=== PATIENT | female | born 1990 | race Caucasian/White ===

== ENCOUNTER → 2017-03-17 | Outpatient (CLI) | payer BC, MEDICAID ==
[~2017-03-17] MED LIST: AMOX500C PO; CELE10TA PO; IBUP800T23 PO; OMEP40CA2 PO; OXYC1TAB23 PO; PERC5TAB6 PO; PRENTAB9 PO
== END ==
LOC: M WUC 17:25
PROVIDERS: ATTEND Advanced Practice Midwife
DX: N91.2 Amenorrhea, unspecified (principal)

== ENCOUNTER → 2017-04-16 | Outpatient (CLI) | payer BC, MEDICAID ==
[2017-04-16 18:31] LABS: HBsAg Prenatal NEGATIVE (NEGATIVE)
[2017-04-16 18:32] LABS: BASO % 0.3 % (0.0-1.0); EOS # 0.1 K/mm3 (0.0-0.50); EOS % 0.9 % (0.0-3.0); HCG, SERUM QUANTITATIVE 44160 MIU/ML; LARGE UNSTAINED CELL # 0.1 K/mm3 (0.0-0.4); LYMPH # 2.3 K/mm3 (1.5-6.5); LYMPH % 16.1 % (24.0-44.0); MEAN CORPUSCULAR HEMOGLOBIN 28.8 pg (27.0-33.0); MEAN CORPUSCULAR VOLUME 87.2 fl (80.0-96.0); MONO # 0.6 K/mm3 (0.0-0.8); MONO % 4.8 % (0.0-5.0); NEUTROPHILS # 10.3 K/mm3 (1.8-7.7); NEUTROPHILS % 76.9 % (36.0-66.0); PLATELET COUNT, AUTOMATED 263 k/mm3 (150-450); RED CELL DISTRIBUTION WIDTH 13.9 % (11.5-14.5); WHITE BLOOD COUNT 13.4 K/mm3 (4.0-10.0)
== END ==
LOC: M SMT 13:33
PROVIDERS: ATTEND Obstetrics & Gynecology
DX: Z36 Encounter for antenatal screening of mother (principal); Z3A.00 Weeks of gestation of pregnancy not specified

== ENCOUNTER → 2017-07-09 | Outpatient (CLI) | payer OTHER, SELFPAY ==
[~2017-07-09] MED LIST changes: +IBUP1TAB7 PO; -IBUP800T23 PO; +PERC5TAB12 PO; -PERC5TAB6 PO
--- NOTE | 2017-07-09 17:33 | REP ---
Clinical: Anatomical evaluation. Comparison: None . Findings: Examination demonstrates a single live intrauterine in variable presentation. motion is identified by technologist. Placenta is noted posterior fundal and grade zero without evidence for placenta previa or abruption. Amniotic fluid volume is normal. Cervix measures 4.2 cm in length and appears closed. No evidence for nuchal cord. Gestational age by LMP 19 weeks 3 days with CALIN 11/30/2017 . Gestational age by current measurements 20 weeks 0 days with CALIN 11/26/2017 . FHR equals 150 beats per minute. BPD 4.7 cm 20 weeks 1 day HC 17.3 cm 19 weeks 6-day AC 15.3 cm 20 weeks 4 days FL 3.1 cm 19 weeks 5 days HL 3.0 20 weeks 0 days HC/AC ratio 1.13 Estimated weight 333 grams ( 73rd percentile). Anatomical assessment demonstrates normal structures including cranium, cavum, diaphragm, stomach, cord insertion/three-vessel cord, bladder, spine, and lower extremities. Limited evaluation of the cord plexus, posterior fossa, facial features, heart/ventricular outflow tracts, kidneys, spine and upper extremities due to positioning. Impression: 1. Single live intrauterine in variable presentation demonstrating appropriate interval growth. 2. Anatomical limitations as described above may warrant reevaluation and follow-up. Signed by Christopher Linares MD 07/09/2017 05:24 P
== END ==
LOC: M RAD 15:53
PROVIDERS: ATTEND Advanced Practice Midwife
DX: Z34.82 Encounter for supervision of other normal pregnancy, second trimester (principal)

== ENCOUNTER → 2017-09-09 | Outpatient (CLI) | payer MEDICAID ==
--- NOTE | 2017-09-09 14:20 | REP ---
OB ULTRASOUND: Real-time sonographic evaluation of the gravid uterus performed. There is a single living intrauterine gestation. Estimated gestational age 28 weeks 2 days, EDC 11/30/2017. Today's measurements indicate appropriate growth. BPD 72 mm = 29 weeks 0 days, 63rd percentile HC 268 mm = 29 weeks 2 days, 70th percentile AC 241 mm = 28 weeks 2 days, 51st percentile Femur length 55 mm = 29 weeks 0 days, 64th percentile HC/AC ratio 1.11 within normal range. Estimated weight 1265 grams, 51st percentile. Cervix is closed and measures 4.3 cm in length. heart rate 147 beats per minute. Amniotic fluid within normal limits, [place] 14.2 within normal range of 9.3-22.9. SEEN/GROSSLY UNREMARKABLE Lateral ventricles Yes Posterior fossa Yes Upper lip Yes Four-chamber heart Yes LVOT Yes RVOT Yes Stomach Yes Cord insertion Yes Three vessel cord Yes Kidneys Yes Bladder Yes Spine No position: Transverse with head toward the maternal right side. Placenta: Posterior and grade 0 with no previa or abruption. Amniotic fluid: Within normal limits. Signed by Jeff Castillo MD 09/09/2017 04:57 P
== END ==
LOC: M SMT 10:21
PROVIDERS: ATTEND Specialist
DX: Z34.82 Encounter for supervision of other normal pregnancy, second trimester (principal); Z3A.28 28 weeks gestation of pregnancy

== ENCOUNTER → 2017-09-30 | Outpatient (CLI) | payer MEDICAID ==
[2017-09-30 13:30] LABS: BASO % 0.2 % (0.0-1.0); EOS # 0.1 10^3/uL (0.0-0.50); EOS % 0.9 % (0.0-3.0); IMMATURE GRANULOCYTE % 0.3 % (0-0); LYMPH # 1.6 10^3/uL (1.5-6.5); LYMPH % 16.1 % (24.0-44.0); MEAN CORPUSCULAR HEMOGLOBIN 27.8 pg (27.0-33.0); MEAN CORPUSCULAR HGB CONC 31.9 g/dl (32.0-36.5); MEAN CORPUSCULAR VOLUME 87.2 fl (80.0-96.0); MONO # 0.6 10^3/uL (0.0-0.8); MONO % 5.6 % (0.0-5.0); NEUTROPHILS # 7.5 10^3/uL (1.8-7.7); NEUTROPHILS % 76.9 % (36.0-66.0); PLATELET COUNT, AUTOMATED 179 10^3/uL (150-450); RED CELL DISTRIBUTION WIDTH 12.3 % (11.5-14.5); WHITE BLOOD COUNT 9.8 10^3/uL (4.0-10.0)
== END ==
LOC: M SMT 09:46
PROVIDERS: ATTEND Advanced Practice Midwife
DX: Z36.89 Encounter for other specified antenatal screening (principal); Z3A.00 Weeks of gestation of pregnancy not specified

== ENCOUNTER 2017-11-23 07:08 | Inpatient (IN) | payer MEDICAID ==
[2017-11-23] MEDS: LR 1,000 ML IV ×4 (08:18→21:56)
[2017-11-23 08:34] LABS: HEMATOCRIT 36.5 % (36.0-47.0); HEMOGLOBIN 11.5 g/dl (12.0-16.0); MEAN CORPUSCULAR HEMOGLOBIN 26.7 pg (27.0-33.0); MEAN CORPUSCULAR HGB CONC 31.5 g/dl (32.0-36.5); MEAN CORPUSCULAR VOLUME 84.9 fl (80.0-96.0); PLATELET COUNT, AUTOMATED 200 10^3/uL (150-450); RED CELL DISTRIBUTION WIDTH 13.3 % (11.5-14.5); WHITE BLOOD COUNT 10.1 10^3/uL (4.0-10.0)
[2017-11-23 08:51] LABS: AMPHETAMINES URINE REFLEX NEGATIVE (NEGATIVE); BARBITURATES URINE REFLEX NEGATIVE (NEGATIVE); BENZODIAZEPINES URINE REFLEX NEGATIVE (NEGATIVE); COCAINE METABOLITE URINE REFLE NEGATIVE (NEGATIVE); METHADONE URINE REFLEX NEGATIVE (NEGATIVE); OPIATES URINE REFLEX NEGATIVE (NEGATIVE); PHENCYCLIDINE URINE REFLEX NEGATIVE (NEGATIVE)
[2017-11-23 08:56] LABS: CANNABINOIDS URINE REFLEX POSITIVE (NEGATIVE)
[2017-11-23] MEDS: PRENATAL VITAMINS CHEWABLE TABLET PO (09:00)
[2017-11-23] MEDS ORDERED: ONDANSETRON 4MG/2ML VIAL (J2405) As Ordered (09:37)
[2017-11-23] MEDS ORDERED: OXYTOCIN INJ 10 UNITS/ML VIAL (J2590) As Ordered (09:37)
[2017-11-23] MEDS ORDERED: MORPHINE PRES-FREE INJ 10 MG/10 ML VIAL (J2274) As Ordered (09:37)
[2017-11-23] MEDS: BICITRA 30ML SOLN UDC PO (10:00)
[2017-11-23] MEDS ORDERED: ONDANSETRON 4MG/2ML VIAL (J2405) IV ×3 (10:16→11:30)
[2017-11-23] MEDS ORDERED: NALBUPHINE HCL 10 MG/ML AMP (J2300) IV ×2 (10:16→11:30)
[2017-11-23] MEDS ORDERED: NALOXONE INJ 0.4 MG/1 ML VIAL (J2310) IV ×2 (10:16)
[2017-11-23] MEDS ORDERED: METOCLOPRAMIDE INJ 10MG/2ML VIAL (J2765) IV (10:16)
[2017-11-23] MEDS ORDERED: ePHEDrine INJ 50 MG/ML VIAL As Ordered (10:32)
[2017-11-23] MEDS ORDERED: PHENYLephrine HCL 500 MCG/5 ML (100MCG/ML) SYRINGE (J2370) As Ordered (10:32)
[2017-11-23] MEDS: OXYTOCIN DRIP 30 UNITS in APPROPRIATE DILUENT 1 EA IV (11:30)
[2017-11-23] MEDS ORDERED: fentaNYL 100 MCG/2 ML INJECTION (J3010) IV (11:30)
[2017-11-23] MEDS ORDERED: KETOROLAC 30 MG/ML VIAL (J1885) IV (11:30)
[2017-11-23] MEDS ORDERED: PERCOCET 5MG/325MG TAB PO (11:30)
[2017-11-23] MEDS: KETOROLAC 30 MG/ML VIAL (J1885) IV ×2 (13:38→19:19)
[2017-11-23] MEDS: PERCOCET 5MG/325MG TAB PO (22:11)
[2017-11-24] MEDS: KETOROLAC 30 MG/ML VIAL (J1885) IV ×2 (01:04→06:53)
[2017-11-24] MEDS: LR 1,000 ML IV (03:16)
[2017-11-24 06:39] LABS: HEMATOCRIT 28.3 % (36.0-47.0); MEAN CORPUSCULAR HGB CONC 31.4 g/dl (32.0-36.5); MEAN CORPUSCULAR VOLUME 85.8 fl (80.0-96.0); PLATELET COUNT, AUTOMATED 136 10^3/uL (150-450); RED CELL DISTRIBUTION WIDTH 13.4 % (11.5-14.5); WHITE BLOOD COUNT 11.1 10^3/uL (4.0-10.0)
[2017-11-24 06:47] LABS: HEMOGLOBIN 8.9 g/dl (12.0-16.0)
[2017-11-24] MEDS: PRENATAL VITAMINS CHEWABLE TABLET PO (09:21)
[2017-11-24] MEDS: PERCOCET 5MG/325MG TAB PO ×3 (09:22→20:25)
[2017-11-24] MEDS: IBUPROFEN 800 MG TAB PO ×2 (12:58→20:24)
[2017-11-24] MEDS: MEASLES,MUMPS,RUBELLA VACCINE INJ (MMR-II) (90707) SC (19:30)
[2017-11-24] MEDS: RHOGAM 300 MCG (1500 IU) INJ (J2790) IM (19:30)
[2017-11-24] MEDS: DOCUSATE SODIUM 100 MG CAP PO (20:23)
[2017-11-25] MEDS: IBUPROFEN 800 MG TAB PO (05:02)
[2017-11-25] MEDS: PRENATAL VITAMINS CHEWABLE TABLET PO (08:26)
[2017-11-25] MEDS: PERCOCET 5MG/325MG TAB PO (08:38)
[2017-11-26 00:06] LABS: Cannabinoid Positive (.); GC Carboxy THC 723 ng/mL (Cutoff=10)
== END 2017-11-25 11:50 | disposition home or self-care (01) | DRG 540 ==
LOC: M LDI 07:08 → M OBS 12:52
PROC: 10D00Z1 Extraction of Products of Conception, Low, Open Approach (ICD-10-PCS; principal; 2017-11-23 09:30)
DX: O34.211 Maternal care for low transverse scar from previous cesarean delivery (principal); Z3A.39 39 weeks gestation of pregnancy; Z37.0 Single live birth

== ENCOUNTER 2018-02-16 08:11 | Day surgery (SDC) | payer SELFPAY ==
[2018-02-16] MEDS ORDERED: LIDOCAINE 1% MDV 20ML VIAL SQ (08:30)
[2018-02-16 08:46] LABS: HEMATOCRIT 38.7 % (36.0-47.0); HEMOGLOBIN 12.3 g/dl (12.0-15.5); MEAN CORPUSCULAR HEMOGLOBIN 26.2 pg (27.0-33.0); MEAN CORPUSCULAR HGB CONC 31.8 g/dl (32.0-36.5); MEAN CORPUSCULAR VOLUME 82.5 fl (80.0-96.0); PLATELET COUNT, AUTOMATED 265 10^3/uL (150-450); RED BLOOD COUNT 4.69 10^6/uL (4.00-5.40); RED CELL DISTRIBUTION WIDTH 14.5 % (11.5-14.5); WHITE BLOOD COUNT 7.3 10^3/uL (4.0-10.0)
[2018-02-16] MEDS ORDERED: MIDAZOLAM INJ 2 MG/2 ML VIAL (J2250) As Ordered (08:50)
[2018-02-16] MEDS ORDERED: LIDOCAINE 2% INJ 100 MG/5 ML SDV (FOR ANES.) As Ordered (08:51)
[2018-02-16] MEDS ORDERED: PROPOFOL 200 MG/20 ML VIAL As Ordered (08:51)
[2018-02-16] MEDS ORDERED: fentaNYL 100 MCG/2 ML INJECTION (J3010) As Ordered ×2 (08:51→11:16)
[2018-02-16] MEDS ORDERED: SUCCINYLCHOLINE 100 MG/5 ML SYRINGE (J0330) As Ordered (08:52)
[2018-02-16] MEDS ORDERED: ROCURONIUM BROMIDE 50 MG/5 ML VIAL As Ordered (08:52)
[2018-02-16] MEDS ORDERED: dexameTHASONE 4 MG/ML 1ML VIAL (J1100) As Ordered (08:57)
[2018-02-16] MEDS ORDERED: ONDANSETRON 4MG/2ML VIAL (J2405) As Ordered ×2 (08:57→11:05)
[2018-02-16 09:06] LABS: CONTROL LINE UCG INT CTR LINE PRESENT; URINE PREG TEST NEGATIVE (NEGATIVE)
[2018-02-16] MEDS: LR 1,000 ML IV (09:11)
[2018-02-16] MEDS: BUPIVACAINE HCL 0.25% 30 ML VIAL As Ordered (09:38)
[2018-02-16] MEDS ORDERED: SCOPOLAMINE 1MG TRANSDERMAL PATCH As Ordered (09:45)
[2018-02-16] MEDS ORDERED: METOCLOPRAMIDE INJ 10MG/2ML VIAL (J2765) As Ordered (10:13)
[2018-02-16] MEDS ORDERED: NEOSTIGMINE 10 MG/10 ML VIAL (J2710) As Ordered (10:33)
[2018-02-16] MEDS ORDERED: GLYCOPYRROLATE INJ 0.2 MG/ML 2 ML VIAL As Ordered (10:33)
[2018-02-16] MEDS ORDERED: KETOROLAC 60 MG/2 ML VIAL (J1885) As Ordered (10:33)
[2018-02-16] MEDS ORDERED: MEPERIDINE INJ 25 MG/ML VIAL (J2175) As Ordered (11:11)
[2018-02-16] MEDS: ONDANSETRON 4MG/2ML VIAL (J2405) IV (11:13)
[2018-02-16] MEDS: MEPERIDINE INJ 25 MG/ML VIAL (J2175) IV ×2 (11:19→11:24)
[2018-02-16] MEDS: fentaNYL 100 MCG/2 ML INJECTION (J3010) IV ×2 (11:27→11:32)
[2018-02-16] MEDS ORDERED: LR 1,000 ML IV ×2 (11:30)
[2018-02-16] MEDS ORDERED: PERCOCET 5MG/325MG TAB PO ×2 (11:30→11:45)
[2018-02-16] MEDS ORDERED: HYDROmorphone HCL 1 MG/ML SYRINGE (J1170) IV (11:30)
[2018-02-16] MEDS: PERCOCET 5MG/325MG TAB PO (12:05)
[2018-02-16] MEDS ORDERED: MORPHINE 4 MG/ML 1ML VIAL/SYRINGE (J2270) As Ordered (12:22)
[2018-02-16] MEDS: MORPHINE 4 MG/ML 1ML VIAL/SYRINGE (J2270) IV (12:28)
[2018-02-16] MEDS ORDERED: diphenhydrAMINE INJ 50MG/ML VIAL (J1200) As Ordered (12:37)
[2018-02-16] MEDS ORDERED: diphenhydrAMINE INJ 50MG/ML VIAL (J1200) IV (13:00)
== END 2018-02-16 14:32 | disposition home or self-care (01) ==
LOC: M SDC 08:11
DX: Z30.2 Encounter for sterilization (principal); K21.9 Gastro-esophageal reflux disease without esophagitis; F41.9 Anxiety disorder, unspecified; Z88.0 Allergy status to penicillin; Z79.899 Other long term (current) drug therapy; F17.210 Nicotine dependence, cigarettes, uncomplicated
CPT/HCPCS: 58671

== ENCOUNTER 2019-04-18 09:22 | Emergency (ER) | payer OTHER, SELFPAY ==
[~2019-04-18] VITALS: Ht 162.6 cm; Wt 92.7 kg
[~2019-04-18 09:22] MED LIST changes: +IBUP-1114 PO
[2019-04-18] MEDS ORDERED: NS 1,000 ML IV ONE (10:45)
[2019-04-18] MEDS ORDERED: ONDANSETRON 4MG/2ML VIAL (J2405) IV ONE (10:45)
[2019-04-18 11:04] LABS: BASO % 0.1 % (0.0-1.0); HEMATOCRIT 42.7 % (36.0-47.0); HEMOGLOBIN 13.6 g/dl (12.0-15.5); LYMPH # 1.5 10^3/uL (1.5-6.5); LYMPH % 9.4 % (24.0-44.0); MEAN CORPUSCULAR HEMOGLOBIN 26.9 pg (27.0-33.0); MEAN CORPUSCULAR HGB CONC 31.9 g/dl (32.0-36.5); MEAN CORPUSCULAR VOLUME 84.6 fl (80.0-96.0); MONO # 0.9 10^3/uL (0.0-0.8); MONO % 5.5 % (0.0-5.0); NEUTROPHILS # 13.4 10^3/uL (1.8-7.7); NEUTROPHILS % 84.6 % (36.0-66.0); PLATELET COUNT, AUTOMATED 288 10^3/uL (150-450); RED BLOOD COUNT 5.05 10^6/uL (4.00-5.40); WHITE BLOOD COUNT 15.9 10^3/uL (4.0-10.0)
[2019-04-18 11:31] LABS: ALT/SGPT 19 U/L (12-78); BILIRUBIN,DIRECT 0.1 MG/DL (0.0-0.2); BILIRUBIN,TOTAL 0.4 MG/DL (0.2-1.0); BLOOD UREA NITROGEN 18 MG/DL (7-18); CALCIUM LEVEL 9.5 MG/DL (8.5-10.1); CARBON DIOXIDE LEVEL 28 MEQ/L (21-32); CHLORIDE LEVEL 107 MEQ/L (98-107); CREATININE FOR GFR 0.66 MG/DL (0.55-1.30); GLOMERULAR FILTRATION RATE > 60.0 (>60); GLUCOSE, FASTING 104 MG/DL (70-100); LIPASE 56 U/L (73-393); POTASSIUM SERUM 3.7 MEQ/L (3.5-5.1); SODIUM LEVEL 141 MEQ/L (136-145); TOTAL PROTEIN 7.7 GM/DL (6.4-8.2)
[2019-04-18] MEDS ORDERED: METOCLOPRAMIDE INJ 10MG/2ML VIAL (J2765) IV ONE (12:30)
[2019-04-18] MEDS ORDERED: KETOROLAC 30 MG/ML VIAL (J1885) IV ONE (12:30)
[2019-04-18] MEDS ORDERED: OMEPRAZOLE 20 MG CAP PO ONE (12:30)
[2019-04-18 14:02] VITALS: BP 140/82
--- NOTE | 2019-04-18 15:43 | ECGEPIP ---
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
== END 2019-04-18 15:13 | disposition left against medical advice (07) ==
LOC: M ED 09:22
DX: R10.84 Generalized abdominal pain (principal); R11.2 Nausea with vomiting, unspecified; D72.829 Elevated white blood cell count, unspecified; Z79.899 Other long term (current) drug therapy; Z88.0 Allergy status to penicillin; Z88.8 Allergy status to other drugs, medicaments and biological substances; F17.210 Nicotine dependence, cigarettes, uncomplicated
CPT/HCPCS: 80048; 80076; 81001; 83690; 85025; 93005; 96361; 96374; 96375; 99284; J1885; J2405; J2765

== ENCOUNTER 2020-04-03 00:47 | Day surgery (SDC) | payer OTHER ==
[2020-04-03] VITALS (8 sets, daily range): BP systolic 122–142; BP diastolic 62–94
[~2020-04-03 00:47] MED LIST changes: +KETOROLAC 30 MG/ML 1ML VIAL IV PRN; -OMEP40CA2 PO; +OMEP40CA97 PO
[2020-04-03] MEDS: LR 1,000 ML IV SCH ×4 (00:57→22:59)
[2020-04-03] MEDS ORDERED: CITA40TA4 PO (01:27)
[2020-04-03] MEDS ORDERED: CALCIUM CARBONATE 500 MG CHEW U/D PO PRN (02:30)
[2020-04-03] MEDS ORDERED: ONDANSETRON 4MG/2ML VIAL IV PRN ×2 (02:30→20:15)
[2020-04-03] MEDS ORDERED: FAMOTIDINE IV BAG 20 MG in IV 1 EA IV ONE (03:00)
[2020-04-03] MEDS: PIPERACILLIN/TAZOBACTAM SOD 3.375 GM in D5W MINI-BAG PLUS 50 ML IV SCH ×3 (04:23→15:06)
[2020-04-03] MEDS: ONDANSETRON 4MG/2ML VIAL IV PRN ×3 (04:25→23:40)
--- NOTE | 2020-04-03 06:00 | HPE ---
DATE OF ADMISSION: 04/03/2020 REASON FOR ADMISSION: Abdominal pain with gallstones, possible acute cholecystitis. HISTORY OF PRESENT ILLNESS: The patient is a pleasant 29-year-old woman who was transferred to my care from the [facility] Emergency Department. The patient reports that she has had for perhaps several years intermittent episodes of abdominal discomfort with some loose stool and vomiting. She reports that this happens perhaps every 3 months or so, although she did have an episode about 2 weeks ago. Her most recent episode started about 2 days ago. She reports that she awakened in the morning and had an urge to have a bowel movement. Had some loose stool and then also noted some epigastric pain shortly thereafter and then developed vomiting, which persisted and she was unable to keep anything down. She has not had any hematemesis, melena, or hematochezia. She has a long history of gastroesophageal reflux and reports that she has this persistent taste of stomach acid in her mouth. When she was seen at [place] about 2 weeks ago, she reportedly had a CT scan that I do not have a report for. There is a note in the transfer record that said the CT scan was negative at that time. During her hospital stay at [place] on the night of the , she was found to have a slight elevation of her white blood cell count to 15,600 with a left shift with 85% neutrophils. Her liver function tests were normal. She had a gallbladder ultrasound that showed multiple gallstones within the gallbladder. The gallbladder was not noted to have a thickened wall, but the orthodontic technician did report that there was tenderness on scanning over the gallbladder. I was contacted by the PA in the emergency department at [place] [facility], and I accepted the patient in transfer for consideration of cholecystectomy. ALLERGIES: Reported in the record to AMOXICILLIN and CLAVULANIC ACID. CURRENT HOME MEDICATIONS: Include only omeprazole 40 mg twice daily and citalopram 40 mg by mouth daily. SURGICAL HISTORY: Significant for removal of her tonsils and adenoids. She has had two sections. She has had surgery for ovarian cysts and has had a tubal ligation. MEDICAL HISTORY: Significant for her recurring episodes of abdominal discomfort and vomiting. She has a history of some anxiety and depression. She has reflux, which has been going on for at least since she was 16. She reports she did have some studies done back when she was a teenager but has not had any recent reevaluation. She does report smoking a couple of cigarettes per day and does use some marijuana. She denies excessive alcohol intake. FAMILY HISTORY: Reveals that her mother and grandmother both have had cholecystectomies for gallstones. REVIEW OF SYSTEMS: The patient denies any chest pain, palpitation, shortness of breath, wheezing, or cough. She has had no melena or hematochezia. Between episodes she feels fine, other than her reflux that is. She denies any dysuria, hematuria, or renal stones. She has no bone or joint issues. She denies any history of deep vein thrombosis (DVT) or pulmonary embolus. PHYSICAL EXAMINATION: The patient is lying quietly in the hospital bed. She does tend to curl up or hold her stomach. She is alert and oriented and seems knowledgeable about her medical history. She is noted to be moderately obese. Skin is warm and dry. Sclerae are anicteric. The neck is supple without mass or bruit. Heart exam shows a regular rhythm at about 60. The lungs are clear to auscultation bilaterally. Abdomen is moderately obese. She does have some bowel sounds present. There is no evident hernia. She does have an old low transverse scar from her sections. There is no tenderness to percussion and no tympany to percussion. On palpation, there is some mild to moderate direct tenderness in the epigastrium slightly to the right of the midline and underneath the medial aspect of the costal margin. No masses appreciated. The extremities are without edema, and she has palpable radial and pedal pulses. Laboratory studies from [place] included a CBC that shows a white count of 16, hemoglobin 14, hematocrit 43, and platelet count 239,000. Differential count shows 85% neutrophils, 9% lymphocytes, and 6% monocytes. Chemistry profile shows normal electrolytes, BUN and creatinine, with a glucose of 95. Total protein is 7.2 with an albumin of 4.6. The liver function tests are normal. Lipase is normal. Urinalysis is normal. Lactic acid is 2.1, which is the top end of the normal range for the lab where this was done. She had an hCG that was negative. She had a gallbladder ultrasound obtained, and I was provided images on a disk and a copy of the report. The images on my review clearly show multiple stones within the gallbladder. The gallbladder wall does not appear definitely thickened. The radiologist reported that based on the report of a sonographic Rodríguez's sign, that the findings were felt to be suspicious for acute cholecystitis. IMPRESSION: The patient is having intermittent episodes of abdominal discomfort with associated vomiting. She has definite gallstones, and on ultrasound today she had some tenderness with scanning of the gallbladder. She does have some mild to moderate direct tenderness in the medial aspect of the right subcostal area still. Her white count was slightly elevated. With all these factors, I think it is quite possible that this represents some mild or early acute cholecystitis. PLAN: The patient will be continued on the Zosyn for antibiotic coverage. She is tentatively scheduled for a laparoscopic cholecystectomy later today, that is April 03. She will have repeat laboratory studies in the morning. At her request, I will let her have a few ice chips to suck on to wet her whistle. Because she is still complaining of some heartburn despite having received Protonix earlier at [place], I will give her a dose of Pepcid and offer her some Tums if she wishes. We will see how she feels in the morning and how her followup labs look. MIKEY
[2020-04-03 08:21] LABS: BASO % 0.2 % (0.0-1.0); EOS % 0.1 % (0.0-3.0); HEMATOCRIT 43.9 % (36.0-47.0); HEMOGLOBIN 14.1 g/dl (12.0-15.5); LYMPH # 1.6 10^3/uL (1.5-5.0); LYMPH % 12.9 % (24.0-44.0); MEAN CORPUSCULAR HEMOGLOBIN 28.5 pg (27.0-33.0); MEAN CORPUSCULAR HGB CONC 32.1 g/dl (32.0-36.5); MEAN CORPUSCULAR VOLUME 88.7 fl (80.0-96.0); MONO # 0.7 10^3/uL (0.0-0.8); MONO % 5.5 % (0.0-5.0); NEUTROPHILS # 10.2 10^3/uL (1.5-8.5); NEUTROPHILS % 80.8 % (36.0-66.0); PLATELET COUNT, AUTOMATED 244 10^3/uL (150-450); RED BLOOD COUNT 4.95 10^6/uL (4.00-5.40); WHITE BLOOD COUNT 12.6 10^3/uL (4.0-10.0)
[2020-04-03 08:51] LABS: ALBUMIN 3.7 GM/DL (3.2-5.2); ALT/SGPT 32 U/L (12-78); BILIRUBIN,TOTAL 0.5 MG/DL (0.2-1.0); BLOOD UREA NITROGEN 11 MG/DL (7-18); CALCIUM LEVEL 8.7 MG/DL (8.5-10.1); CARBON DIOXIDE LEVEL 28 MEQ/L (21-32); CHLORIDE LEVEL 106 MEQ/L (98-107); CREATININE FOR GFR 0.63 MG/DL (0.55-1.30); GLOMERULAR FILTRATION RATE > 60.0 (>60); GLUCOSE, FASTING 101 MG/DL (70-100); POTASSIUM SERUM 4.4 MEQ/L (3.5-5.1); SODIUM LEVEL 140 MEQ/L (136-145); TOTAL PROTEIN 7.3 GM/DL (6.4-8.2)
[2020-04-03] MEDS ORDERED: PANTOPRAZOLE 40MG VIAL (C9113 PER 1) IV SCH (09:00)
[2020-04-03] MEDS: MORPHINE 2 MG/ML 1ML VIAL (J2270) IV PRN (12:20)
--- NOTE | 2020-04-03 15:03 | IPN ---
DATE: 04/03/2020 HISTORY: The patient was admitted last evening as a transfer from [facility], where she presented with 1-1/2 to 2-day history of upper abdominal pain with nausea and vomiting. She had an elevated white blood cell count and was found to have gallstones by ultrasound. Her history was felt to be consistent with acute cholecystitis, and she was started on antibiotics and admitted. She is tentatively scheduled for a laparoscopic cholecystectomy later today. The patient reports that she has continued to have epigastric pain, which she demonstrates by making a fist and holding it over her epigastrium. Vital signs show that her temperature was a maximum of 99.8 at approximately 1 o'clock in the morning. Her pulse has been in the 50s and her blood pressure is good. Intake and output shows that she has had at least one void since admission. PHYSICAL EXAMINATION: The patient is lying on her stomach, as she says it is the only position that seems to improve the pressure in her epigastrium. She is alert and oriented. Her abdomen is soft, but she does have tenderness in the medial aspect of the right subcostal area. Laboratory studies this morning show that her white count remains 13 with 81% neutrophils. Her chemistry profile is normal with the exception of a minimal elevation of the glucose to 101. Liver function tests are normal. IMPRESSION: The patient now is describing discomfort in the epigastrium that sounds very typical for acute cholecystitis. Her white count remains slightly elevated. I counseled her that I would recommend proceeding with a laparoscopic cholecystectomy, and she is agreeable. PLAN: The patient will be having an urgent laparoscopic cholecystectomy later this afternoon. MIKEY
[2020-04-03] MEDS ORDERED: BUPIVACAINE HCL 0.25% 30ML VIAL As Ordered ONE (17:06)
[2020-04-03] MEDS ORDERED: KETOROLAC 60MG 2ML VIAL As Ordered ONE (18:27)
[2020-04-03] MEDS ORDERED: ROCURONIUM BROMIDE 50 MG/5 ML VIAL As Ordered ONE ×2 (18:27→18:50)
[2020-04-03] MEDS ORDERED: ONDANSETRON 4MG/2ML VIAL As Ordered ONE (18:27)
[2020-04-03] MEDS ORDERED: ACETAMINOPHEN 1000MG 100ML IV BTL (OFIRMEV) (J0131 PER 10MG) As Ordered ONE (18:27)
[2020-04-03] MEDS ORDERED: LIDOCAINE 2% 100MG/5ML SDV (FOR ANES.) As Ordered ONE (18:27)
[2020-04-03] MEDS ORDERED: propofoL 200 MG/20 ML VIAL As Ordered ONE (18:27)
[2020-04-03] MEDS ORDERED: SUGAMMADEX SODIUM 500 MG/5 ML VIAL (BRIDION) As Ordered ONE (18:27)
[2020-04-03] MEDS ORDERED: dexameTHASONE 4 MG/ML 1ML VIAL (J1100 PER 1MG) As Ordered ONE (18:27)
[2020-04-03] MEDS ORDERED: fentaNYL 250 MCG/5 ML INJECTION (J3010) As Ordered ONE (18:27)
[2020-04-03] MEDS ORDERED: MIDAZOLAM INJ 2MG/2ML VIAL (J2250 PER 1MG) As Ordered ONE (18:27)
[2020-04-03] MEDS ORDERED: HYDROmorphone HCL 2 MG/ML 1ML VIAL (J1170) As Ordered ONE (18:55)
[2020-04-03] MEDS ORDERED: LABETALOL 100MG/20ML VIAL As Ordered ONE (19:28)
[2020-04-03] MEDS ORDERED: fentaNYL 100 MCG/2 ML INJECTION (J3010) As Ordered ONE (20:14)
[2020-04-03] MEDS ORDERED: oxyCODONE 5MG TAB As Ordered ONE (20:14)
[2020-04-03] MEDS ORDERED: LR 1,000 ML IV SCH (20:15)
[2020-04-03] MEDS ORDERED: ACETAMINOPHEN TAB 650MG DOSE (2X325MG) PO PRN (20:15)
[2020-04-03] MEDS ORDERED: oxyCODONE 5MG TAB PO PRN (20:15)
[2020-04-03] MEDS ORDERED: fentaNYL 100 MCG/2 ML INJECTION (J3010) IV PRN (20:15)
[2020-04-03] MEDS: OMEPRAZOLE 20 MG CAP PO SCH (21:41)
[2020-04-04 00:30] VITALS: BP 144/96
[2020-04-04 01:30] VITALS: BP 146/87
[2020-04-04] MEDS: MORPHINE 2 MG/ML 1ML VIAL (J2270) IV PRN (01:42)
[2020-04-04] MEDS: NORCO, ANEXSIA 5/325MG TABLET (HYDROcodone/ACETAMINOPHEN) PO PRN ×2 (02:15→08:27)
[2020-04-04 06:00] VITALS: BP 145/88
[2020-04-04] MEDS: LR 1,000 ML IV SCH (06:45)
[2020-04-04] MEDS: OMEPRAZOLE 20 MG CAP PO SCH (08:27)
[2020-04-04] MEDS ORDERED: CitaloPRAM (CeleXA) 20 MG TAB PO SCH (09:00)
[2020-04-04 10:00] VITALS: BP 140/81
[2020-04-04] MEDS ORDERED: HYDR-3715 PO (10:07)
--- NOTE | 2020-04-04 16:31 | IPN ---
DATE: 04/04/2020 HISTORY: The patient is now postoperative day #1 from a laparoscopic cholecystectomy. At surgery, her gallbladder did not appear acutely inflamed but was quite distended and firm with multiple stones. When aspirated, there was dark, very thick bile returned. I do think her symptoms were related to her gallbladder, though her gallbladder did not have the typical appearance of acute cholecystitis. Vital signs show that she has been afebrile since surgery. Her pulse in the 50s and her blood pressure is good. Intake and output show that she has been taking liquids very well with 1200 recorded in so far. Interestingly, her intravenous (IV) has not been saline locked, though there is an order to do so. PHYSICAL EXAMINATION: The patient reports some soreness only. She has no nausea or vomiting. She has been tolerating liquids well and voiding without difficulty. Physical exam shows that the abdomen remains obese. Her dressings are clean and dry. She has bowel sounds present. The abdomen is without any undue tenderness. IMPRESSION: The patient is doing very well, now postoperative day #1 from her laparoscopic cholecystectomy. PLAN: The patient will be discharged today. She has taken one or two [place] tablets and one dose of morphine postoperatively. We discussed pain management, and she will try to get by with Tylenol or ibuprofen. I will send in a prescription for 10 Vicodin tablets that she can have available if she needs them. She was counseled that she should probably avoid highly greasy foods for the first while, while she sees how her system will tolerate these. She was advised to avoid any strenuous activity or heavy lifting for the first 2 weeks. She can shower 24 hours after surgery and take a bath 5 days after. I have asked her to schedule an appointment in approximately 10 days for followup in the office. She should call the office if she notes any problems with fevers or chills, increasing abdominal pain, or evidence of an infection. She had an opportunity to ask questions, and these were answered to the best of my ability.
--- NOTE | 2020-04-09 13:26 | RO ---
DATE OF PROCEDURE: 04/03/2020 PREOPERATIVE DIAGNOSIS: Cholelithiasis with acute cholecystitis. POSTOPERATIVE DIAGNOSIS: Cholelithiasis with acute cholecystitis. PROCEDURE: Laparoscopic cholecystectomy. SURGEON: Dr. Uri Spencer POST DOCTORAL FELLOW: ANESTHESIA: General. INDICATIONS FOR PROCEDURE: The patient is a 29-year-old woman who presented to the [facility] emergency department with a day and half history of epigastric abdominal pain with nausea and vomiting. She was found to have tenderness in the epigastrium with a mildly to moderately elevated white blood cell count. An ultrasound showed multiple gallstones. She was felt to have acute cholecystitis and was transferred to my care. She is now for a laparoscopic cholecystectomy. OPERATIVE PROCEDURE: The patient was brought to the operating room and placed on the table in a supine position. She was placed under general endotracheal anesthesia. The patient's abdomen was prepped and draped in a sterile fashion. 0.25% Marcaine was infiltrated at the trocar sites as needed. A short supraumbilical midline incision was made and deepened through the subcutaneous tissues to the fascia. A Veress needle was inserted and after a positive hanging drop test the abdomen was inflated with carbon dioxide gas. When the abdomen was inflated, the Veress needle was removed. The fascia was scored along the midline and an 11 mm port was placed over a 5 mm scope and advanced through the abdominal wall without difficulty. Initial examination showed a normal appearing liver. There was abundant omental fat. A portion of the stomach was seen and appeared normal. The gallbladder was not visible. A 5 mm port was placed in the left upper quadrant and two 5 mm ports were placed in the right upper quadrant. The patient was tilted to a reverse Trendelenburg position and rolled slightly to the left. Graspers were inserted. The edge of the liver was elevated and a distended gallbladder was identified. It was impossible to grasp this securely so the gallbladder was aspirated with an aspirating needle. This yielded a large amount of very thick, dark bile. The gallbladder did not appear particularly thick walled or inflamed. The gallbladder was elevated. A few adhesions to the gallbladder were lysed with the cautery. Dissection then began at the gallbladder neck. There did appear to be some mild inflammation around the gallbladder neck. The cystic duct was dissected free from surrounding structures and was doubly clipped with hemoclips and divided. The cholecystic artery was then identified and this was also doubly clipped and divided. The gallbladder was then dissected free from the gallbladder bed using cautery dissection. The gallbladder was not perforated in the course of dissection. A second branch of the cholecystic artery was identified lying in bed of the gallbladder and this had been cauterized, but I elected to place a clip on this as well. The gallbladder was placed in an Endopouch. The right upper quadrant was irrigated and inspected and there was no evidence of bleeding or bile leak. The patient was returned to a flat position. The abdomen was deflated and the trocars were removed. The gallbladder was delivered through the supraumbilical site. It was necessary to extend the fascial incision slightly to accomplish this. There were multiple stones palpable within the gallbladder. This was sent for permanent pathology. The fascia was then exposed and the opening was closed with interrupted simple sutures of #2-0 Vicryl. The subcutaneous tissues were approximated with a single #2-0 Vicryl and the skin incisions were then all closed with buried #4-0 Vicryl and Steri-Strips. Light dressings were applied. The patient tolerated the procedure well without apparent complication. The patient was awakened in the operating room, extubated and moved to the recovery room in stable condition.
== END 2020-04-04 11:55 | disposition home or self-care (01) ==
LOC: M SDC 00:47 → M MS5PR 00:48 → M SDC 04-04 11:55
PROVIDERS: ATTEND Surgery
DX: K80.10 Calculus of gallbladder with chronic cholecystitis without obstruction (principal); F17.218 Nicotine dependence, cigarettes, with other nicotine-induced disorders; Z88.0 Allergy status to penicillin; Z88.8 Allergy status to other drugs, medicaments and biological substances
CPT/HCPCS: 36415; 47562; 80053; 85025; 87486; 87581; 87633; 87798; 88304; 96361; 96365; 96366; 96367; 96375; 96376; C9113; J0131; J1100; J1170; J1885; J2250; J2270; J2405; J2543; J3010

== ENCOUNTER 2020-04-08 11:13 | Emergency (ER) | payer OTHER ==
[~2020-04-08] VITALS: Ht 162.6 cm; Wt 100.1 kg
[~2020-04-08 11:13] MED LIST changes: +CITA40TA4 PO; +HYDR-3715 PO; -KETOROLAC 30 MG/ML 1ML VIAL IV PRN
[2020-04-08 11:45] LABS: BASO % 0.2 % (0.0-1.0); EOS # 0.1 10^3/uL (0.0-0.5); EOS % 0.5 % (0.0-3.0); HEMATOCRIT 42.5 % (36.0-47.0); HEMOGLOBIN 13.4 g/dl (12.0-15.5); LYMPH % 9.4 % (24.0-44.0); MEAN CORPUSCULAR HEMOGLOBIN 28.3 pg (27.0-33.0); MEAN CORPUSCULAR HGB CONC 31.5 g/dl (32.0-36.5); MEAN CORPUSCULAR VOLUME 89.7 fl (80.0-96.0); MONO # 0.3 10^3/uL (0.0-0.8); NEUTROPHILS # 9.5 10^3/uL (1.5-8.5); NEUTROPHILS % 86.5 % (36.0-66.0); PLATELET COUNT, AUTOMATED 236 10^3/uL (150-450); RED BLOOD COUNT 4.74 10^6/uL (4.00-5.40); WHITE BLOOD COUNT 10.9 10^3/uL (4.0-10.0)
[2020-04-08] MEDS ORDERED: NS 1,000 ML IV ONE (12:00)
[2020-04-08] MEDS ORDERED: ONDANSETRON 4MG/2ML VIAL IV ONE (12:00)
[2020-04-08 12:09] LABS: ALBUMIN 3.6 GM/DL (3.2-5.2); ALT/SGPT 31 U/L (12-78); BILIRUBIN,DIRECT 0.1 MG/DL (0.0-0.2); BILIRUBIN,TOTAL 0.2 MG/DL (0.2-1.0); BLOOD UREA NITROGEN 17 MG/DL (7-18); CARBON DIOXIDE LEVEL 30 MEQ/L (21-32); CHLORIDE LEVEL 106 MEQ/L (98-107); CREATININE FOR GFR 0.61 MG/DL (0.55-1.30); GLOMERULAR FILTRATION RATE > 60.0 (>60); GLUCOSE, FASTING 135 MG/DL (70-100); LIPASE 157 U/L (73-393); POTASSIUM SERUM 4.3 MEQ/L (3.5-5.1); SODIUM LEVEL 140 MEQ/L (136-145); TOTAL PROTEIN 6.9 GM/DL (6.4-8.2)
[2020-04-08] MEDS ORDERED: KETOROLAC 30 MG/ML 1ML VIAL IV ONE (12:15)
[2020-04-08 12:18] LABS: HCG, SERUM QUALITATIVE NEGATIVE (NEGATIVE)
[2020-04-08] MEDS ORDERED: ISOVUE-370 76% 100ML VIAL As Ordered ONE (13:13)
[2020-04-08] MEDS ORDERED: HALOPERIDOL 5MG/ML VIAL (J1630 PER 1) IV ONE (14:00)
--- NOTE | 2020-04-08 14:10 | REP ---
Clinical: Acute abdominal pain. Recent cholecystectomy. Technique: Axial contrast enhanced images from the lung bases to the pubic symphysis with coronal and sagittal re-formations using 100 ml Isovue 370 intravenous contrast material. Comparison: None. Findings: Lung bases are clear. Visualized heart and pericardium normal. Liver, pancreas, bilateral adrenal glands and kidneys are normal. Spleen includes few scattered hypodensities measuring up to 2 cm and compatible with benign cysts. Evidence of prior cholecystectomy, and no perihepatic fluid or inflammatory stranding is appreciated. The enteric system is without obstruction or acute inflammatory process normal terminal ileum and appendix are identified in the right lower quadrant. Pelvis demonstrates normal bladder and age-appropriate uterus/adnexa. No ascites. No free air. No adenopathy. Abdominal aorta and vasculature without aneurysm or dissection. Musculoskeletal structures are intact. Impression: 1. Evidence of prior cholecystectomy without abnormal fluid collection, perihepatic fluid or stranding, and no evidence for intrahepatic biliary dilatation. 2. Few small splenic hypodensities up to 2 cm most compatible with benign cysts. 3. No acute abdominopelvic pathology appreciated. Electronically Signed by Christopher Linares MD 04/08/2020 02:02 P
[2020-04-08 14:13] LABS: AMPHETAMINES LEVEL URINE NEGATIVE (NEGATIVE); BARBITURATES URINE NEGATIVE (NEGATIVE); BENZODIAZEPINES URINE NEGATIVE (NEGATIVE); CANNABINOIDS URINE POSITIVE (NEGATIVE); COCAINE METABOLITE URINE NEGATIVE (NEGATIVE); METHADONE URINE NEGATIVE (NEGATIVE); OPIATES URINE NEGATIVE (NEGATIVE); PHENCYCLIDINE URINE NEGATIVE (NEGATIVE)
[2020-04-08 14:31] VITALS: BP 166/90
== END 2020-04-08 14:45 | disposition home or self-care (01) ==
LOC: M ED 11:13
DX: R10.9 Unspecified abdominal pain (principal); G43.A0 Cyclical vomiting, in migraine, not intractable; F41.9 Anxiety disorder, unspecified; K21.9 Gastro-esophageal reflux disease without esophagitis; Z79.899 Other long term (current) drug therapy; Z88.0 Allergy status to penicillin; Z88.8 Allergy status to other drugs, medicaments and biological substances; F17.210 Nicotine dependence, cigarettes, uncomplicated
CPT/HCPCS: 74177; 80048; 80076; 80307; 81001; 83690; 84703; 85025; 96361; 96374; 96375; 99284; J1630; J1885; J2405; Q9967

== ENCOUNTER 2020-04-15 01:30 | Emergency (ER) | payer OTHER ==
[~2020-04-15] VITALS: Ht 162.6 cm; Wt 100.0 kg
[2020-04-15 02:39] LABS: HEMATOCRIT 40.3 % (36.0-47.0); HEMOGLOBIN 12.6 g/dl (12.0-15.5); MEAN CORPUSCULAR HEMOGLOBIN 28.2 pg (27.0-33.0); MEAN CORPUSCULAR HGB CONC 31.3 g/dl (32.0-36.5); MEAN CORPUSCULAR VOLUME 90.2 fl (80.0-96.0); PLATELET COUNT, AUTOMATED 239 10^3/uL (150-450); RED BLOOD COUNT 4.47 10^6/uL (4.00-5.40); WHITE BLOOD COUNT 10.7 10^3/uL (4.0-10.0)
[2020-04-15 03:02] LABS: HCG, SERUM QUALITATIVE NEGATIVE (NEGATIVE)
[2020-04-15 03:13] LABS: AMPHETAMINES LEVEL URINE NEGATIVE (NEGATIVE); BARBITURATES URINE NEGATIVE (NEGATIVE); BENZODIAZEPINES URINE NEGATIVE (NEGATIVE); CANNABINOIDS URINE POSITIVE (NEGATIVE); COCAINE METABOLITE URINE NEGATIVE (NEGATIVE); METHADONE URINE NEGATIVE (NEGATIVE); OPIATES URINE NEGATIVE (NEGATIVE); PHENCYCLIDINE URINE NEGATIVE (NEGATIVE)
[2020-04-15 03:23] LABS: ACETAMINOPHEN LEVEL < 2.0 UG/ML (10.0-30.0); ALBUMIN 3.3 GM/DL (3.2-5.2); ALT/SGPT 28 U/L (12-78); BILIRUBIN,DIRECT < 0.1 MG/DL (0.0-0.2); BILIRUBIN,TOTAL 0.3 MG/DL (0.2-1.0); BLOOD UREA NITROGEN 10 MG/DL (7-18); CALCIUM LEVEL 8.6 MG/DL (8.5-10.1); CARBON DIOXIDE LEVEL 29 MEQ/L (21-32); CHLORIDE LEVEL 105 MEQ/L (98-107); CREATININE FOR GFR 0.84 MG/DL (0.55-1.30); ETHYL ALCOHOL (ETHANOL) < 0.003 % (0.000-0.010); GLOMERULAR FILTRATION RATE > 60.0 (>60); GLUCOSE, FASTING 110 MG/DL (70-100); POTASSIUM SERUM 3.6 MEQ/L (3.5-5.1); SALICYLATE LEVEL 1.9 MG/DL (5.0-30.0); SODIUM LEVEL 142 MEQ/L (136-145); TOTAL PROTEIN 6.7 GM/DL (6.4-8.2)
[2020-04-15 07:42] VITALS: BP 143/83
== END 2020-04-15 07:35 | disposition home or self-care (01) ==
LOC: M ED 01:30
DX: F43.0 Acute stress reaction (principal); F12.10 Cannabis abuse, uncomplicated; F23 Brief psychotic disorder; F41.9 Anxiety disorder, unspecified; K21.9 Gastro-esophageal reflux disease without esophagitis; Z79.899 Other long term (current) drug therapy; Z88.0 Allergy status to penicillin; Z88.8 Allergy status to other drugs, medicaments and biological substances; F17.210 Nicotine dependence, cigarettes, uncomplicated
CPT/HCPCS: 36415; 80048; 80076; 80307; 84443; 84703; 85027; 99284; G0480

== ENCOUNTER 2020-04-15 14:25 | Emergency (ER) | payer BC, MEDICAID, OTHER ==
[~2020-04-15] VITALS: Ht 162.6 cm; Wt 99.6 kg
[2020-04-15 15:45] LABS: HEMATOCRIT 41.8 % (36.0-47.0); MEAN CORPUSCULAR HGB CONC 31.1 g/dl (32.0-36.5); MEAN CORPUSCULAR VOLUME 90.1 fl (80.0-96.0); PLATELET COUNT, AUTOMATED 257 10^3/uL (150-450); RED BLOOD COUNT 4.64 10^6/uL (4.00-5.40); WHITE BLOOD COUNT 9.4 10^3/uL (4.0-10.0)
[2020-04-15 16:05] LABS: AMPHETAMINES LEVEL URINE NEGATIVE (NEGATIVE); BARBITURATES URINE NEGATIVE (NEGATIVE); BENZODIAZEPINES URINE NEGATIVE (NEGATIVE); CANNABINOIDS URINE POSITIVE (NEGATIVE); COCAINE METABOLITE URINE NEGATIVE (NEGATIVE); METHADONE URINE NEGATIVE (NEGATIVE); OPIATES URINE NEGATIVE (NEGATIVE); PHENCYCLIDINE URINE NEGATIVE (NEGATIVE)
[2020-04-15 16:08] LABS: HCG, SERUM QUALITATIVE NEGATIVE (NEGATIVE)
[2020-04-15 16:16] LABS: ACETAMINOPHEN LEVEL < 2.0 UG/ML (10.0-30.0); ALBUMIN 3.8 GM/DL (3.2-5.2); ALT/SGPT 29 U/L (12-78); BILIRUBIN,DIRECT < 0.1 MG/DL (0.0-0.2); BILIRUBIN,TOTAL 0.3 MG/DL (0.2-1.0); BLOOD UREA NITROGEN 7 MG/DL (7-18); CALCIUM LEVEL 9.5 MG/DL (8.5-10.1); CARBON DIOXIDE LEVEL 29 MEQ/L (21-32); CHLORIDE LEVEL 105 MEQ/L (98-107); CREATININE FOR GFR 0.73 MG/DL (0.55-1.30); ETHYL ALCOHOL (ETHANOL) < 0.003 % (0.000-0.010); GLOMERULAR FILTRATION RATE > 60.0 (>60); GLUCOSE, FASTING 88 MG/DL (70-100); POTASSIUM SERUM 3.7 MEQ/L (3.5-5.1); SALICYLATE LEVEL 2.7 MG/DL (5.0-30.0); SODIUM LEVEL 139 MEQ/L (136-145); TOTAL PROTEIN 7.2 GM/DL (6.4-8.2)
[2020-04-15] MEDS ORDERED: LORazepam 1 MG TAB PO STA (17:12)
[2020-04-15] MEDS ORDERED: LORazepam 1 MG TAB As Ordered ONE (17:14)
--- NOTE | 2020-04-15 21:07 | ECGEPIP ---
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
--- NOTE | 2020-04-15 23:37 | REP ---
CT BRAIN WITHOUT CONTRAST: REASON: Hallucinations. TECHNIQUE: 4.5 mm contiguous transaxial sections were obtained from the skull base to the cerebral convexities with thin cuts through the posterior fossa without the administration of intravenous contrast. FINDINGS: The ventricles and sulci are consistent with the patient's age. There are no extra-axial fluid collections. There is no mass effect. The deep cerebral white matter is consistent with the patient's age. The orbital and petrous structures, cerebellopontine angles, and posterior fossa are unremarkable. The sella turcica, cavernous, and paracavernous structures are essentially unremarkable. The visualized portions of the paranasal sinuses and mastoid air cells are clear. Images of the skull base show no gross abnormality. IMPRESSION: Essentially unremarkable CT examination of the brain. Electronically Signed by Guille Prieto DO 04/16/2020 10:10 A
[2020-04-16 02:15] VITALS: BP 123/76
== END 2020-04-16 02:21 ==
LOC: M ED 14:25
DX: F23 Brief psychotic disorder (principal); F41.9 Anxiety disorder, unspecified; Z79.899 Other long term (current) drug therapy; Z88.0 Allergy status to penicillin; Z88.8 Allergy status to other drugs, medicaments and biological substances
CPT/HCPCS: 36415; 70450; 80048; 80076; 80307; 84443; 84703; 85027; 93005; 99285; G0480

== ENCOUNTER → 2020-07-19 | Outpatient (CLI) | payer OTHER | LOC: M LABSMTC 10:15 | PROVIDERS: ATTEND Orthopaedic Surgery Sports Medicine | DX: Z20.828 Contact with and (suspected) exposure to other viral communicable diseases (principal) ==

== ENCOUNTER 2020-09-19 11:45 | Emergency (ER) | payer OTHER ==
[~2020-09-19] VITALS: Ht 162.6 cm; Wt 101.6 kg
[2020-09-19] MEDS ORDERED: NS 1,000 ML IV ONE ×2 (12:00)
[2020-09-19] MEDS ORDERED: ONDANSETRON 4MG/2ML VIAL IV ONE (12:00)
[2020-09-19 12:30] LABS: BASO % 0.3 % (0.0-1.0); EOS # 0.1 10^3/uL (0.0-0.5); EOS % 0.6 % (0.0-3.0); HEMATOCRIT 46.9 % (36.0-47.0); HEMOGLOBIN 14.9 g/dl (12.0-15.5); LYMPH # 1.9 10^3/uL (1.5-5.0); LYMPH % 13.2 % (24.0-44.0); MEAN CORPUSCULAR HEMOGLOBIN 27.1 pg (27.0-33.0); MEAN CORPUSCULAR HGB CONC 31.8 g/dl (32.0-36.5); MEAN CORPUSCULAR VOLUME 85.3 fl (80.0-96.0); MONO % 6.7 % (0.0-5.0); NEUTROPHILS # 11.4 10^3/uL (1.5-8.5); NEUTROPHILS % 78.9 % (36.0-66.0); PLATELET COUNT, AUTOMATED 285 10^3/uL (150-450); WHITE BLOOD COUNT 14.4 10^3/uL (4.0-10.0)
[2020-09-19 13:06] LABS: ALBUMIN 3.6 GM/DL (3.2-5.2); ALT/SGPT 25 U/L (12-78); AMYLASE 38 U/L (25-115); BILIRUBIN,DIRECT 0.2 MG/DL (0.0-0.2); BILIRUBIN,TOTAL 0.7 MG/DL (0.2-1.0); BLOOD UREA NITROGEN 18 MG/DL (7-18); CALCIUM LEVEL 9.5 MG/DL (8.5-10.1); CARBON DIOXIDE LEVEL 27 MEQ/L (21-32); CHLORIDE LEVEL 102 MEQ/L (98-107); CREATININE FOR GFR 0.78 MG/DL (0.55-1.30); GLOMERULAR FILTRATION RATE > 60.0 (>60); GLUCOSE, FASTING 99 MG/DL (70-100); LIPASE 49 U/L (73-393); POTASSIUM SERUM 3.4 MEQ/L (3.5-5.1); SODIUM LEVEL 138 MEQ/L (136-145); TOTAL PROTEIN 8.2 GM/DL (6.4-8.2)
[2020-09-19 13:08] LABS: HCG, SERUM QUALITATIVE NEGATIVE (NEGATIVE)
[2020-09-19] MEDS ORDERED: GI COCKTAIL 50ML BTL(HYOSCYAMINE/MAALOX/LIDOCAINE VISCOUS)(1:3:1) PO ONE (13:30)
[2020-09-19] MEDS ORDERED: MORPHINE 4 MG/ML 1ML VIAL/SYRINGE (J2270) IV ONE (13:45)
[2020-09-19] MEDS ORDERED: ISOVUE-370 76% 100ML VIAL As Ordered ONE (13:47)
--- NOTE | 2020-09-19 14:26 | REP ---
INDICATION: upper abd pain, leukocytosis. COMPARISON: 04/08/2020 TECHNIQUE: Axial contrast-enhanced images from the lung bases to the pubic symphysis using 100 cc Isovue 370 intravenous contrast material. Coronal and sagittal reformations obtained. This CT examination was performed using the following dose reduction techniques: Automated exposure control, adjustment of mA and/or kv according to the patient's size, and the use of iterative reconstruction technique. FINDINGS: Lung bases are clear. Visualized heart and pericardium normal. Liver, spleen, pancreas, bilateral adrenal glands and kidneys are normal. Incidental 2 cm splenule noted in the left upper quadrant. Evidence for prior cholecystectomy noted. Evaluation of the enteric system demonstrates no obstruction or obvious acute inflammatory process. However, mildly prominent lymph nodes in the right lower quadrant raise the possibility of mesenteric adenitis. The terminal ileum, cecum and appendix are otherwise normal in appearance.. Pelvis demonstrates normal bladder and age-appropriate uterus/adnexa. No ascites. No free air. No intraperitoneal or retroperitoneal adenopathy. Abdominal aorta and vasculature appear normal. Musculoskeletal structures are intact and without acute osseous abnormality. IMPRESSION: 1. No definite acute abdominopelvic pathology appreciated. 2. Cannot exclude mesenteric adenitis. <Electronically signed by Christopher Linares > 09/19/20 [id number]
[2020-09-19] MEDS ORDERED: ONDA4TAB6 PO (15:10)
[2020-09-19 15:13] VITALS: BP 132/75
[2020-09-19] MEDS ORDERED: ONDANSETRON 4 MG ORAL DISINTEGRATING TAB PO ONE (15:15)
== END 2020-09-19 15:31 | disposition home or self-care (01) ==
LOC: M ED 11:45
DX: R11.2 Nausea with vomiting, unspecified (principal); R19.7 Diarrhea, unspecified; F17.200 Nicotine dependence, unspecified, uncomplicated; Z79.899 Other long term (current) drug therapy; Z88.0 Allergy status to penicillin; Z88.8 Allergy status to other drugs, medicaments and biological substances; Z98.890 Other specified postprocedural states; Z90.49 Acquired absence of other specified parts of digestive tract
CPT/HCPCS: 74177; 80048; 80076; 82150; 83690; 84703; 85025; 96361; 96374; 96375; 99284; J2270; J2405; Q0162; Q9967

== ENCOUNTER 2020-10-07 22:44 | Emergency (ER) | payer OTHER ==
[~2020-10-07] VITALS: Ht 162.6 cm; Wt 99.5 kg
[2020-10-07 22:44] VITALS: BP 137/90
[~2020-10-07 22:44] MED LIST changes: +ONDA4TAB6 PO
== END 2020-10-07 23:15 | disposition left against medical advice (07) ==
LOC: M ED 22:44
DX: Z53.21 Procedure and treatment not carried out due to patient leaving prior to being seen by health care provider (principal)

== ENCOUNTER → 2020-11-06 | Outpatient (CLI) | payer OTHER | LOC: M LABSMTC 09:33 | PROVIDERS: ATTEND Anesthesiology | DX: Z01.812 Encounter for preprocedural laboratory examination (principal); Z20.822 Contact with and (suspected) exposure to COVID-19 ==

== ENCOUNTER 2020-11-11 08:45 | Day surgery (SDC) | payer OTHER ==
[~2020-11-11] VITALS: Ht 162.6 cm; Wt 107.5 kg
[~2020-11-11 08:45] MED LIST changes: +NS 1,000 ML IV ONE
--- OUTSIDE RECORDS SUMMARY | 2020-11-11 08:50 | CCD | Continuity of Care Document ---
Author Author Vikki ALEXANDER M.D. Organization Unknown Address [address] [address] Phone [phone] Care Team Providers Care Delicatessen Manager Name Role Phone Rusty Alexander MD [facility] [phone] Problems Active Problems Provider Date Tobacco dependence syndrome Onset: 05/02 Migraine Onset: 09/14/2010 Asthma Onset: 10/13/2009 Gastroesophageal reflux disease Onset: 0 Allergic rhinitis due to weed pollens (disorder) Onset: Dysmenorrhea Onset: Acne Rusty Alexander M.D. Onset: 08/13/2015 Anxiety state Rusty Alexander M.D. Onset: 08/13/2015 Carpal tunnel syndrome Rusty Alexander M.D. Onset: 5 Headache Rusty Alexander M.D. Onset: 08/13/2015 Allergic rhinitis Rusty Alexander M.D. Onset: 08/13/2015 Polycystic ovaries Rusty Alexander M.D. Onset: 08/13/2015 Tobacco use Rusty Alexander M.D. Onset: 08/13/2015 Social History Type Date Description Comments Sex Unknown ETOH Use Denies alcohol use Tobacco Use Start: Unknown Patient is a current smoker, smo kes every day started at age 15, currently smokes 1/2 PPD - Quit Nov 2014 before found out . Tobacco Use Start: Unknown End: Unknown Patient is a former smoker Allergies, Adverse Reactions, Alerts Active Allergies Reaction Severity Comments Date Augmentin Moderate diarrhea 05/05/2011 Medications Active Medications SIG Qnty Indications Ordering Provide r Date Zofran 4mg Tablets 1 by mouth every 6 hrs. as needed nausea 30tabs Rusty Alexander M.D. 03/27/2020 Celexa 40mg Tablets 1 by mouth every day 90tabs Rusty Alexander M.D. 01/16/2020 Valacyclovir HCL 1gm Tablets two by mouth twice a day for 1 days-take 12 hours apart 30tabs Rusty Alexander M.D. 02/17/2019 Ketoconazole 2% Cream twice a day to rash for 14 days 60gm Rusty Alexander M.D. 04/19/[address] 1 by mouth twice a day 180caps Rusty Alexander M.D. 06/29/2017 Chantix Starting Month Coleman 0.5mg X 11 & 1 mg X 42 Tablets take by mouth as directed 53tabs Rusty zamarripa M.D. 10/08/2016 Multivitamins Capsules 1 by mouth every day Rusty Alexander M.D. 08/13/2015 Immunizations CPT Code Status Date Vaccine Lot # [id number] Given 08/10/2013 Influenza Virus Vaccine Vital Signs Date Vital Result Comment 10/30/2020 1:30pm BP Systolic 122 mmHg BP Diastolic 72 mmHg Heart Rate 70 /min Height 64 inches 5'4" Weight 237.00 lb BMI (Body Mass Index) 40.7 kg/m2 01/16/2020 10:59am BP Systolic 104 mmHg BP Diastolic 78 mmHg Heart Rate 72 /min Height 64 inches 5'4" Weight 226.00 lb O2 % BldC Oximetry 98 % BMI (Body Mass Index) 38.8 kg/m2 Results Test Acquired Date Facility Test Result H/L Range Note HCG Urine Qual 09/20/2020 [facility] [address] [id number] [phone] HCG Urine Qual NEGATIVE Normal: Negative HCG Urine QL [place] NEGATIVE Normal: Negative 1 Urinalysis 09/20/[address] [id number] [phone] Urinalysis (SEE NOTE) 2 Source Clean Catch Color yellow Normal: Yellow Clarity clear Normal: Clear Spec [place] 1.015 1.001 - 1.030 pH 7 5 - 9 Glucose NORM Normal: Negative Bilirubin NEG Normal: Negative Ketone 150 Abnormal Normal: Negative Protein 15 Normal: Negative Nitrite NEG Normal: Negative Blood NEG Normal: Negative Leuk Est 25 Normal: Negative Urobilinogen NOR less than 1.0 mg/dL Microscopic See Below WBC 1 - 3 Normal: None Seen RBC 1 - 3 Normal: None Seen Epithelial MODERATE Abnormal Normal: None Seen Bacteria Trace Normal: None Seen Amorph Sed 2+ Normal: None Seen Comprehensive Metabolic Panel 09/20/[address] [address] [phone] Comprehensive Metabo (SEE NOTE) 3 Sodium 135 mEq/L 134 - 153 Potassium 4.1 mEq/L 3.6 - 5.0 Chloride 102 mEq/L 98 - 107 Co2 28 mEq/L 22 - 30 Glucose 85 mg/dL 65 - 110 BUN 13 mg/dL 7 - 21 Creatinine 0.5 mg/dL Low 0.7 - 1.5 BUN/Creat 26 8 - 27 Total Protein 6.8 g/dL 6.3 - 8.2 Albumin 4.0 g/dL 3.9 - 5.0 Globulin 2.8 GM/DL 2.4 - 3.2 A/G Ratio 1.4 0.8 - 2.0 Calcium 8.6 mg/dL 8.4 - 10.2 Total Bili 0.8 mg/dL 0.2 - 1.3 Alkaline Phos 75 U/L 38 - 126 Sgot/Ast 40 U/L 5 - 40 SGPT/Alt 42 U/L 7 - 56 Anion Gap 5.0 mmol/L Low 8.0 - 16.0 Age 29 yrs Non-Aa GFR >60 mL/min Afr Amer GFR >60 mL/min 4 Laboratory test finding 09/20/2020 [facility] [address] [place] [address] [phone] Lipase Serum 14 U/L 13 - 60 CBC W/Automated Diff 09/20/2020 [facility] [address] [place] [address] [phone] CBC W/Automated Diff (SEE NOTE) 5 WBC 12.3 10^3/uL High 4.2 - 11.0 RBC 5.27 10^6/uL 4.20 - 5.40 Hemoglobin 15.1 g/dL 12.0 - 16.0 Hematocrit 45.8 % 37.0 - 47.0 MCV 86.9 fL 81.0 - 101 MCH 28.7 pg 27.0 - 34.0 MCHC 33.0 g/dL 31.0 - 36.0 RDW 13.5 % 11.5 - 14.5 Platelets 240 10^3/uL 150 - 450 MPV 10.8 fL High 7.4 - 10.4 Neut 78.6 % 37.0 - 80.0 Lymph 12.4 % Low 25.0 - 40.0 [place] 7.1 % 3.0 - 8.0 Eos 1.3 % 0.0 - 7.0 Baso 0.3 % 0.0 - 2.5 %Ig 0.3 % High 0.0 - 0.0 %NRBC 0.0 % 0.0 - 0.0 #Neut 9.69 10^3/uL High 2.00 - 6.90 #Lymph 1.53 10^3/uL 0.60 - 3.40 #[place] 0.88 10^3/uL 0.00 - 0.90 #Eos 0.16 10^3/uL 0.00 - 0.70 #Baso 0.04 10^3/uL 0.00 - 0.20 #Ig 0.04 10^3/uL 0.00 - 0.10 #NRBC 0.00 10^3/uL 0.00 - 0.00 Manual Diff NOT INDICATED RBC Morph NOT INDICATED Laboratory test finding 09/20/2020 [facility] [address] [place], [place] [id number] [phone] Lactic Acid (Lactate) 1.7 mmol/L 0.2 - 2.2 Laboratory test finding 09/19/[address] [id number] [phone] Amylase 38 U/L Normal 25-115 Lipase 49 U/L Low 73-393 HCG Serum Qualitative NEGATIVE Normal Negative Basic Metabolic Profile 09/19/[address] [id number] [phone] Glucose, Fasting 99 mg/dL Normal 70-100 Blood Urea Nitrogen 18 mg/dL Normal 7-18 Creatinine For GFR 0.78 mg/dL Normal 0.55-1.30 Glomerular Filtration Rate > 60.0 Normal >60 6 Sodium Level 138 mEq/L Normal 136-145 Potassium Serum 3.4 mEq/L Low 3.5-5.1 Chloride Level 102 mEq/L Normal 98-107 Carbon Dioxide Level 27 mEq/L Normal 21-32 Anion Gap 9 mEq/L Normal 8-16 Calcium Level 9.5 mg/dL Normal 8.5-10.1 Liver Profile 09/19/2020 [facility] [address] [place] [address] [phone] Ast/Sgot 14 U/L Normal 7-37 Alt/SGPT 25 U/L Normal 12-78 Alkaline Phosphatase 92 U/L Normal 45-117 Bilirubin,Total 0.7 mg/dL Normal 0.2-1.0 Bilirubin,Direct 0.2 mg/dL Normal 0.0-0.2 Total Protein 8.2 GM/DL Normal 6.4-8.2 Albumin 3.6 GM/DL Normal 3.2-5.2 Albumin/Globulin Ratio 0.8 Low 1.2-2.2 CBC With Differential 09/19/2020 [facility] [address] [place] [address] [phone] White Blood Count 14.4 10 High 4.0-10.0 Red Blood Count 5.50 10 High 4.00-5.40 Hemoglobin 14.9 g/dL Normal 12.0-15.5 Hematocrit 46.9 % Normal 36.0-47.0 Mean Corpuscular Volume 85.3 fl Normal 80.0-96.0 Mean Corpuscular Hemoglobin 27.1 pg Normal 27.0-33.0 Mean Corpuscular HGB Conc 31.8 g/dL Low 32.0-36.5 Red Cell Distribution Width 13.7 % Normal 11.5-14.5 Platelet Count, Automated 285 10 Normal 150-450 Neutrophils % 78.9 % High 36.0-66.0 Lymph % 13.2 % Low 24.0-44.0 [place] % 6.7 % High 0.0-5.0 Eos % 0.6 % Normal 0.0-3.0 Baso % 0.3 % Normal 0.0-1.0 Immature Granulocyte % 0.3 % Normal 0-3.0 Nucleated Red Blood Cell % 0.0 % Normal 0-0 Neutrophils # 11.4 10 High 1.5-8.5 Lymph # 1.9 10 Normal 1.5-5.0 [place] # 1.0 10 High 0.0-0.8 Eos # 0.1 10 Normal 0.0-0.5 Baso # 0.0 10 Normal 0.0-0.2 CBC W/Automated Diff 05/09/2020 [facility] [address] [place] [address] [phone] CBC W/Automated Diff (SEE NOTE) 7 WBC 9.8 10^3/uL 4.2 - 11.0 RBC 4.26 10^6/uL 4.20 - 5.40 Hemoglobin 12.1 g/dL 12.0 - 16.0 Hematocrit 37.4 % 37.0 - 47.0 MCV 87.8 fL 81.0 - 101 MCH 28.4 pg 27.0 - 34.0 MCHC 32.4 g/dL 31.0 - 36.0 RDW 14.0 % 11.5 - 14.5 Platelets 239 10^3/uL 150 - 450 MPV 10.8 fL High 7.4 - 10.4 Neut 62.2 % 37.0 - 80.0 Lymph 26.0 % 25.0 - 40.0 [place] 7.3 % 3.0 - 8.0 Eos 3.9 % 0.0 - 7.0 Baso 0.3 % 0.0 - 2.5 %Ig 0.3 % High 0.0 - 0.0 %NRBC 0.0 % 0.0 - 0.0 #Neut 6.11 10^3/uL 2.00 - 6.90 #Lymph 2.55 10^3/uL 0.60 - 3.40 #[place] 0.72 10^3/uL 0.00 - 0.90 #Eos 0.38 10^3/uL 0.00 - 0.70 #Baso 0.03 10^3/uL 0.00 - 0.20 #Ig 0.03 10^3/uL 0.00 - 0.10 #NRBC 0.00 10^3/uL 0.00 - 0.00 Manual Diff SEE BELOW Segs 70 % 37 - 80 Band 0 % 0 - 5 %Lymph 20 % Low 25 - 40 %[place] 8 % 3 - 8 %Eos 2 % 0 - 7 %Baso 0 % 0 - 2 Metamyelocyte 0 % Myelocyte 0 % Promyelocyte 0 % Blasts 0 % Hugo Lym 0 % NRBC 0 % RBC Morph NOT INDICATED Comprehensive Metabolic Panel 05/09/2020 [facility] [address] [place] [address] [phone] Comprehensive Metabo (SEE NOTE) 8 Sodium 140 mEq/L 134 - 153 Potassium 3.9 mEq/L 3.6 - 5.0 Chloride 104 mEq/L 98 - 107 Co2 28 mEq/L 22 - 30 Glucose 92 mg/dL 65 - 110 BUN 11 mg/dL 7 - 21 Creatinine 0.6 mg/dL Low 0.7 - 1.5 BUN/Creat 18 8 - 27 Total Protein 6.7 g/dL 6.3 - 8.2 Albumin 4.0 g/dL 3.9 - 5.0 Globulin 2.7 GM/DL 2.4 - 3.2 A/G Ratio 1.5 0.8 - 2.0 Calcium 9.0 mg/dL 8.4 - 10.2 Total Bili <0.7 mg/dL 0.2 - 1.3 Alkaline Phos 74 U/L 38 - 126 Sgot/Ast 35 U/L 5 - 40 SGPT/Alt 50 U/L 7 - 56 Anion Gap 8.0 mmol/L 8.0 - 16.0 Age 29 yrs Non-Aa GFR >60 mL/min Afr Amer GFR >60 mL/min 9 Laboratory test finding 05/09/2020 [facility] [address] [place] [address] [phone] Acetaminophen Level <5.0 UG/ML 0.0 - 30.0 Salicylate <0.3 mg/dL Low 2.0 - 20.0 HCG Serum Qual 05/09/2020 [facility] [address] [place] [address] [phone] HCG Serum Qual NEGATIVE Normal: Negative HCG Serum QL [place] NEGATIVE Normal: Negative 10 [facility] [address] [place] [address] [phone] Urinalysis (SEE NOTE) 11 Source Clean Catch Color yellow Normal: Yellow Clarity hazy Normal: Clear Spec [place] 1.010 1.001 - 1.030 pH 6.5 5 - 9 Glucose NORM Normal: Negative Bilirubin NEG Normal: Negative Ketone NEG Normal: Negative Protein 30 Normal: Negative Nitrite NEG Normal: Negative Blood 250 Abnormal Normal: Negative Leuk Est 100 Abnormal Normal: Negative Urobilinogen NOR less than 1.0 mg/dL Microscopic See Below WBC 5 - 7 Abnormal Normal: None Seen RBC 7 - 10 Abnormal Normal: None Seen Epithelial MANY Abnormal Normal: None Seen Bacteria Trace Normal: None Seen Drug Screen Urine 05/09/2020 [facility] [address] [place] [address] [id number] [phone] Drug Screen Urine (SEE NOTE) 12 Amphetamines NEGATIVE Normal: Negative Barbiturates NEGATIVE Normal: Negative Benzo NEGATIVE Normal: Negative Cocaine NEGATIVE Normal: Negative THC PRESUMP POS Abnormal Normal: Negative Opiates NEGATIVE Normal: Negative PCP NEGATIVE Normal: Negative 13 Culture Urine 05/09/2020 [facility] [address] [place] [address] [phone] Culture Urine (SEE NOTE) 14 1 { KIT LOT # [id number] ) { KIT EXP DATE 07/30/21 ) { PROCEDURAL CONTROL VALID ) 2 URINALYSIS 3 COMPREHENSIVE METABOLIC PANE L 4 Male GFR Interprentation 20-49 yrs >60 mL/min Normal 50-59 yrs >56 mL/min Normal 60-69 yrs >49 mL/min Normal 70-79yrs >42 mL/min Normal 80 and above >35 mL/min Normal Female GFR Interpretation 20-39 yrs >60 mL/min Normal 40-49 yrs >58 mL/min Normal 50-59 yrs >51 mL/min Normal 60-69 yrs >45 mL/min Normal 70-79 yrs >39 mL/min Normal 80 and above >32 mL/min Normal 5 COMPLETE BLOOD COUNT 6 Units are mL/min/1.73 m2 Chronic Kidney Disease Staging per NKF: Stage I & II GFR >=60 Normal to Mildly Decreased Stage III GFR 30-59 Moderately Decreased Stage IV GFR 15-29 Severely Decreased Stage V GFR <15 Very Little GFR Left ESRD GFR <15 on [employer] ANALYST 7 COMPLETE BLOOD COUNT 8 COMPREHENSIVE METABOLIC PANE L 9 Male GFR Interprentation 20-49 yrs >60 mL/min Normal 50-59 yrs >56 mL/min Normal 60-69 yrs >49 mL/min Normal 70-79yrs >42 mL/min Normal 80 and above >35 mL/min Normal Female GFR Interpretation 20-39 yrs >60 mL/min Normal 40-49 yrs >58 mL/min Normal 50-59 yrs >51 mL/min Normal 60-69 yrs >45 mL/min Normal 70-79 yrs >39 mL/min Normal 80 and above >32 mL/min Normal 10 { KIT LOT # [id number] ) { KIT EXP DATE 08-06-21 ) { PROCEDURAL CONTROL VALID ) 11 URINALYSIS 12 URINE DRUG SCREEN 13 \\BLDo\\URINE DRUG SCREEN INTE RPRETATION\\BLDx\\ THE CUTOFFF LEVELS FOR DETECTION ARE FOLLOWS: AMPHETAMINES 1000 ng/ml BARBITUARATES 200 ng/ml BENZODIAZEPINES 100 ng/ml THC 50 ng/ml PHENCYCLIDINE 25 ng/ml OPIATES 300 ng/ml COCAINE 300 ng/ml ALL POSITIVES ARE CONSIDERED PRESUMPTIVE POSITIVE CONFIRMATION WILL BE PERFORMED AT PHYSICIAN REQUEST. 14 _CULTURE URINE_ ^$[id number] ^^[id number] $$[id number] ^^[id number] $$[id number] $$[id number] $$273292 $$[id number] $$838501 $$911304 $$620771 $$475459 $$[id number] $$279917 $$113828 $$513908 $$638205 $$845579 $$294017 $$513369 $$115287 $$542709 $$102858 $$692477 $$941359 $$291771 $$680829 ^^727414 $$469243 $$[id number] $$318959 -- Continued on next page -- Patient: KRISTIN Gross Order: [id number] Page 2 Culture: CULTURE URINE Status: Final $$[id number] $$[id number] REPORTED DATE/TIME: 05/12/2020 19:05 Culture: CULTURE URINE Status: Final Urine Culture,Comprehensive: P1 Mixed urogenital jd 10,000-25,000 colony forming units per m L P1 Test performed by: [facility] Chacha RODNEY #: [id number] [address] [place] [address] [phone] [facility] [address] Waste Dis[employer] Plant Operator : Ronald Diamond MD NPI #: Drafting Detailer : 05/[email or web address] REF Procedures Description No Information Available Medical Devices Description No Information Available Encounters Description No Information Available Assessments Description No Information Available Plan of Treatment No Information Available Functional Status Description No Information Available Mental Status Description No Information Available Referrals Description No Information Available
--- OUTSIDE RECORDS SUMMARY | 2020-11-11 08:50 | CCD | Continuity of Care Document ---
Author Author Vikki STREET Organization Unknown Address [address] [place] [address] Phone [phone] Care Team Providers Care Die Turner Name Role Phone Rusty Dean M.D. AUTM [phone] Problems Active Problems Provider Date Nausea Michael Street M.D. Onset: 10/29/19 21 Social History Type Date Description Comments Sex Unknown ETOH Use Denies alcohol use Tobacco Use Start: Unknown Patient is a current smoker, smo kes every day Recreational Drug Use Regularly uses Marijuana Allergies, Adverse Reactions, Alerts Description No Known Drug Allergies Medications Active Medications SIG Qnty Indications Ordering Provide r Date Hyoscyamine Sulfate 0.125mg Tablets Dispers 1 tab by mouth every 6 hours as needed 100tabs Ge yanet Street M.D. 10/29/2020 [place] [phone] Tablets as directed 1box Michael [address] M.D. 10/29/2020 Citalopram Hydrobromide 40mg Table ts Take One Tablet By Mouth Every Day Unknown Omeprazole 40mg Capsules DR Take One Capsule By Mouth Twice A Day Unknown Immunizations Description No Information Available Vital Signs Date Vital Result Comment 10/29/2020 3:04pm Height 64 inches 5'4" Weight 238.00 lb BP Systolic 121 mmHg BP Diastolic 77 mmHg Heart Rate 79 /min BMI (Body Mass Index) 40.8 kg/m2 Weight 107.957 kg Body Temperature 97.5 F Results Description No Information Available Procedures Description No Information Available Medical Devices Description No Information Available Encounters Type Date Location Provider Dx Diagnosis Office Visit 10/29/2020 2:30p Main Office Michael Street M.D. R 11.2 Nausea with vomiting, unspecified R19.7 Diarrhea, unspecified Assessments Date Code Description Provider 10/29/2020 R11.2 Nausea with vomiting, unspecifie d Michael Street M.D. 10/29/2020 R19.7 Diarrhea, unspecified Michael [address] M.D. Plan of Treatment Future Appointment(s):* 11/11/2020 12:15 pm - Michael Street M.D. at Main Office 10/29/2020 - Michael Street M.D.* R11.2 Nausea with vomiting, unspecified* Comments:* 29 yo wf who presents for a 2 yr h/o episodic bouts of nausea/vomiting. Pt has intractable bouts of nausea/vomiting every 6 weeks or so. Pt has epigastric pain. No weight loss. Pt gets dehydrated. She also has diarrhea. Plan:1. Colonoscopy + ileoscopy + egd, possible ugi + sbft.2. Informed consent. * R19.7 Diarrhea, unspecified* Comments:* As above. Functional Status Description No Information Available Mental Status Description No Information Available Referrals Description No Information Available
--- OUTSIDE RECORDS SUMMARY | 2020-11-11 08:50 | CCD | Continuity of Care Document ---
Author Author Vikki ALEXANDER M.D. Organization Unknown Address [address] [address] Phone [phone] Care Team Providers Care Machining Engineer Name Role Phone Rusty Alexander MD [facility] [phone] Problems Active Problems Provider Date Tobacco dependence [...] CPT Code Status Date Vaccine Lot # [id number] Given 08/10/2013 Influenza Virus Vaccine Vital Signs [...] Date Facility Test Result H/L Range Note Complete Blood Count 10/30/2020 [facility] Field Marketing Coordinator: Dr Cale Lemus [place], [place] [id number] [phone] WBC 7.5 x10*3/UL 4.1 - 10.9 RBC 4.94 x10*6/UL 4.20 - 6.30 Hemoglobin 14.0 g/dL 12.0 - 18.0 Hematocrit 42.5 % 37.0 - 51.0 MCV 86.0 fL 80.0 - 97.0 MCH 28.4 pg 26.0 - 32.0 MCHC 33.0 g/dL 31.0 - 38.0 RDW 13.5 % 11.6 - 13.7 PLT 260 x10*3/UL 140 - 440 MPV 8.9 FL 7.8 - 11.0 Lymph % 20.6 % 10.0 - 58.5 Mid % 5.7 % 1.7 - 9.3 Neut % 73.7 % 37.0 - 92.0 Lymph # 1.5 x10*3/UL 0.6 - 4.1 Mid # 0.4 x10*3/UL 0.1 - 0.6 Neut # 5.6 x10*3/UL 2.0 - 7.8 Laboratory test finding 10/30/2020 [facility] Field Marketing Coordinator: [place] [address] [phone] Magnesium 2.0 mg/dL 1.8 - 2.4 Comprehensive Chem Profile 10/30/2020 [facility] Field Marketing Coordinator: [place] [address] [phone] Glucose 84 mg/dL 74 - 99 1 BUN 10 mg/dL 7 - 18 Creatinine 0.6 mg/dL 0.6 - 1.3 Sodium 137 mEq/L 136 - 145 Potassium 3.9 mEq/L 3.5 - 5.1 Chloride 102 mEq/L 98 - 107 Carbon Dioxide 28 mEq/L 21 - 32 Calcium 8.8 mg/dL 8.5 - 10.1 Alk. Phosphatase 89 mg/dL 46 - 116 Total Bilirubin 0.4 mg/dL 0.2 - 1.0 Ast (Sgot) 20 U/L 15 - 37 Alt (SGPT) 36 U/L 12 - 78 Albumin 3.7 g/dL 3.4 - 5.0 Total Protein 7.4 g/dL 6.4 - 8.2 A/G Ratio 1.00 CALC 1.00 - 1.90 GFR >= 60 mL/min >60 GFR >= 60 mL/min >60 2 HCG Urine Qual 09/20/2020 [facility] [address] [place] [address] [phone] HCG Urine Qual NEGATIVE Normal: Negative HCG Urine QL [place] NEGATIVE Normal: Negative 3 Urinalysis 09/20/2020 [facility] [address] [place] [address] [phone] Urinalysis (SEE NOTE) 4 Source Clean Catch Color yellow Normal: Yellow Clarity clear Normal: Clear Spec [place] 1.015 1.001 - 1.030 pH 7 5 [...] Normal: None Seen Comprehensive Metabolic Panel 09/20/2020 [facility] [address] [place] [address] [phone] Comprehensive Metabo (SEE NOTE) 5 Sodium 135 mEq/L 134 - 153 Potassium [...] >60 mL/min Afr Amer GFR >60 mL/min 6 Laboratory test finding 09/20/2020 [facility] [address] [place] [address] [phone] Lipase Serum 14 U/L 13 - 60 CBC W/Automated Diff 09/20/2020 [facility] [address] [place] [address] [phone] CBC W/Automated Diff (SEE NOTE) 7 WBC 12.3 10^3/uL High 4.2 - 11.0 [...] Lymph 12.4 % Low 25.0 - 40.0 [place] 7.1 % 3.0 - 8.0 Eos 1.3 % 0.0 - 7.0 Baso 0.3 % 0.0 - 2.5 %Ig 0.3 % High 0.0 - 0.0 %NRBC 0.0 % 0.0 - 0.0 #Neut 9.69 10^3/uL High 2.00 - 6.90 #Lymph 1.53 10^3/uL 0.60 - 3.40 #[place] 0.88 10^3/uL 0.00 - 0.90 #Eos 0.16 10^3/uL 0.00 - 0.70 #Baso 0.04 10^3/uL 0.00 - 0.20 #Ig 0.04 10^3/uL 0.00 - 0.10 #NRBC 0.00 10^3/uL 0.00 - 0.00 Manual Diff NOT INDICATED RBC Morph NOT INDICATED Laboratory test finding 09/20/2020 [facility] [address] [place] [phone] Lactic Acid (Lactate) 1.7 mmol/L 0.2 - 2.2 Laboratory test finding 09/19/[address] [address] [phone] Amylase 38 U/L Normal 25-115 Lipase 49 U/L Low 73-393 HCG Serum Qualitative NEGATIVE Normal Negative Basic Metabolic Profile 09/19/[address] [address] [phone] Glucose, Fasting 99 mg/dL Normal 70-100 Blood Urea Nitrogen 18 mg/dL Normal 7-18 Creatinine For GFR 0.78 mg/dL Normal 0.55-1.30 Glomerular Filtration Rate > 60.0 Normal >60 8 Sodium Level 138 mEq/L Normal 136-145 Potassium Serum 3.4 mEq/L Low 3.5-5.1 Chloride Level 102 mEq/L Normal 98-107 Carbon Dioxide Level 27 mEq/L Normal 21-32 Anion Gap 9 mEq/L Normal 8-16 Calcium Level 9.5 mg/dL Normal 8.5-10.1 Liver Profile 09/19/2020 [facility] [address] [place] [address] [phone] Ast/Sgot 14 U/L Normal 7-37 Alt/SGPT 25 U/L Normal 12-78 Alkaline Phosphatase 92 U/L Normal 45-117 Bilirubin,Total 0.7 mg/dL Normal 0.2-1.0 Bilirubin,Direct 0.2 mg/dL Normal 0.0-0.2 Total Protein 8.2 GM/DL Normal 6.4-8.2 Albumin 3.6 GM/DL Normal 3.2-5.2 Albumin/Globulin Ratio 0.8 Low 1.2-2.2 CBC With Differential 09/19/2020 [facility] [address] [place] [address] [phone] White Blood Count 14.4 10 High 4.0-10.0 [...] 36.0-66.0 Lymph % 13.2 % Low 24.0-44.0 [place] % 6.7 % High 0.0-5.0 Eos % 0.6 % Normal 0.0-3.0 Baso % 0.3 % Normal 0.0-1.0 Immature Granulocyte % 0.3 % Normal 0-3.0 Nucleated Red Blood Cell % 0.0 % Normal 0-0 Neutrophils # 11.4 10 High 1.5-8.5 Lymph # 1.9 10 Normal 1.5-5.0 [place] # 1.0 10 High 0.0-0.8 Eos # 0.1 10 Normal 0.0-0.5 Baso # 0.0 10 Normal 0.0-0.2 CBC W/Automated Diff 05/09/2020 [facility] [address] [place], [place] [id number] [phone] CBC W/Automated Diff (SEE NOTE) 9 WBC 9.8 10^3/uL 4.2 - 11.0 RBC [...] 80.0 Lymph 26.0 % 25.0 - 40.0 [place] 7.3 % 3.0 - 8.0 Eos 3.9 % 0.0 - 7.0 Baso 0.3 % 0.0 - 2.5 %Ig 0.3 % High 0.0 - 0.0 %NRBC 0.0 % 0.0 - 0.0 #Neut 6.11 10^3/uL 2.00 - 6.90 #Lymph 2.55 10^3/uL 0.60 - 3.40 #[place] 0.72 10^3/uL 0.00 - 0.90 #Eos 0.38 10^3/uL 0.00 - 0.70 #Baso 0.03 10^3/uL 0.00 - 0.20 #Ig 0.03 10^3/uL 0.00 - 0.10 #NRBC 0.00 10^3/uL 0.00 - 0.00 Manual Diff SEE BELOW Segs 70 % 37 - 80 Band 0 % 0 - 5 %Lymph 20 % Low 25 - 40 %[place] 8 % 3 - 8 %Eos 2 % 0 - 7 %Baso 0 % 0 - 2 Metamyelocyte 0 % Myelocyte 0 % Promyelocyte 0 % Blasts 0 % Hugo Lym 0 % NRBC 0 % RBC Morph NOT INDICATED Comprehensive Metabolic Panel 05/09/2020 [facility] [address] [place] [address] [phone] Comprehensive Metabo (SEE NOTE) 10 Sodium 140 mEq/L 134 - 153 Potassium [...] >60 mL/min Afr Amer GFR >60 mL/min 11 Laboratory test finding 05/09/2020 [facility] [address] [place] [address] [phone] Acetaminophen Level <5.0 UG/ML 0.0 - 30.0 Salicylate <0.3 mg/dL Low 2.0 - 20.0 HCG [facility] [address] [place] [address] [phone] HCG Serum Qual NEGATIVE Normal: Negative HCG Serum QL Reenter NEGATIVE Normal: Negative 12 Urinalysis 05/09/2020 [facility] [address] [place] [address] [phone] Urinalysis (SEE NOTE) 13 Source Clean Catch Color yellow Normal: Yellow Clarity hazy Normal: Clear Spec [place] 1.010 1.001 - 1.030 pH 6.5 5 [...] Normal: None Seen Drug Screen Urine 05/09/2020 [facility] [address] [place] [address] [phone] Drug Screen Urine (SEE NOTE) 14 Amphetamines NEGATIVE Normal: Negative Barbiturates NEGATIVE Normal: Negative Benzo NEGATIVE Normal: Negative Cocaine NEGATIVE Normal: Negative THC PRESUMP POS Abnormal Normal: Negative Opiates NEGATIVE Normal: Negative PCP NEGATIVE Normal: Negative 15 Culture Urine 05/09/2020 [facility] [address] [place] [address] [phone] Culture Urine (SEE NOTE) 16 1 100-125 mg/dL PRE-DIABET ES/FASTING >126 mg/dL DIABETES/FASTING 2 CHRONIC KIDNEY DISEASE STAGI NG PER NKF STAGE I & II GFR >= 60 NORMAL TO MILDLY DECREASED STAGE III GFR 30-59 MODERATELY DECREASED STAGE IV GFR 15-29 SEVERELY DECREASED STAGE V GFR <15 VERY LITTLE GFR LEFT ESRD GFR <15 ON BRICKMASON APPRENTICE 3 { KIT LOT # [id number] ) { KIT EXP DATE 07/30/21 ) { PROCEDURAL CONTROL VALID ) 4 URINALYSIS 5 COMPREHENSIVE METABOLIC PANE L 6 Male GFR Interprentation 20-49 yrs >60 mL/min Normal 50-59 yrs >56 mL/min Normal 60-69 yrs >49 mL/min Normal 70-79yrs >42 mL/min Normal 80 and above >35 mL/min Normal Female GFR Interpretation 20-39 yrs >60 mL/min Normal 40-49 yrs >58 mL/min Normal 50-59 yrs >51 mL/min Normal 60-69 yrs >45 mL/min Normal 70-79 yrs >39 mL/min Normal 80 and above >32 mL/min Normal 7 COMPLETE BLOOD COUNT 8 Units are mL/min/1.73 m2 Chronic Kidney Disease Staging per NKF: Stage I & II GFR >=60 Normal to Mildly Decreased Stage III GFR 30-59 Moderately Decreased Stage IV GFR 15-29 Severely Decreased Stage V GFR <15 Very Little GFR Left ESRD GFR <15 on BRICKMASON APPRENTICE 9 COMPLETE BLOOD COUNT 10 COMPREHENSIVE METABOLIC PANE L 11 Male GFR Interprentation 20-49 yrs >60 mL/min Normal 50-59 yrs >56 mL/min Normal 60-69 yrs >49 mL/min Normal 70-79yrs >42 mL/min Normal 80 and above >35 mL/min Normal Female GFR Interpretation 20-39 yrs >60 mL/min Normal 40-49 yrs >58 mL/min Normal 50-59 yrs >51 mL/min Normal 60-69 yrs >45 mL/min Normal 70-79 yrs >39 mL/min Normal 80 and above >32 mL/min Normal 12 { KIT LOT # [id number] ) { KIT EXP DATE 08-06-21 ) { PROCEDURAL CONTROL VALID ) 13 URINALYSIS 14 URINE DRUG SCREEN 15 \\BLDo\\URINE DRUG SCREEN INTE RPRETATION\\BLDx\\ THE CUTOFFF LEVELS FOR DETECTION ARE FOLLOWS: AMPHETAMINES 1000 ng/ml BARBITUARATES 200 ng/ml BENZODIAZEPINES 100 ng/ml THC 50 ng/ml PHENCYCLIDINE 25 ng/ml OPIATES 300 ng/ml COCAINE 300 ng/ml ALL POSITIVES ARE CONSIDERED PRESUMPTIVE POSITIVE CONFIRMATION WILL BE PERFORMED AT PHYSICIAN REQUEST. 16 _CULTURE URINE_ ^$888958 ^^600045 $$240445 ^^402860 $$432500 $$030944 $$689703 $$899003 $$571147 $$844541 $$394446 $$124418 $$908415 $$287171 $$685298 $$779642 $$556245 $$160643 $$753401 $$696528 $$666424 $$084765 $$285978 $$278210 $$155734 $$602900 $$798686 ^^520294 $$043285 $$931787 $$906194 -- Continued on next page -- Patient: KRISTIN Gross Order: [id number] Page 2 Culture: CULTURE URINE Status: Final $$[id number] $$[id number] REPORTED DATE/TIME: 05/12/2020 19:05 Culture: CULTURE URINE Status: Final Urine Culture,Comprehensive: P1 Mixed urogenital jd 10,000-25,000 colony forming units per m L P1 Test performed by: [facility] #: [id number] [address] [id number] [facility] [address] Dialysis Registered Nurse : Ronald Diamond MD NPI #: Field Marketing Coordinator : 05/13/20.0630.XMT.SENT REF Procedures Description No Information Available Medical Devices Description No Information Available Encounters Type Date Location Provider Dx Diagnosis Office Visit 10/30/2020 1:30p [facility] Rusty Alexander M.D. R11.10 Vomiting, unspecified R19.7 Diarrhea, unspecified D72.829 Elevated white blood cell co unt, unspecified F41.9 Anxiety disorder, unspecifie d B00.89 Other herpesviral infection J30.9 Allergic rhinitis, unspecifi ed F17.210 Nicotine dependence, cigaret ann, uncomplicated K21.9 Gastro-esophageal reflux dis ease without esophagitis Assessments Date Code Description Provider 10/30/2020 R11.10 Vomiting, unspecified Rusty pate M.D. 10/30/2020 R19.7 Diarrhea, unspecified Rusty pate M.D. 10/30/2020 D72.829 Elevated white blood cell count, unspecified Rusty Alexander M.D. 10/30/2020 F41.9 Anxiety disorder, unspecified Eduard Alexander M.D. 10/30/2020 B00.89 Other herpesviral infection Bolivar Alexander M.D. 10/30/2020 J30.9 Allergic rhinitis, unspecified Carolyne Alexander M.D. 10/30/2020 F17.210 Nicotine dependence, cigarettes, uncomplicated Rusty Alexander M.D. 10/30/2020 K21.9 Gastro-esophageal reflux disease without esophagitis Rusty Alexander M.D. Plan of Treatment Future Appointment(s):* 05/02/2021 11:00 am - [facility] 10/30/2020 - Rusty Alexander M.D.* R11.10 Vomiting, unspecified * R19.7 Diarrhea, unspecified * D72.829 Elevated white blood cell count, unspecified * F41.9 Anxiety disorder, unspecified * B00.89 Other herpesviral infection * J30.9 Allergic rhinitis, unspecified * F17.210 Nicotine dependence, cigarettes, uncomplicated * K21.9 Gastro-esophageal reflux disease without esophagitis * * Comments:* 1. Vomiting: Settled now. Does see Dr. Street. Will use Zofran as needed for nausea. Will continue to follow up with Dr. Street.2. Diarrhea: Appears to be chronic. I have encouraged her to use Imodium as needed. We will monitor.3. Elevated white blood cell count: Await labs for today. Was elevated prior. We will monitor.4. Anxiety disorder: Stable. Did use Xanax in the past with good result. We will monitor.5. Nicotine dependence, cigarettes: She did cut down her smoking to 2-3 cigarettes daily. Discussed about complete smoking cessation in detail. She promised me she will not smoking from November 25, 2020 and will call us if she wants any help. We will monitor. 6. Herpesviral infection: No recent flares up of cold sores. Did use in the past with good result. She will continue to use as needed.7. Allergic rhinitis: Using OTC medications as needed. No issues at this point. No reemergence of asthma that she had previously. 8. GERD: Require PPI for heartburn with good control. Will continue to monitor.Ongoing cares: We will obtain labs on her way out. I am going to see her as scheduled with labs to be determined. If she has new problems or issues sooner she will let us know. Functional Status Description No Information Available Mental Status Description No Information Available Referrals Description No Information Available
--- OUTSIDE RECORDS SUMMARY | 2020-11-11 08:51 | CCD | Continuity of Care Document ---
Author Author Vikki ALEXANDER M.D. Organization Unknown Address [address] [address] Phone [phone] Care Team Providers Care Irrigation Flume Layer Name Role Phone Rusty Alexander MD [facility] [phone] Problems Active Problems Provider Date Tobacco dependence [...] Tablets take by mouth as directed 53tabs uRsty zamarripa M.D. 10/08/2016 Multivitamins Capsules 1 by mouth every day Rusty Alexander M.D. 08/13/2015 Immunizations CPT Code Status Date Vaccine Lot # [id number] Given 08/10/2013 Influenza Virus Vaccine Vital Signs [...] H/L Range Note HCG Urine Qual 09/20/2020 [facility] [address] [id number] [phone] HCG Urine Qual NEGATIVE Normal: Negative HCG Urine QL [place] NEGATIVE Normal: Negative 1 Urinalysis 09/20/[address] [id number] [phone] Urinalysis (SEE NOTE) 2 Source Clean Catch Color yellow Normal: Yellow Clarity clear Normal: Clear Spec [place] 1.015 1.001 - 1.030 pH 7 5 [...] Normal: None Seen Comprehensive Metabolic Panel 09/20/[address] [address] [phone] Comprehensive Metabo (SEE NOTE) 3 Sodium 135 [...] >60 mL/min 4 Laboratory test finding 09/20/2020 [facility] [address] [place] [address] [phone] Lipase Serum 14 U/L 13 - 60 CBC W/Automated Diff 09/20/2020 [facility] [address] [place] [address] [phone] CBC W/Automated Diff (SEE NOTE) 5 WBC [...] Lymph 12.4 % Low 25.0 - 40.0 [place] 7.1 % 3.0 - 8.0 Eos 1.3 % 0.0 - 7.0 Baso 0.3 % 0.0 - 2.5 %Ig 0.3 % High 0.0 - 0.0 %NRBC 0.0 % 0.0 - 0.0 #Neut 9.69 10^3/uL High 2.00 - 6.90 #Lymph 1.53 10^3/uL 0.60 - 3.40 #[place] 0.88 10^3/uL 0.00 - 0.90 #Eos 0.16 10^3/uL 0.00 - 0.70 #Baso 0.04 10^3/uL 0.00 - 0.20 #Ig 0.04 10^3/uL 0.00 - 0.10 #NRBC 0.00 10^3/uL 0.00 - 0.00 Manual Diff NOT INDICATED RBC Morph NOT INDICATED Laboratory test finding 09/20/2020 [facility] [address] [place], [place] [id number] [phone] Lactic Acid (Lactate) 1.7 mmol/L 0.2 - 2.2 Laboratory test finding 09/19/[address] [id number] [phone] Amylase 38 U/L Normal 25-115 Lipase 49 U/L Low 73-393 HCG Serum Qualitative NEGATIVE Normal Negative Basic Metabolic Profile 09/19/[address] [id number] [phone] Glucose, Fasting 99 mg/dL Normal 70-100 Blood [...] 9.5 mg/dL Normal 8.5-10.1 Liver Profile 09/19/2020 [facility] [address] [place] [address] [phone] Ast/Sgot 14 U/L Normal 7-37 Alt/SGPT 25 U/L Normal 12-78 Alkaline Phosphatase 92 U/L Normal 45-117 Bilirubin,Total 0.7 mg/dL Normal 0.2-1.0 Bilirubin,Direct 0.2 mg/dL Normal 0.0-0.2 Total Protein 8.2 GM/DL Normal 6.4-8.2 Albumin 3.6 GM/DL Normal 3.2-5.2 Albumin/Globulin Ratio 0.8 Low 1.2-2.2 CBC With Differential 09/19/2020 [facility] [place] [address] [place] [address] [phone] White Blood Count 14.4 10 High 4.0-10.0 [...] 36.0-66.0 Lymph % 13.2 % Low 24.0-44.0 [place] % 6.7 % High 0.0-5.0 Eos % 0.6 % Normal 0.0-3.0 Baso % 0.3 % Normal 0.0-1.0 Immature Granulocyte % 0.3 % Normal 0-3.0 Nucleated Red Blood Cell % 0.0 % Normal 0-0 Neutrophils # 11.4 10 High 1.5-8.5 Lymph # 1.9 10 Normal 1.5-5.0 [place] # 1.0 10 High 0.0-0.8 Eos # 0.1 10 Normal 0.0-0.5 Baso # 0.0 10 Normal 0.0-0.2 CBC W/Automated Diff 05/09/2020 [facility] [address] [place] [address] [phone] CBC W/Automated Diff (SEE NOTE) 7 WBC [...] 80.0 Lymph 26.0 % 25.0 - 40.0 [place] 7.3 % 3.0 - 8.0 Eos 3.9 % 0.0 - 7.0 Baso 0.3 % 0.0 - 2.5 %Ig 0.3 % High 0.0 - 0.0 %NRBC 0.0 % 0.0 - 0.0 #Neut 6.11 10^3/uL 2.00 - 6.90 #Lymph 2.55 10^3/uL 0.60 - 3.40 #[place] 0.72 10^3/uL 0.00 - 0.90 #Eos 0.38 10^3/uL 0.00 - 0.70 #Baso 0.03 10^3/uL 0.00 - 0.20 #Ig 0.03 10^3/uL 0.00 - 0.10 #NRBC 0.00 10^3/uL 0.00 - 0.00 Manual Diff SEE BELOW Segs 70 % 37 - 80 Band 0 % 0 - 5 %Lymph 20 % Low 25 - 40 %[place] 8 % 3 - 8 %Eos 2 % 0 - 7 %Baso 0 % 0 - 2 Metamyelocyte 0 % Myelocyte 0 % Promyelocyte 0 % Blasts 0 % Hugo Lym 0 % NRBC 0 % RBC Morph NOT INDICATED Comprehensive Metabolic Panel 05/09/2020 [facility] [address] [place] [address] [phone] Comprehensive Metabo (SEE NOTE) 8 Sodium 140 [...] >60 mL/min 9 Laboratory test finding 05/09/2020 [facility] [address] [place] [address] [phone] Acetaminophen Level <5.0 UG/ML 0.0 - 30.0 Salicylate <0.3 mg/dL Low 2.0 - 20.0 HCG Serum Qual 05/09/2020 [facility] [address] [place] [address] [phone] HCG Serum Qual NEGATIVE Normal: Negative HCG Serum QL [place] NEGATIVE Normal: Negative 10 [facility] [address] [place] [address] [phone] Urinalysis (SEE NOTE) 11 Source Clean Catch Color yellow Normal: Yellow Clarity hazy Normal: Clear Spec [place] 1.010 1.001 - 1.030 pH 6.5 5 [...] Normal: None Seen Drug Screen Urine 05/09/2020 [facility] [address] [place] [address] [phone] Drug Screen Urine (SEE NOTE) 12 Amphetamines NEGATIVE Normal: Negative Barbiturates NEGATIVE Normal: Negative Benzo NEGATIVE Normal: Negative Cocaine NEGATIVE Normal: Negative THC PRESUMP POS Abnormal Normal: Negative Opiates NEGATIVE Normal: Negative PCP NEGATIVE Normal: Negative 13 Culture Urine 05/09/2020 [facility] [address] [place] [address] [phone] Culture Urine (SEE NOTE) 14 1 { KIT LOT # [id number] ) { KIT EXP DATE 07/30/21 ) [...] Little GFR Left ESRD GFR <15 on STRIP FEEDER 7 COMPLETE BLOOD COUNT 8 COMPREHENSIVE METABOLIC [...] mL/min Normal 10 { KIT LOT # [id number] ) { KIT EXP DATE 08-06-21 ) [...] PERFORMED AT PHYSICIAN REQUEST. 14 _CULTURE URINE_ ^$284098 ^^[id number] $$930083 ^^[id number] $$925215 $$379874 $$927933 $$410099 $$542327 $$189509 $$373783 $$516344 $$353325 $$466327 $$742871 $$818221 $$699280 $$916322 $$292840 $$304455 $$054296 $$149413 $$209804 $$999054 $$145490 $$205065 $$987163 ^^284631 $$492336 $$033370 $$440542 -- Continued on next page -- Patient: KRISTIN Gross Order: [id number] Page 2 Culture: CULTURE URINE Status: Final $$[id number] $$[id number] REPORTED DATE/TIME: 05/12/2020 19:05 Culture: CULTURE URINE Status: Final Urine Culture,Comprehensive: P1 Mixed urogenital jd 10,000-25,000 colony forming units per m L P1 [facility]: [facility] #: [id number] [address] [place] [id number] [facility] [address] Program Advocate : Ronald Diamond MD NPI #: [place]hammer Operator : 05/13/20.0630.XMT.SENT REF Procedures Description No Information Available Medical Devices Description No Information Available Encounters Description No Information Available Assessments Description No Information Available Plan of Treatment No Information Available Functional Status Description No Information Available Mental Status Description No Information Available Referrals Description No Information Available
--- OUTSIDE RECORDS SUMMARY | 2020-11-11 08:51 | CCD | Continuity of Care Document ---
Author Author Vikki ALEXANDER M.D. Organization Unknown Address [address] [address] Phone [phone] Care Team Providers Care Caustic Cresylate Shift Superintendent Name Role Phone Rusty Alexander MD [facility] [phone] Problems Active Problems Provider Date Tobacco dependence syndrome Onset: 05/02 Migraine Onset: 09/14/2010 Asthma Onset: 10/13/2009 Gastroesophageal reflux disease Onset: 0 Allergic rhinitis due to weed pollens (disorder) Onset: Dysmenorrhea Onset: Acne Rusty Alexander M.D. Onset: 08/13/2015 Anxiety state Rusty Alexander M.D. Onset: 08/13/2015 Carpal tunnel syndrome uRsty Alexander M.D. Onset: 5 Headache Rusty Alexander [...] CPT Code Status Date Vaccine Lot # [id number] Given 08/10/2013 Influenza Virus Vaccine Vital Signs [...] H/L Range Note HCG Urine Qual 09/20/2020 [facility] [address] [id number] [phone] HCG Urine Qual NEGATIVE Normal: Negative HCG Urine QL Reenter NEGATIVE Normal: Negative 1 Urinalysis 09/20/[address] [id number] [phone] Urinalysis (SEE NOTE) 2 Source Clean Catch Color yellow Normal: Yellow Clarity clear Normal: Clear Spec [place] 1.015 1.001 - 1.030 pH 7 5 [...] Normal: None Seen Comprehensive Metabolic Panel 09/20/[address] [address] [phone] Comprehensive Metabo (SEE NOTE) 3 Sodium 135 [...] >60 mL/min 4 Laboratory test finding 09/20/2020 [facility] [address] [place] [address] [phone] Lipase Serum 14 U/L 13 - 60 CBC W/Automated Diff 09/20/2020 [facility] [address] [place] [address] [phone] CBC W/Automated Diff (SEE NOTE) 5 WBC [...] Lymph 12.4 % Low 25.0 - 40.0 [place] 7.1 % 3.0 - 8.0 Eos 1.3 % 0.0 - 7.0 Baso 0.3 % 0.0 - 2.5 %Ig 0.3 % High 0.0 - 0.0 %NRBC 0.0 % 0.0 - 0.0 #Neut 9.69 10^3/uL High 2.00 - 6.90 #Lymph 1.53 10^3/uL 0.60 - 3.40 #[place] 0.88 10^3/uL 0.00 - 0.90 #Eos 0.16 10^3/uL 0.00 - 0.70 #Baso 0.04 10^3/uL 0.00 - 0.20 #Ig 0.04 10^3/uL 0.00 - 0.10 #NRBC 0.00 10^3/uL 0.00 - 0.00 Manual Diff NOT INDICATED RBC Morph NOT INDICATED Laboratory test finding 09/20/2020 [facility] [address] [place], [place] 7703568 [phone] Lactic Acid (Lactate) 1.7 mmol/L 0.2 - 2.2 Laboratory test finding 09/19/[address] [id number] [phone] Amylase 38 U/L Normal 25-115 Lipase 49 U/L Low 73-393 HCG Serum Qualitative NEGATIVE Normal Negative Basic Metabolic Profile 09/19/[address] [id number] [phone] Glucose, Fasting 99 mg/dL Normal 70-100 Blood [...] 9.5 mg/dL Normal 8.5-10.1 Liver Profile 09/19/2020 [facility] nter [address] [place] [address] [phone] Ast/Sgot 14 U/L Normal 7-37 Alt/SGPT 25 U/L Normal 12-78 Alkaline Phosphatase 92 U/L Normal 45-117 Bilirubin,Total 0.7 mg/dL Normal 0.2-1.0 Bilirubin,Direct 0.2 mg/dL Normal 0.0-0.2 Total Protein 8.2 GM/DL Normal 6.4-8.2 Albumin 3.6 GM/DL Normal 3.2-5.2 Albumin/Globulin Ratio 0.8 Low 1.2-2.2 CBC With Differential 09/19/2020 [place] [place] [address] [phone] White Blood Count 14.4 10 High 4.0-10.0 [...] 36.0-66.0 Lymph % 13.2 % Low 24.0-44.0 [place] % 6.7 % High 0.0-5.0 Eos % 0.6 % Normal 0.0-3.0 Baso % 0.3 % Normal 0.0-1.0 Immature Granulocyte % 0.3 % Normal 0-3.0 Nucleated Red Blood Cell % 0.0 % Normal 0-0 Neutrophils # 11.4 10 High 1.5-8.5 Lymph # 1.9 10 Normal 1.5-5.0 [place] # 1.0 10 High 0.0-0.8 Eos # 0.1 10 Normal 0.0-0.5 Baso # 0.0 10 Normal 0.0-0.2 CBC W/Automated Diff 05/09/2020 [facility] [address] [place] [address] [phone] CBC W/Automated Diff (SEE NOTE) 7 WBC [...] 80.0 Lymph 26.0 % 25.0 - 40.0 [place] 7.3 % 3.0 - 8.0 Eos 3.9 % 0.0 - 7.0 Baso 0.3 % 0.0 - 2.5 %Ig 0.3 % High 0.0 - 0.0 %NRBC 0.0 % 0.0 - 0.0 #Neut 6.11 10^3/uL 2.00 - 6.90 #Lymph 2.55 10^3/uL 0.60 - 3.40 #[place] 0.72 10^3/uL 0.00 - 0.90 #Eos 0.38 10^3/uL 0.00 - 0.70 #Baso 0.03 10^3/uL 0.00 - 0.20 #Ig 0.03 10^3/uL 0.00 - 0.10 #NRBC 0.00 10^3/uL 0.00 - 0.00 Manual Diff SEE BELOW Segs 70 % 37 - 80 Band 0 % 0 - 5 %Lymph 20 % Low 25 - 40 %[place] 8 % 3 - 8 %Eos 2 % 0 - 7 %Baso 0 % 0 - 2 Metamyelocyte 0 % Myelocyte 0 % Promyelocyte 0 % Blasts 0 % Hugo Lym 0 % NRBC 0 % RBC Morph NOT INDICATED Comprehensive Metabolic Panel 05/09/2020 [facility] [address] [place] [address] [phone] Comprehensive Metabo (SEE NOTE) 8 Sodium 140 [...] >60 mL/min 9 Laboratory test finding 05/09/2020 [facility] [address] [place] [address] [phone] Acetaminophen Level <5.0 UG/ML 0.0 - 30.0 Salicylate <0.3 mg/dL Low 2.0 - 20.0 HCG Serum Qual 05/09/2020 [facility] [address] [place] [address] [phone] HCG Serum Qual NEGATIVE Normal: Negative HCG Serum QL Reenter NEGATIVE Normal: Negative 10 [facility] [address] [place] [address] [phone] Urinalysis (SEE NOTE) 11 Source Clean Catch Color yellow Normal: Yellow Clarity hazy Normal: Clear Spec [place] 1.010 1.001 - 1.030 pH 6.5 5 [...] Normal: None Seen Drug Screen Urine 05/09/2020 [facility] [address] [place] [address] [phone] Drug Screen Urine (SEE NOTE) 12 Amphetamines NEGATIVE Normal: Negative Barbiturates NEGATIVE Normal: Negative Benzo NEGATIVE Normal: Negative Cocaine NEGATIVE Normal: Negative THC PRESUMP POS Abnormal Normal: Negative Opiates NEGATIVE Normal: Negative PCP NEGATIVE Normal: Negative 13 Culture Urine 05/09/2020 [facility] [address] [place] [address] [phone] Culture Urine (SEE NOTE) 14 1 { KIT LOT # [id number] ) { KIT EXP DATE 07/30/21 ) [...] Little GFR Left ESRD GFR <15 on SAP FUNCTIONAL ANALYST 7 COMPLETE BLOOD COUNT 8 COMPREHENSIVE [...] mL/min Normal 10 { KIT LOT # [id number] ) { KIT EXP DATE 08-06-21 ) [...] PERFORMED AT PHYSICIAN REQUEST. 14 _CULTURE URINE_ ^$077289 ^^[id number] $$[id number] ^^[id number] $$838783 $$453938 $$263658 $$694395 $$805684 $$231063 $$452699 $$589776 $$800978 $$490026 $$524809 $$739648 $$043617 $$521020 $$489819 $$168032 $$511491 $$921491 $$151377 $$281149 $$531736 $$663236 $$396670 ^^549328 $$391134 $$399510 $$471712 -- Continued on next page -- Patient: KRISTIN Gross Order: [id number] Page 2 Culture: CULTURE URINE Status: Final $$[id number] $$[id number] REPORTED DATE/TIME: 05/12/2020 19:05 Culture: CULTURE URINE Status: Final Urine Culture,Comprehensive: P1 Mixed urogenital jd 10,000-25,000 colony forming units per m L P1 Test performed by: [facility] RODNEY #: [id number] [address] [place] [address] [id number] [facility] [address] Crab Picker : Ronald Diamond MD NPI #: Kier Operator : 05/13/20.0630.XMT.SENT REF Procedures Description No Information Available Medical Devices Description No Information Available Encounters Description No Information Available Assessments Description No Information Available Plan of Treatment No Information Available Functional Status Description No Information Available Mental Status Description No Information Available Referrals Description No Information Available
--- OUTSIDE RECORDS SUMMARY | 2020-11-11 08:51 | CCD | Continuity of Care Document ---
Author Author Vikki ALEXANDER M.D. Organization Unknown Address [address] [address] Phone [phone] Care Team Providers Care Automatic Bandsaw Tender Name Role Phone Rusty Alexander MD [facility] [phone] Problems Active Problems Provider Date Tobacco dependence [...] CPT Code Status Date Vaccine Lot # [id number] Given 08/10/2013 Influenza Virus Vaccine Vital Signs [...] H/L Range Note HCG Urine Qual 09/20/2020 [facility] [address] [id number] [phone] HCG Urine Qual NEGATIVE Normal: Negative HCG Urine QL Reenter NEGATIVE Normal: Negative 1 Urinalysis 09/20/[address] 3510490 [phone] Urinalysis (SEE NOTE) 2 Source Clean Catch Color yellow Normal: Yellow Clarity clear Normal: Clear Spec [place] 1.015 1.001 - 1.030 pH 7 5 [...] Normal: None Seen Comprehensive Metabolic Panel 09/20/[address] [address] [phone] Comprehensive Metabo (SEE NOTE) 3 Sodium 135 [...] >60 mL/min 4 Laboratory test finding 09/20/2020 [facility] [address] [place] [address] [phone] Lipase Serum 14 U/L 13 - 60 CBC W/Automated Diff 09/20/2020 [facility] [address] [place] [address] [phone] CBC W/Automated Diff (SEE NOTE) 5 WBC [...] Lymph 12.4 % Low 25.0 - 40.0 [place] 7.1 % 3.0 - 8.0 Eos 1.3 % 0.0 - 7.0 Baso 0.3 % 0.0 - 2.5 %Ig 0.3 % High 0.0 - 0.0 %NRBC 0.0 % 0.0 - 0.0 #Neut 9.69 10^3/uL High 2.00 - 6.90 #Lymph 1.53 10^3/uL 0.60 - 3.40 #[place] 0.88 10^3/uL 0.00 - 0.90 #Eos 0.16 10^3/uL 0.00 - 0.70 #Baso 0.04 10^3/uL 0.00 - 0.20 #Ig 0.04 10^3/uL 0.00 - 0.10 #NRBC 0.00 10^3/uL 0.00 - 0.00 Manual Diff NOT INDICATED RBC Morph NOT INDICATED Laboratory test finding 09/20/2020 [facility] [address] [place], [place] 7721585 [phone] Lactic Acid (Lactate) 1.7 mmol/L 0.2 - 2.2 Laboratory test finding 09/19/[address] 2756808 [phone] Amylase 38 U/L Normal 25-115 Lipase 49 U/L Low 73-393 HCG Serum Qualitative NEGATIVE Normal Negative Basic Metabolic Profile 09/19/[address] [id number] [phone] Glucose, Fasting 99 mg/dL Normal 70-100 Blood [...] 9.5 mg/dL Normal 8.5-10.1 Liver Profile 09/19/2020 [facility] nter [address] [place] [address] [phone] Ast/Sgot 14 U/L Normal 7-37 Alt/SGPT 25 U/L Normal 12-78 Alkaline Phosphatase 92 U/L Normal 45-117 Bilirubin,Total 0.7 mg/dL Normal 0.2-1.0 Bilirubin,Direct 0.2 mg/dL Normal 0.0-0.2 Total Protein 8.2 GM/DL Normal 6.4-8.2 Albumin 3.6 GM/DL Normal 3.2-5.2 Albumin/Globulin Ratio 0.8 Low 1.2-2.2 CBC With Differential 09/19/2020 [place] [place] [address] [phone] White Blood Count 14.4 10 High 4.0-10.0 [...] 36.0-66.0 Lymph % 13.2 % Low 24.0-44.0 [place] % 6.7 % High 0.0-5.0 Eos % 0.6 % Normal 0.0-3.0 Baso % 0.3 % Normal 0.0-1.0 Immature Granulocyte % 0.3 % Normal 0-3.0 Nucleated Red Blood Cell % 0.0 % Normal 0-0 Neutrophils # 11.4 10 High 1.5-8.5 Lymph # 1.9 10 Normal 1.5-5.0 [place] # 1.0 10 High 0.0-0.8 Eos # 0.1 10 Normal 0.0-0.5 Baso # 0.0 10 Normal 0.0-0.2 CBC W/Automated Diff 05/09/2020 [facility] [address] [place] [address] [phone] CBC W/Automated Diff (SEE NOTE) 7 WBC [...] 80.0 Lymph 26.0 % 25.0 - 40.0 [place] 7.3 % 3.0 - 8.0 Eos 3.9 % 0.0 - 7.0 Baso 0.3 % 0.0 - 2.5 %Ig 0.3 % High 0.0 - 0.0 %NRBC 0.0 % 0.0 - 0.0 #Neut 6.11 10^3/uL 2.00 - 6.90 #Lymph 2.55 10^3/uL 0.60 - 3.40 #[place] 0.72 10^3/uL 0.00 - 0.90 #Eos 0.38 10^3/uL 0.00 - 0.70 #Baso 0.03 10^3/uL 0.00 - 0.20 #Ig 0.03 10^3/uL 0.00 - 0.10 #NRBC 0.00 10^3/uL 0.00 - 0.00 Manual Diff SEE BELOW Segs 70 % 37 - 80 Band 0 % 0 - 5 %Lymph 20 % Low 25 - 40 %[place] 8 % 3 - 8 %Eos 2 % 0 - 7 %Baso 0 % 0 - 2 Metamyelocyte 0 % Myelocyte 0 % Promyelocyte 0 % Blasts 0 % Hugo Lym 0 % NRBC 0 % RBC Morph NOT INDICATED Comprehensive Metabolic Panel 05/09/2020 [facility] [address] [place] [address] [phone] Comprehensive Metabo (SEE NOTE) 8 Sodium 140 [...] >60 mL/min 9 Laboratory test finding 05/09/2020 [facility] [address] [place] [address] [phone] Acetaminophen Level <5.0 UG/ML 0.0 - 30.0 Salicylate <0.3 mg/dL Low 2.0 - 20.0 HCG Serum Qual 05/09/2020 [facility] [address] [place] [address] [phone] HCG Serum Qual NEGATIVE Normal: Negative HCG Serum QL Reenter NEGATIVE Normal: Negative 10 [facility] [address] [place] [address] [phone] Urinalysis (SEE NOTE) 11 Source Clean Catch Color yellow Normal: Yellow Clarity hazy Normal: Clear Spec [place] 1.010 1.001 - 1.030 pH 6.5 5 [...] Normal: None Seen Drug Screen Urine 05/09/2020 [facility] [address] [place] [address] [phone] Drug Screen Urine (SEE NOTE) 12 Amphetamines NEGATIVE Normal: Negative Barbiturates NEGATIVE Normal: Negative Benzo NEGATIVE Normal: Negative Cocaine NEGATIVE Normal: Negative THC PRESUMP POS Abnormal Normal: Negative Opiates NEGATIVE Normal: Negative PCP NEGATIVE Normal: Negative 13 Culture Urine 05/09/2020 [facility] [address] [place] [address] [phone] Culture Urine (SEE NOTE) 14 1 { KIT LOT # [id number] ) { KIT EXP DATE 07/30/21 ) [...] Little GFR Left ESRD GFR <15 on ACCOUNTS CLERK 7 COMPLETE BLOOD COUNT 8 COMPREHENSIVE METABOLIC [...] mL/min Normal 10 { KIT LOT # [id number] ) { KIT EXP DATE 08-06-21 ) [...] PERFORMED AT PHYSICIAN REQUEST. 14 _CULTURE URINE_ ^$572287 ^^[id number] $$552842 ^^857886 $$276536 $$681401 $$059376 $$137880 $$389549 $$323911 $$447741 $$836377 $$961984 $$074303 $$299018 $$148518 $$433165 $$860260 $$583742 $$560053 $$648466 $$246957 $$227508 $$051697 $$794949 $$837550 $$209456 ^^633692 $$289693 $$311565 $$315742 -- Continued on next page -- Patient: KRISTIN Gross Order: [id number] Page 2 Culture: CULTURE URINE Status: Final $$[id number] $$[id number] REPORTED DATE/TIME: 05/12/2020 19:05 Culture: CULTURE URINE Status: Final Urine Culture,Comprehensive: P1 Mixed urogenital jd 10,000-25,000 colony forming units per m L P1 [facility] performed [facility]: [facility] Chacha RODNEY #: [id number] [address] [place] [id number] [facility] [address] Filling Hand : Ronald Diamond MD NPI #: Chief Security And Safety Officer : 05/13/20.0630.XMT.SENT REF Procedures Description No Information Available Medical Devices Description No Information Available Encounters Description No Information Available Assessments Description No Information Available Plan of Treatment No Information Available Functional Status Description No Information Available Mental Status Description No Information Available Referrals Description No Information Available
--- OUTSIDE RECORDS SUMMARY | 2020-11-11 08:51 | CCD | Continuity of Care Document ---
Author Author Vikki ALEXANDER M.D. Organization Unknown Address [address] [address] Phone [phone] Care Team Providers Care Body Builder Name Role Phone Rusty Alexander MD [facility] [phone] Problems Active Problems Provider Date Tobacco dependence syndrome Onset: 05/02 Migraine Onset: 09/14/2010 Asthma Onset: 10/13/2009 Gastroesophageal reflux disease Onset: 0 Allergic rhinitis due to weed pollens (disorder) Onset: Dysmenorrhea Onset: Acne Rusty Alexander M.D. Onset: 08/13/2015 Anxiety state Rusty Alexander M.D. Onset: 08/13/2015 Carpal tunnel syndrome Rusty Alexander M.D. Onset: 5 Headache Rusty Alexander M.D. Onset: 08/13/2015 Allergic rhinitis Rusty Alexnader M.D. Onset: 08/13/2015 Polycystic ovaries Rusty Alexander [...] CPT Code Status Date Vaccine Lot # [id number] Given 08/10/2013 Influenza Virus Vaccine Vital Signs [...] H/L Range Note HCG Urine Qual 09/20/2020 [facility] [address] 8363598 [phone] HCG Urine Qual NEGATIVE Normal: Negative HCG Urine QL Reenter NEGATIVE Normal: Negative 1 Urinalysis 09/20/[address] 7984153 [phone] Urinalysis (SEE NOTE) 2 Source Clean Catch Color yellow Normal: Yellow Clarity clear Normal: Clear Spec [place] 1.015 1.001 - 1.030 pH 7 5 [...] Normal: None Seen Comprehensive Metabolic Panel 09/20/[address] [address] [phone] Comprehensive Metabo (SEE NOTE) 3 Sodium 135 [...] >60 mL/min 4 Laboratory test finding 09/20/2020 [facility] [address] [place] [address] [phone] Lipase Serum 14 U/L 13 - 60 CBC W/Automated Diff 09/20/2020 [facility] [address] [place] [address] [phone] CBC W/Automated Diff (SEE NOTE) 5 WBC [...] Lymph 12.4 % Low 25.0 - 40.0 [place] 7.1 % 3.0 - 8.0 Eos 1.3 % 0.0 - 7.0 Baso 0.3 % 0.0 - 2.5 %Ig 0.3 % High 0.0 - 0.0 %NRBC 0.0 % 0.0 - 0.0 #Neut 9.69 10^3/uL High 2.00 - 6.90 #Lymph 1.53 10^3/uL 0.60 - 3.40 #[place] 0.88 10^3/uL 0.00 - 0.90 #Eos 0.16 10^3/uL 0.00 - 0.70 #Baso 0.04 10^3/uL 0.00 - 0.20 #Ig 0.04 10^3/uL 0.00 - 0.10 #NRBC 0.00 10^3/uL 0.00 - 0.00 Manual Diff NOT INDICATED RBC Morph NOT INDICATED Laboratory test finding 09/20/2020 [facility] [address] [place], [place] 7037436 [phone] Lactic Acid (Lactate) 1.7 mmol/L 0.2 - 2.2 Laboratory test finding 09/19/[address] [phone] Amylase 38 U/L Normal 25-115 Lipase 49 U/L Low 73-393 HCG Serum Qualitative NEGATIVE Normal Negative Basic Metabolic Profile 09/19/[address] 9179659 [phone] Glucose, Fasting 99 mg/dL Normal 70-100 Blood [...] 9.5 mg/dL Normal 8.5-10.1 Liver Profile 09/19/2020 [facility] nter [address] [place] [address] [phone] Ast/Sgot 14 U/L Normal 7-37 Alt/SGPT 25 U/L Normal 12-78 Alkaline Phosphatase 92 U/L Normal 45-117 Bilirubin,Total 0.7 mg/dL Normal 0.2-1.0 Bilirubin,Direct 0.2 mg/dL Normal 0.0-0.2 Total Protein 8.2 GM/DL Normal 6.4-8.2 Albumin 3.6 GM/DL Normal 3.2-5.2 Albumin/Globulin Ratio 0.8 Low 1.2-2.2 CBC With Differential 09/19/2020 [place] [place] [address] [phone] White Blood Count 14.4 10 High 4.0-10.0 [...] 36.0-66.0 Lymph % 13.2 % Low 24.0-44.0 [place] % 6.7 % High 0.0-5.0 Eos % 0.6 % Normal 0.0-3.0 Baso % 0.3 % Normal 0.0-1.0 Immature Granulocyte % 0.3 % Normal 0-3.0 Nucleated Red Blood Cell % 0.0 % Normal 0-0 Neutrophils # 11.4 10 High 1.5-8.5 Lymph # 1.9 10 Normal 1.5-5.0 [place] # 1.0 10 High 0.0-0.8 Eos # 0.1 10 Normal 0.0-0.5 Baso # 0.0 10 Normal 0.0-0.2 CBC W/Automated Diff 05/09/2020 [facility] [address] [place] [address] [phone] CBC W/Automated Diff (SEE NOTE) 7 WBC [...] 80.0 Lymph 26.0 % 25.0 - 40.0 [place] 7.3 % 3.0 - 8.0 Eos 3.9 % 0.0 - 7.0 Baso 0.3 % 0.0 - 2.5 %Ig 0.3 % High 0.0 - 0.0 %NRBC 0.0 % 0.0 - 0.0 #Neut 6.11 10^3/uL 2.00 - 6.90 #Lymph 2.55 10^3/uL 0.60 - 3.40 #[place] 0.72 10^3/uL 0.00 - 0.90 #Eos 0.38 10^3/uL 0.00 - 0.70 #Baso 0.03 10^3/uL 0.00 - 0.20 #Ig 0.03 10^3/uL 0.00 - 0.10 #NRBC 0.00 10^3/uL 0.00 - 0.00 Manual Diff SEE BELOW Segs 70 % 37 - 80 Band 0 % 0 - 5 %Lymph 20 % Low 25 - 40 %[place] 8 % 3 - 8 %Eos 2 % 0 - 7 %Baso 0 % 0 - 2 Metamyelocyte 0 % Myelocyte 0 % Promyelocyte 0 % Blasts 0 % Hugo Lym 0 % NRBC 0 % RBC Morph NOT INDICATED Comprehensive Metabolic Panel 05/09/2020 [facility] [address] [place] [address] [phone] Comprehensive Metabo (SEE NOTE) 8 Sodium 140 [...] >60 mL/min 9 Laboratory test finding 05/09/2020 [facility] [address] [place] [address] [phone] Acetaminophen Level <5.0 UG/ML 0.0 - 30.0 Salicylate <0.3 mg/dL Low 2.0 - 20.0 HCG Serum Qual 05/09/2020 [facility] [address] [place] [address] [phone] HCG Serum Qual NEGATIVE Normal: Negative HCG Serum QL Reenter NEGATIVE Normal: Negative 10 [facility] [address] [place] [place] [address] [phone] Urinalysis (SEE NOTE) 11 Source Clean Catch Color yellow Normal: Yellow Clarity hazy Normal: Clear Spec [place] 1.010 1.001 - 1.030 pH 6.5 5 [...] Normal: None Seen Drug Screen Urine 05/09/2020 [facility] [address] [place] [address] [phone] Drug Screen Urine (SEE NOTE) 12 Amphetamines NEGATIVE Normal: Negative Barbiturates NEGATIVE Normal: Negative Benzo NEGATIVE Normal: Negative Cocaine NEGATIVE Normal: Negative THC PRESUMP POS Abnormal Normal: Negative Opiates NEGATIVE Normal: Negative PCP NEGATIVE Normal: Negative 13 Culture Urine 05/09/2020 [facility] [address] [place] [address] [phone] Culture Urine (SEE NOTE) 14 1 { KIT LOT # [id number] ) { KIT EXP DATE 07/30/21 ) [...] Little GFR Left ESRD GFR <15 on RECEPTION INTERVIEWER 7 COMPLETE BLOOD COUNT 8 COMPREHENSIVE METABOLIC [...] mL/min Normal 10 { KIT LOT # [id number] ) { KIT EXP DATE 08-06-21 ) [...] PERFORMED AT PHYSICIAN REQUEST. 14 _CULTURE URINE_ ^$306561 ^^[id number] $$839171 ^^224839 $$425686 $$248889 $$924687 $$219760 $$028114 $$184104 $$356731 $$847608 $$834320 $$520391 $$264889 $$593851 $$124963 $$344072 $$900211 $$103199 $$345421 $$197918 $$460689 $$061949 $$899862 $$039111 $$977565 ^^528737 $$203579 $$168320 $$602919 -- Continued on next page -- Patient: KRISTIN Gross Order: [id number] Page 2 Culture: CULTURE URINE Status: Final $$[id number] $$[id number] REPORTED DATE/TIME: 05/12/2020 19:05 Culture: CULTURE URINE Status: Final Urine Culture,Comprehensive: P1 Mixed urogenital jd 10,000-25,000 colony forming units per m L P1 Test performed by: [facility]acha RODNEY #: [id number] [address] [place] [id number] [facility] [address] Bath Tester : Ronald Diamond MD NPI #: Solar Sales Associate : 05/13/20.0630.XMT.SENT REF Procedures Description No Information Available Medical Devices Description No Information Available Encounters Description No Information Available Assessments Description No Information Available Plan of Treatment No Information Available Functional Status Description No Information Available Mental Status Description No Information Available Referrals Description No Information Available
--- OUTSIDE RECORDS SUMMARY | 2020-11-11 08:51 | CCD ---
Continuity of Care Document (CCD) Created on: 10/30/2020 Vikki Sorto External Reference #: [id number] : 1990 Sex: Female Author Author Vikki ALEXANDER M.D. Organization Unknown Address [address] [address] Phone [phone] Care Team Providers Care Test Driller Name Role Phone Rusty Alexander MD [facility] [phone] Problems Active Problems Provider Date Tobacco dependence [...] CPT Code Status Date Vaccine Lot # [id number] Given 08/10/2013 Influenza Virus Vaccine Vital Signs [...] H/L Range Note HCG Urine Qual 09/20/[facility] [address] [id number] [phone] HCG Urine Qual NEGATIVE Normal: Negative HCG Urine QL [place]enter NEGATIVE Normal: Negative 1 Urinalysis 09/20/[address] 7961993 [phone] Urinalysis (SEE NOTE) 2 Source Clean Catch Color yellow Normal: Yellow Clarity clear Normal: Clear Spec [place] 1.015 1.001 - 1.030 pH 7 5 [...] Normal: None Seen Comprehensive Metabolic Panel 09/20/[address] [address] [phone] Comprehensive Metabo (SEE NOTE) 3 Sodium 135 [...] >60 mL/min 4 Laboratory test finding 09/20/2020 [facility] [address] [place] [address] [phone] Lipase Serum 14 U/L 13 - 60 CBC W/Automated Diff 09/20/2020 [facility] [address] [place] [address] [phone] CBC W/Automated Diff (SEE NOTE) 5 WBC [...] Lymph 12.4 % Low 25.0 - 40.0 Clare 7.1 % 3.0 - 8.0 Eos 1.3 % 0.0 - 7.0 Baso 0.3 % 0.0 - 2.5 %Ig 0.3 % High 0.0 - 0.0 %NRBC 0.0 % 0.0 - 0.0 #Neut 9.69 10^3/uL High 2.00 - 6.90 #Lymph 1.53 10^3/uL 0.60 - 3.40 #Clare 0.88 10^3/uL 0.00 - 0.90 #Eos 0.16 10^3/uL 0.00 - 0.70 #Baso 0.04 10^3/uL 0.00 - 0.20 #Ig 0.04 10^3/uL 0.00 - 0.10 #NRBC 0.00 10^3/uL 0.00 - 0.00 Manual Diff NOT INDICATED RBC Morph NOT INDICATED Laboratory test finding 09/20/2020 [facility] [address] [place], [place] 7346291 [phone] Lactic Acid (Lactate) 1.7 mmol/L 0.2 - 2.2 Laboratory test finding 09/19/[address] 7209451 [phone] Amylase 38 U/L Normal 25-115 Lipase 49 U/L Low 73-393 HCG Serum Qualitative NEGATIVE Normal Negative Basic Metabolic Profile 09/19/[address] 9852408 [phone] Glucose, Fasting 99 mg/dL Normal 70-100 Blood [...] 9.5 mg/dL Normal 8.5-10.1 Liver Profile 09/19/2020 [facility] [address] [place] [address] [phone] Ast/Sgot 14 U/L Normal 7-37 Alt/SGPT 25 U/L Normal 12-78 Alkaline Phosphatase 92 U/L Normal 45-117 Bilirubin,Total 0.7 mg/dL Normal 0.2-1.0 Bilirubin,Direct 0.2 mg/dL Normal 0.0-0.2 Total Protein 8.2 GM/DL Normal 6.4-8.2 Albumin 3.6 GM/DL Normal 3.2-5.2 Albumin/Globulin Ratio 0.8 Low 1.2-2.2 CBC With Differential 09/19/2020 [place] [address] [place] [address] [phone] White Blood Count 14.4 10 High 4.0-10.0 [...] 36.0-66.0 Lymph % 13.2 % Low 24.0-44.0 Clare % 6.7 % High 0.0-5.0 Eos % 0.6 % Normal 0.0-3.0 Baso % 0.3 % Normal 0.0-1.0 Immature Granulocyte % 0.3 % Normal 0-3.0 Nucleated Red Blood Cell % 0.0 % Normal 0-0 Neutrophils # 11.4 10 High 1.5-8.5 Lymph # 1.9 10 Normal 1.5-5.0 Clare # 1.0 10 High 0.0-0.8 Eos # 0.1 10 Normal 0.0-0.5 Baso # 0.0 10 Normal 0.0-0.2 CBC W/Automated Diff 05/09/2020 [facility] [address] [place] [address] [phone] CBC W/Automated Diff (SEE NOTE) 7 WBC [...] 80.0 Lymph 26.0 % 25.0 - 40.0 Clare 7.3 % 3.0 - 8.0 Eos 3.9 % 0.0 - 7.0 Baso 0.3 % 0.0 - 2.5 %Ig 0.3 % High 0.0 - 0.0 %NRBC 0.0 % 0.0 - 0.0 #Neut 6.11 10^3/uL 2.00 - 6.90 #Lymph 2.55 10^3/uL 0.60 - 3.40 #Clare 0.72 10^3/uL 0.00 - 0.90 #Eos 0.38 10^3/uL 0.00 - 0.70 #Baso 0.03 10^3/uL 0.00 - 0.20 #Ig 0.03 10^3/uL 0.00 - 0.10 #NRBC 0.00 10^3/uL 0.00 - 0.00 Manual Diff SEE BELOW Segs 70 % 37 - 80 Band 0 % 0 - 5 %Lymph 20 % Low 25 - 40 %Clare 8 % 3 - 8 %Eos 2 % 0 - 7 %Baso 0 % 0 - 2 Metamyelocyte 0 % Myelocyte 0 % Promyelocyte 0 % Blasts 0 % Hugo Lym 0 % NRBC 0 % RBC Morph NOT INDICATED Comprehensive Metabolic Panel 05/09/2020 [facility] [address] [place] [address] [phone] Comprehensive Metabo (SEE NOTE) 8 Sodium 140 [...] >60 mL/min 9 Laboratory test finding 05/09/2020 [facility] [address] [place] [address] [phone] Acetaminophen Level <5.0 UG/ML 0.0 - 30.0 Salicylate <0.3 mg/dL Low 2.0 - 20.0 HCG Serum Qual 05/09/2020 [facility] [address] [place] [address] [phone] HCG Serum Qual NEGATIVE Normal: Negative HCG Serum QL Reenter NEGATIVE Normal: Negative 10 [facility] [address] [place] [address] [phone] Urinalysis (SEE NOTE) 11 Source Clean Catch Color yellow Normal: Yellow Clarity hazy Normal: Clear Spec [place] 1.010 1.001 - 1.030 pH 6.5 5 [...] Normal: None Seen Drug Screen Urine 05/09/2020 [facility] [address] [place] [address] [phone] Drug Screen Urine (SEE NOTE) 12 Amphetamines NEGATIVE Normal: Negative Barbiturates NEGATIVE Normal: Negative Benzo NEGATIVE Normal: Negative Cocaine NEGATIVE Normal: Negative THC PRESUMP POS Abnormal Normal: Negative Opiates NEGATIVE Normal: Negative PCP NEGATIVE Normal: Negative 13 Culture Urine 05/09/2020 [facility] [address] [place] [address] [phone] Culture Urine (SEE NOTE) 14 1 { KIT LOT # [id number] ) { KIT EXP DATE 07/30/21 ) [...] Little GFR Left ESRD GFR <15 on PROTOTYPE SEWER 7 COMPLETE BLOOD COUNT 8 COMPREHENSIVE METABOLIC [...] mL/min Normal 10 { KIT LOT # [id number] ) { KIT EXP DATE 08-06-21 ) [...] PERFORMED AT PHYSICIAN REQUEST. 14 _CULTURE URINE_ ^$643500 ^^[id number] $$255373 ^^359136 $$658975 $$213273 $$524599 $$973416 $$710612 $$424009 $$964094 $$117541 $$591561 $$058117 $$512528 $$732415 $$466265 $$946112 $$409855 $$750586 $$303193 $$800785 $$482313 $$915794 $$533697 $$490387 $$604488 ^^524532 $$860660 $$061962 $$092267 -- Continued on next page -- Patient: KRISTIN Gross Order: [id number] Page 2 Culture: CULTURE URINE Status: Final $$[id number] $$[id number] REPORTED DATE/TIME: 05/12/2020 19:05 Culture: CULTURE URINE Status: Final Urine Culture,Comprehensive: P1 Mixed urogenital jd 10,000-25,000 colony forming units per m L P1 Test performed by: [facility] RODNEY #: [id number] [address] [place] [id number] [facility] [address] Automatic Edger : Ronald Diamond MD NPI #: Second Cook And Baker : 05/13/20.0630.XMT.SENT REF Procedures Description No Information Available Medical Devices Description No Information Available Encounters Description No Information Available Assessments Description No Information Available Plan of Treatment No Information Available Functional Status Description No Information Available Mental Status Description No Information Available Referrals Description No Information Available
--- OUTSIDE RECORDS SUMMARY | 2020-11-11 08:52 | CCD | Continuity of Care Document ---
Author Author Vikki STREET Organization Unknown Address [address] [place] [address] Phone [phone] Care Team Providers Care Fingerer Name Role Phone Rusty Dean M.D. AUTM [phone] Problems Active Problems Provider Date Nausea Michael [...] 100tabs Ge yanet Street M.D. 10/29/2020 [facility] [phone] Tablets as directed [address] M.D. [...] Available Encounters Description No Information Available Assessments Date Code Description Provider 10/29/2020 R11.2 Nausea with vomiting, unspecifie d Adwoa MontesD. 10/29/2020 R19.[address], [address] M.D. [...]
--- OUTSIDE RECORDS SUMMARY | 2020-11-11 08:52 | CCD | Continuity of Care Document ---
Author Author Vikki ALEXANDER M.D. Organization Unknown Address [address] [address] Phone [phone] Care Team Providers Care Desulfurizer Operator Name Role Phone Rusty Alexander MD [facility] [phone] Problems Active Problems Provider Date Tobacco dependence [...] needed nausea 30tabs Rusty Alexander M.D. 03/27/2020 Xanax 0.25mg Tablets 1 tab by mouth twice a day as needed anxiety 14tabs Rusty Alexander M.D. Celexa 40mg Tablets 1 by mouth every [...] CPT Code Status Date Vaccine Lot # [id number] Given 08/10/2013 Influenza Virus Vaccine Vital Signs [...] H/L Range Note HCG Urine Qual 09/20/2020 [facility] [address] [place] [address] [phone] HCG Urine Qual NEGATIVE Normal: Negative HCG Urine QL Reenter NEGATIVE Normal: Negative 1 Urinalysis 09/20/2020 [facility] [address] [place], [place] 3628739 [phone] Urinalysis (SEE NOTE) 2 Source Clean Catch Color yellow Normal: Yellow Clarity clear Normal: Clear Spec [place] 1.015 1.001 - 1.030 pH 7 5 [...] Normal: None Seen Comprehensive Metabolic Panel 09/20/2020 [facility] [address] [place] [address] [phone] Comprehensive Metabo (SEE NOTE) 3 Sodium 135 [...] >60 mL/min 4 Laboratory test finding 09/20/2020 [facility] [address] [place] [address] [phone] Lipase Serum 14 U/L 13 - 60 CBC W/Automated Diff 09/20/2020 [facility] [address] [place] [address] [phone] CBC W/Automated Diff (SEE NOTE) 5 WBC [...] Lymph 12.4 % Low 25.0 - 40.0 [place] 7.1 % 3.0 - 8.0 Eos 1.3 % 0.0 - 7.0 Baso 0.3 % 0.0 - 2.5 %Ig 0.3 % High 0.0 - 0.0 %NRBC 0.0 % 0.0 - 0.0 #Neut 9.69 10^3/uL High 2.00 - 6.90 #Lymph 1.53 10^3/uL 0.60 - 3.40 #[place] 0.88 10^3/uL 0.00 - 0.90 #Eos 0.16 10^3/uL 0.00 - 0.70 #Baso 0.04 10^3/uL 0.00 - 0.20 #Ig 0.04 10^3/uL 0.00 - 0.10 #NRBC 0.00 10^3/uL 0.00 - 0.00 Manual Diff NOT INDICATED RBC Morph NOT INDICATED Laboratory test finding 09/20/2020 [facility] [address] [place] [address] [phone] Lactic Acid (Lactate) 1.7 mmol/L 0.2 - 2.2 Laboratory test finding 09/19/[address] 9372960 [phone] Amylase 38 U/L Normal 25-115 Lipase 49 U/L Low 73-393 HCG Serum Qualitative NEGATIVE Normal Negative Basic Metabolic Profile 09/19/[address] 7281606 [phone] Glucose, Fasting 99 mg/dL Normal 70-100 Blood [...] 9.5 mg/dL Normal 8.5-10.1 Liver Profile 09/19/2020 [facility] nter [address] [place], [place] 6367217 [phone] Ast/Sgot 14 U/L Normal 7-37 Alt/SGPT 25 U/L Normal 12-78 Alkaline Phosphatase 92 U/L Normal 45-117 Bilirubin,Total 0.7 mg/dL Normal 0.2-1.0 Bilirubin,Direct 0.2 mg/dL Normal 0.0-0.2 Total Protein 8.2 GM/DL Normal 6.4-8.2 Albumin 3.6 GM/DL Normal 3.2-5.2 Albumin/Globulin Ratio 0.8 Low 1.2-2.2 CBC With Differential 09/19/2020 [facility] [address] [place] [address] [phone] White Blood Count 14.4 10 High 4.0-10.0 [...] 36.0-66.0 Lymph % 13.2 % Low 24.0-44.0 [place] % 6.7 % High 0.0-5.0 Eos % 0.6 % Normal 0.0-3.0 Baso % 0.3 % Normal 0.0-1.0 Immature Granulocyte % 0.3 % Normal 0-3.0 Nucleated Red Blood Cell % 0.0 % Normal 0-0 Neutrophils # 11.4 10 High 1.5-8.5 Lymph # 1.9 10 Normal 1.5-5.0 [place] # 1.0 10 High 0.0-0.8 Eos # 0.1 10 Normal 0.0-0.5 Baso # 0.0 10 Normal 0.0-0.2 CBC W/Automated Diff 05/09/2020 [facility] [address] [place], [place] 8077602 [phone] CBC W/Automated Diff (SEE NOTE) 7 WBC [...] 80.0 Lymph 26.0 % 25.0 - 40.0 [place] 7.3 % 3.0 - 8.0 Eos 3.9 % 0.0 - 7.0 Baso 0.3 % 0.0 - 2.5 %Ig 0.3 % High 0.0 - 0.0 %NRBC 0.0 % 0.0 - 0.0 #Neut 6.11 10^3/uL 2.00 - 6.90 #Lymph 2.55 10^3/uL 0.60 - 3.40 #[place] 0.72 10^3/uL 0.00 - 0.90 #Eos 0.38 10^3/uL 0.00 - 0.70 #Baso 0.03 10^3/uL 0.00 - 0.20 #Ig 0.03 10^3/uL 0.00 - 0.10 #NRBC 0.00 10^3/uL 0.00 - 0.00 Manual Diff SEE BELOW Segs 70 % 37 - 80 Band 0 % 0 - 5 %Lymph 20 % Low 25 - 40 %[place] 8 % 3 - 8 %Eos 2 % 0 - 7 %Baso 0 % 0 - 2 Metamyelocyte 0 % Myelocyte 0 % Promyelocyte 0 % Blasts 0 % Hugo Lym 0 % NRBC 0 % RBC Morph NOT INDICATED Comprehensive Metabolic Panel 05/09/2020 [facility] [address] [place] [address] [phone] Comprehensive Metabo (SEE NOTE) 8 Sodium 140 [...] >60 mL/min 9 Laboratory test finding 05/09/2020 [facility] [address] [place] [address] [phone] Acetaminophen Level <5.0 UG/ML 0.0 - 30.0 Salicylate <0.3 mg/dL Low 2.0 - 20.0 HCG Serum Qual 05/09/2020 [facility] [address] [place] [address] [phone] HCG Serum Qual NEGATIVE Normal: Negative HCG Serum QL Reenter NEGATIVE Normal: Negative 10 Urinalysis 05/09/2020 [facility] [address] [place] [address] [phone] Urinalysis (SEE NOTE) 11 Source Clean Catch Color yellow Normal: Yellow Clarity hazy Normal: Clear Spec [place] 1.010 1.001 - 1.030 pH 6.5 5 [...] Normal: None Seen Drug Screen Urine 05/09/2020 [facility] [address] [place] [address] [phone] Drug Screen Urine (SEE NOTE) 12 Amphetamines NEGATIVE Normal: Negative Barbiturates NEGATIVE Normal: Negative Benzo NEGATIVE Normal: Negative Cocaine NEGATIVE Normal: Negative THC PRESUMP POS Abnormal Normal: Negative Opiates NEGATIVE Normal: Negative PCP NEGATIVE Normal: Negative 13 Culture Urine 05/09/2020 [facility] [address] [place] [address] [phone] Culture Urine (SEE NOTE) 14 1 { KIT LOT # [id number] ) { KIT EXP DATE 07/30/21 ) [...] Little GFR Left ESRD GFR <15 on AS400 ANALYST 7 COMPLETE BLOOD COUNT 8 COMPREHENSIVE [...] mL/min Normal 10 { KIT LOT # [id number] ) { KIT EXP DATE 08-06-21 ) [...] PERFORMED AT PHYSICIAN REQUEST. 14 _CULTURE URINE_ ^$215791 ^^281263 $$157628 ^^692547 $$508627 $$768002 $$872962 $$103906 $$397064 $$611898 $$774237 $$156825 $$598767 $$266514 $$792155 $$140931 $$037175 $$985881 $$109964 $$053083 $$027109 $$400490 $$897361 $$328645 $$746362 $$853677 $$437603 ^^679508 $$262841 $$809775 $$156529 -- Continued on next page -- Patient: KRISTIN Gross Order: [id number] Page 2 Culture: CULTURE URINE Status: Final $$[id number] $$[id number] REPORTED DATE/TIME: 05/12/2020 19:05 Culture: CULTURE URINE Status: Final Urine Culture,Comprehensive: P1 Mixed urogenital jd 10,000-25,000 colony forming units per m L P1 [facility] by: [facility] #: [id number] [address] [place] [address] Avenue [id number] [facility] [address] Hair Boiler : Ronald Diamond MD NPI #: Erp Project Manager : 05/13/20.0630.XMT.SENT REF Procedures Description No Information Available Medical Devices Description No Information Available Encounters Description No Information Available Assessments Description No Information Available Plan of Treatment No Information Available Functional Status Description No Information Available Mental Status Description No Information Available Referrals Description No Information Available
--- OUTSIDE RECORDS SUMMARY | 2020-11-11 08:52 | CCD | Continuity of Care Document ---
Author Author Vikki LAWS MD Organization Unknown Address [address] [place] [address], [address] [place] [address] Phone [phone] Care Team Providers Care Line Lead Name Role Phone Rusty Dean M.D. AUTM [phone] Problems Active Problems Provider Date Previous uterine surgical scar Romelia Waller CNM Onset: Single live Romelia Waller CNM Onset: 11/23/2017 39 weeks gestation of Romelia Waller CNM Onset: 0 11/23/2017 Encounter for supervision of other normal , t hird trimester Leo Nguyen MD Onset: 11/09/2017 Social History Type Date Description Comments Sex Unknown ETOH Use Rarely consumes alcohol Recreational Drug Use Denies Drug Use Tobacco Use Start: Unknown Patient is a current smoker, smo kes every day Exercise Type/Frequency Exercises regularly CALIN: 11/06/2017 Estimated Date of Delivery Based on 1st Ultrasound CALIN: 08/19/2016 Estimated Date of Delivery Based on 1st Ultrasound Allergies, Adverse Reactions, Alerts Active Allergies Reaction Severity Comments Date NKDA 11/15/2019 Inactive Allergies Augmentin 07/10/2014 Medications Active Medications SIG Qnty Indications Ordering Provide r Date Percocet 5-325mg Tablets 1 by mouth every 4 hours for as needed post op pain. (please dont fill until 07/24/2020). 12tabs Artur Laws MD 06/12/2020 Celexa 20mg Tablets 1 by mouth every day Unknown Omeprazole 20mg Capsules DR 1 by mouth every day Unknown Doxycycline Hyclate 50mg Capsules 1 by mouth twice a day Unknown Ondansetron HCL 4mg Tablets Take One Tablet By Mouth Every 6 Hours as Needed For Nausea Unknown Immunizations CPT Code Status Date Vaccine Lot # [id number] Given 06/18/2016 Tetanus, Diphthe carrington Toxoids/Acellular Pertussis Vaccine 7 Or > Vital Signs Date Vital Result Comment 04/15/2020 10:32am BP Systolic 147 mmHg BP Diastolic 95 mmHg Height 64 inches 5'4" Weight 213.50 lb BMI (Body Mass Index) 36.6 kg/m2 [place] Body Weight 120 lb Weight 96.844 kg BSA (Body Surface Area) 2.01 m2 04/08/2020 10:59am Height 64 inches 5'4" [place] Body Weight 120 lb Results Test Acquired Date Facility Test Result H/L Range Note Laboratory test finding 07/19/2020 [facility] Lab [address] [place] [address] [id number] [phone] Coronavirus 2019 Nasopharygeal This nucleic aci <SEE N OTE> 1 1 This nucleic acid amplificat ion test was developed and its performance characteristics determined by [facility]. Nucleic acid amplification tests include PCR and TMA. This test has not been FDA cleared or approved. This test has been authorized by FDA under an Emergency Use Authorization (EUA). This test is only authorized for the duration of time the declaration that circumstances exist justifying the authorization of the emergency use of in vitro diagnostic tests for detection of SARS-CoV-2 virus and/or diagnosis of COVID-19 infection under section 564(b)(1) of the Act, 21 U.S.C. 360bbb-3 (b) (1), unless the authorization is terminated or revoked sooner. When diagnostic testing is negative, the possibility of a false negative result should be considered in the context of a patient's recent exposures and the presence of clinical signs and symptoms consistent with COVID-19. An individual without symptoms of COVID-19 and who is not shedding SARS-CoV-2 virus would expect to have a negative (not detected) result in this assay. Performed at: [facility] [address] [id number] Medical Superintendent: Riya Cardenas MD, Phone: [phone] Not Detected Procedures Date Code Description Status 07/24/2020 66903 Neuroplasty/Transposition, Media n Nerve AT Carpal Tunnel Completed Medical Devices Description No Information Available Encounters Type Date Location Provider Dx Diagnosis Office Visit 08/06/2020 10:40a [facility] Artur Laws MD Z47.89 Encounter for other orthopedic aftercare Z48.02 Encounter for removal of sut ures Office Visit 06/07/2020 8:40a [facility] Artur Laws MD G56.01 Carpal tunnel syndrome, right upper limb Assessments Date Code Description Provider 08/06/2020 Z47.89 Encounter for other orthopedic a ftercare Artur Laws MD 08/06/2020 Z48.02 Encounter for removal of sutures Artur Laws MD 07/24/2020 G56.01 Carpal tunnel syndrome, right up per limb Artur Laws MD 06/07/2020 G56.01 Carpal tunnel syndrome, right up per limb Artur Laws MD Plan of Treatment 08/06/2020 - Artur Laws MD* Z47.89 Encounter for other orthopedic aftercare * Follow up:* in 4 weeks with SWM for right wrist recheck please. * Z48.02 Encounter for removal of sutures Functional Status Description No Information Available Mental Status Description No Information Available Referrals Refer to Reason for Referral Status Appt Date Artur Laws MD SURGERY NO AUTH REQUIRED FOR CTR(22805) TO SURGERY NT Closed 15[address] [facility] [address] [place] [address] [phone]
--- OUTSIDE RECORDS SUMMARY | 2020-11-11 08:52 | CCD | Continuity of Care Document ---
Author Author Vikki LAWS MD Organization Unknown Address [address] [place] [address], [address] [place] [address] Phone [phone] Care Team Providers Care Caterpillar Operator Name Role Phone Rusty Dean M.D. AUTM [phone] Problems Active Problems Provider Date Previous uterine [...] CPT Code Status Date Vaccine Lot # [id number] Given 06/18/2016 Tetanus, Diphthe carrington Toxoids/Acellular Pertussis Vaccine 7 Or > Vital Signs Date Vital Result Comment 04/15/2020 10:32am BP Systolic 147 mmHg BP Diastolic 95 mmHg Height 64 inches 5'4" Weight 213.50 lb BMI (Body Mass Index) 36.6 kg/m2 [place] Body Weight 120 lb Weight 96.844 kg BSA (Body Surface Area) 2.01 m2 04/08/2020 10:59am Height 64 inches 5'4" [place] Body Weight 120 lb Results Test Acquired Date Facility Test Result H/L Range Note Laboratory test finding 07/19/2020 [facility] Main Lab [address] [place] [address] [id number] [phone] Coronavirus 2019 Nasopharygeal This nucleic aci <SEE N OTE> 1 1 This nucleic acid amplificat ion test was developed and its performance characteristics determined by [facility]. Nucleic acid amplification tests include PCR and [...] in this assay. Performed at: [facility] [address] [id number] Cafe Lead: Riya Cardenas MD, Phone: [phone] Not Detected Procedures Date Code Description Status 07/24/2020 80679 Neuroplasty/Transposition, Media n Nerve AT Carpal Tunnel Completed Medical Devices Description No Information Available Encounters Type Date Location Provider Dx Diagnosis Office Visit 08/06/2020 10:40a [facility] Artur Laws MD Z47.89 Encounter for other orthopedic aftercare Z48.02 Encounter for removal of sut ures Office Visit 06/07/2020 8:40a [facility] Artur Laws MD G56.01 Carpal tunnel [...] Laws MD SURGERY NO AUTH REQUIRED FOR CTR(08209) TO SURGERY NT Closed 1571 [facility] [address] [place] [address] [phone]
--- OUTSIDE RECORDS SUMMARY | 2020-11-11 08:54 | CCD ---
Author Author [facility] Organization [facility] Address Unknown Phone Unavailable Care Team Providers Care Yard Associate Name Role Phone Caesar Street MD Unavailable Unavailable Caeasr Street MD Unavailable Unavailable Caesar Street MD Unavailable Unavailable Caesar Street MD Unavailable Unavailable Caesar Street MD Unavailable Unavailable Caesar Street MD Unavailable Unavailable Caesar Street MD Unavailable Unavailable Caesar Street MD Unavailable Unavailable Caesar Street MD Unavailable Unavailable Caesar Street MD Unavailable Unavailable Caesar Street MD Unavailable Unavailable Caesar Street MD Unavailable Unavailable Caesar Street MD Unavailable Unavailable Caesar Street MD Unavailable Unavailable Caesar Street MD Unavailable Unavailable Caesar Street MD Unavailable Unavailable Yenifer S Michael ISAACS Unavailable Unavailable Yenifer S Michael MD Unavailable Unavailable Yenifer S Michael ISAACS Unavailable Unavailable Yenifer S Michael ISAACS Unavailable Unavailable Yenifer S Michael MD Unavailable Unavailable Yenifer S Michael MD Unavailable Unavailable Yenifer S Michael MD Unavailable Unavailable Yenifer S Michael MD Unavailable Unavailable Yenifer, S Michael MD Unavailable Unavailable Yenifer S Michael MD Unavailable Unavailable Yenifer S Michael MD Unavailable Unavailable Yenifer S Michael MD Unavailable Unavailable Yenifer S Michael MD Unavailable Unavailable Yenifer S Michael MD Unavailable Unavailable Yenifer S Michael MD Unavailable Unavailable Yenifer S Michael MD Unavailable Unavailable Yenifer S Michael ISAACS Unavailable Unavailable Yenifer S Michael ISAACS Unavailable Unavailable Caesar Street MD Unavailable Unavailable Caesar Street MD Unavailable Unavailable Yenifer, S Michael ISAACS Unavailable Unavailable Caesar Street MD Unavailable Unavailable Caesar Street MD Unavailable Unavailable Caesar Street MD Unavailable Unavailable Caesar Street MD Unavailable Unavailable Caesar Street MD Unavailable Unavailable Caesar Street MD Unavailable Unavailable Caesar Street MD Unavailable Unavailable Caesar Street MD Unavailable Unavailable Caesar Street MD Unavailable Unavailable Caesar Street MD Unavailable Unavailable Renato Zaragoza MD Unavailable Unavailable Renato Zaragoza MD Unavailable Unavailable Renato Zaragoza MD Unavailable Unavailable Renato Zaragoza MD Unavailable Unavailable Renato Zaragoza MD Unavailable Unavailable Renato Zaragoza MD Unavailable Unavailable Renato Zaragoza MD Unavailable Unavailable Renato Zaragoza MD Unavailable Unavailable Renato Zaragoza MD Unavailable Unavailable Renato Zaragoza MD Unavailable Unavailable Renato Zaragoza MD Unavailable Unavailable Roque Dean MD Unavailable Unavailable Roque Dean MD Unavailable Unavailable Roque Dean MD Unavailable Unavailable Roque Dean MD Unavailable Unavailable Roque Dean MD Unavailable Unavailable Roque Dean MD Unavailable Unavailable Roque Dean MD Unavailable Unavailable Roque Dean MD Unavailable Unavailable Roque Dean MD Unavailable Unavailable Roque Dean MD Unavailable Unavailable Roque Dean MD Unavailable Unavailable Roque Dean MD Unavailable Unavailable Roque Dean MD Unavailable Unavailable Roque Dean MD Unavailable Unavailable Roque Dean MD Unavailable Unavailable Roque Dean MD Unavailable Unavailable White F Rusty ISAACS Unavailable Unavailable White F Rusty Unavailable Unavailable White F Rusty Unavailable Unavailable White F Rusty ISAACS Unavailable Unavailable White F Rusty ISAACS Unavailable Unavailable White F Rustynasreen ISAACS Unavailable Unavailable White F Rustynasreen ISAACS Unavailable Unavailable White F Rustynasreen ISAACS Unavailable Unavailable White F Rusty ISAACS Unavailable Unavailable White F Rusty ISAACS Unavailable Unavailable White F Rusty ISAACS Unavailable Unavailable White F Rusty ISAACS Unavailable Unavailable White F Rusty ISAACS Unavailable Unavailable White F Rusty ISAACS Unavailable Unavailable White F Rusty ISAACS Unavailable Unavailable White F Rustynasreen ISAACS Unavailable Unavailable White F Rustynasreen ISAACS Unavailable Unavailable White F Rusty Unavailable Unavailable White F Rustynasreen ISAACS Unavailable Unavailable White F Rusty ISAACS Unavailable Unavailable White F Rusty ISAACS Unavailable Unavailable White F Rusty ISAACS Unavailable Unavailable White F Rusty ISAACS Unavailable Unavailable White F Rusty ISAACS Unavailable Unavailable Dianne F Rusty ISAACS Unavailable Unavailable Dianne F Rusty ISAACS Unavailable Unavailable Dianne F Rusty ISAACS Unavailable Unavailable Dianne F Rusty ISAACS Unavailable Unavailable Dianne F Rusty ISAACS Unavailable Unavailable Dianne F Rusty ISAACS Unavailable Unavailable White F Rusty ISAACS Unavailable Unavailable Dianne F Rusty ISAACS Unavailable Unavailable Dianne F Rusty ISAACS Unavailable Unavailable Dianne F Rusty ISAACS Unavailable Unavailable Dianne F Rusty ISAACS Unavailable Unavailable Dianne F Rusty ISAACS Unavailable Unavailable Dianne F Rusty ISAACS Unavailable Unavailable Dianne F Rusty ISAACS Unavailable Unavailable Dianne F Rusty ISAACS Unavailable Unavailable Dianne F Rusty ISAACS Unavailable Unavailable Dianne F Rusty ISAACS Unavailable Unavailable Dianne F Rusty ISAACS Unavailable Unavailable Roque Dean MD Unavailable Unavailable Dianne F Rusty ISAACS Unavailable Unavailable Dianne F Rusty ISAACS Unavailable Unavailable Dianne F Rusty ISAACS Unavailable Unavailable Dianne F Rusty ISAACS Unavailable Unavailable Dianne F Rusty ISAACS Unavailable Unavailable Dianne F Rusty ISAACS Unavailable Unavailable Dianne F Rusty ISAACS Unavailable Unavailable Dianne F Rusty ISAACS Unavailable Unavailable Dianne F Rusty ISAACS Unavailable Unavailable Dianne F Rusty ISAACS Unavailable Unavailable Dianne F Rusty ISAACS Unavailable Unavailable Dianne F Rusty ISAACS Unavailable Unavailable Dianne F Rusty ISAACS Unavailable Unavailable Dianne F Rusty ISAACS Unavailable Unavailable RICHARDS, LEEANNE Unavailable Unavailable Efren CHURCH MD Unavailable Unavailable Efren CHURCH MD Unavailable Unavailable Efren CHURCH MD Unavailable Unavailable Efren CHURCH MD Unavailable Unavailable SEEMAZAEfren R RENNY ISAACS Unavailable Unavailable SEEMAZAR, R RENNY ISAACS Unavailable Unavailable SEEMAZAEfren R RENNY ISAACS Unavailable Unavailable NIZAEfren R RENNY ISAACS Unavailable Unavailable NIZAEfren R RENNY ISAACS Unavailable Unavailable NIZAR, R RENNY ISAACS Unavailable Unavailable NIZAR, R RENNY ISAACS Unavailable Unavailable NIZAR, R RENNY MD Unavailable Unavailable NIZAR, R RENNY ISAACS Unavailable Unavailable NIZAR, R RENNY ISAACS Unavailable Unavailable NIZAR R RENNY ISAACS Unavailable Unavailable NIZAR, R RENNY ISAACS Unavailable Unavailable NIZAR, R AHMED MD Unavailable Unavailable NIZAR, R KARELMED MD Unavailable Unavailable NIZAR, R KARELMED MD Unavailable Unavailable TIANNAArnoldo GARCES MD Unavailable Unavailable TIANNAArnoldo GARCES MD Unavailable Unavailable TIANNAArnoldo GARCES MD Unavailable Unavailable TIANNAArnoldo GARCES MD Unavailable Unavailable TIANNAArnoldo GARCES MD Unavailable Unavailable TIANNAArnoldo GARCES MD Unavailable Unavailable TIANNAArnoldo GARCES MD Unavailable Unavailable TIANNAArnoldo GARCES MD Unavailable Unavailable TIANNAArnoldo GARCES MD Unavailable Unavailable TIANNAArnoldo GARCES MD Unavailable Unavailable TIANNAArnoldo GARCES MD Unavailable Unavailable TIANNAArnoldo GARCES MD Unavailable Unavailable TIANNAArnoldo GARCES MD Unavailable Unavailable TIANNAArnoldo GARCES MD Unavailable Unavailable TIANNAArnoldo GARCES MD Unavailable Unavailable TIANNAArnoldo GARCES MD Unavailable Unavailable TIANNAArnoldo GARCES MD Unavailable Unavailable TIANNAArnoldo GARCES MD Unavailable Unavailable TIANNAArnoldo GARCES MD Unavailable Unavailable TIANNAArnoldo GARCES MD Unavailable Unavailable TIANNAArnoldo GARCES MD Unavailable Unavailable TIANNAArnoldo GARCES MD Unavailable Unavailable TIANNAArnoldo GARCES MD Unavailable Unavailable Amber Crowder MD Unavailable Unavailable Amber Crowder MD Unavailable Unavailable Amber Crowder MD Unavailable Unavailable Amber Crowder MD Unavailable Unavailable Amber Crowder MD Unavailable Unavailable Amber Crowder MD Unavailable Unavailable Amber Crowder MD Unavailable Unavailable Amber Crowder MD Unavailable Unavailable Amber Crowder MD Unavailable Unavailable Amber Crowder MD Unavailable Unavailable Amber Crowder MD Unavailable Unavailable Amber Crowder MD Unavailable Unavailable Amber Crowder MD Unavailable Unavailable Amber Crowder MD Unavailable Unavailable Amber Crowder MD Unavailable Unavailable Amber Crowder MD Unavailable Unavailable Amber Crowder MD Unavailable Unavailable Amber Crowder MD Unavailable Unavailable Amber Crowder MD Unavailable Unavailable MILA DENOMINATIONAL MD Unavailable Unavailable MILA DENOMINATIONAL MD Unavailable Unavailable ZARAGOZA DENOMINATIONAL MD Unavailable Unavailable ZARAGOZA, DENOMINATIONAL MD Unavailable Unavailable ZARAGOZA, DENOMINATIONAL MD Unavailable Unavailable ZARAGOZA, DENOMINATIONAL MD Unavailable Unavailable MILA DENOMINATIONAL MD Unavailable Unavailable MILA DENOMINATIONAL MD Unavailable Unavailable Yoni KIRK Unavailable Unavailable EBENEZER MCCORD Unavailable Unavailable MollJessica cross MD Unavailable Unavailable MollisonJessica MD Unavailable Unavailable MollisonJessica MD Unavailable Unavailable MollisonJessica MD Unavailable Unavailable MollisonJessica MD Unavailable Unavailable MollisonJessica MD Unavailable Unavailable MollisonJessica MD Unavailable Unavailable MollisonJessica MD Unavailable Unavailable MollisonJessica MD Unavailable Unavailable MollisonJessica MD Unavailable Unavailable MollisonJessica MD Unavailable Unavailable MollisonJessica MD Unavailable Unavailable MollisonJessica MD Unavailable Unavailable MollisonJessica MD Unavailable Unavailable MollisonJessica MD Unavailable Unavailable MollisonJessica MD Unavailable Unavailable MollisonJessica MD Unavailable Unavailable MollisonJessica MD Unavailable Unavailable MollisonJessica MD Unavailable Unavailable MollisonJessica MD Unavailable Unavailable MollisonJessica MD Unavailable Unavailable Gt, J Lowell PA-C Unavailable Unavailable Gt, J Lowell PA-C Unavailable Unavailable Gt, J Lowell PA-C Unavailable Unavailable Gt, J Lowell PA-C Unavailable Unavailable Gt, J Lowell PA-C Unavailable Unavailable Gt, J Lowell PA-C Unavailable Unavailable Gt, J Lowell PA-C Unavailable Unavailable Gt, J Lowell PA-C Unavailable Unavailable Gt, J Lowell PA-C Unavailable Unavailable Tg, J Lowell PA-C Unavailable Unavailable Gt, J Lowell PA-C Unavailable Unavailable Ivet SPENCER MD Unavailable Unavailable Ivet SPENCER MD Unavailable Unavailable Ivet SPENCER MD Unavailable Unavailable Ivet SPENCER MD Unavailable Unavailable PALMER, O FREDDIE MD Unavailable Unavailable PALMER, O FREDDIE ISAACS Unavailable Unavailable PALMER, O FREDDIE MD Unavailable Unavailable PALMER, O FREDDIE MD Unavailable Unavailable PALMER, O FREDDIE MD Unavailable Unavailable PALMER, O FREDDIE MD Unavailable Unavailable PALMER, O FREDDIE MD Unavailable Unavailable PALMER, O FREDDIE MD Unavailable Unavailable PALMER, O FREDDIE MD Unavailable Unavailable PALMER, O FREDDIE MD Unavailable Unavailable PALMER, O FREDDIE MD Unavailable Unavailable PALMER, O FREDDIE MD Unavailable Unavailable PALMER, O FREDDIE MD Unavailable Unavailable PALMER, O FREDDIE MD Unavailable Unavailable PALMER, O FREDDIE MD Unavailable Unavailable PALMER, O FREDDIE MD Unavailable Unavailable PALMER, O FREDDIE MD Unavailable Unavailable PALMER, O FREDDIE MD Unavailable Unavailable PALMER, O FREDDIE MD Unavailable Unavailable PALMER, O FREDDIE MD Unavailable Unavailable PALMER, O FREDDIE MD Unavailable Unavailable PALMER, O FREDDIE MD Unavailable Unavailable PALMER, O FREDDIE MD Unavailable Unavailable PALMER, O FREDDIE MD Unavailable Unavailable PALMER, O FREDDIE MD Unavailable Unavailable PALMER, O FREDDIE MD Unavailable Unavailable PALMER, O FREDDIE MD Unavailable Unavailable PALMER, O FREDDIE MD Unavailable Unavailable PALMER, O FREDDIE MD Unavailable Unavailable PALMER, O FREDDIE MD Unavailable Unavailable PALMER, O FREDDIE MD Unavailable Unavailable PALMER, O FREDDIE MD Unavailable Unavailable PALMER, O FREDDIE MD Unavailable Unavailable PALMER, O FREDDIE MD Unavailable Unavailable PALMER, O FREDDIE MD Unavailable Unavailable PALMER, O FREDDIE MD Unavailable Unavailable PALMER, O FREDDIE MD Unavailable Unavailable HANH, JOAQUIN PEDRO PA-C Unavailable Unavailable HANH, JOAQUIN PEDRO PA-C Unavailable Unavailable HANH, JOAQUIN EPDRO PA-C Unavailable Unavailable HANH, JOAQUIN PEDRO PA-C Unavailable Unavailable HANH, JOAQUIN PEDRO PA-C Unavailable Unavailable HANH, JOAQUIN PEDRO PA-C Unavailable Unavailable HANH, JOAQUIN PEDRO PA-C Unavailable Unavailable HANH, JOAQUIN PEDRO PA-C Unavailable Unavailable HANH, JOAQUIN PEDRO PA-C Unavailable Unavailable Shelton, Ramiro Unavailable Unavailable Shelton, Ramiro Unavailable Unavailable Shelton, Ramiro Unavailable Unavailable Shelton, Ramiro Unavailable Unavailable Shelton, Ramiro Unavailable Unavailable Shelton, Ramiro Unavailable Unavailable Shelton, Ramiro Unavailable Unavailable Shelton, Ramiro Unavailable Unavailable Shelton, Ramiro Unavailable Unavailable Shelton, Ramiro Unavailable Unavailable Shelton, Ramiro Unavailable Unavailable Shelton, Ramiro Unavailable Unavailable Shelton, Ramiro Unavailable Unavailable Shelton, Ramiro Unavailable Unavailable Shelton, Ramiro Unavailable Unavailable Shelton, Ramiro Unavailable Unavailable Shelton, Ramiro Unavailable Unavailable Shelton, Ramiro Unavailable Unavailable Shelton, Ramiro Unavailable Unavailable Shelton, Ramiro Unavailable Unavailable Shelton, Ramiro Unavailable Unavailable Shelton, Ramiro Unavailable Unavailable Shelton, Ramiro Unavailable Unavailable Shelton, Ramiro Unavailable Unavailable Shelton, Ramiro Unavailable Unavailable Shelton, Ramiro Unavailable Unavailable Shelton, Ramiro Unavailable Unavailable Shelton, Ramiro Unavailable Unavailable Shelton, Ramiro Unavailable Unavailable Shelton, Ramiro Unavailable Unavailable Shelton, Ramiro Unavailable Unavailable Shelton, Ramiro Unavailable Unavailable Shelton, Ramiro Unavailable Unavailable Shelton, Ramiro Unavailable Unavailable Shelton, Ramiro Unavailable Unavailable Shelton, Ramiro Unavailable Unavailable Shelton, Ramiro Unavailable Unavailable Shelton, Ramiro Unavailable Unavailable Shelton, Ramiro Unavailable Unavailable Shelton, Ramiro Unavailable Unavailable Shelton, Ramiro Unavailable Unavailable Shelton, Ramiro Unavailable Unavailable Shelton, Ramiro Unavailable Unavailable Shelton, Ramiro Unavailable Unavailable TIANNA, L NESSA MD Unavailable Unavailable TIANNA, L NESSA MD Unavailable Unavailable TIANNA, L NESSA MD Unavailable Unavailable TIANNA, L NESSA MD Unavailable Unavailable TIANNA, L NESSA MD Unavailable Unavailable TIANNA, L NESSA MD Unavailable Unavailable TIANNA, L NESSA MD Unavailable Unavailable TIANNA, L NESSA MD Unavailable Unavailable TIANNA, L NESSA MD Unavailable Unavailable TIANNA, L NESSA MD Unavailable Unavailable TIANNA, L NESSA MD Unavailable Unavailable TIANNA, L NESSA MD Unavailable Unavailable TIANNA, L NESSA MD Unavailable Unavailable TIANNA, L NESSA MD Unavailable Unavailable TIANNA, L NESSA MD Unavailable Unavailable TIANNA, L NESSA MD Unavailable Unavailable TIANNA, L NESSA MD Unavailable Unavailable TIANNA, L NESSA MD Unavailable Unavailable TIANNA, L NESSA MD Unavailable Unavailable TIANNA, L NESSA MD Unavailable Unavailable TIANNA, L NESSA MD Unavailable Unavailable TIANNA, L NESSA MD Unavailable Unavailable TIANNA, L NESSA MD Unavailable Unavailable DESJARLAIS, SPENCER ECONOMICS TEACHER Unavailable Unavailable DESJARLAIS, SPENCER ECONOMICS TEACHER Unavailable Unavailable DESJARLAIS, SPENCER ECONOMICS TEACHER Unavailable Unavailable DESJARLAIS, SPENCER ECONOMICS TEACHER Unavailable Unavailable DESJARLAIS, SPENCER ECONOMICS TEACHER Unavailable Unavailable DESJARLAIS, SPENCER ECONOMICS TEACHER Unavailable Unavailable DESJARLAIS, SPENCER ECONOMICS TEACHER Unavailable Unavailable DESJARLAIS, SPENCER ECONOMICS TEACHER Unavailable Unavailable DESJARLAIS, SPENCER ECONOMICS TEACHER Unavailable Unavailable LORENA, F ALFONSO DO Unavailable Unavailable LORENA, F ALFONSO DO Unavailable Unavailable LORENA, F ALFONSO DO Unavailable Unavailable LORENA, F ALFONSO DO Unavailable Unavailable LORENA, F ALFONSO DO Unavailable Unavailable LORENA, F ALFONSO DO Unavailable Unavailable LORENA, F ALFONSO DO Unavailable Unavailable LORENA, F ALFONSO DO Unavailable Unavailable LORENA, F ALFONSO DO Unavailable Unavailable LORENA, F ALFONSO DO Unavailable Unavailable LORENA, F ALFONSO DO Unavailable Unavailable LORENA, F ALFONSO DO Unavailable Unavailable LORENA, F ALFONSO DO Unavailable Unavailable LORENA, F ALFONSO DO Unavailable Unavailable LORENA, F ALFONSO DO Unavailable Unavailable LORENA, F ALFONSO DO Unavailable Unavailable LORENA, F ALFONSO DO Unavailable Unavailable LORENA, F ALFONSO DO Unavailable Unavailable LORENA, F ALFONSO DO Unavailable Unavailable LORENA, F ALFONSO DO Unavailable Unavailable LORENA, F ALFONSO DO Unavailable Unavailable LORENA, F ALFONSO DO Unavailable Unavailable LORENA, F ALFONSO DO Unavailable Unavailable LORENA, F ALFONSO DO Unavailable Unavailable LORENA, F ALFONSO DO Unavailable Unavailable LORENA, F ALFONSO DO Unavailable Unavailable LORENA, F ALFONSO DO Unavailable Unavailable LORENA, F ALFNOSO DO Unavailable Unavailable LORENA, F ALFONSO DO Unavailable Unavailable LORENA, F ALFONSO DO Unavailable Unavailable LORENA, F ALFONSO DO Unavailable Unavailable LORENA, F ALFONSO DO Unavailable Unavailable Carolyne ELKINS MD Unavailable Unavailable Carolyne ELKINS MD Unavailable Unavailable Carolyne ELKINS MD Unavailable Unavailable Carolyne ELKINS MD Unavailable Unavailable Carolyne ELKINS MD Unavailable Unavailable Carolyne ELKINS MD Unavailable Unavailable Carolyne ELKINS MD Unavailable Unavailable Carolyne ELKINS MD Unavailable Unavailable Carolyne ELKINS MD Unavailable Unavailable Roque Dean MD Unavailable Unavailable Roque Dean MD Unavailable Unavailable Roque Dean MD Unavailable Unavailable Roque Dean MD Unavailable Unavailable Roque Dean MD Unavailable Unavailable Roque Dean MD Unavailable Unavailable Roque Dean MD Unavailable Unavailable Roque Dean MD Unavailable Unavailable Roque Dean MD Unavailable Unavailable Roque Dean MD Unavailable Unavailable Roque Dean MD Unavailable Unavailable Roque Dean MD Unavailable Unavailable Roque Dean MD Unavailable Unavailable Roque Dean MD Unavailable Unavailable Roque Dean MD Unavailable Unavailable Roque Dean MD Unavailable Unavailable Roque Dean MD Unavailable Unavailable Roque Dean MD Unavailable Unavailable Roque Dean MD Unavailable Unavailable Roque Dean MD Unavailable Unavailable Roque Dean MD Unavailable Unavailable Roque Dean MD Unavailable Unavailable Roque Dean MD Unavailable Unavailable White F Rusty Unavailable Unavailable White F Rusty Unavailable Unavailable White F Rusty Unavailable Unavailable White F Rusty Unavailable Unavailable White F Rusty ISAACS Unavailable Unavailable White F Rusty Unavailable Unavailable White F Rusty ISAACS Unavailable Unavailable White F Rusty ISAACS Unavailable Unavailable White F Rusty Unavailable Unavailable White F Rusty Unavailable Unavailable White F Rusty Unavailable Unavailable White F Rusty ISAACS Unavailable Unavailable White F Rusty ISAACS Unavailable Unavailable White F Rusty ISAACS Unavailable Unavailable White F Rusty ISAACS Unavailable Unavailable White F Rusty ISAACS Unavailable Unavailable White, F Rusty Unavailable Unavailable White F Rusty Unavailable Unavailable White, F Rusty Unavailable Unavailable White F Rusty Unavailable Unavailable White F Rusty ISAACS Unavailable Unavailable White F Rusty ISAACS Unavailable Unavailable White F Rusty ISAACS Unavailable Unavailable White F Rusty ISAACS Unavailable Unavailable White F Rusty ISAACS Unavailable Unavailable White F Rusty ISAACS Unavailable Unavailable White F Rusty ISAACS Unavailable Unavailable Dianne F Rusty ISAACS Unavailable Unavailable White F Rusty ISAACS Unavailable Unavailable White F Rusty ISAACS Unavailable Unavailable White F Rusty ISAACS Unavailable Unavailable White F Rusty ISAACS Unavailable Unavailable White F Rusty ISAACS Unavailable Unavailable White F Rusty ISAACS Unavailable Unavailable Dianne F Rusty ISAACS Unavailable Unavailable Dianne F Rusty ISAACS Unavailable Unavailable Dianne F Rusty ISAACS Unavailable Unavailable Dianne F Rusty ISAACS Unavailable Unavailable White F Rusty ISAACS Unavailable Unavailable White F Rusty ISAACS Unavailable Unavailable Dianne F Rusty ISAACS Unavailable Unavailable Dianne F Rusty ISAACS Unavailable Unavailable Dianne F Rusty ISAACS Unavailable Unavailable Dianne F Rusty ISAACS Unavailable Unavailable Dianne F Rusty ISAACS Unavailable Unavailable Dianne F Rusty ISAACS Unavailable Unavailable Dianne F Rusty ISAACS Unavailable Unavailable White F Rusty ISAACS Unavailable Unavailable Dianne F Rusty ISAACS Unavailable Unavailable Dianne F Rusty ISAACS Unavailable Unavailable ANTONINO S JENNIFER ISAACS Unavailable Unavailable ANTONINO S JENNIFER ISAACS Unavailable Unavailable ANTONINO S JENNIFER ISAACS Unavailable Unavailable ANTONINO S JENNIFER ISAACS Unavailable Unavailable ANTONINOCaesar MD Unavailable Unavailable ANTONINOCaesar MD Unavailable Unavailable ANTONINO S JENNIFER ISAACS Unavailable Unavailable ANTONINO S JENNIFER ISAACS Unavailable Unavailable ANTONINO S JENNIFER ISAACS Unavailable Unavailable ANTONINO S JENNIFER ISAACS Unavailable Unavailable ANTONINO S JENNIFER ISAACS Unavailable Unavailable ANTONINO S JENNIFER MD Unavailable Unavailable ANTONINO, S JENNIFER MD Unavailable Unavailable ANTONINO, S JENNIFER MD Unavailable Unavailable ANTONINO, S JENNIFER MD Unavailable Unavailable ANTONINO, S JENNIFER MD Unavailable Unavailable ANTONINO, S JENNIFER MD Unavailable Unavailable ANTONINO, S JENNIFER MD Unavailable Unavailable ANTONINO, S JENNIFER MD Unavailable Unavailable Re-disclosure Warning The records that you are about to access may contain information from federally-assisted alcohol or drug abuse programs. If such information is present, then the following federally mandated warning applies: This information has been disclosed to you from records protected by federal confidentiality rules (42 CFR part 2). The federal rules prohibit you from making any further disclosure of this information unless further disclosure is expressly permitted by the written consent of the person to whom it pertains or as otherwise permitted by 42 CFR part 2. A general authorization for the release of medical or other information is NOT sufficient for this purpose. The Federal rules restrict any use of the information to criminally investigate or prosecute any alcohol or drug abuse patient.The records that you are about to access may contain highly sensitive health information, the redisclosure of which is protected by Article 27-F of the [facility] Public Health law. If you continue you may have access to information: Regarding HIV / AIDS; Provided by facilities licensed or operated by the [facility] Office of Mental Health; or Provided by the [facility] Office for People With Developmental Disabilities. If such information is present, then the following [facility] mandated warning applies: This information has been disclosed to you from confidential records which are protected by state law. State law prohibits you from making any further disclosure of this information without the specific written consent of the person to whom it pertains, or as otherwise permitted by law. Any unauthorized further disclosure in violation of state law may result in a fine or prison sentence or both. A general authorization for the release of medical or other information is NOT sufficient authorization for further disc losure. Allergies and Adverse Reactions Type Description Substance Reaction Status Data Source(s ) DRUG INGREDI OLANZAPINE OLANZAPINE [facility] DRUG INGREDI RISPERIDONE RISPERIDONE Rash [facility] Class NO KNOWN ALLERGIES NO KNOWN ALLERGIES [facility] DRUG INGREDI CLAVULANIC ACID CLAVULANIC ACID [facility] DRUG INGREDI AMOXICILLIN Amoxicillin [facility] Adverse Reaction Augmentin Amoxicillin [facility] ([facility], ) Family History Family Member Name Family Member Gender Family Member Status Date o f Status Description Data Source(s) Unknown Unknown Problem [facility] ([facility], ) Unknown Unknown Problem [facility] ([facility], ) Unknown Unknown Problem [facility] ([facility], ) Unknown Unknown Problem [facility] ([facility], ) Unknown Unknown Problem [facility] ([facility], ) Unknown Unknown Problem [facility] ([facility], ) Encounters Encounter Providers Location Date Indications Data Source(s ) Outpatient Attender: Rusty Logan 10/30 12:30:00 PM EST [facility] ([facility] ) Outpatient Attender: Michael Street MD Main Office 10/29/2020 01:30:00 PM EST [facility] ([facility]) Emergency Attender: GOOD ELKINS MDConsultant: Rusty zamarripa MD 09/20/2020 10:02:00 AM EST - 09/20/2020 01:05:00 PM [facility] Patient discharged. Office Visit Attender: Artur Mortensen/Marlyn/Sandip/Re indl 08/06/2020 10:40:00 AM EDT [facility] Outpatient Attender: LEEANNE RICHARDS 06/12/2020 11:14:00 AM [facility] Outpatient Attender: SPENCER MCKEON NP 06/07/2020 10: 40:00 AM [facility] Outpatient Attender: Artur Mortensen/Marlyn/Sandip/Re indl 06/07/2020 08:40:00 AM EDT [facility] ([facility], ) Outpatient Attender: PEDRO SCHAFER PA-C 05/24/2020 08:42:00 AM [facility] Outpatient Attender: SPENCER MCKEON NP 05/23/2020 02: 00:00 PM [facility] Outpatient Attender: EBENEZER MCCORD 05/21/2020 09:09:00 AM [facility] Outpatient Attender: PEDRO SCHAFER PA-C 05/15/2020 11:42:00 AM [facility] Inpatient Attender: Hugh Joiner r: RENNY CHURCH MDAttender: JENNIFER MUÑIZ MDAttender: FRANCHESCA ZARAGOZA MDAdmitter: DENOMINATIONAL IMLA MDReferrer: NESSA WYNN MD [id number] 05/10/2020 12:00:00 AM EDT - 05/13/2020 11:28:00 AM ED T bipolar [facility] bipolar disorder Patient discharged. Emergency Attender: NESSA WYNN MDConsultant: Rusty Dean MD 05/09/2020 09:51:00 PM EDT - 05/10/2020 04:33:00 AM EDT [facility] Patient discharged. Inpatient Attender: AVANI Leonard er: Amber Crowder MDAdmitter: Amber Crowder MD [id number] 04/16/2020 12:00:00 AM EDT - 04/19/2020 01:16:[address] [facility] Psychotic disorder Patient discharged. Office Visit Attender: FREDDIE Mortensen/Marlyn/Sandip/Re indl 04/15/2020 10:30:00 AM EDT [facility] ([facility] Emergency Attender: Lowell GARCIACConsultant: Rusty hill MD 04/09/2020 11:28:00 AM EDT - 04/09/2020 04:10:00 PM EDT [facility] Patient discharged. Emergency Attender: Lowell GARCIACConsultant: Rusty hill MD 04/02/2020 05:01:00 PM EDT - 04/03/2020 12:06:00 AM EDT [facility] Patient discharged. Emergency Attender: ALFONSO CARRILLO DOConsultant: Rusty Dean MD 03/09/2020 08:50:00 PM EDT - 03/09/2020 11:52:00 PM EDT [facility] Patient discharged. Outpatient Attender: Rusty Logan 01/15 11:00:00 AM EDT [facility] ([facility] ) Outpatient Attender: Artur Mortensen/Marlyn/Sandip/Re indl 11/24/2019 12:00:00 PM EST [facility] ([facility]) Outpatient Attender: Ramiro [facility] 11/17/2019 08:30:0 0 AM EST [facility] ([facility] ) Outpatient Attender: Artur Mortensen/Marlyn/Sandip/Alondra mclaughlin 11/14/2019 09:30:00 AM EST [facility] ([facility] ) Medications Medication Brand Name Start Date Product Form Dose Route Admi nistrative Instructions Pharmacy Instructions Status Indications Reaction Description Data Source(s) 1.479-0.188 gram 11/08/2020 12:00:00 AM EST tablet 24 TAKE BY MOUTH DIRECTED TAKE BY MOUTH DIRECTED SOLD: 11/09/2020 [facility] Sutab Sutab 10/29/2020 12:00:00 AM EST active [facility] ([facility]) Hyoscyamine Sulfate 0.125 MG Disintegrating Oral Tablet Hyos cyamine Sulfate 10/29/2020 12:00:00 AM EST ORAL active [facility] ([facility]) 0.5 mg (11)- 1 mg (42) 08/23/2020 12:00:00 AM EDT tablets,do se pack 53 TAKE BY MOUTH DIRECTED TAKE BY MOUTH DIRECTED SOLD: 08/26/2020 [facility] Citalopram 40 MG Oral Tablet CITALOPRAM HYDROBROMIDE 08/23/2020 12:00:00 AM EDT tablet 90 TAKE ONE TABLET BY MOUTH EVERY D AY TAKE ONE TABLET BY MOUTH EVERY DAY SOLD: 08/23/2020 [facility] 40 mg 08/22/2020 12:00:00 AM EDT capsule,delayed release (DR/EC) 180 TAKE ONE CAPSULE BY MOUTH TWICE A DAY TAKE ONE CAPSULE BY MOUTH TWICE A DAY SOLD: 08/23/2020 [facility] 5-325 mg 07/24/2020 12:00:00 AM EDT tablet 12 TAKE 1 TABLET BY MOUTH EVERY 4 HOURS NEEDED POST-OP PAIN MAX DAILY DOSE = 6 TABLETS TAKE 1 TABLET BY MOUTH EVERY 4 HOURS NEEDED POST-OP PAIN MAX DAILY DOSE = 6 TABLETS SOLD: 07/26/2020 [facility] Acetaminophen 325 MG / Oxycodone Hydrochloride 5 MG Or al Tablet [Percocet] Percocet 06/12/2020 12:00:00 AM EDT ORAL active [facility] ([facility], ) aripiprazole 400 MG Injection ARIPiprazo le ER 400 MG Intramuscular Suspension Reconstituted ER (ABILIFY MAINTENA) ARIPiprazole ER 400 MG Intramuscular Suspension Reconstituted ER (ABILIFY MAINTENA) 06/10/2020 12:00:00 AM EDT 400 mg Intramuscular active Inject 400 mg into the muscle once for 1 dose [facility] 100 mg 06/07/2020 12:00:00 AM EDT capsule 30 TAKE ONE CAPSULE BY MOUTH EVERY DAY MAXIMUM DAILY DOSE = 1 CAPSULE TAKE ONE CAPSULE BY MOUTH EVERY DAY MAXI MUM DAILY DOSE = 1 CAPSULE SOLD: 06/07/2020 [facility] 50 mg 06/07/2020 12:00:00 AM EDT tablet 30 TAKE ONE TABLET BY MOUTH EVERY DAY TAKE ONE TABLET BY MOUTH EVERY DAY SOLD: 06/07/2020 [facility] 25 mg 06/07/2020 12:00:00 AM EDT tablet 60 TAKE TWO TABLETS BY MOUTH ONCE DAILY TAKE TWO TABLETS BY MOUTH ONCE DAILY SOLD: 06/07/2020 [facility] 50 mg 06/07/2020 12:00:00 AM EDT tablet 30 TAKE ONE TABLET BY MOUTH EVERY DAY TAKE ONE TABLET BY MOUTH EVERY DAY SOLD: 07/14/2020 [facility] 1 mg 05/23/2020 12:00:00 AM EDT tablet 30 TAKE ONE TABLET BY MOUTH TWICE A DAY NEEDED FOR RESTLESSNESS TAKE ONE TABLET BY MOUTH TWICE A DAY NEEDED FOR RESTLESSNESS SOLD: 05/23/2020 [facility] 25 mg 05/23/2020 12:00:00 AM EDT tablet 15 TAKE ONE TABLET BY MOUTH EVERY DAY TAKE ONE TABLET BY MOUTH EVERY DAY SOLD: 05/23/2020 [facility] 0.5 mg 05/23/2020 12:00:00 AM EDT tablet 15 TAKE 1/2 TABLET BY MOUTH DURING THE DAY AND 1 TABLET AT BEDTIME MAXIMUM DAILY DOSE = 1 AND 1/2 TABLETS TAKE 1/2 TABLET BY MOUTH DURING THE DAY AND 1 TABLET AT BEDTIME MAXIMUM DAILY DOSE = 1 AND 1/2 TABLETS SOLD: 05/23/2020 [facility] 20 mg 05/17/2020 12:00:00 AM EDT tablet 29 TAKE ONE TABLET BY MOUTH AT BEDTIME TAKE ONE TABLET BY MOUTH AT BEDTIME SOLD: 05/23/2020 [facility] Citalopram 20 MG Oral Tablet CITALOPRAM HYDROBROMIDE 05/15/2020 12:00:00 AM EDT tablet 30 TAKE ONE TABLET BY MOUTH EVERY M ORNING TAKE ONE TABLET BY MOUTH EVERY MORNING SOLD: 05/15/2020 [facility] 400 mg 05/14/2020 12:00:00 AM EDT suspension,extended rel recon 1 INJECT 400MG INTRAMUSCULARLY ONCE FOR 1 DOSE INJECT 400MG INTRAMUSCULARLY ONCE FOR 1 DOSE SOLD: 05/15/2020 [facility] aripiprazole 400 MG Injection ARIPiprazo le ER (ABILIFY MAINTENA) extended- release injectable suspension 400 mg ARIPiprazole ER (ABILIFY MAINTENA) extended-release injectable suspension 400 mg 05/13/2020 11:00:00 AM EDT 400 mg Intramuscular completed 400 mg , Intramuscular, Once, Wed05/13/20 at 1100, For 1 dose [facility] Medication administered onsite aripiprazole 10 MG Oral Tablet ARIPiprazole 10 MG Oral Tablet (ABILIFY) ARIPiprazole 10 MG Oral Tablet (ABILIFY) 05/13/2020 12:00:00 AM EDT 10 mg Oral active Take 1 tablet by james th daily For 2 weeks [facility] Melatonin 5 MG Oral Tablet melatonin tablet 10 mg melatonin tablet 10 mg 05/12/2020 10:00:00 PM EDT 10 mg Oral active 10 mg, Oral, Nightly, First dose (after last modification) on Wed05/12/20 at 2200, For 28 doses [facility] Medication administered onsite Melatonin 3 MG Oral Tablet melatonin tablet 3 mg melatonin t ablet 3 mg 05/10/2020 10:00:00 PM EDT 3 mg Oral aborted 3 mg, Oral, Nightly, First dose on Wed05/10/20 at 2200, For 30 days [facility] Medication administered onsite aripiprazole 10 MG Oral Tablet ARIPiprazole (ABILIFY) tablet 10 mg ARIPiprazole (ABILIFY) tablet 10 mg 05/10/2020 11:00:00 AM EDT 10 mg Oral active 10 mg, Oral, Daily Standard, First dose on Wed05/10/20 at 1100, For 30 days [facility] Medication administered onsite pantoprazole 40 MG Delayed Release Oral Tablet pantoprazole (PROTONIX) EC tablet 40 mg pantoprazole (PROTONIX) EC tablet 40 mg 05/10/2020 09:00:00 AM E DT 40 mg Oral active 40 mg, Ora l, 2 Times Daily, First dose on Wed05/10/20 at 0900, For 30 days
Do not crush or chew
[facility] Medication administered onsite Citalopram 20 MG Oral Tablet citalopram (CELEXA) table t 20 mg citalopram (CELEXA) tablet 20 mg 05/10/2020 09:00:00 AM EDT 20 mg Oral active 20 mg, Oral, Daily Standard, First dose on Wed05/10/20 at 0900, For 30 days [facility] Medication administered onsite Nicotine 2 MG Chewing Gum nicotine polacrilex (NICORET TE) gum 2 mg nicotine polacrilex (NICORETTE) gum 2 mg 05/10/2020 08:33:43 AM EDT 2 mg O ral active 2 mg, Oral, Every 1 hour PRN, Smoking cessation, Craving, Starting Wed05/10/20 at 0833, For 30 days
MDD 12
[facility] Medication administered onsite Aluminum Hydroxide 40 MG/ML / Magnesium Hydroxide 40 MG/ML / Simethicone 4 MG/ML Oral Suspension Alum & Mag Hydroxide-Simeth (MAALOX PLUS) 200-200-20 MG/5ML suspension 30 mL Alum & Mag Hydroxide-Simeth (MAALOX PLUS ) 200-200-20 MG/5ML suspension 30 mL 05/10/2020 08:33:43 AM EDT 30 mL Oral a ctive 30 mL, Oral, Every 4 hours PRN, Heartburn, Indigestion, Starting Wed05/10/20 at 0833, For 30 days
MDD 4
[facility] Medication administered onsite Magnesium Hydroxide 80 MG/ML Oral Suspen janki magnesium hydroxide (MILK OF MAGNESIA) 400 MG/5ML suspension 30 mL magnesium hydroxide (MILK OF MAGNESIA) 4 00 MG/5ML suspension 30 mL 05/10/2020 08:33:43 AM EDT 30 mL Oral active 30 mL, Oral, Daily PRN, Constipation, Starting Wed05/10/20 at 0833, For 30 days
If serum creatinine > 2 notify provider before administering.
[facility] Medication administered onsite Nicotine 4 MG/ACTUAT Inhalant Solution nicotine (NICOT ROL) inhaler 1 puff nicotine (NICOTROL) inhaler 1 puff 05/10/2020 08:32:57 AM EDT 1 {puff} Inhalation active 1 puff, Inhala tion, PRN, Smoking cessation, Starting Wed05/10/20 at 0832, For 30 days
May puff cartridge for up to 20 minutes.Each cartridge delivers 4 mgAvoid use between hours of 2200 and 0600 due to stimulant effectsDo not exceed 16 cartridges/day
[facility] Medication administered onsite Diphenhydramine Hydrochloride 50 MG Oral Capsule diphenhydrAMINE (BENADRYL) capsule 50 mg diphenhydrAMINE (BENADRYL) capsule 50 mg 05/10/2020 07 :15:00 AM EDT 50 mg Oral completed 50 mg, Oral, Once, Wed05/10/20 at 0715, For 1 dose [facility] Medication administered onsite Trazodone Hydrochloride 50 MG Oral Tablet trazodone (D ESYREL) tablet 50 mg trazodone (DESYREL) tablet 50 mg 05/10/2020 07:01:01 AM EDT 50 mg Oral active 50 mg, Oral, Nightly PRN, Sleep, Starting Wed05/10/20 at 0701, For 30 days [facility] Medication administered onsite Hydroxyzine Hydrochloride 50 MG Oral Tablet hydrOXYzin e (ATARAX) tablet 50 mg hydrOXYzine (ATARAX) tablet 50 mg 05/10/2020 07:00:49 AM EDT 50 mg Oral active 50 mg, Oral, Every 6 hours PRN, Anxiety, Starting Wed05/10/20 at 0700, For 30 days [facility] Medication administered onsite Aluminum Hydroxide 40 MG/ML / Magnesium Hydroxide 40 MG/ML / Simethicone 4 MG/ML Oral Suspension Alum & Mag Hydroxide-Simeth (MAALOX PLUS) 200-200-20 MG/5ML suspension 30 mL Alum & Mag Hydroxide-Simeth (MAALOX PLUS ) 200-200-20 MG/5ML suspension 30 mL 05/10/2020 07:00:38 AM EDT 30 mL Oral a ctive 30 mL, Oral, Every 6 hours PRN, Indigestion, Starting Wed05/10/20 at 0700, For 30 days [facility] Medication administered onsite Magnesium Hydroxide 80 MG/ML Oral Suspen janki magnesium hydroxide (MILK OF MAGNESIA) 400 MG/5ML suspension 15 mL magnesium hydroxide (MILK OF MAGNESIA) 4 00 MG/5ML suspension 15 mL 05/10/2020 07:00:34 AM EDT 15 mL Oral active 15 mL, Oral, Daily PRN, Constipation, Starting Wed05/10/20 at 0700, For 30 days
If serum creatinine > 2 notify provider before administering.
[facility] Medication administered onsite Acetaminophen 325 MG Oral Tablet acetaminophen (TYLENO L) tablet 650 mg acetaminophen (TYLENOL) tablet 650 mg 05/10/2020 07:00:29 AM EDT 65 0 mg Oral active 650 mg, Oral, E very 6 hours PRN, Mild Pain (Pain Scale Score 1- 3), Starting Wed05/10/20 at 0700, For 30 days
Maximum daily dose of acetaminophen is 3,000 mg from all sources in 24 hours.
[facility] Medication administered onsite 10 mg 05/09/2020 12:00:00 AM EDT tablet 30 TAKE 1 TABLET BY MOUTH ONCE A DAY FOR BIPOLAR DISORDER TAKE 1 TABLET BY MOUTH ONCE A DAY FOR BIPOLAR DISORDER SOLD: 05/09/2020 [facility] Citalopram 20 MG Oral Tablet Citalopram Hydrobromide 2 0 MG Oral Tablet (CELEXA) Citalopram Hydrobromide 20 MG Oral Tablet (CELEXA) 04/20/2020 12:00:00 AM EDT 20 mg Oral active Take 1 tablet by mouth d [facility] olanzapine 5 MG Oral Tablet OLANZapine (ZYPREXA) table t 5 mg OLANZapine (ZYPREXA) tablet 5 mg 04/19/2020 09:00:00 PM EDT 5 mg Oral active 5 mg, Oral, 2 Times Daily, First dose on Wed04/19/20 at 2100, For 30 days [facility] Medication administered onsite 10 mg 04/19/2020 12:00:00 AM EDT cartridge 42 INHALE 1 PUFF INTO THE LUNGS NEEDED FOR SMOKING CESSATION INHALE 1 PUFF INTO THE LUNGS NEEDED F OR SMOKING CESSATION SOLD: 04/19/2020 [facility] Melatonin 3 MG Oral Tablet Melatonin 3 MG Oral Tablet 2019 12:00:00 AM EDT 3 mg Oral active Take 1 tablet by mouth nightly [facility] olanzapine 10 MG Oral Tablet OLANZapine 10 MG Oral Tab let (ZYPREXA) OLANZapine 10 MG Oral Tablet (ZYPREXA) 04/19/2020 12:00:00 AM EDT 5 mg Oral aborted Take 0.5 tablets by mouth Two Times Nila y [facility] 20 mg 04/19/2020 12:00:00 AM EDT tablet 30 TAKE 1 TABLET BY MOUTH DAILY TAKE 1 TABLET BY MOUTH DAILY SOLD: 04/19/2020 [facility] 10 mg 04/19/2020 12:00:00 AM EDT tablet 30 TAKE 1/2 TABLET BY MOUTH TWO TIMES A DAY TAKE 1/2 TABLET BY MOUTH TWO TIMES A DAY SOLD: 04/19/2020 [facility] Nicotine 4 MG/ACTUAT Inhalant Solution N icotine 10 MG Inhalation Inhaler (NICOTROL) Nicotine 10 MG Inhalation Inhaler (NICOTROL) 0 12:00:00 AM EDT 1 {puff} Inhalation active Inha le 1 puff into the lungs as needed for Smoking cessation [facility] alginic acid 200 MG / Calcium Carbonate 80 MG / magnesium trisilicate 20 MG / Sodium Bicarbonate 70 MG Oral Tablet calcium carbonate (TUMS) chewable tablet 500 mg calcium carbonate (TUMS) chewable tablet 500 mg 2019 01:08:32 PM EDT 500 mg Oral active 500 mg, Oral, Daily PRN, Indigestion, Starting Reyna 04/18/20 at 1308, For 30 days [facility] Medication administered onsite olanzapine 5 MG Disintegrating Oral Tabl et OLANZapine zydis (ZYPREXA) disintegrating tablet 5 mg OLANZapine zydis (ZYPREXA) disintegratin g tablet 5 mg 04/17/2020 12:00:00 PM EDT 5 mg Oral aborted 5 mg, Oral, 2 Times Daily, First dose on Wed04/17/20 at 1200, For 30 days [facility] Medication administered onsite pantoprazole 40 MG Delayed Release Oral Tablet pantoprazole (PROTONIX) EC tablet 40 mg pantoprazole (PROTONIX) EC tablet 40 mg 04/17/2020 09:00:00 AM E DT 40 mg Oral active 40 mg, Ora l, Daily Standard, First dose on Wed04/17/20 at 0900, For 30 days
Do not crush or chew
[facility] Medication administered onsite Nicotine 4 MG/ACTUAT Inhalant Solution nicotine (NICOT ROL) inhaler 1 puff nicotine (NICOTROL) inhaler 1 puff 04/17/2020 02:05:56 AM EDT 1 {puff} Inhalation active 1 puff, Inhala tion, PRN, Smoking cessation, Starting Wed04/17/20 at 0205, For 30 days
May puff cartridge for up to 20 minutes.Each cartridge delivers 4 mgAvoid use between hours of 2200 and 0600 due to stimulant effectsDo not exceed 16 cartridges/day
[facility] Medication administered onsite Melatonin 3 MG Oral Tablet melatonin tablet 3 mg melatonin t ablet 3 mg 04/16/2020 10:00:00 PM EDT 3 mg Oral active 3 mg, Oral, Nightly, First dose on Wed04/16/20 at 2200, For 30 days [facility] Medication administered onsite Diphenhydramine Hydrochloride 50 MG Oral Capsule diphenhydrAMINE (BENADRYL) capsule 50 mg diphenhydrAMINE (BENADRYL) capsule 50 mg 04/16/2020 07 :40:06 PM EDT 50 mg Oral active 50 mg, O ral, Every 6 hours PRN, Itching, Starting Wed04/16/20 at 1940, For 30 days [facility] Medication administered onsite Citalopram 20 MG Oral Tablet citalopram (CELEXA) table t 20 mg citalopram (CELEXA) tablet 20 mg 04/16/2020 11:00:00 AM EDT 20 mg Oral active 20 mg, Oral, Daily Standard, First dose on Wed04/16/20 at 1100, For 30 days [facility] Medication administered onsite Risperidone 1 MG Disintegrating Oral Tab let risperidone (RISPERDAL M-TABS) disintegrating tablet 1 mg risperidone (RISPERDAL M-TABS) disintegr ating tablet 1 mg 04/16/2020 10:45:00 AM EDT 1 mg Oral completed 1 mg, Oral, Once, Wed04/16/20 at 1045, For 1 dose [facility] Medication administered onsite Lorazepam 1 MG Oral Tablet LORazepam (ATIVAN) tablet 1 mg LORazepam (ATIVAN) tablet 1 mg 04/16/2020 10:45:00 AM EDT 1 mg Oral comple marielena 1 mg, Oral, Once, Wed04/16/20 at 1045, For 1 dose [facility] Medication administered onsite 24 HR Nicotine 0.875 MG/HR Transdermal P atch nicotine (NICODERM CQ) 21 MG/24HR 1 patch nicotine (NICODERM CQ) 21 MG/24HR 1 patch 04/16/2020 09:00:00 AM EDT 1 {patch} Transdermal aborted 1 patch, Transdermal, Administer over 24 Hours, Daily Standard, First dose on Wed04/16/20 at 0900, For 30 days [facility] Medication administered onsite Ondansetron 4 MG Disintegrating Oral Tab let ondansetron (ZOFRAN-ODT) disintegrating tablet 4 mg ondansetron (ZOFRAN-ODT) disintegrating tablet 4 mg 04/16/2020 04:36:59 AM EDT 4 mg Oral active 4 mg, Oral, Every 6 hours PRN, Nausea, Starting Wed04/16/20 at 0436, For 30 days
Dissolve on tongue.
[facility] Medication administered onsite acetaminophen (TYLENOL) tablet 650 mg 04/16/2020 04:36:20 AM EDT 650 mg Oral active [Order 1 Start ] Name: acetaminophen (TYLENOL) tablet 650 mg Signed Summary: 650 mg, Oral, Every 4 hours PRN, Mild Pain (Pain Scale Score 1-3), Headaches, Starting Wed04/16/20 at 0436, For 30 days
MDD 4
[Order 1 End] [Order 2 Start] Name: acetaminophen (TYLENOL) tablet 650 mg Signed Summary: 650 mg, Oral, Every 4 hours PRN, Moderate Pain (Pain Scale Score 4- 6), Starting Wed04/16/20 at 0436, For 30 days
MDD 4
[Order 2 End] [Order 3 Start] Name: acetaminophen (TYLENOL) tablet 650 mg Signed Summary: 650 mg, Oral, Every 4 hours PRN, Severe Pain (Pain Scale Score 7-10), Starting Wed04/16/20 at 0436, For 30 days
MDD 4
[Order 3 End] [facility] Medication administered onsite 5-325 mg 04/04/2020 12:00:00 AM EDT tablet 10 TAKE ONE TABLET BY MOUTH EVERY 6 HOURS NEEDED FOR MODERATE/SEVERE PAIN [PS 5-10] MAXIMUM DAILY DOSE = 4 TABLETS TAKE ONE TABLET BY MOUTH EVERY 6 HOURS A S NEEDED FOR MODERATE/SEVERE PAIN [PS 5-10] MAXIMUM DAILY DOSE = 4 TABLETS SOLD: 04/04/2020 [facility] Ondansetron 4 MG Oral Tablet [Zofran] Zofran 03/27/2020 12:00:00 AM EDT ORAL active [facility] ([facility]) 4 mg 03/27/2020 12:00:00 AM EDT tablet 30 TAKE ONE TABLET BY MOUTH EVERY 6 HOURS NEEDED FOR NAUSEA TAKE ONE TABLET BY MOUTH EVERY 6 HOURS A S NEEDED FOR NAUSEA SOLD: 04/04/2020 [facility] 40 mg 03/26/2020 12:00:00 AM EDT tablet 7 TAKE ONE TABLET BY MOUTH EVERY DAY TAKE ONE TABLET BY MOUTH EVERY DAY SOLD: 03/26/2020 [facility] 40 mg 03/26/2020 12:00:00 AM EDT tablet 83 TAKE ONE TABLET BY MOUTH EVERY DAY TAKE ONE TABLET BY MOUTH EVERY DAY SOLD: 04/04/2020 [facility] 40 mg 01/17/2020 12:00:00 AM EDT tablet 90 TAKE ONE TABLET BY MOUTH EVERY DAY TAKE ONE TABLET BY MOUTH EVERY DAY SOLD: 02/03/2020 [facility] 150 mg 01/16/2020 12:00:00 AM EDT tablet sustained-releas e 12 hr 60 TAKE ONE TABLET BY MOUTH TWICE A DAY DIRECTED TAKE ONE TABLET BY MOUTH TWICE A DAY DIRECTED SOLD: 02/26/2020 [facility] Acetaminophen 325 MG / Hydrocodone Bitartrate 5 MG Ora l Tablet Hydrocodone-Acetaminophen 01/16/2020 12:00:00 AM EDT completed [facility] ([facility]) 12 HR Bupropion Hydrochloride 150 MG Extended Release Oral Tablet [Wellbutrin] Wellbutrin SR 01/16/2020 12:00:00 AM EDT ORAL completed [facility] ([facility]) Alprazolam 0.25 MG Oral Tablet [Xanax] Xanax 01/16/2020 12:00:00 AM EDT ORAL active [facility] ([facility]) 150 mg 01/16/2020 12:00:00 AM EDT tablet sustained-releas e 12 hr 60 TAKE ONE TABLET BY MOUTH TWICE A DAY DIRECTED TAKE ONE TABLET BY MOUTH TWICE A DAY DIRECTED SOLD: 01/16/2020 [facility] 5-325 mg 01/16/2020 12:00:00 AM EDT tablet 14 TAKE 1 TABLET BY MOUTH EVERY 6 HOURS NEEDED FOR PAIN MAX DAILY DOSE = 2 TABLETS TAKE 1 TABLET BY MOUTH EVERY 6 HOURS NEEDED FOR PAIN MAX DAILY DOSE = 2 TABLETS SOLD: 01/16/2020 [facility] Citalopram 40 MG Oral Tablet [Celexa] Celexa 01/16/2020 12:00:00 AM EDT ORAL active [facility] ([facility]) Alprazolam 0.25 MG Oral Tablet ALPRAZOLAM 01/16/2020 12:00:00 AM EDT tablet 14 TAKE ONE TABLET BY MOUTH TWICE A DAY NEEDED ANXIETY MAXIMUM DAILY DOSE = 2 TABLETS TAKE ONE TABLET BY MOUTH TWICE A DAY NEEDED ANXIETY MAXIMUM DAILY DOSE = 2 TABLETS SOLD: 01/16/2020 [facility] Doxycycline Monohydrate 100 MG Oral Tablet Doxycycline Monoh ydrate 12/13/2019 12:00:00 AM EST ORAL completed [facility] ([facility]) 800 mg 12/03/2019 12:00:00 AM EST tablet 45 TAKE ONE TABLET BY MOUTH THREE TIMES A DAY FOR 15 DAYS TAKE WITH FOOD TAKE ONE TABLET BY MOUTH THREE TIMES A DAY FOR 15 DAYS TAKE WITH FOOD SOLD: 12/03/2019 [facility] 500 mg 12/03/2019 12:00:00 AM EST tablet 60 TAKE TWO TABLETS BY MOUTH EVERY 6 HOURS NEEDED FOR 7 DAYS TAKE TWO TABLETS BY MOUTH EVERY 6 HOURS NEEDED FOR 7 DAYS SOLD: 12/03/2019 [facility] 100 mg 10/10/2019 12:00:00 AM EST capsule 30 TAKE 1 CAPSULE BY MOUTH TWICE A DAY FOR 5 DAYS THEN 1 CAPSULE ONCE A DAY TAKE 1 CAPSULE BY MOUTH TWICE A DAY FOR 5 DAYS THEN 1 CAPSULE ONCE A DAY SOLD: 10/13/2019 [facility] 100 mg 10/10/2019 12:00:00 AM EST capsule 30 TAKE 1 CAPSULE BY MOUTH TWICE A DAY FOR 5 DAYS THEN 1 CAPSULE ONCE A DAY TAKE 1 CAPSULE BY MOUTH TWICE A DAY FOR 5 DAYS THEN 1 CAPSULE ONCE A DAY SOLD: 11/17/2019 [facility] 40 mg 08/17/2019 12:00:00 AM EDT capsule,delayed release (DR/EC) 60 TAKE ONE CAPSULE BY MOUTH TWICE A DAY TAKE ONE CAPSULE BY MOUTH TWICE A DAY SOLD: 02/03/2020 [facility] 40 mg 08/17/2019 12:00:00 AM EDT capsule,delayed release (DR/EC) 60 TAKE ONE CAPSULE BY MOUTH TWICE A DAY TAKE ONE CAPSULE BY MOUTH TWICE A DAY SOLD: 11/09/2019 [facility] 40 mg 08/17/2019 12:00:00 AM EDT capsule,delayed release (DR/EC) 60 TAKE ONE CAPSULE BY MOUTH TWICE A DAY TAKE ONE CAPSULE BY MOUTH TWICE A DAY SOLD: 03/26/2020 [facility] 40 mg 08/17/2019 12:00:00 AM EDT capsule,delayed release (DR/EC) 60 TAKE ONE CAPSULE BY MOUTH TWICE A DAY TAKE ONE CAPSULE BY MOUTH TWICE A DAY SOLD: 09/29/2019 [facility] 40 mg 08/17/2019 12:00:00 AM EDT capsule,delayed release (DR/EC) 60 TAKE ONE CAPSULE BY MOUTH TWICE A DAY TAKE ONE CAPSULE BY MOUTH TWICE A DAY SOLD: 06/02/2020 [facility] 20 mg 07/26/2019 12:00:00 AM EDT tablet 60 TAKE TWO TABLETS BY MOUTH EVERY DAY TAKE TWO TABLETS BY MOUTH EVERY DAY SOLD: 09/29/2019 [facility] 20 mg 07/26/2019 12:00:00 AM EDT tablet 60 TAKE TWO TABLETS BY MOUTH EVERY DAY TAKE TWO TABLETS BY MOUTH EVERY DAY SOLD: 11/09/2019 [facility] 20 mg 07/26/2019 12:00:00 AM EDT tablet 60 TAKE TWO TABLETS BY MOUTH EVERY DAY TAKE TWO TABLETS BY MOUTH EVERY DAY SOLD: 12/03/2019 [facility] 20 mg 07/26/2019 12:00:00 AM EDT tablet 60 TAKE TWO TABLETS BY MOUTH EVERY DAY TAKE TWO TABLETS BY MOUTH EVERY DAY SOLD: 01/09/2020 [facility] aripiprazole 10 MG Oral Tablet ARIPiprazole 10 MG Oral Tablet (ABILIFY) ARIPiprazole 10 MG Oral Tablet (ABILIFY) 10 mg Oral aborted Take 10 mg by mouth daily [facility] Citalopram 40 MG Oral Tablet Citalopram Hydrobromide 4 0 MG Oral Tablet (CELEXA) Citalopram Hydrobromide 40 MG Oral Tablet (CELEXA) 40 mg Oral aborted Take 40 mg by mouth daily [facility] Insurance Providers Payer name Policy type / Coverage type Policy ID Covered green party ID Covered green party's relationship to garzon Policy Garzon Plan Information [facility] COMMUNITY PLAN [facility] [id number] SP [id number] [facility]) O [id number] S [id number] [facility] COMMUNITY PLAN XIX [id number] 18 [id number] [facility] [id number] SP [id number] [facility] [id number] S [id number] [id number] SP [id number] [facility] [id number] SP [id number] [place]/307 [id number] [facility] MEDICAID [id number] S [id number] [facility] I [id number] Self [id number] [facility] I [id number] Self [id number] [facility] [id number] Self [id number] [facility] I [id number] Self [id number] [facility] I [id number] Self [id number] [facility] [id number] SP [id number] [facility] COMMUNITY PLAN XIX [id number] [facility] [id number] SP [id number] Medicaid Medigap Part B [id number] Self [id number] BS Richie Trad/ Medigap Part B [id number] Family Depe nde [id number] [facility] Healthcare Commercial [id number] Self [id number] [facility] Commercial [id number] Self [id number] SELF PAY ONLY [id number] SP [id number] MEDICAID [id number] SP [id number] SELF PAY ONLY UNAVAILABLE SP UNAV AILABLE [place] P[place] 302/307 [id number] SP [id number] MEDICAID [id number] SP [id number] [place] 200/700 [id number] SP [id number] MEDICAID [id number] SP [id number] MEDICAID [id number] SP [id number] [place] P[place] 302/307 [id number] MO2 [id number] [place] 302/307 [id number] MO2 [id number] [place] 302/307 [id number] MO2 [id number] [place] P[place] 302/307 [id number] MO2 [id number] [place] 306/806 [id number] MO2 [id number] [place] 306/806 [id number] MO2 [id number] [place] 306/806 [id number] MO2 [id number] [place] 306/806 [id number] MO [id number] SELF PAY SP [place] Part [place] [id number] Self [id number] [place] [id number] Self [id number] MEDICAID M [id number] S [id number] Medicaid Medigap Part B [id number] Self [id number] BS Drew Trad/MX Commercial [id number] Family Dependen t [id number] [place] Medig[place] Part B Self [employer] BCBS Health Maintenance Organization (HMO) Family Dependent BS Drew Trad/MX Commercial Family Dependent [place] BCBS B [id number] C VYE [id number] BLUE [place]OSS O [id number] Problems, Conditions, and Diagnoses Code Display Name Description Problem Type Effective Dates Data Source(s) 576542143 Nausea Nausea Problem 10/29/2020 12:00:00 AM [facility] ([facility]) D42440 Nicotine dependence, cigarettes, uncompl icated Nicotine dependence, cigarettes, uncomplicated Diagnosis 09/20/2020 10:02:[address] [facility] R1013 Epigastric pain Epigastric pain Diagnosis 09/20/2020 10:0 2:00 AM [facility] K529 Noninfective gastroenteritis and colitis , unspecified Noninfective gastroenteritis and colitis, unspecified Diagnosis 09/20/2020 10:02:00 AM [facility] R112 Nausea with vomiting, unspecified Nausea with vo miting, unspecified Diagnosis 09/20/2020 10:02:00 AM [facility] F63.81 Intermittent explosive disorder INTERMITTENT EXP LOSIVE DISORDER Diagnosis 06/07/2020 10:40:00 AM [facility] F12.10 Cannabis abuse, uncomplicated CANNABIS ABUSE, UNCOMPLI CATED Diagnosis 06/07/2020 10:40:00 AM [facility] F31.9 Bipolar disorder, unspecified BIPOLAR DISORDER, UNSPEC IFIED Diagnosis 06/07/2020 10:40:00 AM [facility] G25.71 Drug induced akathisia DRUG INDUCED AKATHISIA Diagnosi s 05/23/2020 02:00:00 PM [facility] F31.13 Bipolar disorder, current ep isode manic without psychotic features, severe BIPOLAR DISORD, CRNT EPSD MANIC W/O PSYCH FEATURES, SEVERE D iagnosis 05/23/2020 02:00:00 PM [facility] F31.5 Bipolar disorder, current ep isode depressed, severe, with psychotic features BIPOLAR DISORD, CRNT EPSD DEPRESS, SEVERE, W PSYCH FEATURES Diagnosis 05/15/2020 11:42:00 AM [facility] bipolar disorder bipolar disorder Diagnosis 05/10/2020 06 :27:05 AM [facility] F331 Major depressive disorder, recurrent, mo derate Major depressive disorder, recurrent, moderate Diagnosis 05/09/2020 09:51:00 PM [facility] U20586 Suicidal ideations Suicidal ideations Diagnosis 09:51:00 PM [facility] F419 Anxiety disorder, unspecified Anxiety disorder, unspec ified Diagnosis 05/09/2020 09:51:00 PM [facility] Psychotic disorder Psychotic disorder Diagnosis 0 03:49:27 AM [facility] C76506 Personal history of nicotine dependence Personal history of nicotine dependence Diagnosis 04/09/2020 11:28:00 AM [facility] R1030 Lower abdominal pain, unspecified Lower abdomina l pain, unspecified Diagnosis 04/09/2020 11:28:00 AM [facility] K8000 Calculus of gallbladder with acute ham cystitis without obstruction Calculus of gallbladder with acute cholecystitis without obstruction Diagnosis 04/02/2020 05:01:00 PM [facility] R1110 Vomiting, unspecified Vomiting, unspecified Diagnosis 04/02/2020 05:01:00 PM [facility] E860 Dehydration Dehydration Diagnosis 03/09/2020 08:50:00 PM [facility] Surgeries/Procedures Procedure Description Date Indications Data Source(s) Neuroplasty/Transposition, Median Nerve AT Carpal Tunnel 07/24/2020 12:00:00 AM EDT [facility] ([facility]) GLUCOSE QUANTITATIVE BLOOD XCPT REAGENT STRIP POCT GLUCOSE, DOC KED Routine 05/11/2020 7:41 AM EDT 05/11/2020 11:41:00 AM [facility] GLUCOSE QUANTITATIVE BLOOD XCPT REAGENT STRIP POCT GLUCOSE, DOC KED Routine 05/10/2020 8:51 PM EDT 05/11/2020 12:51:00 AM [facility] GLUCOSE QUANTITATIVE BLOOD XCPT REAGENT STRIP POCT GLUCOSE, DOC KED Routine 05/10/2020 12:06 PM EDT 05/10/2020 04:06:00 PM [facility] UH COVID-19 PCR UH COVID-19 PCR Routine 05/10/2020 10:50 AM EDT 05/10/2020 02:50:00 PM [facility] VITAMIN D 25 HYDROXY, TOTAL VITAMIN D 25 HYDROXY, TOTAL Routine 04/19/2020 6:12 AM EDT 04/19/2020 10:12:[address] [facility] HEMOGLOBIN GLYCOSYLATED A1C HEMOGLOBIN A1C Routine 04/19/2020 6:12 AM EDT 04/19/2020 10:12:00 AM [facility] LIPID PANEL LIPID PANEL Routine 04/19/2020 6:12 AM EDT 04/19/2020 10:12:00 AM [facility] Needle electromyography, each extremity, with related paraspinal areas, when performed, done with nerve conduction, amplitude and latency/velocity study; complete, five or more muscles studied, innervated by three or more nerves or four or more spinal levels (list separately in addition to the code for primary procedure). 11/17/2019 12:00:00 AM EST [facility] ([facility]) 06187 Nerve conduction studies 7-8 studies NEW 201211/17/2019 12:00:00 AM EST [facility] ([facility]) Results ID Date Data Source [id number] 11/06/2020 10:00:00 AM EST [facility] Name Value Range Interpretation Code Description Data Yoana rce(s) Supporting Document(s) SARS coronavirus 2 RNA Not Detected [facility] This lab was ordered by [facility] and reported by [facility]. ID Date Data Source [id number] 10/30/2020 02:26:00 PM EST [facility] ([facility]) Name Value Range Interpretation Code Description Data Yoana rce(s) Supporting Document(s) Glucose [Mass/volume] in Serum or Plasma 84 mg/dL 74-99 [facility] ([facility]) 100-125 mg/dL PRE-DIABETES/FASTING >126 mg/dL DIABETES/FASTING Urea nitrogen [Mass/volume] in Serum or Plasma 10 mg/dL 7-18 [facility] ([facility]) Creatinine 0.6 mg/dL 0.6-1.3 [facility] ([facility]) Sodium [Moles/volume] in Serum or Plasma 137 meq/L 136-145 [facility] ([facility]) Potassium [Moles/volume] in Serum or Plasma 3.9 meq/L 3.5-5.1 [facility] ([facility]) Chloride [Moles/volume] in Serum or Plasma 102 meq/L 98-107 [facility] ([facility]) Carbon dioxide, total [Moles/volume] in Serum or Plasma 28 meq/L 21 -32 [facility] ([facility]) Calcium [Mass/volume] in Serum or Plasma 8.8 mg/dL 8.5-10.1 [facility] ([facility]) Total Bilirubin 0.4 mg/dL 0.2-1.0 [facility] ([facility]) Alkaline phosphatase isoenzyme [Units/volume] in Serum or Pl asma 89 mg/dL 46-116 [facility] ([facility]) Aspartate aminotransferase [Enzymatic activity/volume] in Serum or Plasma 20 U/L 15-37 [facility] ([facility] ) Alanine aminotransferase [Enzymatic activity/volume] in Seru m or Plasma 36 U/L 12-78 [facility] ([facility]) Albumin [Mass/volume] in Serum or Plasma 3.7 g/dL 3.4-5.0 [facility] ([facility]) Proteinase 3 Ab [Units/volume] in Serum 7.4 g/dL 6.4-8.2 [facility] ([facility]) Glomerular filtration rate/1.73 sq M pre dicted among non-blacks [Volume Rate/Area] in Serum or Plasma by Creatinine-based formula (MDRD) Laboratory test result [facility] A/G Ratio 1.00 CALC 1.00-1.90 [facility] ([facility]) Glomerular filtration rate/1.73 sq M pre dicted among blacks [Volume Rate/Area] in Serum or Plasma by Creatinine-based formula (MDRD) Laboratory test result [facility] ([facility]) <content>CHRONIC KIDNEY DISEASE STAGING PER NKF</content>
<content></content>
<content>STAGE I & II GFR >= 60 NORMAL TO MILDLY DECREASED</content>
<content>STAGE III GFR 30-59 MODERATELY DECREASED</content>
<content>STAGE IV GFR 15-29 SEVERELY DECREASED</content>
<content>STAGE V GFR <15 VERY LITTLE GFR LEFT</content>
<content>ESRD GFR <15 ON WASH HOUSE SUPERVISOR</content>
<content></content> ID Date Data Source [id number] 10/30/2020 02:26:00 PM EST [facility] ([facility]) Name Value Range Interpretation Code Description Data Yoana rce(s) Supporting Document(s) Magnesium 2.0 mg/dL 1.8-2.4 [facility] ([facility]) ID Date Data Source [id number] 10/30/2020 02:26:00 PM EST [facility] ([facility]) Name Value Range Interpretation Code Description Data Yoana rce(s) Supporting Document(s) Leukocytes [#/volume] in Blood by Automated count 7.5 x10*3/UL 4.1-10 .9 [facility] Erythrocytes [#/volume] in Blood by Automated count 4.94 x10*6/UL 4.2 0-6.30 [facility] Hemoglobin [Mass/volume] in Blood 14.0 g/dL 12.0-18.0 [facility] MCV 86.0 fL 80.0-97.0 [facility] ([facility]) Hematocrit [Volume Fraction] of Blood by Automated count 42.5 % 3 7.0-51.0 [facility] ([facility]) MCH 28.4 pg 26.0-32.0 [facility]) MCHC 33.0 g/dL 31.0-38.0 [facility]) Erythrocyte distribution width [Ratio] by Automated count 13.5 % 11.6-13.7 [facility] ([facility]) MPV 8.9 FL 7.8-11.0 [facility]) Platelets [#/volume] in Blood by Automated count 260 x10*3/UL 140-440 [facility] ([facility]) Lymph % 20.6 % 10.0-58.5 [facility]) Neut % 73.7 % 37.0-92.0 [facility]) Mid % 5.7 % 1.7-9.3 [facility]) Mid # 0.4 x10*3/UL 0.1-0.6 [facility] ([facility]) Lymph # 1.5 x10*3/UL 0.6-4.1 [facility] ([facility]) Neut # 5.6 x10*3/UL 2.0-7.8 [facility] ([facility]) ID Date Data Source [id number] 09/23/2020 10:20:00 [place] [address] PHONE: [phone] FAX: [phone] Name .................. : KRISTIN Gross Acct Number.................. : [id number] ROOM. ................. : TR-05 Number ................... : [id number] Stay type ............. : E/R Discharge Date......... ... : 09/20/20 Admit Date ......... : 09/20/20 Admit Phys .................... : MADHAVICaesar SCHAFFER Date of ....... : 1990 Family Phys ................... : DIANNE BAZZI Phone .................. : [phone] Age ................................ : 29 Film# .................. .:[id number] Sex ................................. : F Unsigned transcriptions are preliminary reports and do not represent a medical or legal document ABDOMEN MULTIPLE VIEW [id number] COMPLETE:09/20/20 13:41 HAILY [id number] Reason(s): Abdominal Pain MULTIPLE VIEW ABDOMINAL SERIES WITH PA CHEST: FINDINGS: Frontal view of the chest is performed. There is a nonspecific bowel gas pattern seen in the abdomen and pelvis. Pneumoperitoneum, pathologic calcification, pneumothorax, pleural effusion or acute osseous abnormality is not identified. IMPRESSION: No pathology seen. Electronically Reviewed and Signed By Ponce Hook MD , 09/23/20 10:20, KGDarrell Transcribe Initials: ROME , Transcribe Date: 09/20/20 20:22, Dictation Date: Copy for: ALICE Lopez via fax Copy for: EMERGENCY DEPT via modem Copy for: 710 MED REC DISCHARGED Page 1 of 1 Name Value Range Interpretation Code Description Data Yoana rce(s) Supporting Document(s) ID Date Data Source [id number] 09/20/2020 10:02:00 AM EST [facility] 1 OrderSheet [facility] Emergency Department [address] [place] [address] Phone #: ext- [phone] 09/20/2020 09:55 Patient: COLTON FOSTER Sex: F : 1990 Age: 29yWEIGHT:102.1 kg (M) HEIGHT:64 inches (S) BMI:38.7ALLERGIES: AugmentinCHIEF COMPLAINT: vomiting, abdominal painDIAGNOSIS: Vomiting, Gastroenteritis, Abdominal painLAB ORDERSOrder Description Priority Entered Acknowledged InitialedBeta-HCG, Qual STAT 10:24 09/20/2020 11:34 Baldemar Caruso RN PA-C ;CBC w Diff STAT 10:24 09/20/2020 10:25 Baldemar Donahue RN PA-C ;CMP STAT 10:24 09/20/2020 10:25 Baldemar Donahue RN PA-C ;Lactic Acid STAT 10:24 09/20/2020 10:25 Baldemar Donahue RN PA-C ;Lipase STAT 10:24 09/20/2020 10:25 Baldemar Donahue RN PA-C ;Urinalysis (Clean STAT 10:24 09/20/2020 11:34 Jessica) Baldemar Trevino RN PA-C ;DIAGNOSTIC STUDY ORDERSOrder Description Priority Entered Acknowledged InitialedAbdomen Multiview STAT 11:37 09/20/2020 11:41 Kumar(Oxygen?(No)) Baldemar Trevino RN PA-C ; Reason for ordering with alerts: Other (Patient states that she has had them before with no problems. She states that she had one last night at other ER.) -- 11:37 09/20/2020 Baldemar Trevino PA-C Reason for Study: Abdominal Pain, DiarrheaMEDICATION/IV/DRIP/FLUID ORDERSOrder Description Priority Entered Acknowledged Initialed 2 OrderSheet [facility] Emergency Department [address] [place] [address] Phone #: ext- [phone] 09/20/2020 09:55 Patient: COLTON FOSTER Sex: F : 1990 Age: 29yIV NS : Bolus 1000 10:24 09/20/2020 10:31 PetermL, then 200 mL/hr Baldemar Trevino RN(NOW) PA-C ;Phenergan IV 25mg 10:24 09/20/2020 10:32 Peterin 50mL NS, give Baldemar Trevino RNwide open: 25 mg PA-C ;(NOW x1, HIGHALERTMEDICATION)GI Cocktail PO 50 11:37 09/20/2020 11:44 PetermL with Lidocaine Baldemar Trevino RNViscous PA-C ;Mouth/Throat 10mL, Maalox Oral 30mL, Oral10 mL Reason for ordering with alerts: Other (Patient states that she has had them before with no problems. She states that she had one last night at other ER.) -- 11:37 09/20/2020 Baldemar TrevinoENERAL ORDERSOrder Description Priority Entered Acknowledged InitialedSaline Lock 10:24 09/20/2020 10:25 Baldemar Donahue RNC ;[Electronically signed by Kumar Kirk RN (13:05 09/20/2020)][Electronically signed by Baldemar Trevino (20:52 09/20/2020)][Electronically locked by Kumar Kirk RN (13:09/20/2020)] Name Value Range Interpretation Code Description Data Yoana rce(s) Supporting Document(s) ID Date Data Source [id number] 09/20/2020 10:02:00 AM EST [facility] 1 Medication Reconciliation Report [facility] Emergency Department [address] [place] [address] Phone #: ext- [phone] 09/20/2020 09:55 Patient: COLTON FOSTER Sex: F : 1990 Age: 29yWeight: 102.1 kgHeight/Length: 64 in.BMI: 38.7ALLERGIES: AugmentinThe patient's Home Medications are listed below:CONTINUE TAKING THE FOLLOWING MEDICATIONS: CeleXA Oral 20 mg, daily Omeprazole Oral 40 mg, daily Zofran ODT Oral 4 mg, prnThe source(s) of the original Home Medication information:patientThe following Medications were given to the patient in the Emergency Department:IV NS IV Fluids bolus 0, then 1000 mL/hr, administered: 09/20/2020 10:31:00 AMPhenergan [IVPB] IVPB bolus 0, then 25 mg 400 mL/hr, administered: 09/20/2020 10:32:00 AMGI Cocktail [PO] PO 50 mL, administered: 09/20/2020 11:44:00 AMIV NS IV Fluids bolus 0, then 200 mL/hr, administered: 09/20/2020 11:46:00 AMThe following Medications were prescribed to the patient:None. Name Value Range Interpretation Code Description Data Yoana rce(s) Supporting Document(s) ID Date Data Source [id number] 09/20/2020 10:02:00 AM EST [facility] 1 Medication Administration Record [facility] Emergency Department [address] [place] [address] Phone #: [phone] 09/20/2020 09:55 Patient: COLTON FOSTER Sex: F : 1990 Age: 29yWeight: 102.1 kgHeight/Length: 64 inBMI: 38.7ALLERGIES: Augmentin Date/Time Medication Administered Medication OrderedStart IV NS IV NS : Bolus 1000 mL, then 67641:31 09/20/2020 Dose: IV Fluids mL/hr (NOW)Kumar Kirk RN Rate: 1000 mL/hr over 1 hour(s)---- Dispensed: 1000 mL bagStop Site: #1 right AC11:45 09/20/2020Smiley Barone IV NS IV NS : Bolus 1000 mL, then 81961:46 09/20/2020 Dose: IV Fluids mL/hr (NOW)Kumar constantino RN Rate: 200 mL/hr over 5 hour(s)---- Dispensed: 1000 mL bagStop Site: #1 right AC12:55 09/20/2020Smiley Barone PHENERGAN [IVPB] Phenergan IV 25mg in 50mL NS,10:32 09/20/2020 Dose: 25 mg IVPB give wide open: 25 mg (NOW x1,Kumar Kirk RN Rate: 400 mL/hr over 15 minute(s) HIGH ALERT MEDICATION)---- Dispensed: 50 mL bagStop Site: #1 right AC10:45 09/20/2020Kumar Kirk RNGiven GI COCKTAIL [PO] (CALCIUM GI Cocktail PO 50 mL with11:44 09/20/2020 CARBONATE ANTACID) Lidocaine Viscous Mouth/ThroatKumar Kirk RN Dose: 50 mL Oral Suspension PO 10 mL, Maalox Oral 30 mL, Oral 10 mL Name Value Range Interpretation Code Description Data Yoana rce(s) Supporting Document(s) ID Date Data Source [id number] 09/20/2020 10:02:00 AM EST [facility] 1 General Instructions [facility] Emergency Department [address] [place] [address] Phone #: [phone] 09/20/2020 09:55 Patient: COLTON FOSTER Sex: F : 1990 Age: 29yVomiting with nausea.Acute epigastric abdominal pain of undetermined cause.Acute noninfectious gastroenteritis.INSTRUCTIONSDrink plenty of fluids.Your Current Medications: Your current home medications have been reviewed.CONTINUE TAKING THE FOLLOWING MEDICATIONS:CeleXA Oral : 20 mg daily.Omeprazole Oral : 40 mg daily.Zofran ODT Oral : 4 mg, prn.Follow-up:Return to the emergency department as needed. Follow up with your healthcare provider. Call for anappointment.Understanding of the discharge instructions verbalized by patient. ADDITIONAL INFORMATIONViral Gastroenteritis (Adult) 2 General Instructions [facility] Emergency Department [address] [place] [address] Phone #: ext- [phone] 09/20/2020 09:55 Patient: COLTON FOSTER Sex: F : 1990 Age: 29yGastroenteritis is commonly called the "stomach flu," although it has nothing to do with influenza. It ismost often caused by a virus that affects the stomach and intestinal tract and usually lasts from 2 to 7days. Common viruses causing gastroenteritis include norovirus, rotavirus, and hepatitis A. Non-viralcauses of gastroenteritis include bacteria, parasites, and toxins.The danger from repeated vomiting or diarrhea is dehydration. This is the loss of too much fluid fromthe body. When this occurs, body fluids must be replaced. Antibiotics don't help with this illnessbecause it is usually viral. Simple home treatment will be helpful.Symptoms of viral gastroenteritis may include: Watery, loose stools Stomach pain or abdominal cramps Fever and chills Nausea and vomiting Loss of bowel [facility] General Instructions [facility] Emergency Department [address] [place] [address] Phone #: ext- [phone] 09/20/2020 09:55 Patient: COLTON FOSTER Sex: F : 1990 Age: 29yGastroenteritis is transmitted by contact with the stool or vomit of an infected person. This can occurfrom person to person or from contact with a contaminated surface.Follow these guidelines when caring for yourself at home: If symptoms are severe, rest at home for the next 24 hours or until you are feeling better. Wash your hands with soap and water or use alcohol-based linen room supervisor to prevent the spread of infection. Wash your hands after touching anyone who is sick. Wash your hands or use alcohol-based linen room supervisor after usi ng the toilet and before meals. Clean the toilet after each use.Remember these tips when preparing food: People with diarrhea should not prepare or serve food to others. When preparing foods, wash your hands before and after. Wash your hands after using cutting boards, countertops, knives, or utensils that have been in contact with raw food. Dry your hands with a single use towel. Keep uncooked meats away from cooked and uuwzk-lu-ttj foods.MedicineYou may use acetaminophen or NSAID medicines like ibuprofen or naproxen to control fever unlessanother medicine was given. If you have chronic liver or kidney disease, talk with your healthcareprovider before using these medicines. Also talk with your provider if you've had a stomach ulceror gastrointestinal bleeding. Don't give aspirin to anyone under 18 years of age who is ill with a fever.It may cause severe liver damage. Don't use NSAIDS is you are already taking one for anothercondition (like arthritis) or are on aspirin (such as for heart disease or after a stroke).If medicine for vomiting or diarrhea are prescribed, take these only as directed. Nausea and diarrheamedicines are generally OK unless you have bleeding, fever, or severe abdominal pain.DietFollow these guidelines for food: Water and liquids are important so you don't get dehydrated. Drink a small amount at a time or suck on ice chips if you are vomiting. If you eat, avoid fatty, greasy, spicy, or fried foods. Don't eat dairy if you have diarrhea. This can make diarrhea worse. 4 General Instructions [facility] Emergency Department [address] [place] [address] Phone #: ext- [phone] 09/20/2020 09:55 [id number] Sex: F : 1990 Age: 29y Avoid tobacco, alcohol, and caffeine which may worsen symptoms.During the first 24 hours (the first full day), follow the diet below: Beverages. Sports drinks, soft drinks without caffeine, inga ava, mineral water (plain or flavored), decaffeinated tea and coffee. If you are very dehydrated, sports drinks aren't a good choice. They have too much sugar and not enough electrolytes. In this case, commercially available products called oral rehydration solutions, are best. Soups. Eat clear broth, consomm, and bouillon. Desserts. Eat gelatin, ice pops, and fruit juice bars.During the next 24 hours (the second day), you may add the following to the above: Hot cereal, plain toast, bread, rolls, and crackers Plain noodles, rice, mashed potatoes, chicken noodle or rice soup Unsweetened canned fruit (avoid pineapple), bananas Limit fat intake to less than 15 grams per day. Do this by avoiding margarine, butter, oils, mayonnaise, sauces, gravies, fried foods, peanut butter, meat, poultry, and fish. Limit fiber and avoid raw or cooked vegetables, fresh fruits (except bananas), and bran cereals. Limit caffeine and chocolate. Don't use spices or seasonings other than salt. Limit dairy products. Avoid alcohol.During the next 24 hours: Gradually resume a normal diet as you feel better and your symptoms improve. If at any time it starts getting worse again, go back to clear liquids until you feel better.Follow-up careFollow up with your healthcare provider, or as advised. Call your provider if you don't get better [id number] hours or if diarrhea lasts more than a week. Also follow up if you are unable to keep down liquidsand get dehydrated. If a stool (diarrhea) sample was taken, call as directed for the results.Call [phone] if any of these occur: 5 General Instructions [facility] Emergency Department [address] [place] [address] Phone #: ext- [phone] 09/20/2020 09:55 Patient: COLTON FOSTER Sex: F : 1990 Age: 29y Trouble breathing Chest pain Confused Severe drowsiness or trouble awakening Fainting or loss of consciousness Rapid heart rate Seizure Stiff neckWhen to seek medical adviceCall your healthcare provider right away if any of these occur: Abdominal pain that gets worse Continued vomiting (unable to keep liquids down) Frequent diarrhea (more than 5 times a day) Blood in vomit or stool (black or red color) Dark urine, reduced urine output, or extreme thirst Weakness or dizziness Drowsiness Fever of 100.4F (38C) or higher, or as directed by your healthcare provider Julito cali [phone] [employer]. [address] [place] [address]. All rights reserved. This information is not intended as asubstitute for professional medical care. Always follow your healthcare professional's instructions.Unknown Causes of Abdominal Pain (Female) 6 General Instructions [facility] Emergency Department [address] [place] [address] Phone #: ext- [phone] 09/20/2020 09:55 Patient: COLTON FOSTER Sex: F : 1990 Age: 29yThe exact cause of your belly (abdominal) pain is not clear. This does not mean that this is somethingto worry about. Everyone likes to know the exact cause of the problem. But sometimes with bellypain, there is no clear-cut cause, and this could be a good thing. The good news is that yoursymptoms can be treated, and you will feel better.Your condition does not seem serious now. But sometimes the signs of a serious problem may takemore time to appear. For this reason, it is important for you to watch for any new symptoms,problems, or worsening of your condition.Over the next few days, the abdominal pain may come and go. Or it may be constant. Other commonsymptoms can include nausea and vomiting. Sometimes it can be difficult to tell if you feel nauseous.You may just feel bad and not connect that feeling to nausea. Constipation, diarrhea, and a fever maygo along with the pain.The pain may continue even if treated correctly over the following days. Depending on how things go,sometimes the cause can become clear and may need more or different treatment. Additionalevaluations, medicines, or tests may also be needed.Home careYour healthcare provider may prescribe medicine for pain, symptoms, or an infection. Follow thehealthcare provider's instructions for taking these medicines. 7 General Instructions [facility] Emergency Department [address] [place] [address] Phone #: ext- [phone] 09/20/2020 09:55 Patient: COLTON FOSTER Sex: F : 1990 [facility] 29[facility] Rest as much as you can until your next exam. No strenuous activities. Try to find positions that ease discomfort. A small pillow placed on the abdomen may help relieve pain. Something warm on your abdomen (such as a heating pad) may help, but be careful not to burn yourself.Diet Don't force yourself to eat, especially if having cramps, vomiting, or diarrhea. Water is important so you don't get dehydrated. Soup may also be good. Sports drinks may also help, especially if they are not too acidic. Don't drink sugary drinks as this can make things worse. Take liquids in small amounts. Don't guzzle them. Caffeine sometimes makes the pain and cramping worse. Don't take dairy products if you have vomiting or diarrhea. Don't eat large amounts at a time. Wait a few minutes between bites. Eat a diet low in fiber (called a low-residue diet). Foods allowed include refined breads, white rice, fruit and vegetable juices without pulp, tender meats. These foods will pass more easily through the intestine. Don't have whole-grain foods, whole fruits and vegetables, meats, seeds and nuts, fried or fatty foods, dairy, alcohol and spicy foods until your symptoms go away.Follow-up careFollow up with your healthcare provider, or as advised, if your pain does not begin to improve in thenext 24 hours.Call [phone] if any of these occur: Trouble breathing Confusion Fainting or loss of consciousness Rapid heart rate 8 General Instructions [facility] Emergency Department [address] [place] [address] Phone #: qqh- [phone] 09/20/2020 09:55 Patient: COLTON FOSTER Sex: F : 1990 Age: 29y SeizureWhen to seek medical adviceCall your healthcare provider right away if any of these occur: Pain gets worse or moves to the right lower abdomen New or worsening vomiting or diarrhea Swelling of the abdomen Unable to pass stool for more than 3 days Fever of 100.4F (38C) or higher, or as directed by your healthcare provider. Blood in vomit or bowel movements (dark red or black color) Yellow color of eyes and skin (jaundice) Weakness, dizziness Chest, arm, back, neck, or jaw pain Unexpected vaginal bleeding or missed period Can't keep down liquids or water and you are getting dehydrated [id number] [employer]. [address] [place] [address], [place] [address]. All rights reserved. This information is not intended as asubstitute for professional medical care. Always follow your healthcare professional's instructions.Viral Gastroenteritis (Adult) 9 General Instructions [facility] Emergency Department [address] [place] [address] Phone #: ext- [phone] 09/20/2020 09:55 Patient: COLTON FOSTER Sex: F : 1990 Age: 29yGastroenteritis is commonly called the "stomach flu," although it has nothing to do with influenza. It ismost often caused by a virus that affects the stomach and intestinal tract and usually lasts from 2 to 7days. Common viruses causing gastroenteritis include norovirus, rotavirus, and hepatitis A. Non-viralcauses of gastroenteritis include bacteria, parasites, and toxins.The danger from repeated vomiting or diarrhea is dehydration. This is the loss of too much fluid fromthe body. When this occurs, body fluids must be replaced. Antibiotics don't help with this illnessbecause it is usually viral. Simple home treatment will be helpful.Symptoms of viral gastroenteritis may include: Watery, loose stools Stomach pain or abdominal cramps Fever and chills Nausea and vomiting Loss of bowel control [facility]acheW[facility] 10 General Instructions [facility] Emergency Department [address] [place] [address] Phone #: ext- [phone] 09/20/2020 09:55 Patient: COLTON FOSTER Sex: F : 1990 Age: 29yGastroenteritis is transmitted by contact with the stool or vomit of an infected person. This can occurfrom person to person or from contact with a contaminated surface.Follow these guidelines when caring for yourself at home: If symptoms are severe, rest at home for the next 24 hours or until you are feeling better. Wash your hands with soap and water or use alcohol-based linen room supervisor to prevent the spread of infection. Wash your hands after touching anyone who is sick. Wash your hands or use alcohol-based linen room supervisor after using the toilet and before meals. Clean the toilet after each use.Remember these tips when preparing food: People with diarrhea should not prepare or serve food to others. When preparing foods, wash your hands before and after. Wash your hands after using cutting boards, countertops, knives, or utensils that have been in contact with raw food. Dry your hands with a single use towel. Keep uncooked meats away from cooked and zljvb-vw-csu foods.MedicineYou may use acetaminophen or NSAID medicines like ibuprofen or naproxen to control fever unlessanother medicine was given. If you have chronic liver or kidney disease, talk with your healthcareprovider before using these medicines. Also talk with your provider if you've had a stomach ulceror ga strointestinal bleeding. Don't give aspirin to anyone under 18 years of age who is ill with a fever.It may cause severe liver damage. Don't use NSAIDS is you are already taking one for anothercondition (like arthritis) or are on aspirin (such as for heart disease or after a stroke).If medicine for vomiting or diarrhea are prescribed, take these only as directed. Nausea and diarrheamedicines are generally OK unless you have bleeding, fever, or severe abdominal pain.DietFollow these guidelines for food: Water and liquids are important so you don't get dehydrated. Drink a small amount at a time or suck on ice chips if you are vomiting. If you eat, avoid fatty, greasy, spicy, or fried foods. Don't eat dairy if you have diarrhea. This can make diarrhea worse. 11 General Instructions [facility] Emergency Department [address] [place] [address] Phone #: ext- [phone] 09/20/2020 09:55 [id number] Sex: F : 1990 Age: 29y Avoid tobacco, alcohol, and caffeine which may worsen symptoms.During the first 24 hours (the first full day), follow the diet below: Beverages. Sports drinks, soft drinks without caffeine, inga ava, mineral water (plain or flavored), decaffeinated tea and coffee. If you are very dehydrated, sports drinks aren't a good choice. They have too much sugar and not enough electrolytes. In this case, commercially available products called oral rehydration solutions, are best. Soups. Eat clear broth, consomm, and bouillon. Desserts. Eat gelatin, ice pops, and fruit juice bars.During the next 24 hours (the second day), you may add the following to the above: Hot cereal, plain toast, bread, rolls, and crackers Plain noodles, rice, mashed potatoes, chicken noodle or rice soup Unsweetened canned fruit (avoid pineapple), bananas Limit fat intake to less than 15 grams per day. Do this by avoiding margarine, butter, oils, mayonnaise, sauces, gravies, fried foods, peanut butter, meat, poultry, and fish. Limit fiber and avoid raw or cooked vegetables, fresh fruits (except bananas), and bran cereals. Limit caffeine and chocolate. Don't use spices or seasonings other than salt. Limit dairy products. Avoid alcohol.During the next 24 hours: Gradually resume a normal diet as you feel better and your symptoms improve. If at any time it starts getting worse again, go back to clear liquids until you feel better.Follow-up careFollow up with your healthcare provider, or as advised. Call your provider if you don't get better [id number] hours or if diarrhea lasts more than a week. Also follow up if you are unable to keep down liquidsand get dehydrated. If a stool (diarrhea) sample was taken, call as directed for the results.Call [phone] if any of these occur: 12 General Instructions [facility] Emergency Department [address] [place] [address] Phone #: ext- [phone] 09/20/2020 09:55 Patient: COLTON FOSTER Sex: F : 1990 Age: 29y Trouble breathing Chest pain Confused Severe drowsiness or trouble awakening Fainting or loss of consciousness Rapid heart rate Seizure Stiff neckWhen to seek medical adviceCall your healthcare provider right away if any of these occur: Abdominal pain that gets worse Continued vomiting (unable to keep liquids down) Frequent diarrhea (more than 5 times a day) Blood in vomit or stool (black or red color) Dark urine, reduced urine output, or extreme thirst Weakness or dizziness Drowsiness Fever of 100.4F (38C) or higher, or as directed by your healthcare provider Julito cali [phone] [employer]. [address] [place] [address]. All rights reserved. This information is not intended as asubstitute for professional medical care. Always follow your healthcare professional's instructions.[place] DietYour healthcare provider may recommend a bland diet if you have an upset stomach. It consists offoods that are mild and easy to digest. It is better to eat small frequent meals rather than 3 largemeals a day. 13 General Instructions [facility] Emergency Department [address] [place] [address] Phone #: ext- [phone] 09/20/2020 09:55 Patient: COLTON FOSTER Sex: F : 1990 Age: 29yBeveragesOK: Fruit juices, non-caffeinated teas and coffee, non-carbonated watersAvoid: Carbonated beverage, caffeinated tea and coffee, all alcoholic beveragesBreadOK: Refined white, wheat or rye bread, emi or soda crackers, [place] toast, plain rolls, bagelsAvoid: Whole-grain breadCerealOK: Refined cereals: cooked or ready to eatAvoid: Whole-grain cereals and granola, or those containing bran, seeds or nutsDessertsOK: Peanut butter and all others except those to "avoid"Avoid: Chocolate, cocoa, coconut, popcorn, nuts, seeds, jam, marmaladeFruitsOK: Canned, cooked, frozen or fresh fruits without seeds or tough skinAvoid: Olives, skin and seeds of fruit, dried fruitMeats 14 General Instructions [facility] Emergency Department [address] [place] [address] Phone #: ext- [phone] 09/20/2020 09:55 Patient: COLTON FOSTER Sex: F : 1990 Age: 29yOK: All fresh or preserved meat, fish and fowlAvoid: Any that are prepared with those spices to "avoid"Cheese and eggsOK: Eggs, cottage cheese, cream cheese, other cheesesAvoid: All cheeses made with those spices to "avoid"Potatoes and pastaOK: Potato, rice, macaroni, noodles, spaghettiAvoid: NoneSoupsOK: All soups without heavy seasoningAvoid: Soups made with those spices to "avoid"VegetablesOK: Canned, cooked, fresh or frozen mildly flavored vegetables without seeds, skins or coarse fiberAvoid: Vegetables prepared with those spices to "avoid"; skin and seeds of vegetables and those withcoarse fiber, broccoli, cabbage, cauliflower, cucumber, green peppers, and cornSpicesOK: Salt, lemon and limejuice, vinegar, all extracts, aba, cinnamon, thyme, mace, allspice, paprikaAvoid: [place] powder, cloves, pepper, seed spices, garlic, gravy pickles, highly seasoned saladdressings [phone] [employer]. [address] [place] [address], [place] [address]. All rights reserved. This information is not intended as asubstitute for professional medical care. Always follow your healthcare professional's instructions. You have been given the following additional information: Gastroenteritis, Viral (Adult) Abdominal Pain, Unknown Cause, (Female) Gastroenteritis, Viral (Adult) Diet, [place] (Adult) 15 General Instructions [facility] Emergency Department [address] [place] [address] Phone #: ext- [phone] 09/20/2020 09:55 Patient: COLTON FOSTER Sex: F : 1990 Age: 29y(Electronically signed by Baldemar Trevino PA-C, 09/20/2020 20:52) Name Value Range Interpretation Code Description Data Yoana rce(s) Supporting Document(s) ID Date Data Source [id number] 09/20/2020 10:02:00 AM EST [facility] 1 Clinical Report - Nurses [facility] Emergency Department [address] [place] [address] Phone #: ext- [phone] 09/20/2020 09:55 Patient: COLTON FOSTER Sex: F : 1990 Age: 29yTRIAGEArrived by private vehicle. Historian: patient. Unaccompanied.Triage time: late entry - 09:55 09/20/2020. Acuity: LEVEL 3.Chief Complaint: ABDOMINAL PAIN, NAUSEA and VOMITING.Alert.Onset. (1 week ago). ( Pt states 1 week ago she started having diarrhea. Pt started vomiting Wednesdayand no longer has diarrhea. Pt states earlier in the week she had a temp of 101 but no longer as thiseither. She started having epigastric, central abdominal pain on Wednesday, [facility] and [facility] scan and stated all was well and d/c on Zofran however pt is still unable to keepanything down.). The patient has had nausea. The patient has had vomiting (4-5 times today). ( Ptstates WBC was elevated yesterday). 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 (10:05 09/20/2020). --10:05 09/20/20 Sima Melgoza R.N.09:59 09/20/20. BP: 139/93. MAP: 108. HR: 68. RR: 18. O2 saturation: 98% on room air. Temp: 97.8 F(temporal). Pain level now: 08/03. --10:05 09/20/20 Sima Melgoza R.N.Weight: 102.1 kg measured. Height/Length: 64 inches Per Patient. BMI: 38.7. --09:54 09/20/20 Sima Melgoza R.N.MedicationsOmeprazole Oral 40 mg, daily. --10:01 09/20/20 Sima Melgoza R.N. CeleXA Oral 20 mg, daily. --10:01 09/20/20 Sima Melgoza R.N. Zofran ODT Oral 4 mg, as needed. --10:09/20/20 Sima Melgoza R.N.AllergiesAugmentin. --10:02 09/20/20 Sima Melgoza R .N.Medication/allergy information source: the patient. --10:05 09/20/20 Sima Melgoza R.N.HistoryPAST MEDICAL HX: Immunizations: up-to-date. Last normal menstrual period- 08/08/2020; Pt is unsurewhy she is late; HCG test negative.SOCIAL HX: Current every day light tobacco smoker (cigarette)- less than 1/2 a pack per day. History ofoccasional drug use: marijuana. No alcohol use. No recent travel. No known contact with a sick 2 Clinical Report - Nurses [facility] Emergency Department [address] [place] [address] Phone #: ext- [phone] 09/20/2020 09:55 Patient: COLTON FOSTER Sex: F : 1990 Age: 29y individual. The patient was offered HIV testing but declined. Patient education was provided. The patient was offered hepatitis C testing but declined. Patient education was provided. ( COVID screen negative). The patient has not traveled outside the [place] Infectious disease exposure: No infectious disease exposure. Patient is not a known carrier of tuberculosis, hepatitis, HIV, MRSA or VRE. Patient is not a known carrier of CRE. SELF HARM ASSESSMENT: Self harm assessment was performed. The patient answered "no" to the question(s) "Do you have thoughts of harming or killing yourself?" and "Do you have a plan for harming or killing yourself?". ABUSE ASSESSMENT: Abuse assessment. The patient had positive responses to the question(s) "Do you feel safe in your home?". Abuse denied. No suspicion of abuse. No report of abuse. NUTRITIONAL RISK ASSESSMENT: The nutritional risk assessment revealed no deficiencies. FUNCTIONAL ASSESSMENT: Functional assessment: no impairments noted. LEARNING NEEDS ASSES SMENT: The learning needs assessment revealed no barriers. FALL RISK ASSESSMENT: Fall risk assessment completed. No risk factors identified. SKIN INTEGRITY ASSESSMENT: Skin integrity risk assessment completed. No skin integrity risk identified. --10:05 09/20/20 Sima Melgoza R.N. Interventions Identification band on patient. --10:05 09/20/20 Sima Melgoza R.N.PHYSICAL ASSESSMENTAmbulatory to room.GENERAL / NEURO / PSYCH: Alert. Oriented X 4. Appears in pain.HEENT: Mucous membranes are pink.RESPIRATORY: Respirations not labored. Breath sounds within normal limits.CVS: Normal sinus rhythm noted. Capillary refill less than 2 seconds.GI / : The patient has had nausea. Emesis noted. Abdomen soft. Abdominal tenderness in theupper abdomen and epigastric area. Bowel sounds within normal limits.SKIN: Skin is warm and dry. --10:09/20/20 Kumar Kirk RN.NURSING PROGRESS NOTES10:09/20/2020 Site #1 started via IV in the right antecubital space with an 20g angiocath, with aseptictechnique and good blood return; two attempts. Blood drawn: rainbow set and green tube(s). Labeled in thepresence of the patient and sent to the lab. Saline lock flushed with 10 mL saline. --10:09/20/20 BORA Limon Patient gowned. Head of bed elevated. Reassurance given. Call light placed in reach. Side rails up x 3 Clinical Report - Nurses [facility] Emergency Department [address] [place] [address] Phone #: ext- [phone] 09/20/2020 09:55 Patient: COLTNO FOSTER Sex: F : 1990 Age: 29y2. Bed placed in lowest position. Brakes of bed on. Patient ready for evaluation- ED physician notified.--10:09/20/20 Kumar Kirk RN10:09/20/2020 Started bag #1 1000 mL IV Fluids IV NS; at 1000 mL/hr over 1 hour(s) via site #1 via IVpump. Allergies verified and confirmed 5 rights. IV patency established. IV site checked: no pain, redness,or swelling. IV flushed thoroughly pre- and post- medication administration. Information reviewed withpatient including reason for taking this medication. Verbalizes understanding. --10:09/20/20 BORA Limon10:32 09/20/2020 Started 25 mg of Phenergan IVPB in bag #1 50 mL; at 400 mL/hr over 15 minute(s) viasite #1. via IV pump. Allergies verified and confirmed 5 rights. IV patency established. IV site checked: nopain, redness, or swelling. IV flushed thoroughly pre- and post-medication administration. Informationreviewed with patient including reason for taking this medication. Verbalizes understanding. --10: Kumar Kirk RN10:44 09/20/2020 Phenergan IVPB via IV site #1 Response: symptoms have improved the patient feelsbetter. Physician customer relations assistant notified. --10:44 09/20/20 Kumar Kirk RN10:45 09/20/2020 Phenergan IVPB via IV site #1 Discontinued: infused. Total amount infused: 50 mL. IVpatency established. IV site checked: no pain, redness, or swelling. IV flushed thoroughly. --10: Kumar Kirk RN11:40 09/20/20. BP: 122/77. MAP: 92. HR: 64. RR: 16. O2 saturation: 100%. Pain level now: 06/03.--11:40 09/20/20 Kumar Kirk RN( pt able to ambulate to the bathroom independently, continues to voice abdominal discomfort). --11: Kumar iKrk RN11:44 09/20/2020 GI Cocktail (Calcium Carbonate Antacid) PO Oral Suspension 50 mL given. Allergiesverified and confirmed 5 rights. Information reviewed with patient including reason for taking thismedication. Verbalizes understanding. --11:44 09/20/20 Kumar Kirk RN11:45 09/20/2020 IV Fluids IV NS via IV site #1 Discontinued: bag #1 infused. Total amount infused: 990mL. IV patency established. IV site checked: no pain, redness, or swelling. IV flushed thoroughly. --11: Kumar Kirk RN11:46 09/20/2020 Started bag #2 1000 mL IV Fluids IV NS; at 200 mL/hr over 5 hour(s) via site #1 via IVpump. Allergies verified and confirmed 5 rights. IV patency established. IV site checked: no pain, redness,or swelling. IV flushed thoroughly pre- and post-medication administration. Information reviewed withpatient including reason for taking this medication. Verbalizes understanding. --11:46 09/20/20 BORA Limon12:55 09/20/2020 Site #1 removed upon discharge. Catheter intact. Manual pressure and bandage applied.--12:55 09/20/20 Kumar Kirk RN 4 Clinical Report - Nurses [facility] Emergency Department [address] [place] [address] Phone #: ext- [phone] 09/20/2020 09:55 Patient: COLTON FOSTER Sex: F : 1990 Age: 29y 12:55 09/20/2020 IV Fluids IV NS via IV site #1 Discontinued: STOPPED upon discharge. Total amount infused: 550 mL. IV patency established. IV site checked: no pain, redness, or swelling. IV flushed thoroughly. --12:55 09/20/20 Kumar Kirk RN.DISPOSITION / DISCHARGE Condition at departure: improved and stable. Discharge instructions provided and reviewed with the patient. Patient verbalized understanding. Written instructions provided in Kittitian. The patient was discharged by the physician customer relations assistant. She was discharged home. She left ambulatory and via private vehicle. Patient driving. --13:04 09/20/20 Kumar Kirk RN 12:55 09/20/20. BP: 144/88. MAP: 106. HR: 74. RR: 16. O2 saturation: 99%. Pain level now: 06/03. --13:04 09/20/20 Kumar Kirk RN.Locked/Released at 09/20/2020 13:05 by Kumar Kirk RN Name Value Range Interpretation Code Description Data Yoana rce(s) Supporting Document(s) ID Date Data Source [id number] 0001 09/20/2020 10:02:00 AM EST [facility] 1 Clinical Report - Physicians/Mid Levels [facility] Emergency Department [address] [place] [address] Phone #: ext- [phone] 09/20/2020 09:55 [id number] Sex[facility] F : 1990 Age: 29y Time Seen: 10:13 09/20/2020. Arrived- By private vehicle. Historian- patient. Disposition decision: 12:56 09/20/2020.HISTORY OF PRESENT ILLNESS Chief Complaint: VOMITING. ABDOMINAL PAIN. This started about a couple of days and is still present. The patient has had nausea, vomiting and abdominal pain. No diarrhea, black stools or bloody stools. The illness is described as severe. Similar symptoms previously. Patient has had similar symptoms several times. Re cent medical care: The patient was seen recently at another facility in the emergency department (yesterday).REVIEW OF SYSTEMSThe patient has had fever, anorexia, fatigue, abdominal pain and diarrhea. She has had nausea, vomitingand depression but no pain on weight bearing. No chills, muscle aches, sweats, weight loss or nasalcongestion. No runny nose, sore throat, chest pain, cough or difficulty breathing. No black stools, bloodystools or constipation. No urinary frequency, urinary hesitancy, urinary incontinence or urinary problemsor hematuria. No pelvic pain, vaginal discharge, back pain, joint pain or neck pain. No skin lesions orrash, alteration in mental status, dizziness or fainting episodes. No headache, head injury, numbness,seizure or suicidal thoughts. No weakness, difficulty with urination or anxiety. Denies sleep disorder.No difficulty walking.PAST HISTORYSee nurses notes. Surgeries: Several prior abdominal surgeries: abdominal laparoscopy; gall bladder surgery; tubal ligation; . Medications: Zofran ODT Oral 4 mg, as needed. CeleXA Oral 20 mg, daily. Omeprazole Oral 40 mg, daily. Allergies: Augmentin.SOCIAL HISTORYHeavy tobacco smoker- less than 1 pack per day. History of occasional drug use: marijuana. No alcoholuse. No recent travel. 2 Clinical Report - Physicians/Mid Levels [facility] Emergency Department [address] [place] [address] Phone #: ext- [phone] 09/20/2020 09:55 Patient: COLTON FOSTER Sex: F : 1990 Age: 29yADDITIONAL NOTESThe nursing notes have been reviewed.PHYSICAL EXAMVital Signs: 09/20/2020 09:59 BP: 139/93. MAP: 108. HR: 68. RR: 18. O2 saturation: 98% on room air.Temp: 97.8 F. Pain level now: 08/03. Have been reviewed as abnormal. Hypertensive. Oxygensaturation normal.Appearance: Alert. Oriented X3. No acute distress.Eyes: Eyes normal inspection.Neck: Normal inspection. Neck supple.CVS: Normal heart rate and rhythm. Heart sounds normal. Pulses normal.Respiratory: No respiratory distress. Painless inspiration. Breath sounds normal.Abdomen: Soft. Mild tenderness in the epigastric area. No guarding, rebound tenderness or Rodríguez's,obturator or psoas sign present. Bowel sounds normal. No organomegaly. No mass. Obese.Tenderness present. No rebound tenderness or guarding.Back: Normal inspection. No CVA tenderness.Skin: Skin warm and dry. Normal skin color. No rash. Normal skin turgor.Neuro: Oriented X 3.LABS, X-RAYS, AND EKGKUB: No acute disease. Gas pattern normal. Technique: good. The X-rays were independently viewedby me and interpreted by the radiologist. Interpretation time: 12:17 09/20/2020.Laboratory Tests: Beta-HCG, Qual Urine: (JESSY: 09/20/2020 11:30) ( MsgRcvd 09/20/2020 11:50) Final results Test Result Flag Units (Reference) HCG URINE QUAL NEGATIVE (NORMAL: NEGAT HCG URINE QL REENTER NEGATIVE (NORMAL: NEGAT { KIT LOT # [id number] ){ KIT EXP DATE 07/30/21 ){ PROCEDURAL CONTROL VALID ) CBC w Diff: (JESSY: 09/20/2020 10:53) ( MsgRcvd 09/20/2020 11:06) Final results Test Result Flag Units (Reference) CBC W/AUTOMATED DIFF COMPLETE BLOOD COUNT WBC 12.3 H 10/uL (4.2 - 11.0) RBC 5.27 10/uL (4.20 - 5.40) HEMOGLOBIN 15.1 g/dL (12.0 - 16.0) HEMATOCRIT 45.8 % (37.0 - 47.0) MCV 86.9 fL (81.0 - 101) MCH 28.7 pg (27.0 - 34.0) MCHC 33.0 g/dL (31.0 - 36.0) RDW 13.5 % (11.5 - 14.5) PLATELETS 240 10/uL (150 - 450) MPV 10.8 H fL (7.4 - 10.4) NEUT 78.6 % (37.0 - 80.0) LYMPH 12.4 L % (25.0 - 40.0) 3 Clinical Report - Physicians/Mid Levels [facility] Emergency Department [address] [place] [address] Phone #: ext- [phone] 09/20/2020 09:55 Patient: COLTON FOSTER Sex: F : 1990 Age: 29y MONO 7.1 % (3.0 - 8.0) EOS 1.3 % (0.0 - 7.0) BASO 0.3 % (0.0 - 2.5) %IG 0.3 H % (0.0 - 0.0) %NRBC 0.0 % (0.0 - 0.0) #NEUT 9.69 H 10/uL (2.00 - 6.90) #LYMPH 1.53 10/uL (0.60 - 3.40) #MONO 0.88 10/uL (0.00 - 0.90) #EOS 0.16 10/uL (0.00 - 0.70) #BASO 0.04 10/uL (0.00 - 0.20) #IG 0.04 10/uL (0.00 - 0.10) #NRBC 0.00 10/uL (0.00 - 0.00) MANUAL DIFF NOT INDICATED RBC MORPH NOT INDICATEDCMP: (JESSY: 09/20/2020 11:24) ( MsgRcvd 09/20/2020 11:59) Final results Test R esult Flag Units (Reference) COMPREHENSIVE METABOLIC PANEL COMPREHENSIVE METABOLIC PANEL SODIUM 135 mEq/L (134 - 153) POTASSIUM 4.1 mEq/L (3.6 - 5.0) CHLORIDE 102 mEq/L (98 - 107) CO2 28 MEQ/L (22 - 30) GLUCOSE 85 MG/DL (65 - 110) BUN 13 MG/DL (7 - 21) CREATININE 0.5 L MG/DL (0.7 - 1.5) BUN/CREAT 26 (8 - 27) TOTAL PROTEIN 6.8 G/DL (6.3 - 8.2) ALBUMIN 4.0 G/DL (3.9 - 5.0) GLOBULIN 2.8 GM/DL (2.4 - 3.2) A/G RATIO 1.4 (0.8 - 2.0) CALCIUM 8.6 MG/DL (8.4 - 10.2) TOTAL BILI 0.8 MG/DL (0.2 - 1.3) ALKALINE PHOS 75 U/L (38 - 126) SGOT/AST 40 U/L (5 - 40) SGPT/ALT 42 U/L (7 - 56) ANION GAP 5.0 L mmol/L (8.0 - 16.0) AGE 29 yrs NON-AA GFR >60 mL/min AFR AMER GFR >60 mL/min Male GFR Interprentation 20-49 yrs >60 mL/min Gfnujz84-64 yrs >56 mL/min Normal 60-69 yrs >49 mL/min Normal 70-79yrs>42 mL/min Normal 80 and above >35 mL/min Normal Female GFRInterpretation 20-39 yrs >60 mL/min Normal 40-49 yrs >58 mL/minNormal 50-59 yrs >51 mL/min Normal 60-69 yrs >45 mL/min Bthhaw16-38 yrs >39 mL/min Normal 80 and above >32 mL/min NormalLactic Acid: (JESSY: 09/20/2020 10:12) ( MsgRcvd 09/20/2020 11:00) Final results Test Result Flag Units (Reference) LACTIC ACID 1.7 MMOL/L (0.2 - 2.2)Lipase: (JESSY: 09/20/2020 11:24) ( MsgRcvd 09/20/2020 11:59) Final results Test Result Flag Units (Reference) LIPASE 14 U/L (13 - 60)Urinalysis: (JESSY: 09/20/2020 11:30) ( Mscvd 09/20/2020 11:55) Final results 4 Clinical Report - Physicians/Mid Levels [facility] Emergency Department [address] [place] [address] Phone #: arr- [phone] 09/20/2020 09:55 Patient: COLTON FOSTER Sex: F : 1990 Age: 29y Test Result Flag Units (Reference) URINALYSIS URINALYSIS SOURCE Clean Catch COLOR yellow (NORMAL: Yello CLARITY clear (NORMAL: Clear SPEC GRAVITY 1.015 (1.001 - 1.030 pH 7 (5 - 9) GLUCOSE NORM (NORMAL: Negat BILIRUBIN NEG (NORMAL: Negat KETONE 150 A (NORMAL: Negat PROTEIN 15 (NORMAL: Negat NITRITE NEG (NORMAL: Negat BLOOD NEG (NORMAL: Negat LEUK EST 25 (NORMAL: Negat UROBILINOGEN NOR (less than 1.0 MICROSCOPIC See Below WBC 1 - 3 (NORMAL: NONE RBC 1 - 3 (NORMAL: NONE EPITHELIAL MODERATE A (NORMAL: NONE BACTERIA Trace (NORMAL: NONE AMORPH SED 2+ (NORMAL: NONE.PROGRESS AND PROCEDURESCourse of Care: 11:06 09/20/20. ( 29yo Adult female presenting with 8/10 epigastric pain. [facility]-up only uncovered WBC increase with no cause.Patient has labs pending, IV running, Phergren on board. She was sleeping when I came in and whenawoken she says she has 8/10 pain still. This is not consistent with the way she is acting. considering aUS since she had a CT last night.). ( Patient e xam remarkable for mild epigastric pain. Patient refused rectal exam and stool guaiac test. Explained to her that this helps r/o other conditions but she still refused.). ( WBC is down from 14.4 in another ED last night. Still no source found at this time. additional labs pending). ( ketones slightly elevated likely due to the reported vomiting. Exam, labs, and radiographs unable to find cause of discomfort or elevated WBC. Patient is currently stable with no indication at this time for need of emergent GI consult. Plan is to discharge and have her follow-up with PCM.). ( Patient is resting comfortably and states that reflux is much improved after the GI cocktail. She still complains of 8/10 pain. This is not consistent with her current behavior or exam. She is stable, refused rectal exam, gave return criteria, and encouraged to follow-up with PCM and GI provider. Instructed to follow-up with PCM if symptoms persist or worsen. discussed results of encounter and proposed care plan. Explained return criteria. Answered all questions during the encounter. Patient verbalized agreement and understanding with care plan.). Disposition: Condition: good and stable. 5 Clinical Report - Physicians/Mid Levels [facility] Emergency Department [address] [place] [address] Phone #: ext- [phone] 09/20/2020 09:55 Patient: COLTON FOSTER [facility]#: [id number] Sex: F : 1990 Age: 29y Discharge decision based on the following: patient's condition is stable; patient is ambulatory; patient's exam is stable; no seriously abnormal test results; stable condition on repeat evaluation; social support is adequate; transportation is available; follow-up is available; clinical impression is consistent with outpatient treatment. Instructed to follow-up with PCM if symptoms persist or worsen. discussed results of encounter and proposed care plan. Explained return criteria. Answered all questions during the encounter. Patient verbalized agreement and understanding with care plan.CLINICAL IMPRESSION Vomiting with nausea. Acute epigastric abdominal pain of undetermined cause. Acute noninfectious gastroenteritis.INSTRUCTIONS Drink plenty of fluids. Your Current Medications: Your current home medications have been reviewed. CONTINUE TAKING THE FOLLOWING MEDICATIONS: CeleXA Oral : 20 mg daily. Omeprazole Oral : 40 mg daily. Zofran ODT Oral : 4 mg, prn. Follow-up: Return to the emergency department as needed. Follow up with your healthcare provider. Call for an appointment. Understanding of the discharge instructions verbalized by patient.(Electronically signed by Baldemar Trevino PA-C, 09/20/2020 20:52) Name Value Range Interpretation Code Description [facility] Supporting Document(s) ID Date Data Source [id number] 09/20/2020 11:30:00 AM EST [facility] ([facility]) Name Value Range Interpretation Code Description Data [facility] Supporting Document(s) Urinalysis Laboratory test result [facility] ([facility]) URINALYSIS Source Laboratory test result [facility] ([facility]) Color Laboratory test result [facility] ([facility]) Clarity Laboratory test result [facility] ([facility]) pH 7 5-9 [facility]) Spec Auxier 1.015 1.001-1.030 [facility] ([facility]) Glucose Laboratory test result [facility] ([facility]) Bilirubin Laboratory test result [facility] ([facility]) Ketone 150 Abnormal (applies to non-numeric res ults) [facility] ([facility]) Protein 15 [facility] ([facility]) Blood Laboratory test result [facility] Nitrite Laboratory test result [facility] Leuk Est 25 [facility]) Urobilinogen Laboratory test result [facility] NT [facility] Microscopic Laboratory test result [facility] T [facility] Epithelial Laboratory test result Abnormal (applies to non -numeric results) [facility] ([facility]) RBC Laboratory test result [facility] ([facility]) WBC Laboratory test result [facility] Amorph Sed Laboratory test result [facility] Bacteria Laboratory test result [facility] ID Date Data Source [id number] 09/20/2020 11:30:00 AM EST [facility] Name Value Range Interpretation Code Description Data Yoana rce(s) Supporting Document(s) HCG Urine Qual Laboratory test result [facility] HCG Urine QL Reenter Laboratory test result [facility] ([facility]) { KIT LOT # [id number] ) { KIT EXP DATE 07/30/21 ) { PROCEDURAL CONTROL VALID ) ID Date Data Source [id number] 09/20/2020 11:55:00 AM [facility] Name Value Range Interpretation Code Description Data Yoana rce(s) Supporting Document(s) URINALYSIS [facility] URINALYSIS SOURCE Clean Catch [facility] ital COLOR yellow NORMAL: Yellow [facility] CLARITY clear NORMAL: Clear [facility] spital Specific gravity of Urine by Test strip 1.015 1.001 - 1.030 [facility] pH 7 5 - 9 [facility] Glucose [Mass/volume] in Urine by Test strip NORM NORMAL: Negat [facility] Bilirubin.total [Presence] in Urine by Test strip NEG NORMAL: Negative [facility] Ketones [Presence] in Urine by Test strip 150 NORMAL: Negative A [facility] Protein [Mass/volume] in Urine by Test strip 15 NORMAL: Negat [facility] Nitrite [Presence] in Urine by Test strip NEG NORMAL: Negative [facility] BLOOD NEG NORMAL: Negative [facility] Leukocyte esterase [Presence] in Urine by Test strip 25 NESSA L: Negative [facility] Urobilinogen [Mass/volume] in Urine by Test strip NOR less ayan n 1.0 mg/dL [facility] MICROSCOPIC See Below [facility] ital WBC 1 - 3 NORMAL: NONE SEEN [facility] Erythrocytes [#/volume] in Urine by Test strip 1 - 3 NORMAL: NON E SEEN [facility] EPITHELIAL MODERATE NORMAL: NONE SEEN A [facility] Bacteria [Presence] in Urine sediment by Light microscopy Tr justo NORMAL: NONE SEEN [facility] Amorphous sediment [Presence] in Urine sediment by Light margie roscopy 2+ NORMAL: NONE SEEN [facility] ID Date Data Source [id number] 09/20/2020 11:50:00 AM EST [facility] Name Value Range Interpretation Code Description Data Yoana rce(s) Supporting Document(s) HCG URINE QUAL NEGATIVE NORMAL: NEGATIVE [facility] HCG URINE QL REENTER NEGATIVE NORMAL: NEGATIVE [facility] { KIT LOT # [id number] ){ KIT EXP DATE 07/30/21 ){ PROCEDURAL CONTROL VALID ) ID Date Data Source [id number] 09/20/2020 11:24:00 AM EST [facility] ([facility]) Name Value Range Interpretation Code Description Data Yoana rce(s) Supporting Document(s) Lipoprotein lipase [Enzymatic activity/volume] in Serum or Plasm a 14 U/L 13-60 [facility] ([facility]) ID Date Data Source [id number] 09/20/2020 11:24:00 AM EST [facility] ([facility]) Name Value Range Interpretation Code Description Data Yoana rce(s) Supporting Document(s) Comprehensive [employer] Laboratory test result [facility] ([facility]) COMPREHENSIVE METABOLIC PANEL Chloride 102 meq/L 98-107 [facility]) Potassium 4.1 meq/L 3.6-5.0 [facility]) Sodium 135 meq/L 134-153 [facility]) Co2 28 meq/L 22-30 [facility] BUN 13 mg/dL 7-21 [facility] Glucose 85 mg/dL 65-110 [facility] BUN/Creat 26 8-27 [facility] Total Protein 6.8 g/dL 6.3-8.2 [facility] ([facility]) Creatinine 0.5 mg/dL 0.7-1.5 [facility] ([facility]) Globulin 2.8 GM/DL 2.4-3.2 [facility] A/G Ratio 1.4 0.8-2.0 [facility] Albumin 4.0 g/dL 3.9-5.0 [facility] Calcium 8.6 mg/dL 8.4-10.2 [facility] Total Bili 0.8 mg/dL 0.2-1.3 [facility] ([facility]) Alkaline Phos 75 U/L 38-126 [facility] ([facility]) Sgot/Ast 40 U/L 5-40 [facility]) SGPT/Alt 42 U/L 7-56 [facility]) Age 29 yrs [facility] Anion Gap 5.0 mmol/L 8.0-16.0 [facility] ([facility]) Non-Aa GFR Laboratory test result [facility] ([facility]) Afr Amer GFR Laboratory test result [facility] NT ([facility]) Male GFR Interprentation 20-49 yrs >60 mL/min Normal 50-59 yrs >56 mL/min Normal 60-69 yrs >49 mL/min Normal 70-79yrs >42 mL/min Normal 80 and above >35 mL/min Normal Female GFR Interpretation 20-39 yrs >60 mL/min Normal 40-49 yrs >58 mL/min Normal 50-59 yrs >51 mL/min Normal 60-69 yrs >45 mL/min Normal 70-79 yrs >39 mL/min Normal 80 and above >32 mL/min Normal ID Date Data Source [id number] 09/20/2020 11:59:00 AM [facility] Name Value Range Interpretation Code Description Data Yoana rce(s) Supporting Document(s) Lipase [Enzymatic activity/volume] in Serum or Plasma 14 U/L 13 - 60 [facility] ID Date Data Source [id number] 09/20/2020 11:59:00 AM [facility] Name Value Range Interpretation Code Description Data Yoana rce(s) Supporting Document(s) COMPREHENSIVE METABOLIC PANEL [facility] COMPREHENSIVE METABOLIC PANEL Sodium [Moles/volume] in Serum or Plasma 135 mEq/L 134 - 153 [facility] Potassium [Moles/volume] in Serum or Plasma 4.1 mEq/L 3.6 - 5.0 [facility] Chloride [Moles/volume] in Serum or Plasma 102 mEq/L 98 - 107 [facility] Carbon dioxide, total [Moles/volume] in Serum or Plasma 28 MEQ/L 22 - 30 [facility] Glucose [Mass/volume] in Serum or Plasma 85 MG/DL 65 - 110 [facility] BUN 13 MG/DL 7 - 21 [facility] al Creatinine [Mass/volume] in Serum or Plasma 0.5 MG/DL 0.7 - 1.5 L [facility] BUN/CREAT 26 8 - 27 [facility] Protein [Mass/volume] in Serum or Plasma 6.8 G/DL 6.3 - 8.2 [facility] Albumin [Mass/volume] in Serum or Plasma 4.0 G/DL 3.9 - 5.0 [facility] Globulin [Mass/volume] in Serum by calculation 2.8 GM/DL 2.4 - 3.2 [facility] A/G RATIO 1.4 0.8 - 2.0 [facility] Calcium [Mass/volume] in Serum or Plasma 8.6 MG/DL 8.4 - 10.2 [facility] Bilirubin.total [Mass/volume] in Serum or Plasma 0.8 MG/DL 0.2 - 1.3 [facility] Alkaline phosphatase [Enzymatic activity/volume] in Serum or Plasma 75 U/L 38 - 126 [facility] Aspartate aminotransferase [Enzymatic activity/volume] in Serum or Plasma 40 U/L 5 - 40 [facility] Alanine aminotransferase [Enzymatic activity/volume] in Seru m or Plasma 42 U/L 7 - 56 [facility] Anion gap 3 in Serum or Plasma 5.0 mmol/L 8.0 - 16.0 L [facility] AGE 29 yrs [facility] NON-AA GFR >60 mL/min [facility] ital AFR AMER GFR >60 mL/min [facility] Male GFR In terprentation 20-49 yrs >60 mL/min Normal 50-59 yrs >56 mL/min Normal 60-69 yrs >49 mL/min Normal 70-79yrs >42 mL/min Normal 80 and above >35 mL/min Normal Female GFR Interpretation 20-39 yrs >60 mL/min Normal 40-49 yrs >58 mL/min Normal 50-59 yrs >51 mL/min Normal 60-69 yrs >45 mL/min Normal 70-79 yrs >39 mL/min Normal 80 and above >32 mL/min Normal ID Date Data Source [id number] 09/20/2020 10:53:00 AM EST [facility] ([facility]) Name Value Range Interpretation Code Description Data Yoana rce(s) Supporting Document(s) CBC W/Automated Diff Laboratory test result [facility] ([facility]) COMPLETE BLOOD COUNT WBC 12.3 10^3/uL 4.2-11.0 [facility] Hemoglobin 15.1 g/dL 12.0-16.0 [facility] ([facility]) RBC 5.27 10^6/uL 4.20-5.40 [facility] ([facility]) MCH 28.7 pg 27.0-34.0 [facility]) MCV 86.9 fL 81.0-101 [facility] Hematocrit 45.8 % 37.0-47.0 [facility] ([facility]) MCHC 33.0 g/dL 31.0-36.0 [facility] RDW 13.5 % 11.5-14.5 [facility]) MPV 10.8 fL 7.4-10.4 [facility]) Platelets 240 10^3/uL 150-450 [facility] ([facility]) Neut 78.6 % 37.0-80.0 [facility]) Dawson 7.1 % 3.0-8.0 [facility] Lymph 12.4 % 25.0-40.0 [facility]) Baso 0.3 % 0.0-2.5 [facility]) Eos 1.3 % 0.0-7.0 [facility]) %Ig 0.3 % 0.0-0.0 [facility]) %NRBC 0.0 % 0.0-0.0 [facility]) #Lymph 1.53 10^3/uL 0.60-3.40 [facility] ([facility]) #Neut 9.69 10^3/uL 2.00-6.90 [facility] ([facility]) #Dawson 0.88 10^3/uL 0.00-0.90 [facility] ([facility]) #Eos 0.16 10^3/uL 0.00-0.70 [facility] ([facility]) #Ig 0.04 10^3/uL 0.00-0.10 [facility] ([facility]) #Baso 0.04 10^3/uL 0.00-0.20 [facility] ([facility]) #NRBC 0.00 10^3/uL 0.00-0.00 [facility] ([facility]) Manual Diff Laboratory test result [facility] ([facility]) RBC Morph Laboratory test result [facility] ([facility]) ID Date Data Source [id number] 09/20/2020 11:06:00 AM EST [facility] Name Value Range Interpretation Code Description Data Yoana rce(s) Supporting Document(s) CBC W/AUTOMATED DIFF [facility] COMPLETE BLOOD COUNT Leukocytes [#/volume] in Blood by Automated count 12.3 10^3/uL 4.2 - 11.0 H [facility] Erythrocytes [#/volume] in Blood by Automated count 5.27 10^6/uL 4. 20 - 5.40 [facility] Hemoglobin [Mass/volume] in Blood 15.1 g/dL 12.0 - 16.0 [facility] Hematocrit [Volume Fraction] of Blood by Automated count 45.8 % 3 7.0 - 47.0 [facility] Erythrocyte mean corpuscular volume [Entitic volume] by Auto mated count 86.9 fL 81.0 - 101 [facility] Erythrocyte mean corpuscular hemoglobin [Entitic mass] by Automated count 28.7 pg 27.0 - 34.0 [facility] Erythrocyte mean corpuscular hemoglobin concentration [Mass/volume] by Automated count 33.0 g/dL 31.0 - 36.0 [facility] Erythrocyte distribution width [Ratio] by Automated count 13.5 % 11.5 - 14.5 [facility] Platelets [#/volume] in Blood by Automated count 240 10^3/uL 150 - 45 0 [facility] Platelet mean volume [Entitic volume] in Blood by Automated count 10.8 fL 7.4 - 10.4 H [facility] Neutrophils/100 leukocytes in Blood by Automated count 78.6 % 37. 0 - 80.0 [facility] Lymphocytes/100 leukocytes in Blood by Manual count 12.4 % 25.0 - 40.0 L [facility] Monocytes/100 leukocytes in Blood by Automated count 7.1 % 3.0 - 8.0 [facility] Eosinophils/100 leukocytes in Blood by Automated count 1.3 % 0.0 - 7.0 [facility] Basophils/100 leukocytes in Blood by Automated count 0.3 % 0.0 - 2.5 [facility] %IG 0.3 % 0.0 - 0.0 [facility] % 0.0 - 0.0 [facility] al Neutrophils [#/volume] in Blood by Automated count 9.69 10^3/uL 2.00 - 6.90 H [facility] Lymphocytes [#/volume] in Blood by Automated count 1.53 10^3/uL 0.60 - 3.40 [facility] Monocytes [#/volume] in Blood by Automated count 0.88 10^3/uL 0.00 - 0.90 [facility] Eosinophils [#/volume] in Blood by Automated count 0.16 10^3/uL 0.00 - 0.70 [facility] Basophils [#/volume] in Blood by Automated count 0.04 10^3/uL 0.00 - 0.20 [facility] #IG 0.04 10^3/uL 0.00 - 0.10 [facility]spital #NRBC 0.00 10^3/uL 0.00 - 0.00 [facility] MANUAL DIFF NOT INDICATED [facility] RBC MORPH NOT INDICATED [facility] spital ID Date Data Source [id number] 09/20/2020 10:12:00 AM EST [facility] ([facility]) Name Value Range Interpretation Code Description Data Yoana rce(s) Supporting Document(s) Lactate [Mass/volume] in Serum or Plasma 1.7 mmol/L 0.2-2.2 [facility] ([facility]) ID Date Data Source [id number] 09/20/2020 10:59:00 AM [facility] Name Value Range Interpretation Code Description Data Yoana rce(s) Supporting Document(s) Lactate [Moles/volume] in Serum or Plasma 1.7 MMOL/L 0.2 - 2.2 [facility] ID Date Data Source [id number] 09/19/2020 12:19:00 PM EST [facility] ([facility]) Name Value Range Interpretation Code Description Data Yoana rce(s) Supporting Document(s) Red Blood Count 5.50 10 4.00-5.40 [facility] ([facility]) Hemoglobin 14.9 g/dL 12.0-15.5 [facility] ([facility]) White Blood Count 14.4 10 4.0-10.0 [facility] ([facility]) Hematocrit 46.9 % 36.0-47.0 [facility]) Mean Corpuscular Volume 85.3 fl 80.0-96.0 [facility] ([facility]) Red Cell Distribution Width 13.7 % 11.5-14.5 [facility] ([facility]) Mean Corpuscular HGB Conc 31.8 g/dL 32.0-36.5 MEDE NT ([facility]) Mean Corpuscular Hemoglobin 27.1 pg 27.0-33.0 [facility] ([facility]) Platelet Count, Automated 285 10 150-450 [facility] NT ([facility]) Neutrophils % 78.9 % 36.0-66.0 [facility] ([facility]) Lymph % 13.2 % 24.0-44.0 [facility] [facility] Baso % 0.3 % 0.0-1.0 [facility] [facility]) Eos % 0.6 % 0.0-3.0 [facility] [facility] Dawson % 6.7 % 0.0-5.0 [facility] [facility] Immature Granulocyte % 0.3 % 0-3.0 [facility] ([facility]) Neutrophils # 11.4 10 1.5-8.5 [facility] ([facility]) Nucleated Red Blood Cell % 0.0 % 0-0 MED ENT ([facility]) Lymph # 1.9 10 1.5-5.0 [facility] [facility]) Dawson # 1.0 10 0.0-0.8 [facility]) Eos # 0.1 10 0.0-0.5 [facility]) Baso # 0.0 10 0.0-0.2 [facility]) ID Date Data Source [id number] 09/19/2020 12:19:00 PM EST [facility] ([facility]) Name Value Range Interpretation Code Description Data Yoana rce(s) Supporting Document(s) Ast/Sgot 14 U/L 7-37 [facility] [facility]) Alkaline Phosphatase 92 U/L 45-117 [facility] ([facility]) Alt/SGPT 25 U/L 12-78 [facility] [facility]) Bilirubin,Direct 0.2 mg/dL 0.0-0.2 [facility] ([facility]) Total Protein 8.2 GM/DL 6.4-8.2 [facility] ([facility]) Bilirubin,Total 0.7 mg/dL 0.2-1.0 [facility] ([facility]) Albumin/Globulin Ratio 0.8 1.2-2.2 [facility] ([facility]) Albumin 3.6 GM/DL 3.2-5.2 [facility] [facility]) ID Date Data Source [id number] 09/19/2020 12:19:00 PM EST [facility] ([facility]) Name Value Range Interpretation Code Description Data Yoana rce(s) Supporting Document(s) Glucose, Fasting 99 mg/dL 70-100 [facility] ([facility]) Creatinine For GFR 0.78 mg/dL 0.55-1.30 [facility] ([facility]) Blood Urea Nitrogen 18 mg/dL 7-18 [facility] ([facility]) Glomerular Filtration Rate Laboratory [facility]) <content>Units are mL/min/1.73 m2</content>
<content></content>
<content>Chronic Kidney Disease Staging per NKF:</content>
<content></content>
<content>Stage I & II GFR >=60 Normal to Mildly Decreased</content>
<content>Stage III GFR 30- 59 Moderately Decreased</content>
<content>Stage IV GFR 15-29 Severely Decreased</content>
<content>Stage V GFR <15 Very Little GFR Left</content>
<content>ESRD GFR <15 on [employer]</content>
<content></content> Potassium Serum 3.4 meq/L 3.5-5.1 [facility] ([facility]) Sodium Level 138 meq/L 136-145 [facility] ([facility]) Chloride Level 102 meq/L 98-107 [facility] ([facility]) Carbon Dioxide Level 27 meq/L 21-32 [facility] ([facility]) Calcium Level 9.5 mg/dL 8.5-10.1 [facility] ([facility]) Anion Gap 9 meq/L 8-16 [facility] [facility]) ID Date Data Source [id number] 09/19/2020 12:19:00 PM EST [facility] ([facility]) Name Value Range Interpretation Code Description Data Yoana rce(s) Supporting Document(s) Amylase [Enzymatic activity/volume] in Serum or Plasma 38 U/L 25- 115 [facility] ([facility]) Lipoprotein lipase [Enzymatic activity/volume] in Serum or Plasm a 49 U/L 73-393 [facility] ([facility]) HCG Serum Qualitative Laboratory test result [facility] ([facility]) ID Date Data Source [id number] 07/19/2020 10:00:00 AM EDT [facility] ([facility], ) Name Value Range Interpretation Code Description Data Yoana rce(s) Supporting Document(s) Coronavirus 2019 Nasopharygeal Laboratory test result [facility] ([facility], ) This nucleic acid amplification test was developed and its performance characteristics determined by [facility]. Nucleic acid amplification tests include PCR and [...] detected) result in this assay. Performed at: RN - [facility] [address] [id number] Residency Program Coordinator: Riya Cardenas MD, Phone: [phone] Not Detected ID Date Data Source [id number] 07/19/2020 10:00:00 AM EDT [facility] Name Value Range Interpretation Code Description Data Yoana rce(s) Supporting Document(s) SARS coronavirus 2 RNA [facility] This lab was ordered by [facility] and reported by [facility]. ID Date Data Source [id number] 05/15/2020 01:40:48 PM EDT [facility] Name Value Range Interpretation Code Description Data Yoana rce(s) Supporting Document(s) History and Physical [facility] SRBMAj6wJdBRHxWo05/YEKcpSJJaz4QiIBerTWg9LCwvWRFrC7TsJNG3oG9kLEK2LTgEXgLhFbVtBcKr lbm [file] AgICAgICAgICAgICAgICAgICAgICAgICAgICAgICAg ICAgICAgICAgICAgICAgICAgICAgICAgICAgICAgICAgICAgICAgICAgICAgICAgICAgICAgICAgICAg FQFbTYCfBW9RQBDeBXAjPLJtILAnQRTcRCUbIWHcJXNoBBMjUEEoDHBpNYVgTDFyNBQkGOLoKQBzSXXu ICAgICAgICAgICAgICAgICAgICAgICAgICAgICAgIC DmKBPlGWQwUFJfHUQqAUToTI8KVYBsWSSzNLStNXMmSCSqVMRlYSCeDWEjJFRzIZItTOLhTTTwRGThDG AgICAgICAgICAgICAgICAgICAgICAgICAgICAgICAgICAgICAgICAgICAgICAgICAgICAgICAgICAgIA 0KICAgICAgICAgICAgICAgICAgICAgICAgICAgICAg ICAgICAgICAgICAgICAgICAgICAgICAgICAgICAgICAgICAgICAgICAgICAgICAgICAgICAgICAgICAg IOOoGVMkKORdIR8CGVXdMDUpVUNoTGCxXEBuZPAvXMUnHUZsIEDnGSLtLBRyTLQfKGKjYLLfAJKpYJIn ICAgICAgICAgICAgICAgICAgICAgICAgICAgICAgIC AqOBQhFPQiKKFeCQOqJCMjUABaZA2MPQJhRFXjWRRsQXSzONXwPILyUWLaFIHfSRLaBUDcEAZgTIEkFJ AgICAgICAgICAgICAgICAgICAgICAgICAgICAgICAgICAgICAgICAgICAgICAgICAgICAgICAgICAgIC SrQS0WZDBfEBJvFBVgTOEdOOZgUEZuBHWbWNFaXPGb ICAgICAgICAgICAgICAgICAgICAgICAgICAgICAgICAgICAgICAgICAgICAgICAgICAgICAgICAgICAg ZOZzOOIwVKSeRMXzXE7RYSBuMRRcCWRjEXZuIUFqBPEnNZFvFMAzBMByDVDzJKFsOHMoYBCyZYGgFYKf ICAgICAgICAgICAgICAgICAgICAgICAgICAgICAgIC IdLBDyHAPyZJZkWTWyNAGfDSTyXNSnRT9RVJSnEQQvAIXdMYSbSUPtJMHxJEIcSJYfVIXcMVAqOCCiUY AgICAgICAgICAgICAgICAgICAgICAgICAgICAgICAgICAgICAgICAgICAgICAgICAgICAgICAgICAgIC WvMSJiMW2EBPJgMDSnPEClORPaZZTxNTOvAIOlHJTj ICAgICAgICAgICAgICAgICAgICAgICAgICAgICAgICAgICAgICAgICAgICAgICAgICAgICAgICAgICAg ZDHaGYGtALBsGNNlOQKaMB3AVQ81bRAba5M6IOYkAS7qkrl/Ts3OGVjwsrKgoVQjAJ1JHwEpCH1few4K KoEcGK9ukp3CCNaPBdWyT4D0cQEdGFXjQMVJVtVrV6 0lHPilHz53CJwaBEEnMjWuEPc4Rr6QEqUmW1iaGAKnErJ1RTDfKsE9YQAzZoD3SMVoFnIgAFClTBTiUA 6NUKVpN671vqInHQ2TRi7WZpPxBZ0jcn3KLtOcFBVhMkrAFdh1HIxyBW3SdMQfdTXvCnFcMOLRJkCcC2 zsi7NpCtTsGLBBEEhvQW3Ly3IyhLPxUEf+Sl6KMV5h p4WlFVytYhSkXT4mof3VJDnYVlOoR2ZxaDcjYLonGCPtuUEELYTpTNBlUOjqZsI7OJKYLDHkzJG8FpU7 GmFhPiBhOOO0VGVuQW5hATalLR3SOMD0YUbeNWFaQHRtD3pRHzMfOXVcEuWntIzoWS7YReAfM7LhhoTo dCAzMSAwIFINCj4+QXefexIiJjdDZzJeXSMhh3TxIQ l2HJ1IHOZrGHudLE8MZUAikI6mTDjoHJ4QZoUaZGEzITXAQgTbP61wiGGfPSn6F5UoPgOkBGItZdixAH MgPDwvTmFtZXMgWyBdDQogID4+ID4+LDpkDZ1SVCvuxeNhLIGpDd8RSRLlAENjIS7rGKQoWBIhC7E0gU kaMGUPVgEvZ3fqnkftMQ1cNKBpE313fDqhkiSiAZYj CDMcWt3OLKBlEQP6IQVumFKmRpMeJITKHCocDE4BxZVdQJR2lS6uYOgkGAWtPOZpG0zGDkOlgHlhEN95 bGwgbnVsbCBdDQo+Mn3NPQ8yh9LzTHr6vmIxVXhgOYY1HZkcBFUkCSIlTOMsYQN7WAU4LKJKIdNgTANh LXSjGMmcBMXtOWCorg0YMLWuXEXdIYj5AZUgFNBcOY YeGGssWTGiCTZjYvGcHOQbAAWuRW8CVjBrHHDoXZScACryDSVdBYUcpe6GYTApCKXiKjH8RGQsGGHmZL RsLVyhASWeEOKwJCN1CEDqTDZhDQ3VXgUkNJTbEKE3FKWxPAEgXYDfnz4HMTWlQMEdCeU8OUJhSCMtEL MwJTcgOGWwCJK0QuxeNVBfQABzHK3FBxKkWHIfIUe3 YmWsJZOsMTDawj6PAHFlFVPlKgWdKIOpOJBsEUQeWZrqNKYuQYGhAwU5UBAaTFLnYX3JPmZpQVUnUOHe PTKiRGBoUOZjtq7EENSyNTFhDhIcIDBfJCQtYKNiHHqbIMOkZLDqXUl7DOHrWREdLI7CFyQzBEKgTBI8 LLAkNJBmROZrps0WAOEgENIlOAy4LCQjJFRxXVOgEI wtXTKmCWK2NMJoPHScNPRlEG1HYmVbNDUkXcTsYDxaAGOfSMPrld0BOJZcFJEwOkIhLePaPVCbSAVaFW mnYLOwHZU4CRB6YMLhBNEqWP7HPhWyAMHbWsvsVLEnUOOhEFQocr8DFFQkGHJcIaKaSIXvBEGcEVNnRF onSXTzLUL6AJf2IEGhLPZeWH7HEoEqVVDhDrqiDeRe NMLvYLFsvt8QFCBtNOQeYWV6WCHjDNQkTGOtPYbrATTfSKQ1MUnvDEEvMQUgCG8MAnEwDHTiKof8LdZe GMSaSRQdjf3AIXCbHCZjCCo8PVRzKACqOMKsOQuyAHFtXCPnBpdsJSQvUICqNN8IDqThTSAuGeI3ORhg HERoETQshb5UVBPfPQNrXLawDGUfTHMqRFWhZEhhMQ IsPBEmJMW6CUJuLADjEU5ICbDfEObaHCXCCok3VGcwJ9w4LZIbHO5AT0Ime4UiUyXpUQCGZIeeHN1xju UlVSWiJv2RJ7qWFijbHgC4OZDyPHD4M3IsPIIfUIP0YJCpLzXuEAUqE8IsLR5sSYPjKielRxCgEKTcBx B3PPYmCEOqBrR3Z6OiZxZiQCSuKgXgPD9YOk4KNvY9XHE8uZTvGe5HYsHkXJHYXsWbPA1ZPRq= ID Date Data Source [id number] 05/09/2020 09:51:00 PM EDT [facility] 1 OrderSheet [facility] Emergency Department [address] [place] [address] Phone #: ext- [phone] 05/09/2020 21:42 Patient: COLTON FOSTER Sex: F : 1990 Age: 29yWEIGHT:105.2 kg HEIGHT:65 inches BMI:38.6ALLERGIES: NoneCHIEF COMPLAINT: anxious, behav change, agitatedDIAGNOSIS: Suicidal behavior, Depressive disorderLAB ORDERSOrder Description Priority Entered Acknowledged InitialedCB w Diff STAT 22:39 05/09/2020 22:40 Tianna Celis Norma MD; Santa GottliebCMP STAT 22:39 05/09/2020 22:40 Tianna Celis Norma MD; Santa GottliebUrinalysis (Clean STAT 22:39 05/09/2020 22:40 Humaira Celis) Nessa Wynn MD; Santa GottliebUrine Drug Screen STAT 22:39 05/09/2020 22:40 Tianna Celis Norma MD; Santa GottliebHCG Serum Qual STAT 22:39 05/09/2020 22:40 Tianna Celis Norma MD; Santa GottliebAcetaminophen STAT 01:05/10/2020 01:31 Rose SánchezLevel Nessa Wynn MD; R.N.Salicylate Level STAT :05/10/2020 01:31 Rose Sánchez Norma MD; R.N.DIAGNOSTIC STUDY ORDERSOrder Description Priority Entered Acknowledged InitialedMEDICATION/IV/DRIP/FLUID ORDERSOrder Description Priority Entered Acknowledged InitialedKeflex PO 500 mg 01:31 05/10/2020 01:42 Rose Sánchez(NOW x1) Nessa Wynn MD; R.N.GENERAL ORDERSOrder Description Priority Entered Acknowledged InitialedEKG 22:39 05/09/2020 22:40 Tianna Celis Norma MD; Santa Gottlieb[Electronically signed by Rose Sánchez R.N. (04:37 05/10/2020)][Electronically signed by Nessa Wynn MD (01:20 05/12/2020)][Electronically locked by Rose Sánchez R.N. (04:37 05/10/2020)] 2 OrderSheet [facility] Emergency Department [address] [place] [address] Phone #: ext- [phone] 05/09/2020 21:42 Patient: COLTON FOSTER Sex: F : 1990 Age: 29y Name Value Range Interpretation Code Description Data Yoana rce(s) Supporting Document(s) ID Date Data Source [id number] 05/09/2020 09:51:00 PM EDT [facility] 1 Medication Reconciliation Report [facility] Emergency Department [address] [place] [address] Phone #: ext- [phone] 05/09/2020 21:42 Patient: COLTON FOSTER Sex: F : 1990 Age: 29yWeight: 105.2 kgHeight/Length: 65 in.BMI: 38.6ALLERGIES: NoneThe patient's Home Medications are listed below:Unknown.The source(s) of the original Home Medication information:Not obtained.The following Medications were given to the patient in the Emergency Department:Keflex [PO] PO 500 mg, adminis tered: 05/10/2020 1:42:00 AMThe following Medications were prescribed to the patient:None. Name Value Range Interpretation Code Description Data Yoana rce(s) Supporting Document(s) ID Date Data Source [id number] 05/09/2020 09:51:00 PM EDT [place] [address] Medication Administration Record [facility] Emergency Department [address] [place] [address] Phone #: ext- [phone] 05/09/2020 21:42 Patient: COLTON FOSTER Sex: F : 1990 Age: 29yWeight: 105.2 kgHeight/Length: 65 inBMI: 38.6ALLERGIES: None Date/Time Medication Administered Medication OrderedGiven KEFLEX [PO] (CEPHALEXIN Keflex PO 500 mg (NOW x1)01:42 05/10/2020 MONOHYDRATE)Rose Sánchez RJoieNJoie Dose: 500 mg PO Name Value Range Interpretation Code Description Data Yoana rce(s) Supporting Document(s) ID Date Data Source [id number] 05/09/2020 09:51:00 PM EDT [place] [address] General Instructions [facility] Emergency Department [address] [place] [address] Phone #: ext- [phone] 05/09/2020 21:42 Patient: COLTON FOSTER Sex: F : 1990 Age: 29ySuicidal ideation.Recurrent mild major depressive disorder without psychosis.(Electronically signed by Nessa Wynn MD 05/12/2020 01:20) Name Value Range Interpretation Code Description Data Yoana rce(s) Supporting Document(s) ID Date Data Source [id number] 05/09/2020 09:51:00 PM EDT [facility] 1 Clinical Report - Nurses [facility] Emergency Department [address] [place] [address] Phone #: ext- [phone] 05/09/2020 21:42 Patient: COLTON FOSTER Sex: F : 1990 Age: 29yTRIAGEArrived by private vehicle. Historian: patient. ( pt states she is hearing her great great grandfathers voiceand he is telling her that someone killed him and she needs to find out who. pt states she doesnt want togo to sleep because she has epilespy and will when she falls asleep. per her he states shecalled him at 730 pm and states she wants to drown herself. when they got in the car she states she wantsthe car to hit a tree. pt hears several voices.).Triage time: 21:43 05/09/2020. Acuity: LEVEL 2.Chief Complaint: DEPRESSION, SUICIDAL THOUGHTS, ANXIETY, HALLUCINATIONS, DELUSIONSand BIZARRE BEHAVIOR.Alert.Onset. (weeks). The patient describes feelings of depression and has had sleeping difficulties. Has beenfeeling agitated. Admits to having hallucinations. --21:51 05/09/20 Santa Celis R.N.21:43 05/09/20. BP: 125/68. HR: 82. RR: 16. O2 saturation: 97%. Temp: 98.0 F. Pain level now 0/10.--21:51 05/09/20 Santa Celis R.N.Weight: 105.2 kg. Height/Length: 65 inches. BMI: 38.6. --21:42 05/09/20 Santa Celis R.N.MedicationsUnknown. --04:37 05/10/20 [facility].AllergiesNone. --03:44 05/10/20 [facility], CheryHistorySOCIAL HX: Current every day smoker. Alcohol use; consumes liquor daily. History of drug use:marijuana. The patient was offered HIV testing but declined. The patient has not traveled outside the.[place].Infectious disease exposure: No infectious disease exposure. The patient may have been exposed toCoronavirus. (per pt she states maybe shes not sure if she has been around anyone [facility]). Patient isnot a known carrier of tuberculosis, hepatitis, HIV, MRSA or VRE. Patient is not a known carrier of CRE.SELF HARM ASSESSMENT: Self harm assessment was performed. The patient answered "yes" to thequestion(s) "Have you recently felt down, depressed, or hopeless?", "Do you have thoughts of harming orkilling yourself?", "Do you have a plan for harming or killing yourself?", "Have you recently had thoughtsabout harming or killing others?", "Do you have any dangerous items in your possession?", "Have younoticed less interest or pleasure in doing things?", "Are you here because you tried to hurt yourself?" and"Have you ever tried to hurt yourself before today?". The patient and spouse reported the patient'sbehavior as agitated, irritable and anxious and included verbal threats, suicidal comments, delusions and 2 Clinical Report - Nurses [facility] Emergency Department [address] [place] [address] Phone #: ext- [phone] 05/09/2020 21:42 Patient: COLTON FOSTER Sex: F : 1990 Age: 29y hallucinations. ABUSE ASSESSMENT: Abuse assessment. Abuse denied. No suspicion of abuse. No report of abuse. NUTRITIONAL RISK ASSESSMENT: The nutritional risk assessment revealed no deficiencies. FUNCTIONAL ASSESSMENT: Functional assessment: no impairments noted. LEARNING NEEDS ASSESSMENT: The learning needs assessment revealed no barriers. FALL RISK ASSESSMENT: Fall risk assessment completed. No risk factors identified. SKIN INTEGRITY ASSESSMENT: Skin integrity risk assessment completed. No skin integrity risk identified. --21:51 05/09/20 Santa Celis R.N. Interventions Identification band on patient. To treatment room. --21:51 05/09/20 Santa Celis R.N.PHYSICAL ASSESSMENTAmbulatory to room.GENERAL / NEURO / PSYCH: Alert. Oriented X 4. Patient's mood/affect appears hostile. Behaviorappears abnormal, including paranoid behaviors and having apparent auditory hallucinations. The patientdescribes suicidal thoughts. Patient appears agitated.RESPIRATORY: Respirations not labored.GI / : Bowel sounds within normal limits.SKIN: Skin is warm and dry. --21:52 05/09/20 Santa Celis R.N.NURSING PROGRESS NOTESPatient gowned. Suicide precautions initiated. Three patient identifiers checked. --21:52 05/09/20Santa Celis R.N. Suicide precautions maintained: a safety sweep of the room is ongoing. Continuous one on one supervision, hospital sitter at bedside. --22:46 05/09/20 Rose Sánchez R.N. ( urine sent to lab, appears as becky blood, Dr Wynn visualized sample.). --22:48 05/09/20 Rose Sánchez R.N. Charted On Wrong Patient --22:48 7/16/20 Rose Sánchez R.N. 23:42 05/09/20. Suicide precautions maintained: a safety sweep of the room is ongoing. Room made safe. Continuous one on one supervision, hospital sitter at bedside. --01:44 05/10/20January, R.N. 00:44 05/10/20. Suicide precautions maintained: a safety sweep of the room is ongoing. Continuous one on one superv xi, hospital sitter at bedside. ( no needs at this time.). --01:44 05/10/20January, R.N. 01:42 05/10/2020 Keflex (Cephalexin Monohydrate) PO 500 mg given. Allergies verified and confirmed 5 3 Clinical Report - Nurses [facility] Emergency Department [address] [place] [address] Phone #: ext- [phone] 05/09/2020 21:42 Patient: COLTON FOSTER Sex: F : 1990 Age: 29y rights. Information reviewed with patient including reason for taking this medication. Verbalizes understanding. --01:42 05/10/20January, R.N. 01:42 05/10/20. BP: 107/65. MAP: 79. HR: 66. RR: 18. O2 saturation: 98%. Temp: 97.8 F. Pain level now: 0/10. --01:43 05/10/20January, R.N. Suicide precautions maintained: a safety sweep of the room is ongoing. Hospital sitter at bedside. ( med[facility] for UTI, [facility] --01:46 05/10/20January, R.N. 02:46 05/10/20. Suicide precautions maintained: a safety sweep of the room is ongoing. Continuous one on one supervision, hospital sitter at bedside. --03:38 05/10/20January, R.N. 03:20 05/10/20. ( pt resting, signed consent for psych admission, sitter at bedside.). --03:39 05/10/20 Rose Sánchez R.N. ( This RN called pt spouse to make him aware of pt transfer and where she is going.). --03:57 05/10/20 Rose Sánchez R.N.DISPOSITION / DISCHARGE 03:45 05/10/20. Report was given to a nurse via a phone call. Report included information regarding patient's care and treatment and abnormal labs. Report included treatment information regarding medications given or pending. All questions were answered. Report was acknowledged and care was transferred. (Gabriel Tadeo RN). --03:56 05/10/20 Rose Sánchez R.N. 04:04 05/10/20. BP: 114/61. MAP: 78. HR: 70. RR: 16. O2 saturation: 96%. Temp: 98.5 F. Pain level now: 0/10. --04:05 05/10/20 Rose Sánchez R.N. Condition at departure: stable. Transferred to [facility]. Visit overview, summary of care (CCDA), Emtala forms and Face Sheet provided to EMS via paper and fax ([facility]). Transported via ambulance by EMS. Patient's personal items; items were placed in belongings bag and transported with the patient. --04:33 05/10/20 Rose Sánchez R.N. Departure time: 04:33 05/10/2020. --04:33 05/10/20 Rose Sánchez R.N.Locked/Released at 05/10/2020 04:37 by Rose Sánchez R.N. Name Value Range Interpretation Code Description Data Yoana rce(s) Supporting Document(s) ID Date Data Source [id number] 05/09/2020 09:51:00 PM EDT [facility] 1 Clinical Report - Physicians/Mid Levels [facility] Emergency Department [address] [place] [address] Phone #: ext- [phone] 05/09/2020 21:42 [id number] Sex[facility] F : 1990 Age: 29y Historian- patient and family. Disposition decision: 02:14 05/10/2020.HISTORY OF PRESENT ILLNESS Chief Complaint: ANXIOUS and BEHAVIOR CHANGE and AGITATED. This started weeks. No situational problems. (pt is a 29 year old female who was released from [facility] for evaluation of her manic episodes. pt is here with her significant other. he does corroborates the story. she is having hallucinations that her 100 year old grandfather is telling her that he was killed and he did not just . pt states she sometimes has her leg goes in a lumbee and hits her other leg. she denies taking any drugs to kill herself. she states she has barely slept in 3 days. she does smoke marijuana.). She was not found wandering and is compliant with medication. Recent marijuana use. Has been depressed and paranoid but eating and exhibited unusual behavior. Has not been sleeping. She has had anxiety, delusions and hallucinations. No suicidal thoughts or self-injury inflicted. Symptoms not described as moderate. No injury is present. Similar symptoms previously. Recent medical care: The patient was seen recently by a health care provider.REVIEW OF SYSTEMSNo headache, dizziness, weakness, chest pain or palpitations. No abdominal pain or pain, vomiting,diarrhea or black stools. No numbness, fever, sore throat or throat or cough. No difficulty breathing,urinary frequency or urinary problems or skin rash or rash. No joint pain, weight loss, laceration, chills orfever. No double vision, ear pain, runny nose, cough or diarrhea. No nausea, vomiting, hematuria, backpain or suicidal thoughts. No easy bruising. The patient has had depression, a sleep disorder andanxiety.PAST HISTORYSee nurses notes. Depression. History of drug abuse. Psychiatric illness. Problems: Anxiety Reaction. Depression. Additional Surgeries: Cholecystectomy [04/03/2020].SOCIAL HISTORYNo drug use. Has place to stay. 2 Clinical Report - Physicians/Mid Levels [facility] Emergency Department [address] [place] [address] Phone #: aui- [phone] 05/09/2020 21:42 Patient: COLTON FOSTER Sex: F : 1990 Age: 29yADDITIONAL NOTESThe nursing notes have been reviewed.PHYSICAL EXAMVital Signs: 05/10/2020 01:42 BP: 107/65. MAP: 79. HR: 66. RR: 18. O2 saturation: 98%. Temp: 97.8 F.Pain level now: 0.05/09/2020 23:23 BP: 117/65. MAP: 82. HR: 79. RR: 20. O2 saturation: 96%. Temp: 98.5 F. Pain levelnow: 0.05/09/2020 21:43 BP: 125/68. MAP: 87. HR: 82. RR: 16. O2 saturation: 97%. Temp: 98.0 F. Have beenreviewed and appear to be correct. Blood pressure normal. Mean arterial pressure- normal. Heart ratenormal. Respiratory rate normal. Temperature normal. Oxygen saturation normal.Appearance: Alert. No acute distress. Appearance is normal.Eyes: Pupils equal, round and reactive to light.Neck: Normal inspection. Neck supple.CVS: Normal heart rhythm and rate. Heart sounds normal.Respiratory: Painless inspiration. Breath sounds normal. Chest nontender.Abdomen: Soft and nontender.Back: No tenderness.Skin: Skin warm and dry. Normal skin color. Normal skin turgor.Extremities: Extremities exhibit normal ROM. No lower extremity edema.Psych / Neuro: Appears to have auditory and visual hallucinations and delusions. Denies suicidalthoughts. Cranial nerves normal (as tested). No cerebellar findings. No motor deficit. No sensorydeficit.LABS, X-RAYS, AND EKGLaboratory Tests: Acetaminophen Level: (JESSY: 05/09/2020 23:45) ( MsgRcvd 05/10/2020 01:52) Final results Test Result Flag Units (Reference) ACETAMINOPHEN <5.0 UG/ML (0.0 - 30.0) Salicylate Level: (JESSY: 23:45) ( MsgRcvd 05/10/2020 02:00) Final results Test Result Flag Units (Reference) SALICYLATE <0.3 L mg/dL (2.0 - 20.0) CBC w Diff: (JESSY: 05/09/2020 23:45) ( MsgRcvd 05/09/2020 23:51) Final results Test Result Flag Units (Reference) CBC W/AUTOMATED DIFF COMPLETE BLOOD COUNT WBC 9.8 10/uL (4.2 - 11.0) RBC 4.26 10/uL (4.20 - 5.40) HEMOGLOBIN 12.1 g/dL (12.0 - 16.0) HEMATOCRIT 37.4 % (37.0 - 47.0) MCV 87.8 fL (81.0 - 101) MCH 28.4 pg (27.0 - 34.0) MCHC 32.4 g/dL (31.0 - 36.0) RDW 14.0 % (11.5 - 14.5) PLATELETS 239 10/uL (150 - 450) 3 Clinical Report - Physicians/Mid Levels [facility] Emergency Department [address] [place] [address] Phone #: ext- [phone] 05/09/2020 21:42 Patient: COLTON FOSTER Sex: F : 1990 Age: 29y MPV 10.8 H fL (7.4 - 10.4) NEUT 62.2 % (37.0 - 80.0) LYMPH 26.0 % (25.0 - 40.0) MONO 7.3 % (3.0 - 8.0) EOS 3.9 % (0.0 - 7.0) BASO 0.3 % (0.0 - 2.5) %IG 0.3 H % (0.0 - 0.0) %NRBC 0.0 % (0.0 - 0.0) #NEUT 6.11 10/uL (2.00 - 6.90) #LYMPH 2.55 10/uL (0.60 - 3.40) #MONO 0.72 10/uL (0.00 - 0.90) #EOS 0.38 10/uL (0.00 - 0.70) #BASO 0.03 10/uL (0.00 - 0.20) #IG 0.03 10/uL (0.00 - 0.10) #NRBC 0.00 10/uL (0.00 - 0.00) MANUAL DIFF SEE BELOW SEGS 70 % (37 - 80) BAND 0 % (0 - 5) %LYMPH 20 L % (25 - 40) %MONO 8 % (3 - 8) %EOS 2 % (0 - 7) %BASO 0 % (0 - 2) METAMYELOCYTE 0 % MYELOCYTE 0 % PROMYELOCYTE 0 % BLASTS 0 % HUGO LYM 0 % NRBC 0 % RBC MORPH NOT INDICATEDCMP: (JESSY: 05/09/2020 23:45) ( MsgRcvd 05/10/2020 00:23) Final results Test Result Flag Units (Reference) COMPREHENSIVE METABOLIC PANEL COMPREHENSIVE METABOLIC PANEL SODIUM 140 mEq/L (134 - 153) POTASSIUM 3.9 mEq/L (3.6 - 5.0) CHLORIDE 104 mEq/L (98 - 107) CO2 28 MEQ/L (22 - 30) GLUCOSE 92 MG/DL (65 - 110) BUN 11 MG/DL (7 - 21) CREATININE 0.6 L MG/DL (0.7 - 1.5) BUN/CREAT 18 (8 - 27) TOTAL PROTEIN 6.7 G/DL (6.3 - 8.2) ALBUMIN 4.0 G/DL (3.9 - 5.0) GLOBULIN 2.7 GM/DL (2.4 - 3.2) A/G RATIO 1.5 (0.8 - 2.0) CALCIUM 9.0 MG/DL (8.4 - 10.2) TOTAL BILI <0.7 MG/DL (0.2 - 1.3) ALKALINE PHOS 74 U/L (38 - 126) SGOT/AST 35 U/L (5 - 40) SGPT/ALT 50 U/L (7 - 56) ANION GAP 8.0 mmol/L (8.0 - 16.0) AGE 29 yrs NON-AA GFR >60 mL/min AFR AMER GFR >60 mL/min Male GFR Interprentation 20-49 yrs >60 mL/min Tnavvm46-14 yrs >56 mL/min Normal 60-69 yrs >49 mL/min Normal 70-79yrs>42 mL/min Normal 80 and above >35 mL/min Normal Female GFRInterpretation 20-39 yrs >60 mL/min Normal 40-49 yrs >58 mL/minNormal 50-59 yrs >51 mL/min Normal 60-69 yrs >45 mL/min Normal 4 Clinical Report - Physicians/Mid Levels [facility] Emergency Department [address] [place] [address] Phone #: ext- [phone] 05/09/2020 21:42 Patient: COLTON FOSTER Sex: F : 1990 Age: 29y 70-79 yrs >39 mL/min Normal 80 and above >32 mL/min Normal Urinalysis: (JESSY: 05/09/2020 21:59) ( MsgRcvd 05/09/2020 23:30) Final results Test Result Flag Units (Reference) URINALYSIS URINALYSIS SOURCE Clean Catch COLOR yellow (NORMAL: Yello CLARITY hazy (NORMAL: Clear SPEC GRAVITY 1.010 (1.001 - 1.030 pH 6.5 (5 - 9) GLUCOSE NORM (NORMAL: Negat BILIRUBIN NEG (NORMAL: Negat KETONE NEG (NORMAL: Negat PROTEIN 30 (NORMAL: Negat NITRITE NEG (NORMAL: Negat BLOOD 250 A (NORMAL: Negat LEUK EST 100 A (NORMAL: Negat UROBILINOGEN NOR (less than 1.0 MICROSCOPIC See Below WBC 5 - 7 A (NORMAL: NONE RBC 7 - 10 A (NORMAL: NONE EPITHELIAL MANY A (NORMAL: NONE BACTERIA Trace (NORMAL: NONE Drug Screen-Urine: (JESSY: 05/09/2020 21:59) ( [facility] 05/09/[facility] 23[facility]36) Final results Test Result Flag Units (Reference) DRUG SCREEN URINE URINE DRUG SCREEN AMPHETAMINES NEGATIVE (NORMAL: NEGAT BARBITURATES NEGATIVE (NORMAL: NEGAT BENZO NEGATIVE (NORMAL: NEGAT COCAINE NEGATIVE (NORMAL: NEGAT THC PRESUMP POS A (NORMAL: NEGAT OPIATES NEGATIVE (NORMAL: NEGAT PCP NEGATIVE (NORMAL: NEGAT \\BLDo\\URINE DRUG SCREEN INTERPRETATION\\BLDx\\ THE CUTOFFF LEVELS FOR DETECTION ARE FOLLOWS: AMPHETAMINES 1000 ng/ml BARBITUARATES 200 ng/ml BENZODIAZEPINES 100 ng/ml THC 50 ng/ml PHENCYCLIDINE 25 ng/ml OPIATES 300 ng/ml COCAINE 300 ng/ml ALL POSITIVES ARE CONSIDERED PRESUMPTIVE POSITIVE CONFIRMATION WILL BE PERFORMED AT PHYSICIAN REQUEST. Beta-HCG, Qual Serum: (JESSY: 05/09/2020 21:59) ( [facility] 05/09/2020 23:18) Final results Test Result Flag Units (Reference) HCG SERUM QUAL NEGATIVE (NORMAL: NEGAT HCG SERUM QL REENTER NEGATIVE (NORMAL: NEGAT { KIT LOT # [id number] ){ KIT EXP DATE 08-06-21 ){ PROCEDURAL CONTROL VALID ). 5 Clinical Report - Physicians/Mid Levels [facility] Emergency Department [address] [place] [address] Phone #: ext- [phone] 05/09/2020 21:42 Patient: COLTON FOSTER Sex: F : 1990 Age: 29yPROGRESS AND PROCEDURESCourse of Care: pt is a 29 year old female who is psychotic who will require admission. she was at [facility] prior to the admission. she presents tot he ED with her . he confirmsthe story that she is suicidal. labs reviewed. ekg shows no acute findings. pt is medically cleared. pt isagreeable to be transfered to the [facility]. I called [facility]. I spoke to Dr. Zaragoza who agrees to accept thepatient. Disposition: Benefits, risks and alternatives to transfer explained. Transferred to [facility]. Summary of care (CCDA) provided to transfer facility via paper. UTI (catheter associated) was not present prior to transfer. Pressure ulcer was not present prior to transfer. Vascular infection (catheter associated) was not present prior to transfer. Blood incompatibility was not present prior to transfer. Air embolism was not present prior to transfer. Condition: stable.CLINICAL IMPRESSION Suicidal ideation. Recurrent mild major depressive disorder without psychosis.(Electronically signed by Nessa Wynn MD 05/12/2020 01:20) Name Value Range Interpretation Code Description Data Yoana rce(s) Supporting Document(s) ID Date Data Source [id number] [facility] Value Range Interpretation Code Description Data Yoana rce(s) Supporting Document(s) Glucose [Mass/volume] in Capillary blood by Glucometer 100 mg/dL 70- 140 [facility] ID Date Data Source [id number] 05/11/2020 10:20:38 AM EDT [facility] Name Value Range Interpretation Code Description Data Yoana rce(s) Supporting Document(s) Glucose [Mass/volume] in Capillary blood by Glucometer 88 mg/dL 70- 140 [facility] ID Date Data Source [id number] 05/10/2020 02:58:[facility] Name Value Range Interpretation Code Description Data Yoana rce(s) Supporting Document(s) History and Physical [facility] PITIYy5qDbWLChDi02/MDPobHWJgo4GpOVzlUMl7PDtlHLWvY6GfWDY0zB8jGPU0JDcHAoVkIyYhPfP2 lbm [file] AgICAgICAgICAgICAgICAgICAgICAgICAgICAgICAgICAgICAgICAgICAgICAgICAgICAgICAgICAgIC AgDQogICAgICAgICAgICAgICAgICAgICAgICAgICAg ICAgICAgICAgICAgICAgICAgICAgICAgICAgICAgICAgICAgICAgICAgICAgICAgICAgICAgICAgICAg ICAgICAgICAgICAgDQogICAgICAgICAgICAgICAgICAgICAgICAgICAgICAgICAgICAgICAgICAgICAg ICAgICAgICAgICAgICAgICAgICAgICAgICAgICAgIC AgICAgICAgICAgICAgICAgICAgICAgDQogICAgICAgICAgICAgICAgICAgICAgICAgICAgICAgICAgIC AgICAgICAgICAgICAgICAgICAgICAgICAgICAgICAgICAgICAgICAgICAgICAgICAgICAgICAgICAgIC AgICAgDQogICAgICAgICAgICAgICAgICAgICAgICAg ICAgICAgICAgICAgICAgICAgICAgICAgICAgICAgICAgICAgICAgICAgICAgICAgICAgICAgICAgICAg ICAgICAgICAgICAgICAgDQogICAgICAgICAgICAgICAgICAgICAgICAgICAgICAgICAgICAgICAgICAg ICAgICAgICAgICAgICAgICAgICAgICAgICAgICAgIC AgICAgICAgICAgICAgICAgICAgICAgICAgDQogICAgICAgICAgICAgICAgICAgICAgICAgICAgICAgIC AgICAgICAgICAgICAgICAgICAgICAgICAgICAgICAgICAgICAgICAgICAgICAgICAgICAgICAgICAgIC AgICAgICAgDQogICAgICAgICAgICAgICAgICAgICAg ICAgICAgICAgICAgICAgICAgICAgICAgICAgICAgICAgICAgICAgICAgICAgICAgICAgICAgICAgICAg ICAgICAgICAgICAgICAgICAgDQogICAgICAgICAgICAgICAgICAgICAgICAgICAgICAgICAgICAgICAg ICAgICAgICAgICAgICAgICAgICAgICAgICAgICAgIC AgICAgICAgICAgICAgICAgICAgICAgICAgICAgDQogICAgICAgICAgICAgICAgICAgICAgICAgICAgIC AgICAgICAgICAgICAgICAgICAgICAgICAgICAgICAgICAgICAgICAgICAgICAgICAgICAgICAgICAgIC YdIKLoROPaXDXnUMo8Q4xdUXQoBJHtKE3eFYe9Tu9+ EQfPMjBzXHK4exZzkK6SHX9tv0GpRLtkZSLcn1PwMHk5WZ4JRDKvCEyjDI7TJKeacm2DDGOtZMBsrVCS m5tnRyGyEAL3NQPaQzipVN4IOBQsD7gdqbEcKGLuTFSLGYrtVJFFDDtaPEHKVCFmPYIbRhHzUoKbUQUo USFlNZUDKLM2UNEjOuIgJYEgZGNaDcGjUPVAQRHcOR SeEcEwGSmqMH4Mh6WhmZUcTQ0SYb8KWsJiJK4bfy6TQUGmPALcXcuUOmg6MKquIE3UqOKrsZC4RADsVH QXAuPzB1wmb8SjOXYyLESUCOcyZZ9Hj5LreFXsEUk+Zx1NEN2hv1DxTHq7VDEgDF8uly8BOVtOItJmT6 JexSgjXPauWJGcwFOQuPQcyD5rP3pwyxeeJKJvYBOg Yr3bZl4vAHZiRLXmJoK2IWFMMI3ZIGYoIYUgkITuWEPbRIECQO4PVIigWKJ1CETzjvBvyGPkWMloUE2D YXJlbnQgNTQgMCBSDQo+Ct7QRF8eg7YqSVf5FoFuUX8nre4RKIdMByYdZ1V4dSIlS7P2UQqnNj4LGKGs BBDjSALiFTOJFVmvJN2BMC6rqyF9TW6IhPUbHDNtOF HdtNJuMLp0S49fsZDbVHecOE5BDMH+Salbador+Fz8UQZYbJSDrICYyYuKmMFBKKzOaE4NrW1VEj4EvR7JhIY 60hZtyefWlMBkoCT7KPP8fJMChNTWWCJ0IhRAijG5kqeL3RFEtEPLWOgXeW63elNQpPDWaCCAwHSKaWd 6TTQSsL3DwwbCnoSlilmNcTDLjOVIWJH0QIVohsvCj fSJasVbeCX44bYqnPE6HMm5NGnWyVG1ome6FhAFqRh3CIBO8Qa9AXFFhXBBvGRZfCZK8ZEXfXcMgFAza HMTbJZYvYCR2GTZhYOOoSD2GAcIdFXJcDpQdLDpwCXQdYMFgkp1RRIJuQLE1UzK0BxFkWAWwELQgCGko WXTuKHHsRLO7RIHlNEBtIQ9QEcJpIRIbNFB9AODeIE LlMYHxqm0PDDQoDIDcStw1ZLDgGJJkNRJaUBddHADuPKH9BxS3QZRyNQYzEO6AAvYrQTLiURv3BINxEY OwBRHiwi2HBDJvOYViZTK3ZUNjJYTpOEKyYAuiUNBrVVGoFmz7LKJpFEYbQB0ARxDuLIZbNMB8AnxfXZ DqOWRndt1VUHViTJZdFxs3KHQnLCLtZNOlEDiqKMVt BLA2NOY4RGWsHEQrZF3PVpIlFTOfJAdlKkWxJEIdBGLgpi1LLFEzHZYvJHn4HQIvOHImFGXlLUpjGMIg PRLtFKl8AEXzWAQcBM3YAuZnMEGqIvO2VUBiGTKrXEXrnn0GQHTnFJTxIQt2PrUkTZRjJCZtXSnzGAVp OSS3TQW3SIAkSMWqHS6RSrSgEFNaNoycNWEfFHCqAV Mdxz2HFNJxPUNoFbn8LPSmZUSsUEGjRLqhXREeDANjGOG4JOGmNAZnCJ7MJxCrYIXqIbN8KGPbJEQrFH Ynxw0GKMJaSLAiOAl7IYOyHSUyEQSzSLfuYCXqXXY7GWT2NKJbRHOcPL3KYlPtGOUjYbwrVYFdXFFzDS Yslz0BJQTsWLHoNqA6FLNbOVCmKVMkQYiqUJCsXIM9 FFA2VWCvJEZjUD9BDiGhPEMkPekkZBaqBMOdVYTpsg9CXJBrEQFwAKEeBwSuAWEbXRUcPNqgRMXqKSA6 CLY9BGAiYUOsZF0SSdOpEQBrLYBiPNFlGKNoOSEqir8FHBNyWDK5TCKqAGCsTYXiMYThUJbkLBOyDFDg YeSnLNCsBDKxXJ4HOyMvDKToEXA9JOfnUZIvZPEbfo 7UGJXpBGW7AMw7FTIoIUUuXXEpLQjcPRQeLPHsGZN3RSTwPOUmHL1TWtAyOAPlKICaIYbrWYYgJSBltv 5KIEGkCOC3MyK2CITaZPIcIPUiLPmzYUIwEFSvJnPcVPRcVNEsKG6TWrNkPGSgWWC5IgDdKAEqZOTekq 4IJPJiRNJ7DMD1OjOvLRRnGGWpAUazMZCyYIY3FmI3 OPQcYJNeCK9NGlHpHLGpYWc7VeFwXFQxRBJtjk2JGWMgLBT9FNJ6DvVoXHWhMLQlNSwxVANwEOL4LzO1 GLYxNKUiXR2DAmDrJGSlMYf2LuSjBCZgATMbsw3VZHOlQYZ8JMp4CFZsQMSkBHOnIHseGNUkEDM0OAY7 MGErAWGzUV0CGrReJJDeZrP5GOrbXHOhMOTxnx7EQN VnULS9MTI0JtVtLWBhEMJuWRtiJOMdXGUcNxK6USYaWDZhES3ZQbVmVZPaVwD5YWirNTEgJLTykj9CVJ KbGWX2HcTwYvUiGNMsSXUdUJtvAXJcYCMjUfm3ECEnGWQtPJ7BHcAeBSHnEaQ6KRVoOMJxCDTvau4StB LybEldok8QGQcUPl2FpXobCYV4QKuxHk1saKO0PxBg CADWTq4XnoNpRJMoQFRAFFksQENhRUBpJkNkQbQiXHJ7QuE6OZT7BZHiMEXmZmJ5JBJ6VLV9DaH0LRT2 QOPfLgJoCkU9LTrcToarUmEdZuR6ORzdWPLpDPz+BX9zQHo+Xc4Dm7ZvstV9cuDoAYb8DzH6Tv4SNRRT T0YNCg== ID Date Data Source [id number] 05/10/2020 02:15:48 PM EDT [facility] Name Value Range Interpretation Code Description Data Yoana rce(s) Supporting Document(s) Consultation [facility] LHNRYk6nKgLOClLu87/GNYfmUOQnv0RfCKwdOYd0OEzvNAMjE8DpGRP5yT7hUXU9KOvFXiVhDbCrIxW8 lbm [file] [id number]== ID Date Data Source [id number] 05/10/2020 12:08:41 PM EDT [facility] Name Value Range Interpretation Code Description Data Yoana rce(s) Supporting Document(s) Glucose [Mass/volume] in Capillary blood by Glucometer 84 mg/dL 70- 140 [facility] ID Date Data Source [id number] 05/10/2020 11:49:00 [place] [address] RESPIRATORY CARE REPORT ==== ---------NAME------- NUMBER SEX AGE ADMIT DISC. XRAY# F/C TYPEKRISTIN Gross [id number] F 29 05/09/20 05/10/20576827 X6B E/R DATE OF : 1990 M/R# [id number] PH#: [phone] TR-03 LOCATION: EMERGENCY DEPT EKG [id number] COMP LETE:05/10/20 07:57 [place] [id number] PHYSICIAN: REID WYNN NOR Name Value Range Interpretation Code Description Data Yoana rce(s) Supporting Document(s) ID Date Data Source [id number] 05/11/2020 12:32:10 PM EDT [facility] Cmnt XXX-Imp : NoneMicroorganism XXX Cult : 2019 nCoV Real-Time RT-PCR: NOT DETECTEDThis test method was designed to detect the causative agent of COVID-19. The Dept. of Pathology [facility] has Emergency Use Authorization (EUA) from the FDA to peform this test to allow for rapid response during a declared public health emergency.Initial validation was performed by the Centers for Disease Control and Prevention (CDC) and additionally validated by the Dept. of Pathology [facility]. Negative results do not preclude SARS-CoV-2 infection and should not be used as the sole basis for patient management decisions.Additional information is available on the following FDA websites for health care providers and patients. https://www.fda.gov/media/749534/download, ht tps://www.fda.gov/media/073351/download. Name Value Range Interpretation Code Description Data Yoana rce(s) Supporting Document(s) ID Date Data Source [id number] 05/10/2020 10:50:00 AM EDT [facility] Cmnt XXX-Imp : NoneMicroorganism XXX Cult : 2019 nCoV Real-Time RT-PCR: NOT DETECTEDThis test method was designed to detect the causative agent of COVID-19. The Dept. of Pathology [facility] has Emergency Use Authorization (EUA) from the FDA to peform this test to allow for rapid response during a declared public health emergency.Initial validation was performed by the Centers for Disease Control and Prevention (CDC) and additionally validated by the Dept. of Pathology [facility]. Negative results do not preclude SARS-CoV-2 infection and should not be used as the sole basis for patient management decisions.Additional information is available on the following FDA websites for health care providers and patients. https://www.fda.gov/media/576400/download, ht tps://www.fda.gov/media/282266/download. Name Value Range Interpretation Code Description Data Yoana rce(s) Supporting Document(s) Microorganism identified in Unspecified specimen by [facility] This lab was ordered by [facility] and reported by [facility]. ID Date Data Source [id number] 05/10/2020 08:58:30 AM [facility] Name Value Range Interpretation Code Description Data [facility] rce(s) Supporting Document(s) [facility] [id number]/ILJysPRVhn9EzNYcxZLt5YUrcXVBfA5SiUSY9tX0iZXE4BByAJoYnHpQsYeJ3 [facility] [file] [id number]= ID Date Data Source [id number] 05/09/2020 11:45:00 PM EDT [facility] ([facility]) Name Value Range Interpretation Code Description Data Yoana rce(s) Supporting Document(s) Acetaminophen [Mass/volume] in Serum or Plasma Laboratory test r esult 0.0-30.0 [facility] ([facility]) Salicylates [Mass/volume] in Serum or Plasma Laboratory test result 2.0-20.0 [facility] ([facility]) ID Date Data Source [id number] 05/09/2020 11:45:00 PM EDT [facility] ([facility]) Name Value Range Interpretation Code Description Data Yoana rce(s) Supporting Document(s) Sodium 140 meq/L 134-153 [facility] [facility] Comprehensive Metabo Laboratory test result [facility] ([facility]) COMPREHENSIVE METABOLIC PANEL Chloride 104 meq/L 98-107 [facility]) Potassium 3.9 meq/L 3.6-5.0 [facility]) BUN 11 mg/dL 7-21 [facility]) Co2 28 meq/L 22-30 [facility]) Glucose 92 mg/dL 65-110 [facility]) Creatinine 0.6 mg/dL 0.7-1.5 [facility] BUN/Creat 18 8-27 [facility] ([place] [facility]) Albumin 4.0 g/dL 3.9-5.0 [facility] [facility]) Total Protein 6.7 g/dL 6.3-8.2 [facility] ([facility]) Globulin 2.7 GM/DL 2.4-3.2 [facility] ([place] [facility]) Calcium 9.0 mg/dL 8.4-10.2 [facility] [facility]) A/G Ratio 1.5 0.8-2.0 [facility] [facility]) Alkaline Phos 74 U/L 38-126 [facility] ([facility]) Total Bili Laboratory test result 0.2-1.3 [facility] SGPT/Alt 50 U/L 7-56 [facility] [facility]) Sgot/Ast 35 U/L 5-40 [facility] ([place] [facility]) Age 29 yrs [facility] [facility]) Anion Gap 8.0 mmol/L 8.0-16.0 [facility] ([facility]) Afr Amer GFR Laboratory test result [facility] ([facility]) Male GFR Interprentation 20-49 yrs >60 mL/min Normal 50-59 yrs >56 mL/min Normal 60-69 yrs >49 mL/min Normal 70-79yrs >42 mL/min Normal 80 and above >35 mL/min Normal Female GFR Interpretation 20-39 yrs >60 mL/min Normal 40-49 yrs >58 mL/min Normal 50-59 yrs >51 mL/min Normal 60-69 yrs >45 mL/min Normal 70-79 yrs >39 mL/min Normal 80 and above >32 mL/min Normal Non-Aa GFR Laboratory test [facility]) ID Date Data Source [id number] 05/09/2020 11:45:00 PM EDT [facility] Name Value Range Interpretation Code Description Data Yoana rce(s) Supporting Document(s) CBC W/Automated Diff Laboratory test result [facility] ([facility]) COMPLETE BLOOD COUNT RBC 4.26 10^6/uL 4.20-5.40 [facility] ([facility]) WBC 9.8 10^3/uL 4.2-11.0 [facility] ([facility]) Hematocrit 37.4 % 37.0-47.0 [facility] Hemoglobin 12.1 g/dL 12.0-16.0 [facility] MCV 87.8 fL 81.0-101 [facility]) MCH 28.4 pg 27.0-34.0 [facility]) MCHC 32.4 g/dL 31.0-36.0 [facility]) RDW 14.0 % 11.5-14.5 [facility]) Platelets 239 10^3/uL 150-450 [facility] ([facility]) MPV 10.8 fL 7.4-10.4 [facility]) Neut 62.2 % 37.0-80.0 [facility]) Dawson 7.3 % 3.0-8.0 [facility]) Lymph 26.0 % 25.0-40.0 [facility]) Eos 3.9 % 0.0-7.0 [facility]) Baso 0.3 % 0.0-2.5 [facility]) %NRBC 0.0 % 0.0-0.0 [facility] %Ig 0.3 % 0.0-0.0 [facility]) #Neut 6.11 10^3/uL 2.00-6.90 [facility] ([facility]) #Eos 0.38 10^3/uL 0.00-0.70 [facility] ([facility]) #Lymph 2.55 10^3/uL 0.60-3.40 [facility] ([facility]) #Dawson 0.72 10^3/uL 0.00-0.90 [facility] ([facility]) #Baso 0.03 10^3/uL 0.00-0.20 [facility] ([facility]) #NRBC 0.00 10^3/uL 0.00-0.00 [facility] ([facility]) #Ig 0.03 10^3/uL 0.00-0.10 [facility] ([facility]) Segs 70 % 37-80 [facility] Manual Diff Laboratory test result [facility] T ([facility]) Band 0 % 0-5 [facility] %Lymph 20 % 25-40 [facility] %Dawson 8 % 3-8 [facility] %Baso 0 % 0-2 [facility] Metamyelocyte 0 % [facility] ([facility]) %Eos 2 % 0-7 [facility] Blasts 0 % [facility]) Promyelocyte 0 % [facility]) Myelocyte 0 % [facility] NRBC 0 % [facility] Hugo Lym 0 % [facility] RBC Morph Laboratory test result [facility] ([facility]) ID Date Data Source [id number] 05/10/2020 02:00:00 AM EDT [facility] Name Value Range Interpretation Code Description Data Yoana rce(s) Supporting Document(s) SALICYLATE <0.3 mg/dL 2.0 - 20.0 L [facility] ID Date Data Source [id number] 05/10/2020 01:52:00 AM EDT [facility] Name Value Range Interpretation Code Description Data Yoana rce(s) Supporting Document(s) Acetaminophen [Presence] in Urine <5.0 UG/ML 0.0 - 30.0 [facility] ID Date Data Source [id number] 05/10/2020 12:23:00 AM EDT [facility] Name Value Range Interpretation Code Description Data Yoana rce(s) Supporting Document(s) COMPREHENSIVE METABOLIC PANEL [facility] COMPREHENSIVE METABOLIC PANEL Sodium [Moles/volume] in Serum or Plasma 140 mEq/L 134 - 153 [facility] Potassium [Moles/volume] in Serum or Plasma 3.9 mEq/L 3.6 - 5.0 [facility] Chloride [Moles/volume] in Serum or Plasma 104 mEq/L 98 - 107 [facility] Carbon dioxide, total [Moles/volume] in Serum or Plasma 28 MEQ/L 22 - 30 [facility] Glucose [Mass/volume] in Serum or Plasma 92 MG/DL 65 - 110 [facility] BUN 11 MG/DL 7 - 21 [facility] Creatinine [Mass/volume] in Serum or Plasma 0.6 MG/DL 0.7 - 1.5 L [facility] BUN/CREAT 18 8 - 27 [facility] Protein [Mass/volume] in Serum or Plasma 6.7 G/DL 6.3 - 8.2 [facility] Albumin [Mass/volume] in Serum or Plasma 4.0 G/DL 3.9 - 5.0 [facility] Globulin [Mass/volume] in Serum by calculation 2.7 GM/DL 2.4 - 3.2 [facility] A/G RATIO 1.5 0.8 - 2.0 [facility] Calcium [Mass/volume] in Serum or Plasma 9.0 MG/DL 8.4 - 10.2 [facility] Bilirubin.total [Mass/volume] in Serum or Plasma <0.7 MG/DL 0.2 - 1.3 [facility] Alkaline phosphatase [Enzymatic activity/volume] in Serum or Plasma 74 U/L 38 - 126 [facility] Aspartate aminotransferase [Enzymatic activity/volume] in Serum or Plasma 35 U/L 5 - 40 [facility] Alanine aminotransferase [Enzymatic activity/volume] in Seru m or Plasma 50 U/L 7 - 56 [facility] Anion gap 3 in Serum or Plasma 8.0 mmol/L 8.0 - 16.0 [facility] 29 [facility] >60 mL/min [facility] AFR AMER GFR >60 mL/min [facility] Male GFR In terprentation 20-49 yrs >60 mL/min Normal 50-59 yrs >56 mL/min Normal 60-69 yrs >49 mL/min Normal 70-79yrs >42 mL/min Normal 80 and above >35 mL/min Normal Female GFR Interpretation 20-39 yrs >60 mL/min Normal 40-49 yrs >58 mL/min Normal 50-59 yrs >51 mL/min Normal 60-69 yrs >45 mL/min Normal 70-79 yrs >39 mL/min Normal 80 and above >32 mL/min Normal ID Date Data Source [id number] 05/09/2020 11:50:00 PM EDT [facility] Name Value Range Interpretation Code Description Data Yoana rce(s) Supporting Document(s) CBC W/AUTOMATED DIFF [facility] [facility] COM[facility]TE BLOOD COUNT Leukocytes [#/volume] in Blood by Automated count 9.8 10^3/uL 4.2 - 1 1.0 [facility] Erythrocytes [#/volume] in Blood by Automated count 4.26 10^6/uL 4. 20 - 5.40 [facility] Hemoglobin [Mass/volume] in Blood 12.1 g/dL 12.0 - 16.0 [facility] Hematocrit [Volume Fraction] of Blood by Automated count 37.4 % 3 7.0 - 47.0 [facility] Erythrocyte mean corpuscular volume [Entitic volume] by Auto mated count 87.8 fL 81.0 - 101 [facility] Erythrocyte mean corpuscular hemoglobin [Entitic mass] by Automated count 28.4 pg 27.0 - 34.0 [facility] Erythrocyte mean corpuscular hemoglobin concentration [Mass/volume] by Automated count 32.4 g/dL 31.0 - 36.0 [facility] Erythrocyte distribution width [Ratio] by Automated count 14.0 % 11.5 - 14.5 [facility] Platelets [#/volume] in Blood by Automated count 239 10^3/uL 150 - 45 0 [facility] Platelet mean volume [Entitic volume] in Blood by Automated count 10.8 fL 7.4 - 10.4 H [facility] Neutrophils/100 leukocytes in Blood by Automated count 62.2 % 37. 0 - 80.0 [facility] Lymphocytes/100 leukocytes in Blood by Manual count 26.0 % 25.0 - 40.0 [facility] Monocytes/100 leukocytes in Blood by Automated count 7.3 % 3.0 - 8.0 [facility] Eosinophils/100 leukocytes in Blood by Automated count 3.9 % 0.0 - 7.0 [facility] 0.3 %IG 0.3 % 0.0 - 0.0 H [facility] %NRBC 0.0 % 0.0 - 0.0 [facility] Neutrophils [#/volume] in Blood by Automated count 6.11 10^3/uL 2.00 - 6.90 [facility] Lymphocytes [#/volume] in Blood by Automated count 2.55 10^3/uL 0.60 - 3.40 [facility] Monocytes [#/volume] in Blood by Automated count 0.72 10^3/uL 0.00 - 0.90 [facility] Eosinophils [#/volume] in Blood by Automated count 0.38 10^3/uL 0.00 - 0.70 [facility] Basophils [#/volume] in Blood by Automated count 0.03 10^3/uL 0.00 - 0.20 [facility] #IG 0.03 10^3/uL 0.00 - 0.10 [facility] H ospital #NRBC 0.00 10^3/uL 0.00 - 0.00 [facility] ospital MANUAL DIFF SEE BELOW [facility] ital Segmented neutrophils/100 leukocytes in Blood by Manual count 70 % 37 - 80 [facility] BAND 0 % 0 - 5 [facility] %LYMPH 20 % 25 - 40 L [facility] al %MONO 8 % 3 - 8 [facility] %EOS 2 % 0 - 7 [facility] 0 Metamyelocytes/100 leukocytes in Blood by Manual count 0 % [facility] Myelocytes/100 leukocytes in Blood by Manual count 0 % [facility] Promyelocytes/100 leukocytes in Blood by Manual count 0 % [facility] Blasts/100 leukocytes in Blood by Manual count 0 % [facility] HUGO LYM 0 % [facility] Nucleated erythrocytes/100 erythrocytes in Blood by Manual count 0 % [facility] RBC MORPH NOT INDICATED [facility] spital ID Date Data Source [id number] 05/09/2020 09:59:00 PM EDT [facility] ([facility]) Name Value Range Interpretation Code Description Data Yoana rce(s) Supporting Document(s) Culture Urine Laboratory test result MED ENT ([facility]) _CULTURE URINE_ ^$[id number] ^^[id number] $$[id number] ^^[id number] $$[id number] $$[id number] $$577634 $$248622 $$548528 $$192726 $$878774 $$563009 $$060536 $$044597 $$824592 $$969118 $$034977 $$361912 $$674099 $$720176 $$909976 $$614708 $$771926 $$500056 $$755221 $$796811 $$599659 ^^803545 $$668241 $$874767 $$210711 -- Continued on next page -- Patient: KRISTIN Gross Order: [id number] Page 2 Culture: CULTURE URINE Status: Final $$[id number] $$[id number] REPORTED DATE/TIME: 05/12/2020 19:05 Culture: CULTURE URINE Status: Final Urine Culture,Comprehensive: P1 Mixed urogenital jd 10,000-25,000 colony forming units per m L P1 [facility] #: [id number] [address] [place] [address] [phone] [facility] [id number] Puppy Walker : Ronald Diamond MD NPI #: Residency Program Coordinator : 05/13/[email or web address].[email or web address] REF ID Date Data Source [id number] 05/09/2020 09:59:00 PM [facility] Name Value Range Interpretation Code Description Data Yoana rce(s) Supporting Document(s) Amphetamines Laboratory test result [facility] Drug Screen Urine Laboratory test result [facility]) URINE DRUG SCREEN Benzo Laboratory test result [facility]) Cocaine Laboratory test result [facility]) Barbiturates Laboratory test result [facility] ([facility]) Opiates Laboratory test result [facility] ([facility]) THC Laboratory test result Abnormal (applies to non -numeric results) [facility]) PCP Laboratory test result [facility] ([facility]) \\BLDo\\URINE DRUG SCREEN INTERPRETATION\\B LDx\\ THE CUTOFFF LEVELS FOR DETECTION ARE FOLLOWS: AMPHETAMINES 1000 ng/ml BARBITUARATES 200 ng/ml BENZODIAZEPINES 100 ng/ml THC 50 ng/ml PHENCYCLIDINE 25 ng/ml OPIATES 300 ng/ml COCAINE 300 ng/ml ALL POSITIVES ARE CONSIDERED PRESUMPTIVE POSITIVE CONFIRMATION WILL BE PERFORMED AT PHYSICIAN REQUEST. ID Date Data Source [id number] 05/09/2020 09:59:00 PM EDT [facility] Name Value Range Interpretation Code Description Data Yoana rce(s) Supporting Document(s) Urinalysis Laboratory test result [facility] ([facility]) URINALYSIS Source Laboratory test result [facility] ([facility]) Color Laboratory test result [facility] ([facility]) Clarity Laboratory test result [facility]) Spec Auxier 1.010 1.001-1.030 [facility] pH 6.5 5-9 [facility]) Glucose Laboratory test result [facility] ([facility]) Bilirubin Laboratory test result [facility] ([facility]) Ketone Laboratory test result [facility] ([facility]) Protein 30 [facility] Nitrite Laboratory test result [facility] Leuk Est 100 Abnormal (applies to non-numeric res ults) [facility] ([facility]) Blood 250 Abnormal (applies to non-numeric res ults) [facility] ([facility]) Urobilinogen Laboratory test result MEDE NT ([facility]) Microscopic Laboratory test result MEDEN T ([facility]) WBC Laboratory test result Abnormal (applies to non -numeric results) [facility] ([facility]) Epithelial Laboratory test result Abnormal (applies to non -numeric results) [facility] ([facility]) RBC Laboratory test result Abnormal (applies to non -numeric results) [facility] ([facility]) Bacteria [facility] ID Date Data Source [id number] 05/09/2020 09:59:00 PM EDT [facility] Name Value Range Interpretation Code Description Data Yoana rce(s) Supporting Document(s) HCG Serum Qual Laboratory test result [facility] D[facility] ([facility]) HCG Serum QL [facility] Laboratory test result [facility] { KIT LOT # [id number] ) { KIT EXP DATE 08-06-21 ) { PROCEDURAL CONTROL VALID ) ID Date Data Source [id number] 05/13/2020 06:30:00 AM EDT [facility] Name Value Range Interpretation Code Description Data Yoana rce(s) Supporting Document(s) CULTURE URINE [facility] spital _CULTURE URINE_$$[id number]$$[id number]$$[id number]$$[id number]$$682160$$812954$$494165$$343007$$948355$$ 644461$$904670$$335929$$058417$$780898$$709810$$042915$$061754$$034009$$843703$$ 196573$$141016$$284285$$257635$$956880$$009215$$048760$$694035 -- Continued on next page --Patient: KRISTIN Gross Order: [id number] Page 2Culture: CULTURE URINE Status: Final ====$$[id number]$$[id number] DATE/TIME: 05/12/2020 19:05Culture: CULTURE URINE Status: FinalUrine Culture,Comprehensive: N5Aylcb urogenital flora10,000-25,000 colony forming units per mLP1 Test performed by: [facility]: [id number] [address] [place] [address] [phone] [facility] [id number] Director : Ronald Diamond MD NPI #:Residency Program Coordinator : 05/13/[email or web address].XMT.[email or web address] REF ID Date Data Source [id number] 05/09/2020 11:36:00 PM EDT [facility] Name Value Range Interpretation Code Description Data Yoana rce(s) Supporting Document(s) DRUG SCREEN URINE [facility] URINE DRUG SCREEN Amphetamine [Presence] in Urine by Screen method NEGATIVE NORMAL: N EGATIVE [facility] BARBITURATES NEGATIVE NORMAL: NEGATIVE [facility] BENZO NEGATIVE NORMAL: NEGATIVE [facility] COCAINE NEGATIVE NORMAL: NEGATIVE [facility] Tetrahydrocannabinol [Presence] in Urine PRESUMP POS NORMAL: NEGATIVE [facility] OPIATES NEGATIVE NORMAL: NEGATIVE [facility] Phencyclidine [Presence] in Urine by Screen method NEGATIVE NOR MAL: NEGATIVE [facility] \\BLDo\\URINE DRUG SCR EEN INTERPRETATION\\BLDx\\ THE CUTOFFF LEVELS FOR DETECTION ARE FOLLOWS: AMPHETAMINES 1000 ng/ml BARBITUARATES 200 ng/ml BENZODIAZEPINES 100 ng/ml THC 50 ng/ml PHENCYCLIDINE 25 ng/ml OPIATES 300 ng/ml COCAINE 300 ng/ml ALL POSITIVES ARE CONSIDERED PRESUMPTIVE POSITIVE CONFIRMATION WILL BE PERFORMED AT PHYSICIAN REQUEST. ID Date Data Source [id number] 05/09/2020 11:29:00 PM EDT [facility] Name Value Range Interpretation Code Description Data Yoana rce(s) Supporting Document(s) URINALYSIS [facility] juli URINALYSIS SOURCE Clean Catch [facility] COLOR yellow NORMAL: Yellow [facility] CLARITY hazy NORMAL: Clear [facility] Specific gravity of Urine by Test strip 1.010 1.001 - 1.030 [facility] pH 6.5 5 - 9 [facility] Glucose [Mass/volume] in Urine by Test strip NORM NORMAL: Negat [facility] Bilirubin.total [Presence] in Urine by Test strip NEG NORMAL: Negative [facility] Ketones [Presence] in Urine by Test strip NEG NORMAL: Negative [facility] Protein [Mass/volume] in Urine by Test strip 30 NORMAL: Negat [facility] Nitrite [Presence] in Urine by Test strip NEG NORMAL: Negative [facility] BLOOD 250 NORMAL: Negative [facility] Leukocyte esterase [Presence] in Urine by Test strip 100 NESSA L: Negative [facility] Urobilinogen [Mass/volume] in Urine by Test strip NOR less ayan n 1.0 mg/dL [facility] MICROSCOPIC See Below [facility] WBC 5 - 7 NORMAL: NONE SEEN A [facility] Erythrocytes [#/volume] in Urine by Test strip 7 - 10 NORMAL: NON E SEEN A [facility] EPITHELIAL MANY NORMAL: NONE SEEN A [facility] Bacteria [Presence] in Urine sediment by Light microscopy Tr justo NORMAL: NONE SEEN [facility] ID Date Data Source [id number] 05/09/2020 11:18:00 PM EDT [facility] Name Value Range Interpretation Code Description Data Yoana rce(s) Supporting Document(s) HCG SERUM QUAL NEGATIVE NORMAL: NEGATIVE [facility] HCG SERUM QL REENTER NEGATIVE NORMAL: NEGATIVE [facility] # [id number] ){ KIT EXP DATE 08-06-21 ){ PROCEDURAL CONTROL VALID ) ID Date Data Source [id number] 04/19/2020 02:43:41 PM EDT [facility] Name Value Range Interpretation Code Description Data Yoana rce(s) Supporting Document(s) Discharge Summary [facility] HUUJIx4lUuTGFdNy35/XRYrmYSDmi1FyAOvdRRy0YEkuWGYmS4GnKUR1uJ7dLPY4DMxDGoCbQnLyEbF3 lbm [file] AgICAgICAgICAgICAgICAgICAgICAgICAgICAgICAgICAgICAgICAgICAgICAgICAgICAgICAgICAgIC AgICAgDQogICAgICAgICAgICAgICAgICAgICAgICAg ICAgICAgICAgICAgICAgICAgICAgICAgICAgICAgICAgICAgICAgICAgICAgICAgICAgICAgICAgICAg ICAgICAgICAgICAgICAgDQogICAgICAgICAgICAgICAgICAgICAgICAgICAgICAgICAgICAgICAgICAg ICAgICAgICAgICAgICAgICAgICAgICAgICAgICAgIC AgICAgICAgICAgICAgICAgICAgICAgICAgDQogICAgICAgICAgICAgICAgICAgICAgICAgICAgICAgIC AgICAgICAgICAgICAgICAgICAgICAgICAgICAgICAgICAgICAgICAgICAgICAgICAgICAgICAgICAgIC AgICAgICAgDQogICAgICAgICAgICAgICAgICAgICAg ICAgICAgICAgICAgICAgICAgICAgICAgICAgICAgICAgICAgICAgICAgICAgICAgICAgICAgICAgICAg ICAgICAgICAgICAgICAgICAgDQogICAgICAgICAgICAgICAgICAgICAgICAgICAgICAgICAgICAgICAg ICAgICAgICAgICAgICAgICAgICAgICAgICAgICAgIC AgICAgICAgICAgICAgICAgICAgICAgICAgICAgDQogICAgICAgICAgICAgICAgICAgICAgICAgICAgIC AgICAgICAgICAgICAgICAgICAgICAgICAgICAgICAgICAgICAgICAgICAgICAgICAgICAgICAgICAgIC AgICAgICAgICAgDQogICAgICAgICAgICAgICAgICAg ICAgICAgICAgICAgICAgICAgICAgICAgICAgICAgICAgICAgICAgICAgICAgICAgICAgICAgICAgICAg ICAgICAgICAgICAgICAgICAgICAgDQogICAgICAgICAgICAgICAgICAgICAgICAgICAgICAgICAgICAg ICAgICAgICAgICAgICAgICAgICAgICAgICAgICAgIC AgICAgICAgICAgICAgICAgICAgICAgICAgICAgICAgDQogICAgICAgICAgICAgICAgICAgICAgICAgIC AgICAgICAgICAgICAgICAgICAgICAgICAgICAgICAgICAgICAgICAgICAgICAgICAgICAgICAgICAgIC PmHLFcNMLtLTDvPCFjWPl7G8hgTZQpQJAiUM8dCKn2 Jz8+IUrQOkAzREZ7adUhzI7SIK9jm3FxAExdXXHmk6ZwVEc2BD4HGCUbCAtdKL0SXFgfdg1ZYGDcRHLf bZHPu9fzTkXrVJN8SGJiLafwHO3GBHGlH5iiccPyIIMdWTJDKKjcCMIVMLplOAVVTABlVKBnCiUeZzUb KTDoTKFwJUBGXSJ9DCHsDaWvZTZyVNAeXiQwGEKXOS 8KUuXuA3AzlW08DGwTAe2+NNlczcGtOscIJuHbHLPlt0FlCDw6NJ4JZKPxVubef3BtFVLoVDBODCvkXX 4KFWL8XQHlNMHfRz0VONGxS990slOuMB5DZa2CTbTlHV3qvv0MXAJtIYXxZljDVtc6YBgoTQ1KfBXpVJ bHhPYzpVUkO7WsI6JhwHWevULojUWYjAMdPRMeQJRh wgZuEtBawKvxsLyfACEcGVDyIw4yNf9iZRRcCVAjDiD7QBNVOA9IGCYsPBOxjKSdHGBdMCIKOV8VAHjm RAP8OCIzdaQlrNIsONxjXR0ADGGktmNwRVIjZHZNQUk+Gy0IRF8hz3QmFIr7OFAbHM0bgn9QJKpCEhDk A9D5nSJrU0G0WQkdGn6NZHCnUTDrWYUzWHWXLXlvNA 2APC2xyuT4UI4LaULtCLGlQRYhjQTmESq1V98keOZjLLydPM0JMSG+Salbador+Qg3BZQYkKMOzBCIwDyFvEO IKZlWsO1DzT4ULe2FxF1CzHG55kOqqavLeGCvlHT2RZY7zMRVuYBYIRC5KbOGvnO6wdkZ8GgOyDAUEFw AzK02wnQUjJYTnNGKiPDYyXc0AJQAlI4FkveTloWgi ziPaAUHvONHZXB9VMGrmedItqBIigSvsBG01oJqqSD4RCk0OWfNbBX2rlq0SxHOyBz0KCFY4KC6DONPn OSPdKNHtMLB1JNYuIlAoLBhfWOHqPFXvSWP2HSGmHRKzOE1HRyFgUXJhATe2RiZqTSGiLEGvbz3ELKGu BBT3XRSlWnSkZYAcBDQqJQjhPNYeLZKeSRJ6MYTlTW UjRJ2XUnYkZMBhMVI3LQymCEXsDVJzxj7TGTCgABQmQmH7UXIfFFXpEUVaUFriLZLgYZF3GonqRCErZD QrJT4NDkJeXSJyPYw9OxHkUFGdOKWqvz7NLHIcDULtRYhdNDWvZEIeTJPdQHmhDQXwIQHaOCP9REDuWA JcVO7AGgDdDHAsFHTtHTHtZSNoIDMfpg0LWGDzPQYe EGL2ZlUxRSAjNGMsQOvgAUGcOFY7WKzzRSKjWONbKH9VZuNsYXQxSBe5VctgYRTdWYOumd4VVHBjRTNq GmM1YEOfSRFuANVhPNmvIFOrZBAgHHC9LGHcBTUqCY4FPyWnMTVgRcC6XQzgVPCiEPRico2TTPGeITVe FcvmMFDaTIXfFCScMMwuVMHvYWNdYKJ1XYIpZKKkAW 0ESuTvMQTzOwRbVXWhKEKzIGQrsi4VLPRsXDItBmg9IEEsKJKcNLZyIJufYAAmLKBtFNG1XNXsMMPoHM 7KTgHuXZYmIjLbQSblQNIfARRjhc6DJIXtHBYoCYLiCLChYDTaQRArLGqnWLShALO9ORz3ILDiHRSmSJ 3SQoOySKXdFqM7EQGwDWNiOBJvtz3XQPWrWAZvZIR6 FLAcOQDmZXWyZCdrRXRnTXB8AAX0SBCyRPGqGI9OSzKyMNPxZyE4ZUTjVFIzAYExqt4XSZYgRYMtEod0 JtQtITCkUKBkUSblKRHnZOM9MJc3SVZzUHLlYE3VAeEdCLNxCKe9UtBcVNStLOFjsl4LWJMvTBF0PAf8 GOSrMTBeXHBtFYqwIEMmBZT6QAh6RWZhIZMlVM5YYq DlTUFfOBtvOxAnZUOdNZJakj6ZZGJxBOU9WEC7QxCoIVWnUMSmKCdnIJAhUYHyRUD1ZBEmGYCzDW0URb DfWCBgBRK1NRBmJYJxLUMwbo8HWPMnJSB2IIt5BmXpQTUoVNAhKVqoAOAmLZImWoD9IOTpJYJmEV8DUa IvLRBuQHU1FssbQQHpJFFpjt4IJYTkPGM9UaTeELKz KBAzGOKnYMqkMDWlYTL3CAK3NTYtMWSrLP5STuRtSDGzEMmkERacIOJrGKIuom7DFCXnDSH5TuAgRwIo TRZdLWMcNCugQXZzIAD6OhCnMABpVKMvVF7PIsGhZADwGZy3MNIyHAErNZXgzu0LCIVoNOJ2LEJsCROf WWJmYDXzKScmPAYlQKY0TrB1SPRqBNJhLF7LLeAsTN TzJPb3WVXaRBVvHENyqb0CCDEeAVR5DEw9XbXkBBNiIITxCUmkAOXpSBFjMGi9CNRjCZFcFG4GRhFwJM YkNsX7HBRhUYPdKGMuxe3XHRYkZAW8GWwhKZArGZLkOJAwBQi2ckExoPLuHOf9DO0YU2EzpnQwOKULKp 9Uc213MTT4MFSdTz2GK1asUu2lDAQjLZMUVw6AKIy9 FoSxVPUsNAYbN2TvERJ9FxN1GWtrOWQaOVA8MZHdIRK+MSnyMQRnYNX3OvZmUnB2PiRtVua9IyCtEtGp PtanLBXcFE4aPNPWAu1+TDpbyPYqgSncYWBUUpVfBQI3PVbgCCWPNr9P ID Date Data Source [id number] 04/19/2020 08:39:58 AM [facility] Name Value Range Interpretation Code Description Data Yoana rce(s) Supporting Document(s) Calcidiol [Mass/volume] in Serum or Plasma 32 ng/mL >30 [facility] ID Date Data Source [id number] 04/19/2020 06:59:56 AM [facility] Name Value Range Interpretation Code Description Data Yoana rce(s) Supporting Document(s) Cholesterol [Mass/volume] in Serum or Plasma 155 mg/dL <200 [facility] Triglyceride [Mass/volume] in Serum or Plasma 206 mg/dL <150 [facility] Cholesterol in HDL [Mass/volume] in Serum or Plasma 34 mg/dL >50 L [facility] Cholesterol in LDL [Mass/volume] in Serum or Plasma by calcu lation 79 mg/dL <100 [facility] Cholesterol in VLDL [Mass/volume] in Serum or Plasma by calc ulation 41 mg/dl 16-42 [facility] Cholesterol non HDL [Mass/volume] in Serum or Plasma 121 mg/dL <130 [facility] ID Date Data Source [id number] 04/19/2020 06:53:45 AM [facility] Name Value Range Interpretation Code Description Data Yoana rce(s) Supporting Document(s) Hemoglobin A1c/Hemoglobin.total in Blood by HPLC 5.2 % 4.0-6.0 [facility] Glucose mean value [Mass/volume] in Blood Estimated fr om glycated hemoglobin 103 mg/dL <126 [facility] ID Date Data Source [id number] 04/17/2020 02:23:39 PM EDT [facility] Name Value Range Interpretation Code Description Data Yoana rce(s) Supporting Document(s) Consultation 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 [file] ICAgICAgICAgICAgICAgICAgICAgICAgICAgICAgICAgICAgICAgICAgICAgICAgICAgICAgICAgICAg ICAgICAgICAgICAgICAgICAgICAgICAgICAgICAgDQogICAgICAgICAgICAgICAgICAgICAgICAgICAg ICAgICAgICAgICAgICAgICAgICAgICAgICAgICAgIC AgICAgICAgICAgICAgICAgICAgICAgICAgICAgICAgICAgICAgICAgDQogICAgICAgICAgICAgICAgIC AgICAgICAgICAgICAgICAgICAgICAgICAgICAgICAgICAgICAgICAgICAgICAgICAgICAgICAgICAgIC AgICAgICAgICAgICAgICAgICAgICAgDQogICAgICAg ICAgICAgICAgICAgICAgICAgICAgICAgICAgICAgICAgICAgICAgICAgICAgICAgICAgICAgICAgICAg ICAgICAgICAgICAgICAgICAgICAgICAgICAgICAgICAgDQogICAgICAgICAgICAgICAgICAgICAgICAg ICAgICAgICAgICAgICAgICAgICAgICAgICAgICAgIC AgICAgICAgICAgICAgICAgICAgICAgICAgICAgICAgICAgICAgICAgICAgDQogICAgICAgICAgICAgIC AgICAgICAgICAgICAgICAgICAgICAgICAgICAgICAgICAgICAgICAgICAgICAgICAgICAgICAgICAgIC AgICAgICAgICAgICAgICAgICAgICAgICAgDQogICAg ICAgICAgICAgICAgICAgICAgICAgICAgICAgICAgICAgICAgICAgICAgICAgICAgICAgICAgICAgICAg ICAgICAgICAgICAgICAgICAgICAgICAgICAgICAgICAgICAgDQogICAgICAgICAgICAgICAgICAgICAg ICAgICAgICAgICAgICAgICAgICAgICAgICAgICAgIC AgICAgICAgICAgICAgICAgICAgICAgICAgICAgICAgICAgICAgICAgICAgICAgDQogICAgICAgICAgIC AgICAgICAgICAgICAgICAgICAgICAgICAgICAgICAgICAgICAgICAgICAgICAgICAgICAgICAgICAgIC AgICAgICAgICAgICAgICAgICAgICAgICAgICAgDQog ICAgICAgICAgICAgICAgICAgICAgICAgICAgICAgICAgICAgICAgICAgICAgICAgICAgICAgICAgICAg DZMvKSMkSUSoOCYtXYBoSWWcVDEtBSAtRFKtYLTiCBHuOHXuSGIdRIi3F3maZNBcIIPuYO1jDOk1Po8+ ORaVQaQtLMV9kcLfoC3MDB8yk8ObVYpvDQDtk8AyBK q4PY0JPDYbFQnbLD9UKXmhjn1LVYCpIFEzbRXYw2wfYcJnKBY8SMObUfydTQ9RJHEkN2mtigRtXAYzNJ HQBFgnSVAZLOcdGCIPBTIuIVLuQlElHiWmUTKqEFLrCBEINIE9QIHlNkMaZLFiJYQoYU8HYNUkO899za IvMB2AJk1TBsWzXX3myb5IPWFyOQSpRraZAaq7UVau MN8QcHApcFF9XJJxSYLKLnPmB1yml3UuLOKiNPXJNKoiOV7Lo9RcaPYkGTk+Wi8UZZ3eg3IoFMl1GSFh OY7ntl5KSTlUDhRxK2FimKsmVBpxGWTbhIANdZOgAIUwZWEbkqOrUnZzqXaljQzkUYKkHKAfSf8mDt9p MCXiNVQhXyY5CHYTYS9CYBFdAOKjvHQiZPUaFAWIDM 9ZJHfsRSD2QIBrddNloHTcTYeiLN7RLYWwliCcZANbYALKSGk+Hv8FPF0uq5XwCCb3DzOuXB1iyd1VAA jMEnQiQ4Q1cHMoY4R7ZRloXl8OVHEyASByEJubXYUNIFohYX1IHO6zjwV9OT1MkEXfIILzRRJisYRqAL y5E10geEPpSCepPH6SMDX+Salbador+Rj4EIGTvQQDpVEEf WzGuXZDDLuCoD9YjY6OOf1FxO7OkNV88fVaedpBrCTziMV4HZL4wJSIyGAFWAD5ZdMCcgI8nnlD9MPVa ZHSQHgSeE70wlEBbKBDoKWG8OYVaBy9ILTLoO7DarnHnrBzysjRhAYYiNKEDRV2UPPspjnFgvPNbnRcr KZ70pGouSS8GIa4SXrEuAJ0hld0IzGPrYj2VOUX7Ej 6IGLCuSDFsNRDtTOH3SVRyNdMcZHikMGVdLCSxPFB0WJXmREUzJX0XNaGkRDBfAJE6VMVdOIEbERFkmr 1HTGShDTI6BIG4FwHaTQUiFRFoXRjlDDPtOTLvCJZ6XAEbIDUnKA5CCnRcLECbGXT1DTKqKQZeFFFzbx 2HYSQkGRZpXWx6LRFcVPUlAQVjCJyzKZKrXSK5IMUt CQLqOSAlXJ1GFaMqMVCpXAc8PdMjDEUzXOHuze0HNBPkZPJzCUmqXjJfLXPtIEPlPJadLSQwAXBpIOEh SXJvBHUwCU8NWvIzLYKnJCH5CpHhYRJpSMEguk9AJOEaZHStZNIjYjZrFDBzBGFcKKdbDWQnNQR4Xjs3 WJEeCMXrPP8IEfZaJHPcMDu2PLYeUUApYYRzbh2AFZ WpMOBwDtPaAxNjIIJbDJXiWHszIBGrWAXbAoLiMIOqKSBqUY3AJjIqJDIqWwIsYHOlCFQdFRKooa3TDD OqFUSvDoL2GHHcUJWlCXGhTVoyOJTwAHN1ThM7AWLmZQPrIM6DGjQsUFBmWpa2ZmVuDIBhGBCfte7IUA UpSYRlKHX5EHYbMYHePTXwTSzrUZIkHEG0DMtkUUDf DNEkPY8UEdOuLLGlJvd8XrUdQXMdPSCefb4XRPPmAIWjJXonYKDfDTYyHZYdSYdiKPSgAGSgEAM8FPUa OSEkBD3OCbBuFJYyJvIgANCsEIBnLHJwkt7BPRFaNLXdEbZ9IGMdRQCiWNIvMQbsBTCgUFTuRfcxGISu OBChZQ9TBvTiEEFtZcQ1ZHLlXMRxVJUvtu4IUVXiPT J2BcamIXCbFZSsBCUjEWodKGXpRES7OFE2ZMUaHMGoSO2DDoSnXTAmUQTwDgJaSMMyBJWyai1CCCNaEA F8GUFrEWJjXLWdPWMoTHaeLNUtWLD6OvIrXFTtXIIiCM8HHcIrYJPrPRW9BIKtZYWsUTKict0KGFOfOZ D6WYz4VaSaJJGbIEKcQLdqSPGhRGG3DFWsMCZxTQDv SE9XKiVlNGAwNFpyLRItTBQrJAXiue9NZTIaXNS2HmM8NhCcUCJoUYKoCJipQKPfESV8PlrlGGAsYWWv AL8OIqClWQTfWJQtWaZsEEAaKIBbah4RACXsHNX5EkL3ZCAzRZJeXYUyVPjnZGCvMEEiKqm8QNMbEBOp KU0BBrPrHLYqNFKlEjVlNXKnABVcux7MNAMwTIM9Cp B2RvYmLQNiIFVyCWmoUSGeXTPeJle8PZLcNIWkZT7UGyWfRHOiNZV9NjEjOETuHHSkek6IXDGbFAG3Yv m6HILlFQPsLZNoHOmmTZIiUGD7XdLgPPRwJHWfFN8ZRrSnUYXyBKY7EkfpVULlLLWudz7CTZBxMWN5EY wnJEIgCUPpJXNeDYcaFGCeQJE8MOFtXUZyQYAsHB9J ViLnTYkiEIOSPwt0KGggZ5t2LAY5Cb2HV3Avl1MuYDXsDUADCWtuLE8rthVvEIKjGg3HG2mHGzsmPNlb HGneRgWsTMTyYRZqXHIiXEEjPxBaLmldSMGbEM2oIQI7U7ZzWIZuLcXfFEAjFpR0ZkGsWDZuSYJ2DdUw I8JgQgXjON3PJj4FAxH8AKW0iVAhVw1NSAJyRRQIRwMlVL9RIKv= ID Date Data Source [id number] 04/16/2020 01:12:30 PM EDT [facility] Name Value Range Interpretation Code Description Data [facility] Supporting Document(s) History and Physical [facility] XAXSIk7wPsKPAmUb89/ZLIeqHFTkr3GtSXtwXFo5LZqyGVZqE7FdREB6sN3mRGA6VMjKIjKvSeNwWdRt lbm [file] AgICAgICAgICAgICAgICAgICAgICAgICAgICAgICAg ICAgICAgICAgICAgICAgICAgICAgICAgICAgICAgICAgICAgICAgICAgICAgICAgICAgICANCiAgICAg ICAgICAgICAgICAgICAgICAgICAgICAgICAgICAgICAgICAgICAgICAgICAgICAgICAgICAgICAgICAg ICAgICAgICAgICAgICAgICAgICAgICAgICAgICAgIC AgICANCiAgICAgICAgICAgICAgICAgICAgICAgICAgICAgICAgICAgICAgICAgICAgICAgICAgICAgIC AgICAgICAgICAgICAgICAgICAgICAgICAgICAgICAgICAgICAgICAgICAgICANCiAgICAgICAgICAgIC AgICAgICAgICAgICAgICAgICAgICAgICAgICAgICAg ICAgICAgICAgICAgICAgICAgICAgICAgICAgICAgICAgICAgICAgICAgICAgICAgICAgICAgICANCiAg ICAgICAgICAgICAgICAgICAgICAgICAgICAgICAgICAgICAgICAgICAgICAgICAgICAgICAgICAgICAg ICAgICAgICAgICAgICAgICAgICAgICAgICAgICAgIC AgICAgICANCiAgICAgICAgICAgICAgICAgICAgICAgICAgICAgICAgICAgICAgICAgICAgICAgICAgIC AgICAgICAgICAgICAgICAgICAgICAgICAgICAgICAgICAgICAgICAgICAgICAgICANCiAgICAgICAgIC AgICAgICAgICAgICAgICAgICAgICAgICAgICAgICAg ICAgICAgICAgICAgICAgICAgICAgICAgICAgICAgICAgICAgICAgICAgICAgICAgICAgICAgICAgICAN CiAgICAgICAgICAgICAgICAgICAgICAgICAgICAgICAgICAgICAgICAgICAgICAgICAgICAgICAgICAg ICAgICAgICAgICAgICAgICAgICAgICAgICAgICAgIC AgICAgICAgICANCiAgICAgICAgICAgICAgICAgICAgICAgICAgICAgICAgICAgICAgICAgICAgICAgIC AgICAgICAgICAgICAgICAgICAgICAgICAgICAgICAgICAgICAgICAgICAgICAgICAgICANCiAgICAgIC AgICAgICAgICAgICAgICAgICAgICAgICAgICAgICAg ICAgICAgICAgICAgICAgICAgICAgICAgICAgICAgICAgICAgICAgICAgICAgICAgICAgICAgICAgICAg ICANCjw/qELcC9qhuSIjneN7L6swXj8LCj6NQT8kz1BkKRPgWRnculCtKslNPwGsETKfFboJPdf4SVno ER2GsTIpO9StM0XkIYvxIN8OEYLlPLEuhELxOASoPG EkPpU4AHUcUGhaHS0QvOHsEInmMTVcDOTyOtNnBAQsLGGwNOJbKMZgFGFTFG8XAiSbJ0GvwE47CSTJHq 4+FByxjbZlIqfSTjB1YEJsq4DsGRp6QG6XBWEzUazez1KpTlJjOBSBIWyzJT8JURS8WSY1QEPlNy0ITE KmN078qpTdCV6ZHr6FPzNnRT5jzx6EOgViTXIhUjqZ Xqw8IFouAB2LmUMxYEpAKoAfKkxfAKFseSQXJTRdCFFmwJrrQCOoWLBtSu2cMp9fCRCdXYDeJhJwPLVI EU8JICMiWZUilBYcBEXuDRXYGD7GOExaUCM0KSPstsLuwHNcEMvePU6JGUImutJeHkUeYSRNNTp+Pg0K RP2ig7UjHTmkTpZwMM1nst1IFJrRYbEkD2M4fTVeM0 S9PFreYh2IQKMuBQNoAjOdLUUYQKudYQ6TZI5javO3DV0NdCXnDIPjKRVgaTUhEZg6L55zmZOfGKzkBJ 0KICA+Salbador+Tu1JQBCgKAYoFWFhNmWsVPMCPlJlZ6DcH0XWr1MlE4TnSK11xQbprxIvGBseLZ2ZVK4sUQ IqZQUXIX3AwMRsmG1ardCnUMHdTWPSXeXyS50kwHFd SAYrJGGrJLIxZv1XLTQlF8IxxbEybKyceqYfPLEoOHRFAV1QWLwkwzBtaMScuPleUJ91pIrxYL6OIg6E WdKdNZ5nwv9LyNGvXc2OVWJbUs3TJLVeELHzIDJcNQD2QDShTeQsQBtuWNRyKEWaKNJ5KXVhESRxER8F OpNcULFeTsA5WkGrDJSxEYGwzb7UMJOjRSQzJjUsAy IjGTDiOZReJEimMDZeGATiNPE0EAYvEGOwQN9LIoXnSDYyNRQkKfPuJOXdPTHwqe2MIXLdSDTkYoHzLx CjDYCfBYCjLXkiGOGiZJV4VSD3IDWmGRZeAT4MOvFlMFSjTNAqMQugVSBsIGThsx2SKOCsBPSpZGX4Hg KyFLVoWVZtGXxbLAWzOWV5NiV3JKMlHBJrCK3TLdYb CYIdDEW6DssbBNQjBDHqlu3KLTUpNNJhPLu3MgCvVHSiKKKuJXejRUYdSTQdRyZsJHPlSSKpSL1FOoNa ZYGwHQO7ONOjCAHeQQDuxc1CYYRrWFYeMlUmEhAgYFLcPNZsKGpoIJOxMXZ7ASyvKCLeJERvTU8HJjJs PDRoMRVnUDCbASNsRWXzdh5BLHGmYBZgZCL7PaGmOM WjUMKeVSffKRTcCEK1WBZcMHPjSXKgQS8YNvCpWNZmNAJ5UzdjOSSiPLLfso9LAIAqVXXiDKycNeRvQF LeRQLpNZxrHGZrYUX9DZf0VIEwNGAxPV8CEgOfRLJeFrr2HFGdTZUlWHHtru7RQOMbKJTbSzdbLSFbEO FhAPEzWBpbGTWdJGU8APLsCNXrJNGvGJ8KZeMqOAMm OesyCHtuXWLlKWYqfl3LGEKxERMeXJQ2BaYtOGJrOQXnVUacIRFzYET7JgQmGPXjPIJpQT5WAmPeHQAo Xpx2VFovUDClSOXtra0MCXXbIVGbTTM4EhFeXJXgMFVrBKrrZQQoEHCvEHP5MZDnWCXfFS3RHyOuXMYv PbM8YkcwIVZyFYHuin6QASFkBJXbIMF1XkGcTJOkXB WqRQnbIKNsRDHgJqC7WUHrXGWfDD6NNwGpAOVtLsM4GWWdXSQjNXDzbb6FRZNoFDZoBje1GkVkPMLdQW NoUEj1cjOazDRtFTr1DB5UI6YaovIvKckSDh9Fb341MSY0CGTpVc3ZB3rlSz3fYCJuOHJXSn4JALe8TV JrFVP0AYZ1VDimVZGcLCM0LBk2ObBuWdfoUYs5HRL+ RFwnCwJ8RaQyQLmuCKYlLFXhITVjJOxzD9GpY2G8VJh3DT0oWPJFLv7+DQpzdGFydHhyZWYNCjMzMDk2 HFxhLGFZZj2Y ID Date Data Source [id number] 04/15/2020 03:04:00 PM EDT [facility] ([facility]) Name Value Range Interpretation Code Description Data Yoana rce(s) Supporting Document(s) Salicylates [Mass/volume] in Serum or Plasma 2.7 mg/dL 5.0-30.0 [facility] ([facility]) Ethanol [Mass/volume] in Serum or Plasma Laboratory test result 0.000 -0.010 [facility] ([facility]) Acetaminophen [Mass/volume] in Serum or Plasma Laboratory test r esult 10.0-30.0 [facility] ([facility]) Thyrotropin [Units/volume] in Serum or Plasma by Detec tion limit <= 0.05 mIU/L 1.060 uIU/ML 0.358-3.740 [facility] ([facility] ) HCG Serum Qualitative Laboratory test result [facility] ([facility]) ID Date Data Source [id number] 04/15/2020 03:04:00 PM EDT [facility] ([facility]) Name Value Range Interpretation Code Description Data Yoana rce(s) Supporting Document(s) Blood Urea Nitrogen 7 mg/dL 7-18 [facility] ([facility]) Glucose, Fasting 88 mg/dL 70-100 [facility] ([facility]) Creatinine For GFR 0.73 mg/dL 0.55-1.30 [facility] ([facility]) Glomerular Filtration Rate [facility] <content>Units are mL/min/1.73 m2</content>
<content></content>
<content>Chronic Kidney Disease Staging per NKF:</content>
<content></content>
<content>Stage I & II GFR >=60 Normal to Mildly Decreased</content>
<content>Stage III GFR 30- 59 Moderately Decreased</content>
<content>Stage IV GFR 15-29 Severely Decreased</content>
<content>Stage V GFR <15 Very Little GFR Left</content>
<content>ESRD GFR <15 on WASH HOUSE SUPERVISOR</content>
<content></content> Sodium Level 139 meq/L 136-145 [facility] ([facility]) Potassium Serum 3.7 meq/L 3.5-5.1 [facility] ([facility]) Chloride Level 105 meq/L 98-107 [facility] ([facility]) Carbon Dioxide Level 29 meq/L 21-32 [facility] ([facility]) Anion Gap 5 meq/L 8-16 [facility]) Calcium Level 9.5 mg/dL 8.5-10.1 [facility] ([facility]) ID Date Data Source [id number] 04/15/2020 03:04:00 PM EDT [facility] ([facility]) Name Value Range Interpretation Code Description Data Yoana rce(s) Supporting Document(s) Ast/Sgot 12 U/L 7-37 [facility]) Alkaline Phosphatase 79 U/L 45-117 [facility] ([facility]) Alt/SGPT 29 U/L 12-78 [facility]) Total Protein 7.2 GM/DL 6.4-8.2 [facility] ([facility]) Bilirubin,Direct Laboratory test result 0.0-0.2 [facility] ([facility]) Bilirubin,Total 0.3 mg/dL 0.2-1.0 [facility] ([facility]) Albumin 3.8 GM/DL 3.2-5.2 [facility] ([facility]) Albumin/Globulin Ratio 1.1 1.2-2.2 [facility] ([facility]) ID Date Data Source [id number] 04/15/2020 03:04:00 PM EDT [facility] ([facility]) Name Value Range Interpretation Code Description Data Yoana rce(s) Supporting Document(s) White Blood Count 9.4 10 4.0-10.0 [facility] ([facility]) Red Blood Count 4.64 10 4.00-5.40 [facility] ([facility]) Hematocrit 41.8 % 36.0-47.0 [facility] Hemoglobin 13.0 g/dL 12.0-15.5 [facility] Mean Corpuscular HGB Conc 31.1 g/dL 32.0-36.5 [facility] ([facility]) Mean Corpuscular Hemoglobin 28.0 pg 27.0-33.0 [facility] ([facility]) Mean Corpuscular Volume 90.1 fl 80.0-96.0 [facility] ([facility]) Nucleated Red Blood Cell % 0.0 % 0-0 [facility] ([facility]) Red Cell Distribution Width 13.8 % 11.5-14.5 [facility] ([facility]) Platelet Count, Automated 257 10 150-450 [facility] ([facility]) ID Date Data Source [id number] 04/15/2020 03:03:00 PM EDT [facility] ([facility]) Name Value Range Interpretation Code Description Data Yoana rce(s) Supporting Document(s) Barbiturates Urine Laboratory test result [facility] ([facility]) Amphetamines Level Urine Laboratory test result [facility] ([facility]) Cocaine Metabolite Urine Laboratory test result [facility] ([facility]) Cannabinoids Urine Laboratory test result [facility] ([facility]) Benzodiazepines Urine Laboratory test result [facility] ([facility]) Phencyclidine Urine Laboratory test result [facility] ([facility]) ALL PRESUMPTIVE POSITIVE FINDINGS AR E UNCONFIRMED THRESHOLD IN NG/ML AMPHETAMINES/METHAMPHET 1000 BARBITURATES 200 BENZODIAZEPINES 200 CANNABINOIDS (THC) 50 COCAINE METABOLITE 300 METHADONE 300 OPIATES 300 PHENCYCLIDINE 25 RESULTS ARE FOR MEDICAL PURPOSES ONLY. ALL URINE SPECIMENS WILL BE SAVED FOR 3 DAYS. IF CONFIRMATION OF A PRESUMPTIVE POSITIVE SCREEN RESULT IS DESIRED, CALL CHEMISTRY ([phone]) AND REQUEST URINE TO BE SENT TO REFERENCE LAB. FOR A LIST OF CLOSELY RELATED COMPOUNDS PLEASE CALL THE LAB. Opiates Urine Laboratory test result [facility] ([facility]) Methadone Urine Laboratory test result [facility] ([facility]) ID Date Data Source [id number] 04/15/2020 02:32:00 AM [facility]T [facility] Name Value Range Interpretation Code Description Data Yoana rce(s) Supporting Document(s) Barbiturates Urine Laboratory test result [facility] ([facility]) Amphetamines Level Urine Laboratory test result [facility] ([facility]) Benzodiazepines Urine Laboratory test result [facility] ([facility]) Cocaine Metabolite Urine Laboratory test result [facility] ([facility]) Cannabinoids Urine Laboratory test result [facility] ([facility]) Opiates Urine Laboratory test result [facility] ([facility]) Phencyclidine Urine Laboratory test result [facility]) ALL PRESUMPTIVE POSITIVE FINDINGS AR E UNCONFIRMED THRESHOLD IN NG/ML AMPHETAMINES/METHAMPHET 1000 BARBITURATES 200 BENZODIAZEPINES 200 CANNABINOIDS (THC) 50 COCAINE METABOLITE 300 METHADONE 300 OPIATES 300 PHENCYCLIDINE 25 RESULTS ARE FOR MEDICAL PURPOSES ONLY. ALL URINE SPECIMENS WILL BE SAVED FOR 3 DAYS. IF CONFIRMATION OF A PRESUMPTIVE POSITIVE SCREEN RESULT IS DESIRED, CALL CHEMISTRY ([phone]) AND REQUEST URINE TO BE SENT TO REFERENCE LAB. FOR A LIST OF CLOSELY RELATED COMPOUNDS PLEASE CALL THE LAB. Methadone Urine [facility] ID Date Data Source [id number] 04/15/2020 02:16:00 AM EDT [facility] Name Value Range Interpretation Code Description Data Yoana rce(s) Supporting Document(s) Ethanol [Mass/volume] in Serum or Plasma Laboratory test result 0.000 -0.010 [facility] Acetaminophen [Mass/volume] in Serum or Plasma Laboratory test r esult 10.0-30.0 [facility] ([facility]) Thyrotropin [Units/volume] in Serum or Plasma by Detec tion limit <= 0.05 mIU/L 1.610 uIU/ML 0.358-3.740 [facility] Salicylates [Mass/volume] in Serum or Plasma 1.9 mg/dL 5.0-30.0 [facility] HCG Serum Qualitative Laboratory test result [facility] ([facility]) ID Date Data Source [id number] 04/15/2020 02:16:00 AM EDT [facility] Name Value Range Interpretation Code Description Data Yoana rce(s) Supporting Document(s) Glucose, Fasting 110 mg/dL 70-100 [facility] Creatinine For GFR 0.84 mg/dL 0.55-1.30 [facility] Blood Urea Nitrogen 10 mg/dL 7-18 [facility] Sodium Level 142 meq/L 136-145 [facility] Glomerular Filtration Rate Laboratory [facility]) <content>Units are mL/min/1.73 m2</content>
<content></content>
<content>Chronic Kidney Disease Staging per NKF:</content>
<content></content>
<content>Stage I & II GFR >=60 Normal to Mildly Decreased</content>
<content>Stage III GFR 30- 59 Moderately Decreased</content>
<content>Stage IV GFR 15-29 Severely Decreased</content>
<content>Stage V GFR <15 Very Little GFR Left</content>
<content>ESRD GFR <15 on WASH HOUSE SUPERVISOR</content>
<content></content> Carbon Dioxide Level 29 meq/L 21-32 [facility] ([facility]) Potassium Serum 3.6 meq/L 3.5-5.1 [facility] ([facility]) Chloride Level 105 meq/L 98-107 [facility] ([facility]) Anion Gap 8 meq/L 8-16 [facility] ([facility]) Calcium Level 8.6 mg/dL 8.5-10.1 [facility] ([facility]) ID Date Data Source [id number] 04/15/2020 02:16:00 AM EDT [facility] ([facility]) Name Value Range Interpretation Code Description Data Yoana rce(s) Supporting Document(s) Ast/Sgot 11 U/L 7-37 [facility] ([facility]) Alkaline Phosphatase 76 U/L 45-117 [facility] ([facility]) Alt/SGPT 28 U/L 12-78 [facility] ([facility]) Total Protein 6.7 GM/DL 6.4-8.2 [facility] ([facility]) Bilirubin,Total 0.3 mg/dL 0.2-1.0 [facility] ([facility]) Bilirubin,Direct Laboratory test result 0.0-0.2 [facility] ([facility]) Albumin/Globulin Ratio 1.0 1.2-2.2 [facility] ([facility]) Albumin 3.3 GM/DL 3.2-5.2 [facility] ([facility]) ID Date Data Source [id number] 04/15/2020 02:16:00 AM EDT [facility] ([facility]) Name Value Range Interpretation Code Description Data Yoana rce(s) Supporting Document(s) White Blood Count 10.7 10 4.0-10.0 [facility] ([facility]) Red Blood Count 4.47 10 4.00-5.40 [facility] ([facility]) Hemoglobin 12.6 g/dL 12.0-15.5 [facility] Hematocrit 40.3 % 36.0-47.0 [facility] Mean Corpuscular Volume 90.2 fl 80.0-96.0 [facility] ([facility]) Mean Corpuscular Hemoglobin 28.2 pg 27.0-33.0 [facility] ([facility]) Mean Corpuscular HGB Conc 31.3 g/dL 32.0-36.5 [facility] ([facility]) Red Cell Distribution Width 13.7 % 11.5-14.5 [facility] ([facility]) Nucleated Red Blood Cell % 0.0 % 0-0 [facility] ([facility]) Platelet Count, Automated 239 10 150-450 [facility] ([facility]) ID Date Data Source [id number] 04/10/2020 10:34:00 [place] [address] PHONE: [phone] FAX: [phone] Name .................. : KRISTIN PATTONA Renato Acct Number.................. : [id number] ROOM. ................. : TR-04 Number ................... : [id number] Stay type ............. : E/R Discharge Date......... ... : 04/09/20 Admit Date ......... : 04/09/20 Admit Phys .................... : GT JEREMÍAS Date of ....... : 1990 Family Phys ................... : DIANNE BAZZI Phone .................. : [phone] Age ................................ : 29 Film# .................. .:[id number] Sex ................................. : F Unsigned transcriptions are preliminary reports and do not represent a medical or legal document CT ABD & PELVIS W/ IV ONLY [id number] COMPLETE:04/09/20 15:50 RLB [id number] Reason(s): vomiting, abd pain, lipase 194, ? pancreatitis CT SCAN OF THE ABDOMEN AND PELVIS WITH CONTRAST ENHANCEMENT: HISTORY: Abdominal pain, elevated lipase, possible pancreatitis. FINDINGS: The lung bases are clear. The liver is normal. 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 The adrenals and kidneys are within normal limits. The pancreas shows no definite signs of any pancreatic inflammation or pseudocyst formation. The gallbladder has been removed. The bowel loops fail to reveal any acute pathology. The appendix is visualized and found to be normal. Gynecological structures are within normal limits. The bladder appears normal. There are no signs of any free fluid or focal inflammatory process identified. No mesenteric or retroperitoneal adenopathy. IMPRESSION: Small cyst at the tip of the spleen. No acute abnormalities. While performing the above CT examination, radiation dose reduction was accomplished utilizing automated exposure control, adjusting of the mA and kV based on the patient's body size and/or the use of imperative reconstructive techniques. CT dose: 1085.9 mGycm Contrast agent in mL: 75 Isovue 370 Method of administration: Intravenous Electronically Reviewed and Signed By PHILIP ALFARO MD , 04/10/20 10:34, [facility] Page 1 of 2 [facility] [address] [place] [address] [place] [address] PHONE: [phone] FAX: [phone] Name .................. : KRISTIN Gross Acct Number.................. : [id number] ROOM. ................. : -04 MR Number ................... : [id number] Stay type ............. : E/R Discharge Date......... ... : 04/09/20 Admit Date ......... : 04/09/20 Admit Phys .................... : GT JEREMÍAS Date of ....... : 1990 Family Phys ................... : [employer] Phone .................. : [phone] Age ................................ : 29 Film# .................. .:[id number] Sex ................................. : F Unsigned transcriptions are preliminary reports and do not represent a medical or legal document CT ABD & PELVIS W/ IV ONLY [id number] COMPLETE:04/09/20 15:50 RLB [id number] Reason(s): vomiting, abd pain, lipase 194, ? pancreatitis Transcribe Initials: ROME , Transcribe Date: 04/10/20 00:25, Dictation Date: Copy for: GT [place] via fax Copy for: EMERGENCY DEPT via [facility] [place] Copy for: 710 MED REC DISCHARGED Page 2 of 2 Name Value Range Interpretation Code Description Data Yoana rce(s) Supporting Document(s) ID Date Data Source [id number] 04/09/2020 11:28:00 AM EDT [facility] [address] [place] [address] Phone #: ext- [phone] 04/09/2020 11:25 Patient: COLTON FOSTER Sex: F : 1990 Age: 29yWEIGHT:99.7 kg (S) HEIGHT:64 inches (S) BMI:37.8ALLERGIES: NoneCHIEF COMPLAINT: abdominal pain, vomiting, nauseaDIAGNOSIS: Abdominal pain, ProblemLAB ORDERSOrder Description Priority Entered Acknowledged InitialedCBC w Diff STAT 11:54 04/09/2020 11:59 Lowell Steiner; Leo GottliebCMP STAT 11:54 04/09/2020 11:59 Lowell Steiner; Leo GottliebLactic Acid STAT 11:54 04/09/2020 11:59 Lowell Steiner; Leo GottliebLipase STAT 11:54 04/09/2020 11:59 Lowell Steiner; Leo GottliebPT/PTT STAT 11:54 04/09/2020 11:59 Lowell Steiner; Leo GottliebUrinalysis (Clean STAT 11:54 04/09/2020 12:15 Obdulia,Catch) Lowell WILSON; Leo GottliebBeta-HCG, Qual STAT 11:54 04/09/2020 11:59 Obdulia,Serum Lowell WILSON; Leo GottliebDIAGNOSTIC STUDY ORDERSOrder Description Priority Entered Acknowledged InitialedCT Abd PEL W/ IV STAT 14:55 04/09/2020 16:05 BurnhamContrast Only Lowell WILSON; medical reimbursement specialist, Curly ER(Oxygen?(No)) Tech1(IV?(Yes)) Reason for Study: vomiting, abd pain, lipase 194, ? pancreatitisMEDICATION/IV/DRIP/FLUID ORDERSOrder Description Priority Entered Acknowledged InitialedNS IV : Bolus 500 11:54 04/09/2020 11:59 Obdulia,mL, then 100 mL/hr Lowell WILSON; Leo Gottlieb(NOW x1)Zofran IVP 4 mg 11:54 04/09/2020 12:10 Lowell Steiner; Leo GottliebAcetaminophen 1 g 11:54 04/09/2020 12:11 Obdulia, 2 OrderSheet [facility] Emergency Department [address] [place] [address] Phone #: ext- [phone] 04/09/2020 11:25 Patient: COLTON FOSTER Sex: F : 1990 Age: 29yPO X1 dose: 1000 Lowell WILSON; Leo Gottliebmg (NOW x1)Protonix IVPB 40 11:59 04/09/2020 12:13 mg Obdulia with Dextrose Lowell WILSON; Leo Gottlieb100 ml spike bag(D5W)Toradol IVP 15 mg 12:58 04/09/2020 13:03 Obdulia,(NOW x1) Lowell WILSON; Leo GottliebGENERAL ORDERSOrder Description Priority Entered Acknowledged InitialedNPO 11:54 04/09/2020 11:58 Lowell Steiner; Leo GottliebVitals 11:54 04/09/2020 11:58 Lowell Steiner; Leo GottliebWarm blanket 11:54 04/09/2020 11:59 Lowell Steiner; Leo GottliebObtain Old Records 12:02 04/09/2020 12:15 Lowell Steiner R.N.Consult - General 16:07 04/09/2020 16:08 BurnhamSurgery Lowell WILSON; medical reimbursement specialistCurly Urrutia Tech1[Electronically signed by Jammie Bond RN (16:15 04/09/2020)][Electron ically signed by Lowell Del Real (16:23 04/09/2020)][Electronically locked by Jammie Bond RN (16:15 04/09/2020)] Name Value Range Interpretation Code Description Data Yoana rce(s) Supporting Document(s) ID Date Data Source [id number] 04/09/2020 11:28:00 AM EDT [facility] 1 Medication Reconciliation Report [facility] Emergency Department [address] [place] [address] Phone #: ext [phone] 04/09/2020 11:25 Patient: COLTON FOSTER Sex: F : 1990 Age: 29yWeight: 99.7 kgHeight/Length: 64 in.BMI: 37.8ALLERGIES: NoneThe patient's Home Medications are listed below:CONTINUE TAKING THE FOLLOWING MEDICATIONS: CeleXA Oral (40 mg), daily PriLOSEC Oral 40 mg, dailyThe source(s) of the original Home Medication information:Not obtained.The following Medications were given to the patient in the Emergency Department:NS [IV] IV Fluids bolus 0, then 1000 mL/hr, administered: 04/09/2020 11:59:00 AMZofran [IVP] IVP 4 mg, administered: 04/09/2020 12:05:00 PMTylox [PO] PO 2 tablet, administered: 04/09/2020 12:06:00 PMProtonix [IVPB] IVPB bolus 0, then 40 mg 8 mg/hr, administered: 04/09/2020 12:08:00 PMToradol [IVP] IVP 15 mg, administered: 04/09/2020 12:58:00 PMThe following Medications were prescribed to the patient:None. Name Value Range Interpretation Code Description Data Yoana rce(s) Supporting Document(s) ID Date Data Source [id number] 04/09/2020 11:28:00 AM EDT [facility] 1 Medication Administration Record [facility] Emergency Department [address] [place] [address] Phone #: ext [phone] 04/09/2020 11:25 Patient: COLTON FOSTER Sex: F : 1990 Age: 29yWeight: 99.7 kgHeight/Length: 64 inBMI: 37.8ALLERGIES: None Date/Time Medication Administered Medication OrderedStart NS [IV] NS IV : Bolus 500 mL, then 33142:59 04/09/2020 Dose: IV Fluids mL/hr (NOW x1)Leo Steiner R.N. Rate: 1000 mL/hr over 60 minute(s)---- Dispensed: 1000 mL bagStop Site: #1 right AC13:00 04/09/2020Ana Burgess ZOFRAN [IVP] (ONDANSETRON HCL) Zofran IVP 4 mg12:05 04/09/2020 Dose: 4 mg IVPGLeo rodriguez R.N. Site: #1 right ACGiven TYLOX [PO] Acetaminophen 1 g PO X1 dose:12:06 04/09/2020 (OXYCODONE-ACETAMINOPHEN) 1000 mg (NOW x1)Leo Steiner R.N. Dose: 2 tablet POStart PROTONIX [IVPB] (PANTOPRAZOLE Protonix IVPB 40 mg with12:08 04/09/2020 SODIUM) Dextrose 100 ml spike bag (D5W)Leo Steiner R.N. Dose: 40 mg IVPB---- Rate: 8 mg/hr over 30 minute(s)Stop Dispensed: 100 mL bag12:38 04/09/2020 Site: #1 right ACDoris Ana Bond TORADOL [IVP] (KETOROLAC Toradol IVP 15 mg (NOW x1)12:58 04/09/2020 TROMETHAMINE)Leo Steiner R.N. Dose: 15 mg IVP Site: #1 right AC Name Value Range Interpretation Code Description Data Yaona rce(s) Supporting Document(s) ID Date Data Source [id number] 04/09/2020 11:28:00 AM EDT [facility] 1 General Instructions [facility] Emergency Department [address] [place] [address] Phone #: ext- [phone] 04/09/2020 11:25 [id number] Sex[facility] F : 1990 Age: 29yPeriumbilical abdominal pain of unknown cause. (? cyclical vomiting syndrome).Abnormal tests; (elevated lipase).INSTRUCTIONSNo strenuous activity until better. Rest at home for two days. Do not work for three days.Drink plenty of fluids for the next 48 hours. Avoid alcohol and NSAIDS. NSAIDS include aspirin, ibuprofen(Advil) and naproxen (Aleve). Avoid fatty, fried/greasy, lactose-containing (such as milk, cheese and icecream), salty and spicy foods until better. No sexual contact until symptoms resolve. No alcohol. Do notsmoke.(continue zofran as needed for nausea/vomiting).Warnings: Further evaluation is necessary in order to conduct further tests. It is very important to follow upwith a healthcare provider.GENERAL WARNINGS: Return or contact your physician immediately if your condition worsens orchanges unexpectedly, if not improving as expected, or if other problems arise. SPECIFICALLY, return forcontinued pain in the abdomen or pelvis, fever, inability to keep fluids down, blood in vomitus, blood indiarrhea, fainting or lightheadedness.Your Current Medications: Your current home medications have been reviewed.CONTINUE TAKING THE FOLLOWING MEDICATIONS:CeleXA Oral : Tablet 40 mg, daily.PriLOSEC Oral : 40 mg daily.Follow-up:Follow up with your healthcare provider in three days even if well. Call for the next available appointment.Reason for referral: evaluation and f/u with gastroenterology as scheduled.. Summary of care provided topatient via paper.Understanding of the discharge instructions verbalized by patient. Expected course of illness, dischargeinstructions, activity level, follow-up appointment and risks and benefits of treatment reviewed with patientand understanding verbalized. Agrees to plan of care. ADDITIONAL INFORMATIONUnknown Causes of Abdominal Pain (Female) 2 General Instructions [facility] Emergency Department [address] [place] [address] Phone #: ext- [phone] 04/09/2020 11:25 Patient: COLTON FOSTER Sex: F : 1990 Age: 29yThe exact cause of your belly (abdominal) pain is not clear. This does not mean that this is somethingto worry about. Everyone likes to know the exact cause of the problem. But sometimes with bellypain, there is no clear-cut cause, and this could be a good thing. The good news is that yoursymptoms can be treated, and you will feel better.Your condition does not seem serious now. But sometimes the signs of a serious problem may takemore time to appear. For this reason, it is important for you to watch for any new symptoms,problems, or worsening of your condition.Over the next few days, the abdominal pain may come and go. Or it may be constant. Other commonsymptoms can include nausea and vomiting. Sometimes it can be difficult to tell if you feel nauseous.You may just feel bad and not connect that feeling to nausea. Constipation, diarrhea, and a fever maygo along with the pain.The pain may continue even if treated correctly over the following days. Depending on how things go,sometimes the cause can become clear and may need more or different treatment. Additionalevaluations, medicines, or tests may also be needed.Home careYour healthcare provider may prescribe medicine for pain, symptoms, or an infection. Follow thehealthcare provider's instructions for taking these medicines. 3 General Instructions [facility] Emergency Department [address] [place] [address] Phone #: ext- [phone] 04/09/2020 11:25 Patient: COLTON FOSTER Sex: F : 1990 Age: 29yGeneral care Rest as much as you can until your next exam. No strenuous activities. Try to find positions that ease discomfort. A small pillow placed on the abdomen may help relieve pain. Something warm on your abdomen (such as a heating pad) may help, but be careful not to burn yourself.Diet Don't force yourself to eat, especially if having cramps, vomiting, or diarrhea. Water is important so you don't get dehydrated. Soup may also be good. Sports drinks may also help, especially if they are not too acidic. Don't drink sugary drinks as this can make things worse. Take liquids in small amounts. Don't guzzle them. Caffeine sometimes makes the pain and cramping worse. Don't take dairy products if you have vomiting or diarrhea. Don't eat large amounts at a time. Wait a few minutes between bites. Eat a diet low in fiber (called a low-residue diet). Foods allowed include refined breads, white rice, fruit and vegetable juices without pulp, tender meats. These foods will pass more easily through the intestine. Don't have whole-grain foods, whole fruits and vegetables, meats, seeds and nuts, fried or fatty foods, dairy, alcohol and spicy foods until your symptoms go away.Follow-up careFollow up with your healthcare provider, or as advised, if your pain does not begin to improve in thenext 24 hours.Call [phone] if any of these occur: Trouble breathing Confusion Fainting or loss of consciousness Rapid heart rate 4 General Instructions [facility] Emergency Department [address] [place] [address] Phone #: ext- [phone] 04/09/2020 11:25 Patient: COLTON FOSTER Sex: F : 1990 Age: 29y SeizureWhen to seek medical adviceCall your healthcare provider right away if any of these occur: Pain gets worse or moves to the right lower abdomen New or worsening vomiting or diarrhea Swelling of the abdomen Unable to pass stool for more than 3 days Fever of 100.4F (38C) or higher, or as directed by your healthcare provider. Blood in vomit or bowel movements (dark red or black color) Yellow color of eyes and skin (jaundice) Weakness, dizziness Chest, arm, back, neck, or jaw pain Unexpected vaginal bleeding or missed period Can't keep down liquids or water and you are getting dehydrated [id number] [employer]. [address] [place] [address]. All rights reserved. This information is not intended as asubstitute for professional medical care. Always follow your healthcare professional's instructions.[place]y DietYour healthcare provider may recommend a bland diet if you have an upset stomach. It consists offoods that are mild and easy to digest. It is better to eat small frequent meals rather than 3 largemeals a day. 5 General Instructions [facility] Emergency Department [address] [place] [address] Phone #: ext- [phone] 04/09/2020 11:25 Patient: COLTON FOSTER Sex: F : 1990 Age: 29yBeveragesOK: Fruit juices, non-caffeinated teas and coffee, non-carbonated watersAvoid: Carbonated beverage, caffeinated tea and coffee, all alcoholic beveragesBreadOK: Refined white, wheat or rye bread, emi or soda crackers, [place] toast, plain rolls, bagelsAvoid: Whole-grain breadCerealOK: Refined cereals: cooked or ready to eatAvoid: Whole-grain cereals and granola, or those containing bran, seeds or nutsDessertsOK: Peanut butter and all others except those to "avoid"Avoid: Chocolate, cocoa, coconut, popcorn, nuts, seeds, jam, marmaladeFruitsOK: Canned, cooked, frozen or fresh fruits without seeds or tough skinAvoid: Olives, skin and seeds of fruit, dried fruitMeats 6 General Instructions [facility] Emergency Department [address] [place] [address] Phone #: ext- [phone] 04/09/2020 11:25 Patient: COLTON FOSTER Sex: F : 1990 Age: 29yOK: All fresh or preserved meat, fish and fowlAvoid: Any that are prepared with those spices to "avoid"Cheese and eggsOK: Eggs, cottage cheese, cream cheese, other cheesesAvoid: All cheeses made with those spices to "avoid"Potatoes and pastaOK: Potato, rice, macaroni, noodles, spaghettiAvoid: NoneSoupsOK: All soups without heavy seasoningAvoid: Soups made with those spices to "avoid"VegetablesOK: Canned, cooked, fresh or frozen mildly flavored vegetables without seeds, skins or coarse fiberAvoid: Vegetables prepared with those spices to "avoid"; skin and seeds of vegetables and those withcoarse fiber, broccoli, cabbage, cauliflower, cucumber, green peppers, and cornSpicesOK: Salt, lemon and limejuice, vinegar, all extracts, aba, cinnamon, thyme, mace, allspice, paprikaAvoid: [place] powder, cloves, pepper, seed spices, garlic, gravy pickles, highly seasoned saladdressings 1999- 2017 [employer]. [address] [place] [address], [place] [address]. All rights reserved. This information is not intended as asubstitute for professional medical care. Always follow your healthcare professional's instructions.Clear Liquid Diet 7 General Instructions [facility] Emergency Department [address] [place] [address] Phone #: ext- [phone] 04/09/2020 11:25 Patient: COLTON FOSTER Sex: F : 1990 Age: 29yClear liquids are any liquid that you can see through. They are also very easy to digest. You may beput on a clear liquid diet if you are recovering from irritation or infection of the stomach or intestinaltract. This diet may also be used before surgery or special procedures such as a colonoscopy. Youshould not be on this diet for more than 3 days. Below are some clear liquids you can have on thisdiet.Adults and children over 2 years ol dAdults should drink a total of 2 to 3 quarts of liquid per day. It may be easier to drink small frequentservings rather than a few large ones. Liquids can include: Fruit juices. Strained orange juice or lemonade (no pulp); apple, grape, and cranberry juice; clear fruit drinks Beverages. Sport drinks, sodas, mineral water (plain or flavored), tea, black coffee, liquid gelatin (add twice the recommended amount of water) Soups. Clear broth Desserts. Plain gelatin, popsicles, fruit juice barsChildren under 2 years oldOral rehydration fluids are available at drug stores and most grocery stores. You don't need aprescription. [phone] [employer]. [address] [place] [address], [place] [address]. All rights reserved. This information is not intended as asubstitute for professional medical care. Always follow your healthcare professional's instructions. You have been given the following additional information: Abdominal Pain, Unknown Cause, (Female) Diet, De [place]y ( Adult) Clear Liquid Diet 8 General Instructions [facility] Emergency Department [address] [place], [place] [id number] Phone #: ext- [phone] 04/09/2020 11:25 Patient: COLTON FOSTER Sex: F : 1990 Age: 29yNo strenuous activity until better. Rest at home for two days. Do not work for three days.(Electronically signed by STEVE James 04/09/2020 16:23) Name Value Range Interpretation Code Description Data Yoana rce(s) Supporting Document(s) ID Date Data Source [id number] 04/09/2020 11:28:00 AM EDT [facility] 1 Clinical Report - Nurses [facility] Emergency Department [address] [place] [address] Phone #: ext- [phone] 04/09/2020 11:25 Patient: COLTON FOSTER Sex: F : 1990 Age: 29yTRIAGEArrived by private vehicle. Historian: patient.Triage time: 11:04/09/2020. Acuity: LEVEL 3.Chief Complaint: ABDOMINAL PAIN, NAUSEA and VOMITING.11:26 04/09/20. Alert. No acute distress.Onset. (on off x several weeks). ( Lap. Cholecystectomy Tuesday 04/[address] [facility] [address] [place]). 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 ([facility] yesterday).SEPSIS SCREEN: SIRS Screen negative. Sepsis Screen negative. No suspected or confirmed signs ofinfection present. --11:33 04/09/20 Jammie Bond RN11:04/09/20. BP: 160/94. MAP: 116. HR: 63. RR: 18. O2 saturation: 100%. Temp: 98.7 F. Pain levelnow: 10/10. Describes the quality as sharp. It has been constant. Pain level at maximum: 10/10. Noradiation noted. (improved with warm bath). --11:33 04/09/20 Jammie Bond RN.Weight: 99.7 kg stated. Height/Length: 64 inches Per Patient. BMI: 37.8. --11:04/09/20 BORA Qureshi.MedicationsCeleXA Oral (Tablet 40 mg), daily. PriLOSEC Oral 40 mg, daily. --11:04/09/20 Jammie Bond RN.AllergiesNone. --11:04/09/20 Jammie Bond RN.PROBLEMS:Anxiety Reaction.Depression.Gerd. --11:04/09/20 Jammie Bond RN.ADDITIONAL SURGERIES:Adenoidectomy.Cholecystectomy [04/03/2020]..Cyst removed from ovary.Ovarian cyst removed. 2 Clinical Report - Nurses [facility] Emergency Department [address] [place] [address] Phone #: [phone] hol- [phone] 04/09/2020 11:25 Patient: COLTON FOSTER Sex: F : 1990 Age: 29y Tubal Ligation. --11:33 04/09/20 Jammie Bond RN. History 11:04/09/20. PAST MEDICAL HX: Immunizations: up-to-date. Last normal menstrual period- April 04. SOCIAL HX: Light tobacco smoker (cigarette)- less than 1/2 a pack per day. History of occasional drug use: marijuana. No alcohol use. No recent travel. No known contact with a sick individual. The patient was offered HIV testing but declined and hepatitis C testing but declined. The patient has not traveled outside the [place] Infectious disease exposure: No infectious disease exposure. (Denies travel, denies contact with PUI, on quarantine or symptoms of COVID-19). Patient is not a known carrier of tub erculosis, hepatitis, HIV, MRSA or VRE. Patient is not a known carrier of CRE. SELF HARM ASSESSMENT: Self harm assessment was performed. The patient answered "no" to the question(s) "Do you have thoughts of harming or killing yourself?" and "Have you recently had thoughts about harming or killing others?". ABUSE ASSESSMENT: Abuse assessment. The patient had positive responses to the question(s) "Do you feel safe in your home?" (yes). No report of abuse. NUTRITIONAL RISK ASSESSMENT: The nutritional risk assessment revealed no deficiencies. FUNCTIONAL ASSESSMENT: Functional assessment: no impairments noted. LEARNING NEEDS ASSESSMENT: The learning needs assessment revealed no barriers. FALL RISK ASSESSMENT: Fall risk assessment completed. No risk factors identified. SKIN INTEGRITY ASSESSMENT: Skin integrity risk assessment completed. No skin integrity risk identified. --11:33 04/09/20 Jammie Bond RN. Interventions 11:26 04/09/20. To treatment room. Ambulatory. Gowned. Report given to the primary nurse. to Room 4. --11:33 04/09/20 Jammie Bond RN.PHYSICAL ASSESSMENTGENERAL / NEURO / PSYCH: Appears in pain and in distress.RESPIRATORY: Respirations not labored.CVS: Capillary refill less than 2 seconds.GI / : The patient has had constant nausea. Abdominal tenderness in the upper abdomen. Bowelsounds within normal limits.SKIN: Skin is warm and dry. --12:14 04/09/20 Leo Steiner R.N. 3 Clinical Report - Nurses [facility] Emergency Department [address] [place] [address] Phone #: ext- [phone] 04/09/2020 11:25 Patient: COLTON FOSTER Sex: F : 1990 Age: 29yNURSING PROGRESS NOTES11:34 04/09/20. Patient gowned. Head of bed elevated. Two patient identifiers checked. Call lightplaced in reach. Side rails up. Bed placed in lowest position. Brakes of bed on. Patient ready forevaluation- STEVE allison otified. --11:34 04/09/20 Jammie Bond RN 11:59 04/09/2020 Site #1 started via IV in the right antecubital space with an 20g angiocath; one attempt. --11:59 04/09/20 Leo Steiner R.N. 11:59 04/09/2020 Started bag #1 1000 mL IV Fluids NS; at 1000 mL/hr over 60 minute(s) via site #1 --11:59 04/09/20 Leo Steiner R.N. 12:05 04/09/2020 Zofran (Ondansetron HCl) IVP 4 mg given over 3 minute(s) via site #1. --12:10 04/09/20 Leo Steiner R.N. 12:06 04/09/2020 Tylox (oxyCODONE-Acetaminophen) PO 2 tablet given. --12:11 04/09/20 Leo Steiner R.N. 12:08 04/09/2020 Started 40 mg of Protonix (Pantoprazole Sodium) IVPB in bag #1 100 mL; at 8 mg/hr over 30 minute(s) via site #1. --12:13 04/09/20 Leo Steiner R.N. Reassessment after medication administered. Pain still present but improving. Nausea gone now. ( Pt sleeping in no apparent discomfort). --12:26 04/09/20 Leo Steiner R.N. 12:58 04/09/2020 Toradol (Ketorolac Tromethamine) IVP 15 mg given over 3 minute(s) via site #1. --13:03 04/09/20 Leo Steiner R.N. 13:29 04/09/20. BP: 148/72. MAP: 97. HR: 72. RR: 16. O2 saturation: deferred. Temp: deferred. Pain level now: 05/03. --13:29 04/09/20 Leo Steiner R.N. 15:02 04/09/20. BP: 152/74. MAP: 100. HR: 72. RR: 18. Temp: deferred. Pain level now: 02/01. --15:03 04/09/20 Leo Steiner R.N. Patient transported to [place] by wheelchair. --15:30 04/09/20 Leo Steiner R.N. Patient returned from [place] by wheelchair. --15:33 04/09/20 Leo Steiner R.N. 12:38 04/09/2020 Protonix IVPB via IV site #1 Discontinued: completed. Total amount infused: 100 mL. IV patency established. IV site checked: no pain, redness, or swelling. IV flushed thoroughly. --16:14 04/09/20 Jammie Bond RN 13:00 04/09/2020 IV Fluids NS via IV site #1 Discontinued: bag #1 infused. Total amount infused: 1000 mL. IV patency established. IV site checked: no pain, redness, or swelling. IV flushed thoroughly. --16:14 04/09/20 Jammie Bond RN 4 Clinical Report - Nurses [facility] Emergency Department [address] [place] [address] Phone #: ext- [phone] 04/09/2020 11:25 [id number]: [facility] : 1990 Age: 29y 16:09 04/09/2020 Site #1 removed upon discharge. Catheter intact. Manual pressure and bandage applied. --16:13 04/09/20 Jammie Bond RN.DISPOSITION / DISCHARGE 16:06 04/09/20. BP: 114/74. HR: 75. RR: 18. O2 saturation: 100%. Temp: 98.7 F. Pain level now 12/04. --16:06 04/09/20 [facility] 16:10 04/09[facility]20. Condition at departure: stable. No learning barriers present. Discharge instructions provided and reviewed with the patient. Work note given (off x 3 days). Patient verbalized understanding. Written instructions provided in Kittitian. The patient was discharged home. She left ambulatory and via private vehicle. Patient driving. --16:10 04/09/20 Jammie Bond RN.Locked/Released at 04/09/2020 16:15 by Jammie Bond RN Name Value Range Interpretation Code Description Data Yoana rce(s) Supporting Document(s) ID Date Data Source [id number] 04/09/2020 11:28:00 AM EDT [facility] 1 Clinical Report - Physicians/Mid Levels [facility] Emergency Department [address] [place] [address] Phone #: ext- [phone] 04/09/2020 11:25 Patient: COLTON FOSTER Sex: F : 1990 Age: 29y Time Seen: 11:38 04/09/2020. Arrived- By private vehicle. Historian- patient. RETURN VISIT: recently seen in this ED by another ED physician within past 30 days. Seen now for the same problem as before. Disposition decision: 15:52 04/09/2020.HISTORY OF PRESENT ILLNESS Chief Complaint: ABDOMINAL PAIN and VOMITING and NAUSEA. This started several weeks ago; Pt is s/p laparoscopic cholecystectomy APR 13 at [facility]. States she has had NV with abd pain for months, episodically. States she was doing fine until yesterday when symptoms of NV and niru-umbilical abd pain recurred, states she initially went back to surgeon who referred her to the ED due to "so much vomiting." Denies fever. Some diarrhea. Has upcoming appt/referral to in [place] for these symptoms. It is described as sharp and stabbing. No radiation. It is described as located in the periumbilical area. At its maximum, severity described as 7 / 10. When seen in the E.D., severity described as 7 / 10. The patient has had nausea, loss of appetite, vomiting and diarrhea. No recent travel. Similar symptoms previously. Patient has had similar symptoms several times. Recent medical care: The patient was seen recently at another facility in the emergency department and [facility] (cholecystectomy APR 13, [facility], seen at [facility] ED yesterday for same symptoms.).REVIEW OF SYSTEMSLast normal menstrual period- April 13. No constipation, black stools, hematemesis, difficulty withurination or pain with urination. No urinary frequency, bloody stools, fever, headache or sore throat. Noblurred vision, chest pain, difficulty breathing, cough or joint pain. No skin rash, chills or back pain. Lastbowel movement: recently. The patient has not had weight loss.PAST HISTORYSee nurses notes. Problems: Cholecystitis. Abdominal Pain. Reflux. Vomiting. Gastroenteritis. Anxiety Reaction. Depression. Gerd. 2 Clinical Report - Physicians/Mid Levels [facility] Emergency Department [address] [place] [address] Phone #: ext- [phone] 04/09/2020 11:25 [id number] Sex[facility] F : 1990 Age: 29y Additional Surgeries: Adenoidectomy. Cholecystectomy [2019]. . Cyst removed from ovary. Ovarian cyst removed. Tonsillectomy. Tubal Ligation. Medications: CeleXA Oral (Tablet 40 mg), daily. PriLOSEC Oral 40 mg, daily. Allergies: None.SOCIAL HISTORYSmoker- current status unknown. History of drug use: marijuana. No alcohol use. No recent travel.ADDITIONAL NOTESThe nursing notes have been reviewed with agreement regarding the chief complaint, HPI, ROS, PMH andpatient medications and allergies.PHYSICAL EXAMVital Signs: 04/09/2020 11:26 BP: 160/94. MAP: 116. HR: 63. RR: 18. O2 saturation: 100%. Temp: 98.7F. Pain level now: 08/03. Have been reviewed as abnormal and appear to be correct. Hypertensive.Mean arterial pressure- normal. Heart rate normal. Respiratory rate normal. Temperature normal.Oxygen saturation normal.Appearance: Alert. Oriented X3. No acute distress.Eyes: Pupils equal, round and reactive to light. Eyes normal inspection.ENT: Ears normal. Nose normal. Pharynx normal.Neck: Normal inspection. Neck supple.CVS: Normal heart rate and rhythm. Heart sounds normal. Pulses normal.Respiratory: No respiratory distress. Painless inspiration. Breath sounds normal. Chest nontender.Abdomen: Soft. Tenderness in the epigastric area and periumbilical area. Bowel sounds normal. Noorganomegaly. No mass. Femoral pulses equal. (4 small healing laparoscopic incision sites toabdomen without erythema, discharge or other findings of infection on exam. Pt most tender aroundincision site near umbilicus.).Back: Normal inspection.Skin: Skin warm and dry. Normal skin color. No rash. Normal skin turgor.Extremities: Extremities exhibit normal ROM. No lower extremity edema.Neuro: Oriented X 3. No motor deficit. No sensory deficit. Reflexes normal.LABS, X-RAYS, AND EKGLaboratory Tests: Laboratory tests have been ordered, with results reviewed and considered in the 3 Clinical Report - Physicians/Mid Levels [facility] Emergency Department [address] [place] [address] Phone #: ext- [phone] 04/09/2020 11:25 Patient: COLTON FOSTER Sex: F : 1990 Age: 29ymedical decision making process.CBC w Diff: (JESSY: 04/09/2020 12:03) ( MsgRcvd 04/09/2020 12:15) Final results Test Result Flag Units (Reference) CBC W/AUTOMATED DIFF COMPLETE BLOOD COUNT WBC 9.9 10/uL (4.2 - 11.0) RBC 4.76 10/uL (4.20 - 5.40) HEMOGLOBIN 13.6 g/dL (12.0 - 16.0) HEMATOCRIT 41.2 % (37.0 - 47.0) MCV 86.6 fL (81.0 - 101) MCH 28.6 pg (27.0 - 34.0) MCHC 33.0 g/dL (31.0 - 36.0) RDW 13.6 % (11.5 - 14.5) PLATELETS 241 10/uL (150 - 450) MPV 10.7 H fL (7.4 - 10.4) NEUT 79.7 % (37.0 - 80.0) LYMPH 13.8 L % (25.0 - 40.0) MONO 4.9 % (3.0 - 8.0) EOS 0.9 % (0. 0 - 7.0) BASO 0.2 % (0.0 - 2.5) %IG 0.5 H % (0.0 - 0.0) %NRBC 0.0 % (0.0 - 0.0) #NEUT 7.92 H 10/uL (2.00 - 6 .90) #LYMPH 1.37 10/uL (0.60 - 3.40) #MONO 0.49 10/uL (0.00 - 0.90) #EOS 0.09 10/uL (0.00 - 0.70) #BASO 0.02 10/uL (0.00 - 0.20) #IG 0.05 10/uL (0.00 - 0.10) #NRBC 0.00 10/uL (0.00 - 0.00) MANUAL DIFF NOT INDICATED RBC MORPH NOT INDICATEDCMP: (JESSY: 04/09/2020 12:03) ( MsgRcvd 04/09/2020 12:42) Final results Test Result Flag Units (Reference) COMPREHENSIVE METABOLIC PANEL COMPREHENSIVE METABOLIC PANEL SODIUM 136 mEq/L (134 - 153) POTASSIUM 3.5 L mEq/L (3.6 - 5.0) CHLORIDE 102 mEq/L (98 - 107) CO2 23 MEQ/L (22 - 30) GLUCOSE 131 H MG/DL (65 - 110) BUN 9 MG/DL (7 - 21) CREATININE 0.5 L MG/DL (0.7 - 1.5) BUN/CREAT 18 (8 - 27) TOTAL PROTEIN 6.7 G/DL (6.3 - 8.2) ALBUMIN 4.1 G/DL (3.9 - 5.0) GLOBULIN 2.6 GM/DL (2.4 - 3.2) A/G RATIO 1.6 (0.8 - 2.0) CALCIUM 8.9 MG/DL (8.4 - 10.2) TOTAL BILI <0.7 MG/DL (0.2 - 1.3) ALKALINE PHOS 68 U/L (38 - 126) SGOT/AST 32 U/L (5 - 40) SGPT/ALT 35 U/L (7 - 56) ANION GAP 11.0 mmol/L (8.0 - 16.0) AGE 29 yrs NON-AA GFR >60 mL/min AFR AMER GFR >60 mL/min 4 Clinical Report - Physicians/Mid Levels [facility] Emergency Department [address] [place] [address] Phone #: ext- [phone] 04/09/2020 11:25 Patient: COLTON FOSTER Sex: F : 1990 Age: 29y Male GFR Interprentation 20-49 yrs >60 mL/min Unwyuq15-04 yrs >56 mL/min Normal 60-69 yrs >49 mL/min Normal 70-79yrs>42 mL/min Normal 80 and above >35 mL/min Normal Female GFRInterpretation 20-39 yrs >60 mL/min Normal 40-49 yrs >58 mL/minNormal 50-59 yrs >51 mL/min Normal 60-69 yrs >45 mL/min Buyqmg95-69 yrs >39 mL/min Normal 80 and above >32 mL/min NormalLactic Acid: (JESSY: 04/09/2020 12:03) ( MsgRcvd 04/09/2020 12:16) Final results Test Result Flag Units (Reference) LACTIC ACID 1.5 MMOL/L (0.2 - 2.2)Lipase: (JESSY: 04/09/2020 12:03) ( [facility] 04/09/2020 12:42) Final results Test Result Flag Units (Reference) LIPASE 194 H U/L (13 - 60)PT/PTT: (JESSY: 04/09/2020 12:03) ( [facility] 04/09/2020 12:21) Final results Test Result Flag Units (Reference) PROTIME 13.3 SECONDS (11.0 - 15.5) INR 1.00 (0.93 - 1.23) PTT 28.1 SECONDS (24.8 - 36.7) \\BLDo\\INR INTERPRETATION\\BLDx\\ Therapeutic range for Coumadin andrelated oral anticoagulants. -International Normalized Ratio (INR): 2.0 - 3.0 for VenousThrombosis, Pulmonary Embolus, Tissue heart valves, Acute ND Atrial Fibrillation, Valvular heart diseaseand recurrent Systemic Embolism. -International Normalized Ratio (INR): 2.5 - 3.5 forMechanical Prosthetic valve.Urinalysis: (JESSY: 04/09/2020 12:12) ( [facility] 04/09/2020 12:19) Final results Test Result Flag Units (Reference) URINALYSIS URINALYSIS SOURCE R COLOR yellow (NORMAL: Yello CLARITY clear (NORMAL: Clear SPEC GRAVITY 1.015 (1.001 - 1.030 pH 8 (5 - 9) GLUCOSE NORM (NORMAL: Negat BILIRUBIN NEG (NORMAL: Negat KETONE NEG (NORMAL: Negat PROTEIN NEG (NORMAL: Negat NITRITE NEG (NORMAL: Negat BLOOD NEG (NORMAL: Negat LEUK EST NEG (NORMAL: Negat UROBILINOGEN NOR (less than 1.0Beta-HCG, Qual Serum: (JESSY: 04/09/2020 12:03) ( [facility] 04/09/2020 12:32) Final results Test Result Flag Units (Reference) HCG SERUM QUAL NEGATIVE (NORMAL: NEGAT HCG SERUM QL REENTER NEGATIVE (NORMAL: NEGAT { KIT LOT # [id number] ){ KIT EXP DATE08/06/21 ){ PROCEDURAL CONTROL VALID) 5 C linical Report - Physicians/Mid Levels [facility] Emergency Department [address] [place] [address] Phone #: ext- [phone] 04/09/2020 11:25 Patient: COLTON FOSTER Sex: F : 1990 Age: 29y.PROGRESS AND PROCEDURESCourse of Care: 12:Apr 09 2020. Awaiting records from [facility] ED visit APR 13. 12:Apr 09 2020. Records reviewed from [facility] ED visit yesterday revealed grossly normal labs (pt did test pos for cannabis on UA drug screen) and NAD on CT abd/pelvis, recommendation from ED Doc to f/u with gastroenterology for chronic abdominal pain and cyclic vomiting syndrome. 12:54 Apr 09 2020. Labs grossly normal again today, with exception to lipase which is 194, (157 yesterday, no mention of pancreatic disease), pt sleeping comfortably on exam bed when I entered room to discuss findings with her. Advised her that with todays lab findings I would be calling Dr Spencer, general surgery [facility] to further discuss and not necessarily performing CT of abd again. Awaiting call back from Dr Spencer. Pt asked while in room if she could have something more for pain, I will give her Toradol. 14:[address] Grady, general surgeon [facility] will be down to evaluate pt in ED, no call back from Dr Spencer as of yet. 15:32 Apr 09 2020. 15:32 Apr 09 2020. Awaiting CTAB results, r/o pancreatitis. 16:07 Apr 09 2020. CTAB with no acute disease, pt resting comfortably throughout ED course, with no episodes of vomiting. Dr Zulich feels no reason for pt's symptoms relative to her recent cholecystectomy, will discharge to home and recommend f/u as scheduled with [facility]. Advised return precautions. Disposition: Discharged home in good and improved condition. Discharge decision based on the following: patient's condition is improved; patient is ambulatory; patient is active; patient's pain is controlled; patient's exam is improved; minimally abnormal test results; improving condition on repeat evaluation; social support is adequate; transportation is available; follow-up is available; clinical impression is consistent with outpatient treatment.CLINICAL IMPRESSION Periumbilical abdominal pain of unknown cause. (? cyclical vomiting syndrome). Abnormal tests; (elevated lipase) .INSTRUCTIONS No strenuous activity until better. Rest at home for two days. Do not work for three days. Drink plenty of fluids for the next 48 hours. Avoid alcohol and NSAIDS. NSAIDS include aspirin, ibuprofen (Advil) and naproxen (Aleve). Avoid fatty, fried/greasy, lactose-containing (such as milk, cheese and ice cream), salty and spicy foods until better. No sexual contact until symptoms resolve. No alcohol. Do not 6 Clinical Report - Physicians/Mid Levels [facility] Emergency Department [address] [place] [address] Phone #: ext- [phone] 04/09/2020 11:25 Patient: COLTON FOSTER Sex: F : 1990 Age: 29y smoke. (continue zofran as needed for nausea/vomiting). Warnings: Further evaluation is necessary in order to conduct further tests. It is very important to follow up with a healthcare provider. GENERAL WARNINGS: Return or contact your physician immediately if your condition worsens or changes unexpectedly, if not improving as expected, or if other problems arise. SPECIFICALLY, return for continued pain in the abdomen or pelvis, fever, inability to keep fluids down, blood in vomitus, blood in diarrhea, fainting or lightheadedness. Your Current Medications: Your current home medications have been reviewed. CONTINUE TAKING THE FOLLOWING MEDICATIONS: CeleXA Oral : Tablet 40 mg, daily. PriLOSEC Oral : 40 mg daily. Follow-up: Follow up with your healthcare provider in three days even if well. Call for the next available appointment. Reason for referral: evaluation and f/u with gastroenterology as scheduled.. Summary of care provided to patient via paper. Understanding of the discharge instructions verbalized by patient. Expected course of illness, discharge instructions, activity level, follow-up appointment and risks and benefits of treatment reviewed with patient and understanding verbalized. Agrees to plan of care.(Electronically signed by STEVE James 04/09/2020 16:23) Name Value Range Interpretation Code Description Data Yoana rce(s) Supporting Document(s) ID Date Data Source [id number] 04/09/2020 12:12:00 PM EDT [facility] ([facility] Name Value Range Interpretation Code Description Data Yoana rce(s) Supporting Document(s) Urinalysis Laboratory test result [facility] ([facility]) SOURCE: Clean Catch Source Laboratory test result [facility] ([facility]) SOURCE: Clean Catch Color Laboratory test result [facility] ([facility]) SOURCE: Clean Catch Clarity Laboratory test result [facility] ([facility]) SOURCE: Clean Catch pH 8 5-9 [facility] ([facility]) SOURCE: Clean Catch Spec Auxier 1.015 1.001-1.030 [facility] ([facility]) SOURCE: Clean Catch Glucose Laboratory test result [facility] ([facility]) SOURCE: Clean Catch Bilirubin Laboratory test result [facility] ([facility]) SOURCE: Clean Catch Ketone Laboratory test result [facility] ([facility]) SOURCE: Clean Catch Protein Laboratory test result [facility] ([facility]) SOURCE: Clean Catch Nitrite Laboratory test result [facility] ([facility]) SOURCE: Clean Catch Leuk Est Laboratory test result [facility] ([facility]) SOURCE: Clean Catch Urobilinogen Laboratory test result [facility] NT ([facility]) SOURCE: Clean Catch Blood Laboratory test result [facility] ([facility]) SOURCE: Clean Catch ID Date Data Source [id number] 04/09/2020 12:19:00 PM EDT [facility] Name Value Range Interpretation Code Description Data Yoana rce(s) Supporting Document(s) URINALYSIS [facility] juli URINALYSIS SOURCE R [facility] COLOR yellow NORMAL: Yellow [facility] CLARITY clear NORMAL: Clear [facility] Specific gravity of Urine by Test strip 1.015 1.001 - 1.030 [facility] pH 8 5 - 9 [facility] Gl[facility] [Mass/volume] in Urine by Test strip NORM NORMAL: Negat [facility] Bilirubin.total [Presence] in Urine by Test strip NEG NORMAL: Negative [facility] Ketones [Presence] in Urine by Test strip NEG NORMAL: Negative [facility] Protein [Mass/volume] in Urine by Test strip NEG NORMAL: Negat [facility] Nitrite [Presence] in Urine by Test strip NEG NORMAL: Negative [facility] BLOOD NEG NORMAL: Negative [facility] Leukocyte esterase [Presence] in Urine by Test strip NEG NESSA L: Negative [facility] Urobilinogen [Mass/volume] in Urine by Test strip NOR less ayan n 1.0 mg/dL [facility] ID Date Data Source [id number] 04/09/2020 12:03:00 PM EDT [facility] ([facility]) Name Value Range Interpretation Code Description Data Yoana [facility](s) Supporting Document(s) CBC W/Automated Diff Laboratory test result [facility] ([facility] COMPLETE BLOOD COUNT WBC 9.9 10^3/uL 4.2-11.0 [facility] ([facility]) RBC 4.76 10^6/uL 4.20-5.40 [facility] ([facility]) Hemoglobin 13.6 g/dL 12.0-16.0 [facility]) MCV 86.6 fL 81.0-101 [facility] [facility]) Hematocrit 41.2 % 37.0-47.0 [facility] ([facility]) MCH 28.6 pg 27.0-34.0 [facility]) Platelets 241 10^3/uL 150-450 [facility] ([facility]) RDW 13.6 % 11.5-14.5 [facility] MCHC 33.0 g/dL 31.0-36.0 [facility] Neut 79.7 % 37.0-80.0 [facility]) Lymph 13.8 % 25.0-40.0 [facility] MPV 10.7 fL 7.4-10.4 [facility] Baso 0.2 % 0.0-2.5 [facility] Eos 0.9 % 0.0-7.0 [facility] Dawson 4.9 % 3.0-8.0 [facility] %Ig 0.5 % 0.0-0.0 [facility] #Neut 7.92 10^3/uL 2.00-6.90 [facility] ([facility]) %NRBC 0.0 % 0.0-0.0 [facility] #Lymph 1.37 10^3/uL 0.60-3.40 [facility] ([facility]) #Dawson 0.49 10^3/uL 0.00-0.90 [facility] ([facility]) #Eos 0.09 10^3/uL 0.00-0.70 [facility] ([facility]) #Baso 0.02 10^3/uL 0.00-0.20 [facility] ([facility]) #Ig 0.05 10^3/uL 0.00-0.10 [facility] ([facility]) #NRBC 0.00 10^3/uL 0.00-0.00 [facility] ([facility]) Manual Diff Laboratory test result [facility] T ([facility]) RBC Morph Laboratory test result [facility] ([facility]) ID Date Data Source [id number] 04/09/2020 12:03:00 PM EDT [facility] ([facility]) Name Value Range Interpretation Code Description Data Yoana rce(s) Supporting Document(s) Lactate [Mass/volume] in Serum or Plasma 1.5 mmol/L 0.2-2.2 [facility] ([facility] ID Date Data Source [id number] 04/09/2020 12:03:00 PM EDT [facility] ([facility] Name Value Range Interpretation Code Description Data Yoana rce(s) Supporting Document(s) Protime 13.3 s 11.0-15.5 [facility] ([facility]) Inr 1.00 0.93-1.23 [facility] ([facility]) PTT 28.1 s 24.8-36.7 [facility] ([facility]) \\BLDo\\INR INTERPRETATION\\BLDx\\ Therapeutic range for Coumadin and related oral anticoagulants. -International Normalized Ratio (INR): 2 .0 - 3.0 for Venous Thrombosis, Pulmonary Embolus, Tissue heart valves, Acute ND Atrial Fibrillation, Valvular heart disease and recurrent Systemic Embolism. -International Normalized Ratio (INR): 2 .5 - 3.5 for Mechanical Prosthetic valve. ID Date Data Source [id number] 04/09/2020 12:03:00 PM EDT [facility] Name Value Range Interpretation Code Description Data Yoana rce(s) Supporting Document(s) HCG Serum QL Reenter Laboratory test result [facility] ([facility]) { KIT LOT # [id number] ) { KIT EXP DATE 08/06/21 ) { PROCEDURAL CONTROL VALID ) HCG Serum Qual Laboratory test result [facility] ([facility]) ID Date Data Source [id number] 04/09/2020 12:03:00 PM EDT [facility] Name Value Range Interpretation Code Description Data Yoana rce(s) Supporting Document(s) Sodium 136 meq/L 134-153 [facility] ([facility]) Comprehensive Metabo Laboratory test result [facility] ([facility]) COMPREHENSIVE METABOLIC PANEL Chloride 102 meq/L 98-107 [facility] ([facility]) Co2 23 meq/L 22-30 [facility] ([facility]) Potassium 3.5 meq/L 3.6-5.0 [facility] [facility]) Glucose 131 mg/dL 65-110 [facility] Creatinine 0.5 mg/dL 0.7-1.5 [facility]) BUN 9 mg/dL 7-21 [facility] ([place] [facility]) Albumin 4.1 g/dL 3.9-5.0 [facility] ([facility] [facility]) Total Protein 6.7 g/dL 6.3-8.2 [facility] ([facility]) BUN/Creat 18 8-27 [facility] ([place] [facility] Globulin 2.6 GM/DL 2.4-3.2 [facility] ([facility]) A/G Ratio 1.6 0.8-2.0 [facility]) Calcium 8.9 mg/dL 8.4-10.2 [facility] ([facility] [facility] Alkaline Phos 68 U/L 38-126 [facility] ([facility]) Total Bili Laboratory test result 0.2-1.3 [facility] ([facility]) SGPT/Alt 35 U/L 7-56 [facility] Sgot/Ast 32 U/L 5-40 [facility] ([facility]) Anion Gap 11.0 mmol/L 8.0-16.0 [facility] ([facility]) Non-Aa GFR Laboratory test result [facility] ([facility]) Age 29 yrs [facility] ([facility]) Afr Amer GFR Laboratory test result [facility] ([facility]) Male GFR Interprentation 20-49 yrs >60 mL/min Normal 50-59 yrs >56 mL/min Normal 60-69 yrs >49 mL/min Normal 70-79yrs >42 mL/min Normal 80 and above >35 mL/min Normal Female GFR Interpretation 20-39 yrs >60 mL/min Normal 40-49 yrs >58 mL/min Normal 50-59 yrs >51 mL/min Normal 60-69 yrs >45 mL/min Normal 70-79 yrs >39 mL/min Normal 80 and above >32 mL/min Normal ID Date Data Source [id number] 04/09/2020 12:03:00 PM EDT [facility] ([facility]) Name Value Range Interpretation Code Description Data Yoana rce(s) Supporting Document(s) Lipoprotein lipase [Enzymatic activity/volume] in Serum or Plasm a 194 U/L 13-60 [facility] ([facility]) ID Date Data Source [id number] 04/09/2020 12:42:00 PM EDT [facility] Name Value Range Interpretation Code Description Data Yoana rce(s) Supporting Document(s) Lipase [Enzymatic activity/volume] in Serum or Plasma 194 U/L 13 - 60 H [facility] ID Date Data Source [id number] 04/09/2020 12:41:00 PM EDT [facility] Name Value Range Interpretation Code Description Data Yoana rce(s) Supporting Document(s) COMPREHENSIVE METABOLIC PANEL [facility] COMPREHENSIVE METABOLIC PANEL Sodium [Moles/volume] in Serum or Plasma 136 mEq/L 134 - 153 [facility] Potassium [Moles/volume] in Serum or Plasma 3.5 mEq/L 3.6 - 5.0 L [facility] Chloride [Moles/volume] in Serum or Plasma 102 mEq/L 98 - 107 [facility] Carbon dioxide, total [Moles/volume] in Serum or Plasma 23 MEQ/L 22 - 30 [facility] Glucose [Mass/volume] in Serum or Plasma 131 MG/DL 65 - 110 H [facility] BUN 9 MG/DL 7 - 21 [facility] Creatinine [Mass/volume] in Serum or Plasma 0.5 MG/DL 0.7 - 1.5 L [facility] BUN/CREAT 18 8 - 27 [facility] Protein [Mass/volume] in Serum or Plasma 6.7 G/DL 6.3 - 8.2 [facility] Albumin [Mass/volume] in Serum or Plasma 4.1 G/DL 3.9 - 5.0 [facility] Globulin [Mass/volume] in Serum by calculation 2.6 GM/DL 2.4 - 3.2 [facility] A/G RATIO 1.6 0.8 - 2.0 [facility] Calcium [Mass/volume] in Serum or Plasma 8.9 MG/DL 8.4 - 10.2 [facility] Bilirubin.total [Mass/volume] in Serum or Plasma <0.7 MG/DL 0.2 - 1.3 [facility] Alkaline phosphatase [Enzymatic activity/volume] in Serum or Plasma 68 U/L 38 - 126 [facility] Aspartate aminotransferase [Enzymatic activity/volume] in Serum or Plasma 32 U/L 5 - 40 [facility] Alanine aminotransferase [Enzymatic activity/volume] in Seru m or Plasma 35 U/L 7 - 56 [facility] Anion gap 3 in Serum or Plasma 11.0 mmol/L 8.0 - 16.0 [facility] AGE 29 y[facility] G[facility] >60 mL/min [facility] ital AFR AMER GFR >60 mL/min [facility] Male GFR In terprentation 20-49 yrs >60 mL/min Normal 50-59 yrs >56 mL/min Normal 60-69 yrs >49 mL/min Normal 70-79yrs >42 mL/min Normal 80 and above >35 mL/min Normal Female GFR Interpretation 20-39 yrs >60 mL/min Normal 40-49 yrs >58 mL/min Normal 50-59 yrs >51 mL/min Normal 60-69 yrs >45 mL/min Normal 70-79 yrs >39 mL/min Normal 80 and above >32 mL/min Normal ID Date Data Source [id number] 04/09/2020 12:32:00 PM EDT [facility] Name Value Range Interpretation Code Description Data Yoana rce(s) Supporting Document(s) HCG SERUM QUAL NEGATIVE NORMAL: NEGATIVE [facility] HCG SERUM QL REENTER NEGATIVE NORMAL: NEGATIVE [facility] { KIT LOT # [id number] ){ KIT EXP DATE 08/06/21 ){ PROCEDURAL CONTROL VALID ) ID Date Data Source [id number] 04/09/2020 12:21:00 PM EDT [facility] Name Value Range Interpretation Code Description Data Yoana rce(s) Supporting Document(s) Prothrombin time (PT) 13.3 SECONDS 11.0 - 15.5 [facility] INR in Platelet poor plasma by Coagulation assay 1.00 0.93 - 1. 23 [facility] aPTT in Blood by Coagulation assay 28.1 SECONDS 24.8 - 36.7 [facility] \\BLDo\\INR INTERPRETATION\\BLDx\\ Therapeutic range for Coumadin and related oral anticoagulants. - International Normalized Ratio (INR): 2.0 - 3.0 for Venous Thrombosis, Pulmonary Embolus, Tissue heart valves, Acute ND Atrial Fibrillation, Valvular heart disease and recurrent Systemic Embolism. - International Normalized Ratio (INR): 2.5 - 3.5 for Mechanical Prosthetic valve. ID Date Data Source [id number] 04/09/2020 12:16:00 PM EDT [facility] Name Value Range Interpretation Code Description Data Yoana rce(s) Supporting Document(s) Lactate [Moles/volume] in Serum or Plasma 1.5 MMOL/L 0.2 - 2.2 [facility] ID Date Data Source [id number] 04/09/2020 12:14:00 PM EDT [facility] Name Value Range Interpretation Code Description Data Yoana rce(s) Supporting Document(s) CBC W/AUTOMATED DIFF [facility] COMPLETE BLOOD COUNT Leukocytes [#/volume] in Blood by Automated count 9.9 10^3/uL 4.2 - 1 1.0 [facility] Erythrocytes [#/volume] in Blood by Automated count 4.76 10^6/uL 4. 20 - 5.40 [facility] Hemoglobin [Mass/volume] in Blood 13.6 g/dL 12.0 - 16.0 [facility] Hematocrit [Volume Fraction] of Blood by Automated count 41.2 % 3 7.0 - 47.0 [facility] Erythrocyte mean corpuscular volume [Entitic volume] by Auto mated count 86.6 fL 81.0 - 101 [facility] Erythrocyte mean corpuscular hemoglobin [Entitic mass] by Automated count 28.6 pg 27.0 - 34.0 [facility] Erythrocyte mean corpuscular hemoglobin concentration [Mass/volume] by Automated count 33.0 g/dL 31.0 - 36.0 [facility] Erythrocyte distribution width [Ratio] by Automated count 13.6 % 11.5 - 14.5 [facility] Platelets [#/volume] in Blood by Automated count 241 10^3/uL 150 - 45 0 [facility] Platelet mean volume [Entitic volume] in Blood by Automated count 10.7 fL 7.4 - 10.4 H [facility] Neutrophils/100 leukocytes in Blood by Automated count 79.7 % 37. 0 - 80.0 [facility] Lymphocytes/100 leukocytes in Blood by Manual count 13.8 % 25.0 - 40.0 L [facility] Monocytes/100 leukocytes in Blood by Automated count 4.9 % 3.0 - 8.0 [facility] Eosinophils/100 leukocytes in Blood by Automated count 0.9 % 0.0 - 7.0 [facility] Basophils/100 leukocytes in Blood by Automated count 0.2 % 0.0 - 2.5 [facility] %IG 0.5 % 0.0 - 0.0 H [facility] %NRBC 0.0 % 0.0 - 0.0 [facility] al Neutrophils [#/volume] in Blood by Automated count 7.92 10^3/uL 2.00 - 6.90 H [facility] Lymphocytes [#/volume] in Blood by Automated count 1.37 10^3/uL 0.60 - 3.40 [facility] Monocytes [#/volume] in Blood by Automated count 0.49 10^3/uL 0.00 - 0.90 [facility] Eosinophils [#/volume] in Blood by Automated count 0.09 10^3/uL 0.00 - 0.70 [facility] Basophils [#/volume] in Blood by Automated count 0.02 10^3/uL 0.00 - 0.20 [facility] #IG 0.05 10^3/uL 0.00 - 0.10 [facility] ospital #NRBC 0.00 10^3/uL 0.00 - 0.00 [facility] MANUAL DIFF NOT INDICATED [facility] RBC MORPH NOT INDICATED [facility] spital ID Date Data Source [id number] 04/08/2020 01:24:00 PM EDT [facility] ([facility]) Name Value Range Interpretation Code Description Data Yoana rce(s) Supporting Document(s) Appearance, Urine RFX Laboratory test result [facility] ([facility]) Color, Urine RFX Laboratory test result [facility] ([facility] PH,Urine RFX 9.0 units 5.0-9.0 [facility] ([facility] Glucose, Urine (Ua) Auto RFX Laboratory test result [facility] ([facility] Protein, Urine Auto RFX Laboratory test result [facility] ([facility]) Specific [place]uxier Ur Auto RFX 1.016 1.002-1.035 [facility] ([facility] Ketone, Urine Auto RFX Laboratory test result [facility] ([facility]) Urobilinogen, Urine Auto RFX 0.2 mg/dL 0.0-2.0 [facility] ([facility]) Leukocyte Esterase Ur Auto RFX Laboratory test result [facility] ([facility]) Nitrite, Urine Auto RFX Laboratory test result [facility] ([facility] Bilirubin, Urine Auto RFX Laboratory test result [facility] ([facility] Blood, Urine Blood RFX Laboratory test result [facility] ([facility]) RBC, Urine Auto RFX 1 /HPF 0-3 [facility] ([facility]) WBC, Urine Auto RFX 0 /HPF 0-3 [facility] Mucus, Urine RFX Laboratory test result [facility] ([facility] Bacteria, Urine Auto RFX Laboratory test result [facility] ([facility] Squam Epithelial Cell Ur Aurfx 1 /HPF 0-6 [facility] ([facility] Hyaline Cast, Urine Auto RFX 0 /LPF 0-1 [facility] ([facility]) ID Date Data Source [id number] 04/08/2020 01:24:00 PM EDT [facility] ([facility]) Name Value Range Interpretation Code Description Data Yoana rce(s) Supporting Document(s) Amphetamines Level Urine Laboratory test result [facility] ([facility]) Cannabinoids Urine Laboratory test result [facility] ([facility]) Barbiturates Urine Laboratory test result [facility] ([facility] Benzodiazepines Urine Laboratory test result [facility] Methadone Urine Laboratory test result [facility] ([facility]) Cocaine Metabolite Urine Laboratory test result [facility] ([facility]) Opiates Urine Laboratory test result [facility] ([facility]) Phencyclidine Urine Laboratory test result [facility] ([facility]) ALL PRESUMPTIVE POSITIVE FINDINGS AR E UNCONFIRMED THRESHOLD IN NG/ML AMPHETAMINES/METHAMPHET 1000 BARBITURATES 200 BENZODIAZEPINES 200 CANNABINOIDS (THC) 50 COCAINE METABOLITE 300 METHADONE 300 OPIATES 300 PHENCYCLIDINE 25 RESULTS ARE FOR MEDICAL PURPOSES ONLY. ALL URINE SPECIMENS WILL BE SAVED FOR 3 DAYS. IF CONFIRMATION OF A PRESUMPTIVE POSITIVE SCREEN RESULT IS DESIRED, CALL CHEMISTRY ([phone]) AND REQUEST URINE TO BE SENT TO REFERENCE LAB. FOR A LIST OF CLOSELY RELATED COMPOUNDS PLEASE CALL THE LAB. ID Date Data Source [id number] 04/08/2020 11:32:00 AM EDT [facility] Name Value Range Interpretation Code Description Data Yoana rce(s) Supporting Document(s) White Blood Count 10.9 10 4.0-10.0 [facility] ([facility] Red Blood Count 4.74 10 4.00-5.40 [facility] ([facility] Hemoglobin 13.4 g/dL 12.0-15.5 [facility] ([facility]) Mean Corpuscular Volume 89.7 fl 80.0-96.0 [facility] Hematocrit 42.5 % 36.0-47.0 [facility] Mean Corpuscular Hemoglobin 28.3 pg 27.0-33.0 [facility] ([facility]) Red Cell Distribution Width 13.2 % 11.5-14.5 [facility] ([facility]) Mean Corpuscular HGB Conc 31.5 g/dL 32.0-36.5 [facility] ([facility]) Platelet Count, Automated 236 10 150-450 [facility] ([facility]) Lymph % 9.4 % 24.0-44.0 [facility]) Dawson % 3.0 % 0.0-5.0 [facility] ([facility]) Neutrophils % 86.5 % 36.0-66.0 [facility] ([facility]) Eos % 0.5 % 0.0-3.0 [facility] ([facility]) Baso % 0.2 % 0.0-1.0 [facility] ([facility]) Immature Granulocyte % 0.4 % 0-3.0 [facility] ([facility]) Nucleated Red Blood Cell % 0.0 % 0-0 [facility] ([facility]) Neutrophils # 9.5 10 1.5-8.5 [facility] ([facility]) Dawson # 0.3 10 0.0-0.8 [facility] ([facility]) Lymph # 1.0 10 1.5-5.0 [facility] ([facility]) Eos # 0.1 10 0.0-0.5 [facility] ([facility]) Baso # 0.0 10 0.0-0.2 [facility] ([facility]) ID Date Data Source [id number] 04/08/2020 11:32:00 AM EDT [facility] ([facility]) Name Value Range Interpretation Code Description Data Yoana rce(s) Supporting Document(s) Ast/Sgot 11 U/L 7-37 [facility] ([facility]) Alkaline Phosphatase 71 U/L 45-117 [facility] ([facility]) Alt/SGPT 31 U/L 12-78 [facility] ([facility] [facility]) Bilirubin,Direct 0.1 mg/dL 0.0-0.2 [facility] ([facility]) Bilirubin,Total 0.2 mg/dL 0.2-1.0 [facility] ([facility]) Total Protein 6.9 GM/DL 6.4-8.2 [facility] ([facility]) Albumin 3.6 GM/DL 3.2-5.2 [facility] ([facility]) Albumin/Globulin Ratio 1.1 1.2-2.2 [facility] ([facility]) ID Date Data Source [id number] 04/08/2020 11:32:00 AM EDT [facility] ([facility]) Name Value Range Interpretation Code Description Data Yoana rce(s) Supporting Document(s) Creatinine For GFR 0.61 mg/dL 0.55-1.30 [facility] ([facility]) Glucose, Fasting 135 mg/dL 70-100 [facility] ([facility]) Blood Urea Nitrogen 17 mg/dL 7-18 [facility] ([facility]) Sodium Level 140 meq/L 136-145 [facility] ([facility]) Glomerular Filtration Rate Laboratory test result [facility] ([facility]) <content>Units are mL/min/1.73 m2</content>
<content></content>
<content>Chronic Kidney Disease Staging per NKF:</content>
<content></content>
<content>Stage I & II GFR >=60 Normal to Mildly Decreased</content>
<content>Stage III GFR 30- 59 Moderately Decreased</content>
<content>Stage IV GFR 15-29 Severely Decreased</content>
<content>Stage V GFR <15 Very Little GFR Left</content>
<content>ESRD GFR <15 on WASH HOUSE SUPERVISOR</content>
<content></content> Carbon Dioxide Level 30 meq/L 21-32 [facility] ([facility]) Chloride Level 106 meq/L 98-107 [facility] ([facility]) Potassium Serum 4.3 meq/L 3.5-5.1 [facility] ([facility]) Anion Gap 4 meq/L 8-16 [facility] ([facility]) Calcium Level 9.0 mg/dL 8.5-10.1 [facility] ([facility]) ID Date Data Source [id number] 04/08/2020 11:32:00 AM EDT [facility] ([facility]) Name Value Range Interpretation Code Description Data Yoana rce(s) Supporting Document(s) Lipoprotein lipase [Enzymatic activity/volume] in Serum or P lasma 157 U/L 73-393 [facility] ([facility]) HCG Serum Qualitative Laboratory test result [facility] ([facility]) ID Date Data Source [id number] 04/03/2020 07:08:00 PM EDT [facility] ([facility], ) Name Value Range Interpretation Code Description Data Yoana rce(s) Supporting Document(s) Surgical pathology study Laboratory test result [facility] ([facility]) FINAL DIAGNOSIS Gallbladder, cholecystectomy: Cholelithiasis. Chronic cholecystitis. 04/05/2020 - 1124 CLINICAL DIAGNOSIS Acute cholecystitis 04/04/2020 - 1231 GROSS DIAGNOSIS Received in formalin labeled "gallbladder" and consists of a gallbladder 7 x 2.5 x 2.5 cm. The specimen is opene d to reveal multiple gallstones measuring from 0.5 to 1.5 cm. in greatest dimension. No polypoid or mass/lesion is identified. Supervisor Home [employer] sections are submitted in one. -EUSEBIO 04/05/2020 - 910 Signed CHELSEY COOPER MD 04/05/2020 1124 ID Date Data Source [id number] 04/02/2020 05:01:00 PM EDT [facility] 1 OrderSheet [facility] Emergency Department [address] [place] [address] Phone #: ext- [phone] 04/02/2020 16:53 Patient: COLTON FOSTER Sex: F : 1990 Age: 29yWEIGHT:99.7 kg (S) HEIGHT:64 inches (S) BMI:37.8ALLERGIES: NoneCHIEF COMPLAINT: vomitingDIAGNOSIS: CholecystitisLAB ORDERSOrder Description Priority Entered Acknowledged InitialedCBC w Diff STAT 17:22 04/02/2020 17:22 Pacheco Celis.N. P.A.-C;CMP STAT 17:22 04/02/2020 17:22 Pacheco CelisN. P.A.-C;Lipase STAT 17:22 04/02/2020 17:22 Pacheco Celis.N. P.A.-C;Urinalysis (Clean STAT 17:04/02/2020 17:22 Vimal,Catch) Pacheco Schwartz.N. P.A.-C;Troponin-T STAT 17:04/02/2020 17:22 Pacheco Celis.N. P.A.-C;Lactic Acid STAT 17:04/02/2020 17:22 Pacheco Celis.N. P.A.-C;HCG Serum Qual STAT 17:04/02/2020 17:22 Pacheco Celis.N. P.A.-C;DIAGNOSTIC STUDY ORDERSOrder Description Priority Entered Acknowledged InitialedUS Liver STAT 17:04/02/2020 17:22 Vimal,(Oxygen?(No)) Pacheco Schwartz.N. P.A.-C; Reason for Study: Nausea w Vomiting, RUQ PainMEDICATION/IV/DRIP/FLUID ORDERSOrder Description Priority Entered Acknowledged Initialed 2 OrderSheet [facility] Emergency Department [address] [place] [address] Phone #: ext- [phone] 04/02/2020 16:53 Patient: COLTON FOSTER Sex: F : 1990 Age: 29yNS IV : Bolus 1000 17:22 04/02/2020 17:35 Vimal,mL, then 75 mL/hr Pacheco Pratt R.N. P.A.-C;Zofran IVP 4 mg 17:22 04/02/2020 17:35 Pacheco Celis R.N. P.A.-C;Protonix IVPB 40 17:22 04/02/2020 17:35 Vimal,mg with Dextrose Pacheco Pratt R.N.100 ml spike bag P.A.-C;(D5W)Benadryl IVP 25 mg 17:22 04/02/2020 17:36 Pacheco Celis R.N. P.A.-C;Morphine IVP 2 mg 19:27 04/02/2020 19:52 Jose(HIGH ALERT Pacheco Grewal R.N.MEDICATION) P.A.-C;Zofran IVP 4 mg 19:27 04/02/2020 19:52 Pacheco Garcia R.N. P.A.-C;Zosyn- IVPB 3.375 21:45 04/02/2020 22:01 Josegm (in 50 mL D5W, Pacheco Grewal R.N.X1) P.A.-C;Morphine IVP 2 mg 21:47 04/02/2020 22:01 Jose(HIGH ALERT Pacheco Gerwal R.N.MEDICATION) P.A.-C;Morphine IVP 2 mg 23:44 04/02/2020 23:44 Jose,(NOW x1, HIGH Freddie Garcia R.N.; Freddie GottliebALERT Verbal order per;MEDICATION) Phan Diallo [facility] ORDERSOrder Description Priority Entered Acknowledged InitialedNPO 17:22 04/02/2020 17:22 Pacheco Celis R.N. P.A.-C;Saline Lock 17:22 04/02/2020 17:22 Pacheco Celis R.N. P.A.-C;EKG 17:22 04/02/2020 17:22 Pacheco Celis R.N. P.A.-C; 3 OrderSheet [facility] Emergency Department [address] [place] [address] Phone #: ext- [phone] 04/02/2020 16:53 Patient: COLTON FOSTER Sex: F : 1990 Age: 29y[Electronically signed by Freddie Garcia R.N. (00:06 04/03/2020)][Electronically signed by Pacheco Hayward P.A.-C (16:06 04/03/2020)][Electronically locked by Freddie Garcia R.N. (00:04/03/2020)] Name Value Range Interpretation Code Description Data Yoana rce(s) Supporting Document(s) ID Date Data Source [id number] 04/02/2020 05:01:00 PM EDT [facility] 1 Medication Reconciliation Report [facility] Emergency Department [address] [place] [address] Phone #: ext- [phone] 04/02/2020 16:53 Patient: COLTON FOSTER Sex: F : 1990 Age: 29yWeight: 99.7 kgHeight/Length: 64 in.BMI: 37.8ALLERGIES: NoneThe patient's Home Medications are listed below:THE FOLLOWING MEDICATIONS NEED TO BE RECONCILED: CeleXA Oral (40 mg), daily PriLOSEC Oral 40 mg, dailyThe source(s) of the original Home Medication information:Not obtained.The following Medications were given to the patient in the Emergency Department:Protonix [IVPB] IVPB bolus 0, then 40 mg 200 mL/hr, administered: 04/02/2020 5:25:00 PMNS [IV] IV Fluids bolus 1000 mL wide open, then 75 mL/hr, administered: 04/02/2020 5:25:00 PMZofran [IVP] IVP 4 mg, administered: 04/02/2020 5:35:00 PMBenadryl [IVP] IVP 25 mg, administered: 04/02/2020 5:31:00 PMZofran [IVP] IVP 4 mg, administered: 04/02/2020 7:52:00 PMMorphine [IVP] IVP 2 mg, administered: 04/02/2020 7:52:00 PMZosyn [IVPB] IVPB bolus 0, then 3.375 gm 300 mL/hr, administered: 04/02/2020 10:01:00 PMMorphine [IVP] IVP 2 mg, administered: 04/02/2020 10:01:00 PMMorphine [IVP] IVP 2 mg, administered: 04/02/2020 11:44:00 PMThe following Medications were prescribed to the patient:None. 2 Medication Reconciliation Report [facility] Emergency Department [address] [place] [address] Phone #: ext- [phone] 04/02/2020 16:53 Patient: COLTON FOSTER Sex: F : 1990 Age: 29y Name Value Range Interpretation Code Description Data Yoana rce(s) Supporting Document(s) ID Date Data Source [id number] 04/02/2020 05:01:00 PM EDT [facility] 1 Medication Administration Record [facility] Emergency Department [address] [place] [address] Phone #: ext- [phone] 04/02/2020 16:53 Patient: COLTON FOSTER Sex: F : 1990 Age: 29yWeight: 99.7 kgHeight/Length: 64 inBMI: 37.8ALLERGIES: None Date/Time Medication Administered Medication OrderedStart NS [IV] NS IV : Bolus 1000 mL, then 7517:25 04/02/2020 Dose: IV Fluids mL/hrSanta Celis R.N. Rate: 75 mL/hr over 10 hour(s)---- Bolus: 1000 mL wide openStop Dispensed: 1000 mL bag23:52 04/02/2020 Site: #1 right Freddie Davis R.N.Given ZOFRAN [IVP] (ONDANSETRON HCL) Zofran IVP 4 mg17:35 04/02/2020 Dose: 4 mg IVPMattSanta white R.N. Site: #1 right ACStart PROTONIX [IVPB] (PANTOPRAZOLE Protonix IVPB 40 mg with17:25 04/02/2020 SODIUM) Dextrose 100 ml spike bag (D5W)Santa Celis R.N. Dose: 40 mg IVPB---- Rate: 200 mL/hr over 30 minute(s)Stop Dispensed: 100 mL bag18:52 04/02/2020 Site: #1 right Freddie Davis R.N.Given BENADRYL [IVP] (DIPHENHYDRAMINE Benadryl IVP 25 mg17:31 04/02/2020 HCL)Santa Celis R.N. Dose: 25 mg IVP Site: #1 right ACGiven MORPHINE [IVP] Morphine IVP 2 mg (HIGH ALERT19:52 04/02/20 20 Dose: 2 mg IVP MEDICATION)Freddie Garcia R.N. Site: #1 right ACGiven ZOFRAN [IVP] (ONDANSETRON HCL) Zofran IVP 4 mg19:52 04/02/2020 Dose: 4 mg IVPSFreddie sebastian R.N. Site: #1 right ACStart ZOSYN [IVPB] (PIPERACILLIN Zosyn- IVPB 3.375 gm (in 50 mL22:01 04/02/2020 SOD-TAZOBACTAM SO) D5W, X1)Freddie Garcia R.N. Dose: 3.375 gm IVPB---- Rate: 300 mL/hr over 20 minute(s)Stop Dispensed: 100 mL bag22:30 04/02/2020 Site: #1 right Freddie Davis R.N.Given MORPHINE [IVP] Morphine IVP 2 mg (HIGH ALERT22:01 04/02/2020 Dose: 2 mg IVP MEDICATION)Freddie Garcia R.N. Site: #1 right ACGiven MORPHINE [IVP] Morphine IVP 2 mg (NOW x1, HIGH23:44 04/02/2020 Dose: 2 mg IVP ALERT MEDICATION)Freddie Garcia R.N. Site: #1 right AC Name Value Range Interpretation Code Description Data Yoana rce(s) Supporting Document(s) ID Date Data Source [id number] 04/02/2020 05:01:00 PM EDT [facility] 1 General Instructions [facility] Emergency Department [address] [place] [address] Phone #: ext- [phone] 04/02/2020 16:53 Patient: COLTON FOSTER Sex: F : 1990 Age: 29yAcute cholecystitis with cholelithiasis. No obstruction or choledocholithiasis. ADDITIONAL INFORMATIONCholecystitis (Confirmed) Your abdominal pain is due to an inflammation andpossible infection in the gallbladder. This is called cholecystitis.The gallbladder is a small sac under the liver that stores and releases bile. Bile is a fluid made in theliver that helps you digest fat. Eating fatty food stimulates the gallbladder to contract, and release thebile.A gallstone may form in this sac. Although most people do not have symptoms, if the stone movesand block the passage of bile out of the bladder, it can cause pain and even infection. Bile sludgewithout a stone can also cause cholecystitis.A number of things increase the risk of developing gallstones: Gender, women are more likely to get them 2 General Instructions [facility] Emergency Department [address] [place] [address] Phone #: ext- [phone] 04/02/2020 16:53 Patient: COLTON FOSTER Sex: F : 1990 Age: 29y Obesity Increasing age Losing or gaining weight quickly High calor ie diet Hormone therapy DiabetesThe most common symptoms are: Abdominal pain, cramping, and aching Nausea or vomiting FeverMany illnesses can cause these symptoms. This pain usually starts in the upper right side of yourabdomen. Sometimes it can radiate to your right shoulder, back, and arm. It usually starts suddenly,becomes more intense quickly, and then gradually decreases and disappears over a couple of hours.Older people and people with diabetes may have difficulty showing where the pain is exactly. Thepain may occur after meals, especially after eating fatty foods.Home care Rest in bed and follow a clear liquid diet until the pain, nausea, and vomiting have gone away. Antibiotics and other medicine may be prescribed. Take this exactly as directed. You may use ibuprofen or naproxen to control pain, unless another medicine was prescribed. You can take acetaminophen or ibuprofen for pain, unless you were given a different pain medicine to use. Note: If you have chronic liver or kidney disease or ever had a stomach ulcer or GI bleeding or are taking blood thinner medicines, talk with your healthcare provider before using these medicines. Fat in your diet makes the gallbladder contract and may cause increased pain. So don't have any fat over the next 2 days and follow a low-fat diet after that.Follow-up careAn infection in the gallbladder is a serious problem and must be watched carefully. See your doctor inthe next 1 to 2 days, or as directed. Once cholecystitis has occurred, you usually will need to haveyour gallbladder removed to keep the condition from happening again. You can discuss this at your 3 General Instructions [facility] Emergency Department [address] [place] [address] Phone #: ext- [phone] 04/02/2020 16:53 Patient: COLTON FOSTER Sex: F : 1990 Age: 29yfollow-up visit. If you were hospitalized for the cholecystitis, your gallbladder may be removed duringthe same hospitalization.When to seek medical adviceCall your healthcare provider if any of the following occur: Repeated vomiting Swelling of the abdomen Pain that lasts more than 6 hours Fever of 100.4F (38C) or higher, or as directed by your healthcare provider Weakness, dizziness, or fainting Dark urine or light-colored stools Yellow color of the skin or eyes Chest, arm, back, neck, or jaw pain [id number] [employer]. [address] [place] [address]. All rights reserved. This information is not intended as asubstitute for professional medical care. Always follow your healthcare professional's instructions.Gallstones with Biliary ColicYour abdominal pain due to irritation and spasm of the gallbladder. This is called biliary colic. Thegallbladder is a small sac under the liver, which stores and releases a bile. Bile is a fluid made in the 4 General Instructions [facility] Emergency Department [address] [place] [address] Phone #: ext- [phone] 04/02/2020 16:53 Patient: COLTON FOSTER Sex: F : 1990 Age: 29yliver that aids in the digestion of fat. A collection of crystals may form stones inside the gallbladder(gallstones). Gallstones can cause the gallbladder to spasm. If they block the duct out of thegallbladder, they can cause pain and even an infection.A number of factors increase the risk for having gallstones: Being female Being severely overweight (obese) Older age Losing or gaining weight quickly Eating a high-calorie diet Being Taking hormone therapy Having diabetesHome care Rest in bed. Drink only clear liquids until you feel better. You may have been prescribed medicine for pain or nausea. Take these as directed. Fat in your diet makes the gallbladder contract and may cause increased pain. Don't eat foods that are high in fat (such as full-fat dairy, fried foods, and fatty meats) for at least 2 days. If you are overweight, talk to your healthcare provider about losing weight.Follow-up careFollow up with your healthcare provider or as advised. There is a chance that you will have anotherepisode of pain from your gallstones at some point. Removal of the gallbladder is an option to preventthis. Talk with your healthcare provider about your treatment options.When to seek medical adviceCall your healthcare provider if any of the following occur: Worsening pain or pain lasting for longer than 6 hours Pain moving to the right lower belly 5 General Instructions [facility] Emergency Department [address] [place] [address] Phone #: ext- [phone] 04/02/2020 16:53 Patient: COLTON FOSTER Sex: F : 1990 Age: 29y Repeated vomiting Swollen belly Fever of 100.4F (38C) or higher, or as directed by your healthcare provider Very dark urine, light colored stools, or yellow color of the skin or eyes Chest, arm, back, neck or jaw pain [phone] [employer] [address] [place] [address]. All rights reserved. This information is not intended as asubstitute for professional medical care. Always follow your healthcare professional's instructions. You have been given the following additional information: Cholecystitis, Confirmed Gallstones with Biliary Colic(Electronically signed by Pacheco Hayward P.A.-C 04/03/2020 16:06) Name Value Range Interpretation Code Description Data Yoana rce(s) Supporting Document(s) ID Date Data Source [id number] 04/02/2020 05:01:00 PM EDT [facility] 1 Clinical Report - Nurses [facility] Emergency Department [address] [place] [address] Phone #: ext- [phone] 04/02/2020 16:53 [id number] Sex: F : 1990 Age: 29yTRIAGEArrived by private vehicle. Historian: patient. Unaccompanied. ( started with loose stools then lowerabd pain and vomit, was here for same problem 2 weeks ago, ct scan was negative, was given heartburnmedicine but has not been able to keep it down).Acuity: LEVEL 3.Chief C omplaint: ABDOMINAL PAIN, NAUSEA, VOMITING and DIARRHEA.Alert. No acute distress.Onset. (2 days). She has had nausea, vomiting, diarrhea and abdominal pain.Treatment DOUGH MOLDER:None.SEPSIS SCREEN: SIRS Screen negative. Sepsis Screen negative. No suspected or confirmed signs ofinfection present. --17:00 04/02/20 Sharee Pack R.N.16:54 04/02/20. BP: 134/84. MAP: 100. HR: 57. RR: 18. O2 saturation: 97%. Temp: 97.6 F. Pain levelnow: 8/10. --17:00 04/02/20 Sharee Pack R.N.Weight: 99.7 kg stated. Height/Length: 64 inches Per Patient. BMI: 37.8. --16:54 04/02/20 Sharee Pack R.N.MedicationsPriLOSEC Oral 40 mg, daily. --16:56 04/02/20 Sharee Pack R.N. CeleXA Oral (Tablet 40 mg), daily. --16:56 04/02/20 Sharee Pack R.N.AllergiesNone. --16:56 04/02/20 Sharee Pack R.N.PROBLEMS:Depression.Gerd. --16:57 04/02/20 Sharee Pack R.N.Anxiety Reaction. --17:41 04/02/20 Milagros Subramanian-CThe following entry was modified by Vilma Subramanian.-C, 17:41 04/02/20Anxiety Reaction. --16:57 04/02/20 Sharee Pack R.N..ADDITIONAL SURGERIES:Adenoidectomy..Ovarian cyst removed. 2 Clinical Report - Nurses [facility] Emergency Department [address] [place] [address] Phone #: ext- [phone] 04/02/2020 16:53 Patient: COLTON FOSTER Sex: F : 1990 Age: 29y Tonsillectomy. Tubal Ligation. --16:57 04/02/20 Sharee Pack R.N. History PAST MEDICAL HX: Immunizations: up-to-date. Last normal menstrual period- 2 months. SOCIAL HX: Light tobacco smoker- less than 1/2 a pack per day. History of heavy drug use: marijuana. She was offered HIV testing but declined and hepatitis C testing but declined. She has not traveled outside the [place] Infectious disease exposure: No infectious disease exposure. Patient is not a known carrier of tuberculosis, hepatitis, HIV, MRSA or VRE. Patient is not a known carrier of CRE. SELF HARM ASSESSMENT: Self harm assessment was performed. The patient answered "no" to the question(s) "Have you recently felt down, depressed, or hopeless?", "Do you have thoughts of harming or killing yourself?", "Do you have a plan for harming or killing yourself?", "Have you recently had thoughts about harming or killing others?", "Do you have any dangerous items in your possession?", "Have you noticed less interest or pleasure in doing things?", "Are you here because you tried to hurt yourself?" and "Have you ever tried to hurt yourself before today?". ABUSE ASSESSMENT: Abuse assessment. No suspicion of abuse. No report of abuse. NUTRITIONAL RISK ASSESSMENT: The nutritional risk assessment revealed no deficiencies. FUNCTIONAL ASSESSMENT: Functional assessment: no impairments noted. LEARNING NEEDS ASSESSMENT: The learning needs assessment revealed no barriers. FALL RISK ASSESSMENT: Fall risk assessment completed. No risk factors identified. SKIN INTEGRITY ASSESSMENT: Skin integrity risk assessment completed. No skin integrity risk identified. --17:00 04/02/20 Sharee Pack R.N. Interventions Identification band on patient. To treatment room. --17:00 04/02/20 Sharee Pack R.N.PHYSICAL ASSESSMENTGENERAL / NEURO / PSYCH: Alert. Oriented X 4.RESPIRATORY: Respirations not labored.CVS: Normal sinus rhythm noted.GI / : The patient has had nausea. Emesis noted. Abdomen soft. Bowel sounds within normal limits.( pt states she smoke weed daily and has to come to the ER every few months to get IV meds for vomiting.she has abd pain since she started vomiting. she has hx of GERD for years and is on meds for that.).SKIN: Skin is warm and dry. --17:06 04/02/20 Santa Celis R.N. GENERAL / NEURO / PSYCH: Alert. Oriented X 4. Appears in no acute distress. 3 Clinical Report - Nurses [facility] Emergency Department [address] [place] [address] Phone #: ext- [phone] 04/02/2020 16:53 Patient: COLTON FOSTER Sex: F : 1990 Age: 29y HEENT: Mucous membranes are pink. RESPIRATORY: Respirations not labored. Breath sounds within normal limits. CVS: Normal sinus rhythm noted. Capillary refill less than 2 seconds. GI / : Abdomen soft. Abdominal tenderness in the right upper quadrant. Bowel sounds within normal limits. Normal genitalia. SKIN: Skin is warm and dry. --22:05 04/02/20 Freddie Garcia R.N.NURSING PROGRESS NOTESPatient gowned. Reassurance given. Two patient identifiers checked. Call light placed in reach. Siderails up x 2. Bed placed in lowest position. Brakes of bed on. Patient ready for evaluation- PA notified.--17:00 04/02/20 Sharee Pack R.N. 17:24 04/02/2020 Site #1 started via IV in the right antecubital space with an 20g angiocath, with aseptic technique and good blood return; one attempt. Saline lock flushed with 10 mL saline. --17:34 04/02/20 Santa Celis R.N. 17:25 04/02/2020 Started 40 mg of Protonix (Pantoprazole Sodium) IVPB in bag #1 100 mL; at 200 mL/hr over 30 minute(s) via site #1. via IV pump. Allergies verified and confirmed 5 rights. IV patency established. IV site checked: no uriel n, redness, or swelling. IV flushed thoroughly pre- and post-medication administration. Information reviewed with patient. Verbalizes understanding. --17:35 04/02/20 Santa Celis R.N. 17:25 04/02/2020 Started bag #1 1000 mL IV Fluids NS; bolus of 1000 mL wide open then at 75 mL/hr over 10 hour(s) via site #1 via IV pump. Allergies verified and confirmed 5 rights. IV patency established. IV site checked: no pain, redness, or swelling. IV flushed thoroughly pre- and post-medication administration. Information reviewed with patient. Verbalizes understanding. --17:35 04/02/20 Santa Celis R.N. 17:31 04/02/2020 Benadryl (diphenhydrAMINE HCl) IVP 25 mg given over 3 minute(s) via site #1. Allergies verified and confirmed 5 rights. IV patency established. IV site checked: no pain, redness, or swelling. IV flushed thoroughly pre- and post-medication administration. Information reviewed with patient. Verbalizes understanding. --17:36 04/02/20 Santa Celis R.N. 17:35 04/02/2020 Zofran (Ondansetron HCl) IVP 4 mg given over 5 minute(s) via site #1. Allergies verified and confirmed 5 rights. IV patency established. IV site checked: no pain, redness, or swelling. IV flushed thoroughly pre- and post-medication administration. Information reviewed with patient. Verbalizes understanding. --17:35 04/02/20 Santa Celis R.N. 19:52 04/02/2020 Zofran (Ondansetron HCl) IVP 4 mg given over 2 minute(s) via site #1. Allergies verified and confirmed 5 rights. IV patency established. IV site checked: no pain, redness, or swelling. IV flushed thoroughly pre- and post-medication administration. Information reviewed with patient including reason for taking this medication, signs of allergic reaction and precautions. Verbalizes understanding. --19:52 04/02/20 Freddie Garcia R.N. 19:52 04/02/2020 Morphine IVP 2 mg given over 2 minute(s) via site #1. Allergies verified and confirmed 5 4 Clinical Report - Nurses [facility] Emergency Department [address] [place] [address] Phone #: ext- [phone] 04/02/2020 16:53 Patient: COLTON FOSTER Sex: F : 1990 Age: 29yrights. IV patency established. IV site checked: no pain, redness, or swelling. IV flushed thoroughly pre-and post-medication administration. Information reviewed with patient including reason for taking thismedication, signs of allergic reaction, precautions and sedative warning. Verbalizes understanding.--19:52 04/02/20 Freddie Garcia R.N.20:08 04/02/20. BP: 127/81. MAP: 96. HR: 55. RR: 16. O2 saturation: 100%. Pain level now: 0/10.--20:04/02/20 Freddie Garcia R.N.Two patient identifiers checked. Call light placed in reach. Side rails up x 2. Bed placed in lowestposition. Brakes of bed on. --20:04/02/20 Freddie Garcia R.N.Reassessment acuity: LEVEL 3. Reassessment after medication administered. No adverse reaction. Paingone now. Nausea gone now. Vomiting gone now. Respiratory distress gone now.GI / : Abdomen soft and nontender. Bowel sounds within normal limits.SKIN: Skin is warm and dry. Skin color within normal limits. --20:10 04/02/20 Freddie Garcia R.N.20:30 04/02/2020 Morphine IVP Response: no adverse reaction pain is improving. Symptoms haveimproved the patient feels better. --22:02 04/02/20 Freddie Garcia R.N.21:30 04/02/2020 Zofran IVP Response: no adverse reaction pain is improving. Symptoms have improvedthe patient feels better. --22:04/02/20 Freddie Garcia R.N.22:04/02/2020 Started 3.375 gm of Zosyn (Piperacillin Sod-Tazobactam So) IVPB in bag #1 100 mL; at300 mL/hr over 20 minute(s) via site #1. via IV pump. Allergies verified and confirmed 5 rights. IV patencyestablished. IV site checked: no pain, redness, or swelling. IV flushed thoroughly pre- and post-medicationadministration. Information reviewed with patient including reason for taking this medication, signs ofallergic reaction and precautions. Verbalizes understanding. --22:04/02/20 Freddie Garcia R.N.22:04/02/2020 Mor phine IVP 2 mg given over 2 minute(s) via site #1. Allergies verified and confirmed 5rights. IV patency established. IV site checked: no pain, redness, or swelling. IV flushed thoroughly pre-and post-medication administration. IVP given by RN. Information reviewed with patient including reasonfor taking this medication, signs of allergic reaction, precautions and sedative warning. Verbalizesunderstanding. --22:04/02/20 Freddie Garcia R.N.air sampling and monitoring, NIBP monitor and pulse oximeter placed on patient. Patient gowned. Head of bedelevated. Reassessment acuity: LEVEL 3.GI / : The patient reports abdominal pain. Abdomen soft. Bowel sounds within normal limits.SKIN: Skin is warm and dry. Skin color within normal limits. Two patient identifiers checked. Call lightplaced in reach. Side rails up x 2. Bed placed in lowest position. Brakes of bed on. --22:03 04/02/20Freddie sebastian R.N.22:30 04/02/20. BP: 136/85. MAP: 102. HR: 50. RR: 14. O2 saturation: 100%. Pain level now: 0/10.Additional comments: sleeping. --22:32 04/02/20 Freddie Garcia R.N. 5 Clinical Report - Nurses [facility] Emergency Department [address] [place] [address] Phone #: ext- [phone] 04/02/2020 16:53 Patient: COLTON FOSTER Sex: F : 1990 Age: 29y Reassessment acuity: LEVEL 3. Reassessment after medication administered. Pain still present but improving. Nausea still present but improving. GI / : Abdomen soft and nontender. Bowel sounds within normal limits. SKIN: Skin is warm and dry. Skin color within normal limits. Two patient identifiers checked. Call light placed in reach. Side rails up x 2. Bed placed in lowest position. Brakes of bed on. --22:32 04/02/20 Freddie Garcia R.N. 23:44 04/02/2020 Morphine IVP 2 mg given over 2 minute(s) via site #1. --23:44 04/02/20 Freddie Garcia R.N.DISPOSITION / DISCHARGE 18:52 04/02/2020 Protonix IVPB via IV site #1 Discontinued: bag #1 completed. Total amount infused: 100 mL. IV patency established. IV site checked: no pain, redness, or swelling. IV flushed thoroughly. --23:53 04/02/20 Freddie Garcia R.N. Condition at departure: improved. No learning barriers present. Discharge instructions provided and reviewed with the patient. Reviewed warnings. Reviewed medication(s). Treatments reviewed. Reviewed referrals. Patient verbalized understanding. Written instructions provided in Kittitian. The patient was discharged by the physician customer relations assistant. Transferred to [facility]. Summary of care (CCDA), Emtala forms and Face Sheet provided to EMS and transfer facility. Patient has no belongings. --23:56 04/02/20 Freddie Garcia R.N. 23:52 04/02/20. BP: 136/85. MAP: 102. HR: 60. RR: 16. O2 saturation: 98%. Temp: 98.3 F. Pain level now: 01/01. --23:56 04/02/20 Freddie Garcia R.N. Departure time: 00:04 04/03/2020. --00:04 04/03/20 Freddie Garcia R.N. 22:30 04/02/2020 Zosyn IVPB via IV site #1 Discontinued: bag #1 infused. Total amount infused: 100 mL. IV patency established. IV site checked: no pain, redness, or swelling. IV flushed thoroughly. --00:05 04/03/20 Freddie Garcia R.N. 22:53 04/02/2020 Morphine IVP Response: no adverse reaction pain is improving. Symptoms have improved the patient feels better. --23:53 04/02/20 Freddie Garcia R.N. 23:52 04/02/2020 IV Fluids NS via IV site #1 Discontinued: bag #1 infused. Total amount infused: 1150 mL. IV patency established. IV site checked: no pain, redness, or swelling. IV flushed thoroughly. --23:52 04/02/20 Freddie Garcia R.N.Locked/Released at 04/03/2020 00:06 by Freddie Garcia R.N. 6 Clinical Report - Nurses [facility] Emergency Department [address] [place] [address] Phone #: ext- [phone] 04/02/2020 16:53 Patient: COLTON FOSTER Sex: F : 1990 Age: 29y Name Value Range Interpretation Code Description Data Yoana rce(s) Supporting Document(s) ID Date Data Source [id number] 04/02/2020 05:01:00 PM EDT [facility] 1 Clinical Report - Physicians/Mid Levels [facility] Emergency Department [address] [place] [address] Phone #: ext- [phone] 04/02/2020 16:53 Patient: COLTON FOSTER Sex: F : 1990 Age: 29y Time Seen: 17:19 04/02/2020; initial patient contact, initial documentation. Arrived- By private vehicle. Historian- patient.HISTORY OF PRESENT ILLNESS Chief Complaint: VOMITING. This started about 2 days ago and worsening and is still present. No recent travel. She has had nausea, vomiting, diarrhea and abdominal pain. No black stools, bloody stools, constipation, flank pain or history of possible bad food exposure. No known contact with a sick individual or change in routine. Has not recently been camping or on antibiotics. The illness is described as moderate. (Pt sts that she has cyclic vomiting. Pt sts she is able to control with heartburn meds. Seen here last month and had CT, normal. Sts she saw PCP and has upcoming referral to GI for further eval. Pt s/s started 2 days ago and have not improved. Came to Er for eval and tx. Deneis any fever, just N/V/D wth RUQ and epigastric pain.). Similar symptoms previously. Patient has had similar symptoms frequently. Recent medical care: Not recently seen/assessed.REVIEW OF SYSTEMSHas had a tubal ligation. No fever, muscle aches, difficulty with urination, dark urine or headache. Nodizziness, sore throat, cough, chest pain or difficulty breathing. No excessive urination, skin rash,jaundice, back pain or fainting episodes. No blurred vision.PAST HISTORYSee nurses notes. Problems: Abdominal Pain. Anxiety Reaction. Reflux. Vomiting. Gastroenteritis. Depression. Gerd. Additional Surgeries: Adenoidectom y. . Cyst removed from ovary. 2 Clinical Report - Physicians/Mid Levels [facility] Emergency Department [address] [place] [address] Phone #: ext- [phone] 04/02/2020 16:53 Patient: COLTON FOSTER Sex: F : 1990 Age: 29y Ovarian cyst removed. Tonsillectomy. Tubal Ligation. Medications: CeleXA Oral (Tablet 40 mg), daily. PriLOSEC Oral 40 mg, daily. Allergies: None.SOCIAL HISTORYLight tobacco smoker- less than 1/2 a pack per day. History of drug use: marijuana. No alcohol use.ADDITIONAL NOTESThe nursing notes have been reviewed.PHYSICAL EXAMVital Signs: 04/02/2020 16:54 BP: 134/84. MAP: 100. HR: 57. RR: 18. O2 saturation: 97%. Temp: 97.6 F.Pain level now: 8/10. Have been reviewed. Oxygen saturation normal.Appearance: Alert. Oriented X3. No acute distress.ENT: Voice normal.CVS: Normal heart rate and rhythm. No JVD present. Pulses normal. Capillary refill normal. Heartsounds normal. Pulses: right radial 2+; left radial 2+; right dorsalis pedis 2+; left dorsalis pedis 2+; rightposterior tibial 2+; left posterior tibial 2+.Respiratory: Chest normal on inspection. No respiratory distress. Unlabored respirations. Lungs clear.Good chest movement. Breath sounds normal and equal. Chest nontender.Abdomen: Normal inspection. Soft. Mild tenderness in the right upper quadrant and epigastric area.Positive Rodríguez's sign. No guarding, rebound tenderness or obturator or psoas sign present. Bowelsounds normal. No distention.Skin: Skin warm and dry.Extremities: Extremities exhibit normal ROM. No lower extremity edema. No calf tenderness. No lowerextremity edema.Neuro: Awake. Alert. Mood/affect normal. Speech normal. No motor deficit. No sensory deficit.Psych: Cognition normal. Thought process and content normal. Insight and judgement normal.LABS, X-RAYS, AND EKGAbdominal Sonogram: (Toñito kaplan Neal - 04/02/2020 8:54:41 PMCholelithiasis. Given a positiveSonographic Rodríguez sign there is high suspicion for acute cholecystitis.Morphologically there is no gallbladder wall thickening. Consider HIDA scan for further evaluation if clinically indicated.). The study was independently viewed by me. Laboratory Tests: CBC w Diff: (JESSY: 04/02/2020 17:42) ( MsgRcvd 04/02/2020 17:59) Final results 3 Clinical Report - Physicians/Mid Levels [facility] Emergency Department [address] [place] [address] Phone #: ext- [phone] 04/02/2020 16:53 Patient: COLTON FOSTER Sex: F : 1990 Age: 29y Test Result Flag Units (Reference) CBC W/AUTOMATED DIFF COMPLETE BLOOD COUNT WBC 15.6 H 10/uL (4.2 - 11.0) RBC 4.88 10/uL (4.20 - 5.40) HEMOGLOBIN 13.6 g/dL (12.0 - 16.0) HEMATOCRIT 43.0 % (37.0 - 47.0) MCV 88.1 fL (81.0 - 101) MCH 27.9 pg (27.0 - 34.0) MCHC 31.6 g/dL (31.0 - 36.0) RDW 14.1 % (11.5 - 14.5) PLATELETS 239 10/uL (150 - 450) MPV 11.2 H fL (7.4 - 10.4) NEUT 84.6 H % (37.0 - 80.0) LYMPH 9.2 L % (25.0 - 40.0) MONO 5.5 % (3.0 - 8.0) EOS 0.1 % (0.0 - 7.0) BASO 0.2 % (0.0 - 2.5) %IG 0.4 H % (0.0 - 0.0) %NRBC 0.0 % (0.0 - 0.0) #NEUT 13.18 H 10/uL (2.00 - 6.90) #LYMPH 1.44 10/uL (0.60 - 3.40) #MONO 0.86 10/uL (0.00 - 0.90) #EOS 0.02 10/uL (0.00 - 0.70) #BASO 0.03 10/uL (0.00 - 0.20) #IG 0.06 10/uL (0.00 - 0.10) #NRBC 0.00 10/uL (0.00 - 0.00) MANUAL DIFF NOT INDICATED RBC MORPH NOT INDICATEDCMP: (JESSY: 04/02/2020 17:42) ( MsgRcvd 04/02/2020 18:25) Final results Test Result Flag Units (Reference) COMPREHENSIVE METABOLIC PANEL COMPREHENSIVE METABOLIC PANEL SODIUM 140 mEq/L (134 - 153) POTASSIUM 3.7 mEq/L (3.6 - 5.0) CHLORIDE 101 mEq/L (98 - 107) CO2 26 MEQ/L (22 - 30) GLUCOSE 95 MG/DL (65 - 110) BUN 12 MG/DL (7 - 21) CREATININE 0.5 L MG/DL (0.7 - 1.5) BUN/CREAT 24 (8 - 27) TOTAL PROTEIN 7.2 G/DL (6.3 - 8.2) ALBUMIN 4.6 G/DL (3.9 - 5.0) GLOBULIN 2.6 GM/DL (2.4 - 3.2) A/G RATIO 1.8 (0.8 - 2.0) CALCIUM 9.3 MG/DL (8.4 - 10.2) TOTAL BILI <0.7 MG/DL (0.2 - 1.3) ALKALINE PHOS 69 U/L (38 - 126) SGOT/AST 14 U/L (5 - 40) SGPT/ALT 16 U/L (7 - 56) ANION GAP 13.0 mmol/L (8.0 - 16.0) AGE 29 yrs NON-AA GFR >60 mL/min AFR AMER GFR >60 mL/min Male GFR Interprentation 20-49 yrs >60 mL/min Pookdv32-90 yrs >56 mL/min Normal 60-69 yrs >49 mL/min Normal 70-79yrs>42 mL/min Normal 80 and above >35 mL/min Normal Female GFRInterpretation 20-39 yrs >60 mL/min Normal 40-49 yrs >58 mL/min 4 Clinical Report - Physicians/Mid Levels [facility] Emergency Department [address] [place] [address] Phone #: ext- [phone] 04/02/2020 16:53 Patient: COLTON FOSTER Sex: F : 1990 Age: 29y Normal 50-59 yrs >51 mL/min Normal 60-69 yrs >45 mL/min Normal 70-79 yrs >39 mL/min Normal 80 and above >32 mL/min Normal Lipase: (JESSY: 04/02/2020 17:42) ( MsgRcvd 04/02/2020 18:23) Final results Test Result Flag Units (Reference) LIPASE 17 U/L (13 - 60) Urinalysis: (JESSY: 04/02/2020 18:05) ( MsgRcvd 04/02/2020 18:25) Final results Test Result Flag Units (Reference) URINALYSIS URINALYSIS SOURCE R COLOR yellow (NORMAL: Yello CLARITY c lear (NORMAL: Clear SPEC GRAVITY 1.010 (1.001 - 1.030 pH 8 (5 - 9) GLUCOSE NORM (NORMAL: Negat BILIRUBIN NEG (NORMAL: Negat KETONE 5 A (NORMAL: Negat PROTEIN NEG (NORMAL: Negat NITRITE NEG (NORMAL: Negat BLOOD NEG (NORMAL: Negat LEUK EST NEG (NORMAL: Negat UROBILINOGEN NOR (less than 1.0 MICROSCOPIC Not Indicate Troponin-T: (JESSY: 04/02/2020 17:42) ( [facility] 04/02/[facility] 18:25) Final results Test Result Flag Units (Reference) TROPONIN T 0.01 NG/ML (0.00 - 0.10) TROPONIN T0.1 ng/ml Recommended as the clinical threshold value forTroponin T. Lactic Acid: (JESSY: 04/02/2020 17:42) ( [facility] 04/02/2020 17:53) Final results Test Resul t Flag Units (Reference) LACTIC ACID 2.1 MMOL/L (0.2 - 2.2) Beta-HCG, Qual Serum: (JESSY: 04/02/2020 17:42) ( [facility] 04/02/2020 18:19) Final results Test Result Flag Units (Reference) HCG SERUM QUAL NEGATIVE (NORMAL: NEGAT HCG SERUM QL REENTER NEGATIVE (NORMAL: NEGAT { KIT LOT # [id number] ){ KIT EXP DATE 08/24/21 ){ PROCEDURAL CONTROL VALID ) US Liver: (JESSY: 04/02/2020 17:22) ( [facility] 04/02/2020 20:33) In Progress US HEPATIC Reason(s): Nausea w Vomiting TRANSPORTATION: IV? O2? Oxygen?(No) Room: ED : HCG Pending. 5 Clinical Report - Physicians/Mid Levels [facility] Emergency Department [address] [place] [address] Phone #: ext- [phone] 04/02/2020 16:53 Patient: COLTON FOSTER Sex: F : 1990 Age: 29yPROGRESS AND PROCEDURESCourse of Care: VSS, NAD, AOx3, interacting well and appropriately, no use of accessory muscle, able tospeak full sentences, stable, non-toxic looking. Enter room and pt lying peacefully in bed in NAD. Patient stable. Denies any new issues, concerns, or complaints. Pt presents wth cyclic vomiting. hx of cannioboid use. ? cannabinoid hyperemesis. Noted TTP of the RUQ; ? GB patho. Will botina labs, imaging, and tx. Pending resutls. Reviewed resutls. Noted findings. pt has elevated WBC. No thickening. No surgeon at our location. Contacted [facility] and discussed [facility] nurse track supervisor. Provides surgeon. Call. Penidng call back. Dr. Spencer calls; discuss with him. Sts to transfer pt to location for eval and potentially surgery tomorrow. Discuss abx; agrees with Zosyn. Will rx. Enter room and patient lying peacefully in bed in NAD. Patient stable. Denies any new issues, concerns, or complaints. Pt understands and agrees. Penidng transfer. Critical care performed (60 minutes). Time includes: direct patient care, patient reassessment, coordination of patient care, interpretation of data (laboratory data), review of patient's medical records, medical consultation, family consultation regarding treatment decisions and documentation of patient care- see progress notes. Disposition: Benefits, risks and alternatives to transfer explained to patient. Transferred to [facility]. UTI (catheter associated) was not present prior to transfer. Pressure ulcer was not present prior to transfer. Vascular infection (catheter associated) was not present prior to transfer.CLINICAL IMPRESSION Acute cholecystitis with cholelithiasis. No obstruction or choledocholithiasis.(Electronically signed by Pacheco Hayward P.A.-C 04/03/2020 16:06) Name Value Range Interpretation Code Description Data Yoana rce(s) Supporting Document(s) ID Date Data Source [id number] 04/03/2020 02:08:00 PM EDT [facility] [address] [place] [address] PHONE: [phone] FAX: [phone] Name .................. : KRISTIN Gross Acct Number.................. : [id number] ROOM. ................. : TR-06 MR Number ................... : [id number] Stay type ............. : E/R Discharge Date......... ... : Admit Date ......... : 04/02/20 Admit Phys .................... : GT JEREMÍAS Date of ....... : 1990 Family Phys ................... : [employer] Phone .................. : [phone] Age ................................ : 29 Film# .................. .:[id number] Sex ................................. : F Unsigned transcriptions are preliminary reports and do not represent a medical or legal document HEPATIC [id number] COMPLETE:04/02/20 20:33 ADB [id number] Reason(s): Nausea w Vomiting HEPATIC ULTRASOUND: INDICATION: Nausea and vomiting. FINDINGS: There is normal sonographic appearance of the liver and pancreas. The aorta and IVC are normal in caliber. The right kidney is sonographically normal. Multiple gallstones are noted. No gallbladder wall thickening. The common bile duct measures 2 mm in diameter. The elderly caregiver reports a positive Rodríguez's sign. IMPRESSION: Cholelithiasis. Given a positive sonographic Rodríguez's sign, there is high suspicion for acute cholecystitis. Morphologically, there is no gallbladder wall thickening. Consider HIDA scan for further evaluation if clinically indicated. Electronically Reviewed and Signed By Dayron Sibley M.D. , 04/03/20 14:08, [facility] Transcribe Initials: DZ , Transcribe Date: 04/02/20 21:25, Dictation Date: Copy for: BRENDAN DODD via fax Copy for: GT Barfield via fax Copy for: EMERGENCY DEPT via modem Copy for: [facility] MED REC [address] [place] [address] PHONE: [phone] FAX: [phone] Name .................. : KRISTIN Gross Acct Number.................. : [id number] ROOM. ................. : TR-06 MR Number ................... : [id number] Stay type ............. : E/R Discharge Date......... ... : Admit Date ......... : 04/02/20 Admit Phys .................... : GT JEREMÍAS Date of ....... : 1990 Family Phys ................... : DIANNE BAZZI Phone .................. : [phone] Age ................................ : 29 Film# .................. .:[id number] Sex ................................. : F Unsigned transcriptions are preliminary reports and do not represent a medical or legal document [facility] [id number] COMPLETE:04/02/20 20:33 ADB [id number] Reason(s): Nausea w Vomiting DISCHARGED Page 2 of 2 Name Value Range Interpretation Code Description Data [facility] Supporting Document(s) ID Date Data Source [id number] 04/03/2020 08:03:00 AM EDT [facility] ([facility], ) Name Value Range Interpretation Code Description Data Yoana rce(s) Supporting Document(s) Glucose, Fasting 101 mg/dL 70-100 Above high [facility] Creatinine For GFR 0.63 mg/dL 0.55-1.30 Normal (applies to non -numeric results) [facility] ([facility]) Blood Urea Nitrogen 11 mg/dL 7-18 Normal (applies to non-nume terell results) [facility] ([facility]) Glomerular Filtration Rate Laboratory test result Normal (applies to non- numeric results) [facility] ([facility]) <content>Units are mL/min/1.73 m2</content>
<content></content>
<content>Chronic Kidney Disease Staging per NKF:</content>
<content></content>
<content>Stage I & II GFR >=60 Normal to Mildly Decreased</content>
<content>Stage III GFR 30- 59 Moderately Decreased</content>
<content>Stage IV GFR 15-29 Severely Decreased</content>
<content>Stage V GFR <15 Very Little GFR Left</content>
<content>ESRD GFR <15 on WASH HOUSE SUPERVISOR</content>
<content></content> Potassium Serum 4.4 meq/L 3.5-5.1 Normal (applies to non-numeric results) [facility] ([facility]) Sodium Level 140 meq/L 136-145 Normal (applies to non-numeric res ults) [facility] ([facility]) Chloride Level 106 meq/L 98-107 Normal (applies to non-numeric r esults) [facility] ([facility]) Anion Gap 6 meq/L 8-16 Below low normal [facility] ( [facility]) Carbon Dioxide Level 28 meq/L 21-32 Normal (applies to non-num blessing results) [facility] ([facility]) Calcium Level 8.7 mg/dL 8.5-10.1 Normal (applies to non-numeric re sults) [facility] ([facility]) Alt/SGPT 32 U/L 12-78 Normal (applies to non-numeric resul ts) [facility] ([facility]) Ast/Sgot 11 U/L 7-37 Normal (applies to non-numeric resul ts) [facility] ([facility]) Bilirubin,Total 0.5 mg/dL 0.2-1.0 Normal (applies to non-numeric results) [facility] ([facility]) Alkaline Phosphatase 74 U/L 45-117 Normal (applies to non-num blessing results) [facility] ([facility]) Albumin 3.7 GM/DL 3.2-5.2 Normal (applies to non-numeric resul ts) [facility] ([facility]) Total Protein 7.3 GM/DL 6.4-8.2 Normal (applies to non-numeric re sults) [facility] ([facility]) Albumin/Globulin Ratio 1.0 1.2-2.2 Below low normal [facility] ([facility]) ID Date Data Source [id number] 04/03/2020 08:03:00 AM EDT [facility] ([facility]) Name Value Range Interpretation Code Description Data Yoana rce(s) Supporting Document(s) White Blood Count 12.6 10 4.0-10.0 Above high normal [facility] ([facility]) Red Blood Count 4.95 10 4.00-5.40 Normal (applies to non-numeric results) [facility] ([facility]) Hematocrit 43.9 % 36.0-47.0 Normal (applies to non-numeric resul ts) [facility] ([facility]) Hemoglobin 14.1 g/dL 12.0-15.5 Normal (applies to non-numeric resul ts) [facility] ([facility]) Mean Corpuscular Volume 88.7 fl 80.0-96.0 Normal ( applies to non-numeric results) [facility] [facility] Mean Corpuscular Hemoglobin 28.5 pg 27.0-33.0 Norm al (applies to non-numeric results) [facility] ([facility]) Mean Corpuscular HGB Conc 32.1 g/dL 32.0-36.5 Normal (applies to non-numeric results) [facility] ([facility]) Red Cell Distribution Width 13.8 % 11.5-14.5 Norm al (applies to non-numeric results) [facility] ([facility]) Platelet Count, Automated 244 10 150-450 Normal (applies to non-numeric results) [facility] ([facility]) Neutrophils % 80.8 % 36.0-66.0 Above high normal [facility] ([facility]) Lymph % 12.9 % 24.0-44.0 Below low normal [facility] ( [facility]) Dawson % 5.5 % 0.0-5.0 Above high normal [facility] ([facility]) Baso % 0.2 % 0.0-1.0 Normal (applies to non-numeric resul ts) [facility] ([facility]) Eos % 0.1 % 0.0-3.0 Normal (applies to non-numeric resul ts) [facility] Nucleated Red Blood Cell % 0.0 % 0-0 Normal (applies to n on-numeric results) [facility] ([facility]) Immature Granulocyte % 0.5 % 0-3.0 Normal (applies to non-n umeric results) [facility] Neutrophils # 10.2 10 1.5-8.5 Above high normal [facility] ([facility]) Lymph # 1.6 10 1.5-5.0 Normal (applies to non-numeric resul ts) [facility]) Eos # 0.0 10 0.0-0.5 Normal (applies to non-numeric resul ts) [facility] ([facility]) Dawson # 0.7 10 0.0-0.8 Normal (applies to non-numeric resul ts) [facility]) Baso # 0.0 10 0.0-0.2 Normal (applies to non-numeric resul ts) [facility] ([facility]) ID Date Data Source [id number] 04/03/2020 04:32:00 AM EDT [facility]) Name Value Range Interpretation Code Description Data Yoana rce(s) Supporting Document(s) Respiratory Panel Laboratory test result [facility] ([facility]) This respiratory PCR panel detects Influ errol A H1, H3 and 2009 H1 viruses, Influenza B virus, Resp iratory Syncytial Virus, Human metapneumovirus, Parainfluenza virus 1, 2, 3 and 4, Adenovirus, Rhinovirus/Enterovirus, Coronavirus HKU1, NL63, OC43, 229E and SARS-CoV-2 (COVID 19), Bordetella pertussis, Bordetella parapertussis, Mycoplasma pneumoniae and Chlamydia pneumoniae. NEGATIVE by MULTIPLEXED NUCLEIC ACID PCR SARS-CoV-2 (COVID 19) NEGATIVE - SARS-CoV-2 (COVID19) ID Date Data Source [id number] 04/02/2020 06:05:00 PM EDT [facility] Name Value Range Interpretation Code Description Data Yoana rce(s) Supporting Document(s) Urinalysis Laboratory test result [facility] ([facility]) URINALYSIS Source Laboratory test result [facility] ([facility]) SOURCE: Clean Catch Clarity Laboratory test result [facility] ([facility]) SOURCE: Clean Catch Color Laboratory test result [facility] ([facility] SOURCE: Clean Catch Spec Auxier 1.010 1.001-1.030 [facility] ([facility]) SOURCE: Clean Catch pH 8 5-9 [facility]) SOURCE: Clean Catch Glucose Laboratory test result [facility] ([facility] SOURCE: Clean Catch Bilirubin Laboratory test result [facility] ([facility]) SOURCE: Clean Catch Ketone 5 Abnormal (applies to non-numeric res ults) [facility] ([facility]) SOURCE: Clean Catch Protein Laboratory test result [facility] ([facility]) SOURCE: Clean Catch Nitrite Laboratory test result [facility] ([facility]) SOURCE: Clean Catch Blood Laboratory test result [facility] ([facility]) SOURCE: Clean Catch Urobilinogen Laboratory test result [facility] ([facility]) SOURCE: Clean Catch Leuk Est Laboratory test result [facility] ([facility]) SOURCE: Clean Catch Microscopic Laboratory test result [facility] ([facility]) SOURCE: Clean Catch ID Date Data Source [id number] 04/02/2020 06:25:00 PM EDT [facility] Name Value Range Interpretation Code Description Data Yoana rce(s) Supporting Document(s) [facility] COLOR yellow NORMAL: Yellow [facility] ospital CLARITY clear NORMAL: Clear [facility] Ho spital Specific gravity of Urine by Test strip 1.010 1.001 - 1.030 [facility] pH 8 5 - 9 [facility] Glucose [Mass/volume] in Urine by Test strip NORM NORMAL: Negat [facility] Bilirubin.total [Presence] in Urine by Test strip NEG NORMAL: Negative [facility] Ketones [Presence] in Urine by Test strip 5 NORMAL: Negative A [facility] Protein [Mass/volume] in Urine by Test strip NEG NORMAL: Negat [facility] Nitrite [Presence] in Urine by Test strip NEG NORMAL: Negative [facility] BLOOD NEG NORMAL: Negative [facility] Leukocyte esterase [Presence] in Urine by Test strip NEG NESSA L: Negative [facility] Urobilinogen [Mass/volume] in Urine by Test strip NOR less ayan n 1.0 mg/dL [facility] MICROSCOPIC Not Indicate [facility] ospital ID Date Data Source [id number] 04/02/2020 05:42:00 PM EDT [facility] ([facility]) Name Value Range Interpretation Code Description Data Yoana rce(s) Supporting Document(s) Comprehensive Metabo Laboratory test result [facility] ([facility]) COMPREHENSIVE METABOLIC PANEL Sodium 140 meq/L 134-153 [facility] [facility] Chloride 101 meq/L 98-107 [facility] [facility] Potassium 3.7 meq/L 3.6-5.0 [facility] [facility] Glucose 95 mg/dL 65-110 [facility] [facility] Co2 26 meq/L 22-30 [facility] [facility] BUN 12 mg/dL 7-21 [facility] [facility] Creatinine 0.5 mg/dL 0.7-1.5 [facility] ([facility]) BUN/Creat 24 8-27 [facility] [facility] Albumin 4.6 g/dL 3.9-5.0 [facility] ([place] [facility]) Total Protein 7.2 g/dL 6.3-8.2 [facility] ([facility]) Globulin 2.6 GM/DL 2.4-3.2 [facility] [facility] Calcium 9.3 mg/dL 8.4-10.2 [facility] ([place] [facility]) Total Bili Laboratory test result 0.2-1.3 [facility] ([facility]) A/G Ratio 1.8 0.8-2.0 [facility] ([place] [facility]) SGPT/Alt 16 U/L 7-56 [facility] [facility]) Alkaline Phos 69 U/L 38-126 [facility] ([facility]) Sgot/Ast 14 U/L 5-40 [facility] [facility] Age 29 yrs [facility] [facility]) Non-Aa GFR Laboratory test result [facility] ([facility]) Anion Gap 13.0 mmol/L 8.0-16.0 [facility] ([facility]) Afr Amer GFR Laboratory test result [facility] ([facility]) Male GFR Interprentation 20-49 yrs >60 mL/min Normal 50-59 yrs >56 mL/min Normal 60-69 yrs >49 mL/min Normal 70-79yrs >42 mL/min Normal 80 and above >35 mL/min Normal Female GFR Interpretation 20-39 yrs >60 mL/min Normal 40-49 yrs >58 mL/min Normal 50-59 yrs >51 mL/min Normal 60-69 yrs >45 mL/min Normal 70-79 yrs >39 mL/min Normal 80 and above >32 mL/min Normal ID Date Data Source [id number] 04/02/2020 05:42:00 PM EDT [facility] ([facility]) Name Value Range Interpretation Code Description Data Yoana rce(s) Supporting Document(s) Lipoprotein lipase [Enzymatic activity/volume] in Serum or Plasm a 17 U/L 13-60 [facility] ([facility]) Troponin T.cardiac [Mass/volume] in Serum or Plasma 0.01 ng/mL 0.00-0 .10 [facility] ([facility]) TROPONIN T 0.1 ng/ml Recommended as the clinical th reshold value for Troponin T. ID Date Data Source [id number] 04/02/2020 05:42:00 PM EDT [facility] ([facility]) Name Value Range Interpretation Code Description Data Yoana rce(s) Supporting Document(s) HCG Serum Qual Laboratory test result [facility] ([facility]) HCG Serum QL Reenter Laboratory test result [facility] ([facility]) { KIT LOT # [id number] ) { KIT EXP DATE 08/24/21 ) { PROCEDURAL CONTROL VALID ) ID Date Data Source [id number] 04/02/2020 05:42:00 PM EDT [facility] ([facility] Name Value Range Interpretation Code Description Data Yoana rce(s) Supporting Document(s) CBC W/Automated Diff Laboratory test result [facility] ([facility]) COMPLETE BLOOD COUNT RBC 4.88 10^6/uL 4.20-5.40 [facility] ([facility]) WBC 15.6 10^3/uL 4.2-11.0 [facility] ([facility]) Hemoglobin 13.6 g/dL 12.0-16.0 [facility]) Hematocrit 43.0 % 37.0-47.0 [facility] MCH 27.9 pg 27.0-34.0 [facility]) MCV 88.1 fL 81.0-101 [facility]) RDW 14.1 % 11.5-14.5 [facility]) Platelets 239 10^3/uL 150-450 [facility] ([facility]) MCHC 31.6 g/dL 31.0-36.0 [facility]) Neut 84.6 % 37.0-80.0 [facility]) MPV 11.2 fL 7.4-10.4 [facility]) Lymph 9.2 % 25.0-40.0 [facility]) Eos 0.1 % 0.0-7.0 [facility]) Baso 0.2 % 0.0-2.5 [facility]) Dawson 5.5 % 3.0-8.0 [facility]) #Neut 13.18 10^3/uL 2.00-6.90 [facility]) %Ig 0.4 % 0.0-0.0 [facility]) %NRBC 0.0 % 0.0-0.0 [facility]) #Dawson 0.86 10^3/uL 0.00-0.90 [facility] ([facility]) #Lymph 1.44 10^3/uL 0.60-3.40 [facility] ([facility]) #Eos 0.02 10^3/uL 0.00-0.70 [facility] ([facility]) #NRBC 0.00 10^3/uL 0.00-0.00 [facility] ([facility]) #Ig 0.06 10^3/uL 0.00-0.10 [facility] ([facility]) Manual Diff Laboratory test result [facility] ([facility]) #Baso 0.03 10^3/uL 0.00-0.20 [facility] ([facility]) RBC Morph Laboratory test result [facility] ([facility]) ID Date Data Source [id number] 04/02/2020 05:42:00 PM EDT [facility] ([facility]) Name Value Range Interpretation Code Description Data Yoana rce(s) Supporting Document(s) Lactate [Mass/volume] in Serum or Plasma 2.1 mmol/L 0.2-2.2 [facility] ([facility]) ID Date Data Source [id number] 04/02/2020 06:25:00 PM EDT [facility] Name Value Range Interpretation Code Description Data Yoana rce(s) Supporting Document(s) COMPREHENSIVE METABOLIC PANEL [facility] COMPREHENSIVE METABOLIC PANEL Sodium [Moles/volume] in Serum or Plasma 140 mEq/L 134 - 153 [facility] Potassium [Moles/volume] in Serum or Plasma 3.7 mEq/L 3.6 - 5.0 [facility] Chloride [Moles/volume] in Serum or Plasma 101 mEq/L 98 - 107 [facility] Carbon dioxide, total [Moles/volume] in Serum or Plasma 26 MEQ/L 22 - 30 [facility] Glucose [Mass/volume] in Serum or Plasma 95 MG/DL 65 - 110 [facility] BUN 12 MG/DL 7 - 21 [facility] Creatinine [Mass/volume] in Serum or Plasma 0.5 MG/DL 0.7 - 1.5 L [facility] BUN/CREAT 24 8 - 27 [facility] al Protein [Mass/volume] in Serum or Plasma 7.2 G/DL 6.3 - 8.2 [facility] Albumin [Mass/volume] in Serum or Plasma 4.6 G/DL 3.9 - 5.0 [facility] Globulin [Mass/volume] in Serum by calculation 2.6 GM/DL 2.4 - 3.2 [facility] A/G RATIO 1.8 0.8 - 2.0 [facility] Calcium [Mass/volume] in Serum or Plasma 9.3 MG/DL 8.4 - 10.2 [facility] Bilirubin.total [Mass/volume] in Serum or Plasma <0.7 MG/DL 0.2 - 1.3 [facility] Alkaline phosphatase [Enzymatic activity/volume] in Serum or Plasma 69 U/L 38 - 126 [facility] Aspartate aminotransferase [Enzymatic activity/volume] in Serum or Plasma 14 U/L 5 - 40 [facility] Alanine aminotransferase [Enzymatic activity/volume] in Seru m or Plasma 16 U/L 7 - 56 [facility] Anion gap 3 in Serum or Plasma 13.0 mmol/L 8.0 - 16.0 [facility] AGE 29 yrs [facility] NON-AA GFR >60 mL/min [facility] ital AFR AMER GFR >60 mL/min [facility] spital Male GFR In terprentation 20-49 yrs >60 mL/min Normal 50-59 yrs >56 mL/min Normal 60-69 yrs >49 mL/min Normal 70-79yrs >42 mL/min Normal 80 and above >35 mL/min Normal Female GFR Interpretation 20-39 yrs >60 mL/min Normal 40-49 yrs >58 mL/min Normal 50-59 yrs >51 mL/min Normal 60-69 yrs >45 mL/min Normal 70-79 yrs >39 mL/min Normal 80 and above >32 mL/min Normal ID Date Data Source [id number] 04/02/2020 06:25:00 PM EDT [facility] Name Value Range Interpretation Code Description Data Yoana rce(s) Supporting Document(s) TROPONIN T 0.01 NG/ML 0.00 - 0.10 [facility] spital TROPONIN T0.1 ng/ml Recommended as the c linical threshold value forTroponin T. ID Date Data Source [id number] 04/02/2020 06:23:00 PM EDT [facility] Name Value Range Interpretation Code Description Data Yoana rce(s) Supporting Document(s) Lipase [Enzymatic activity/volume] in Serum or Plasma 17 U/L 13 - 60 [facility] ID Date Data Source [id number] 04/02/2020 06:18:00 PM EDT [facility] Name Value Range Interpretation Code Description Data Yoana rce(s) Supporting Document(s) HCG SERUM QUAL NEGATIVE NORMAL: NEGATIVE [facility] HCG SERUM QL REENTER NEGATIVE NORMAL: NEGATIVE [facility] { KIT LOT # [id number] ){ KIT EXP DATE 08/24/21 ){ PROCEDURAL CONTROL VALID ) ID Date Data Source [id number] 04/02/2020 05:58:00 PM EDT [facility] Name Value Range Interpretation Code Description Data Yoana rce(s) Supporting Document(s) CBC W/AUTOMATED DIFF [facility] COMPLETE BLOOD COUNT Leukocytes [#/volume] in Blood by Automated count 15.6 10^3/uL 4.2 - 11.0 H [facility] Erythrocytes [#/volume] in Blood by Automated count 4.88 10^6/uL 4. 20 - 5.40 [facility] Hemoglobin [Mass/volume] in Blood 13.6 g/dL 12.0 - 16.0 [facility] Hematocrit [Volume Fraction] of Blood by Automated count 43.0 % 3 7.0 - 47.0 [facility] Erythrocyte mean corpuscular volume [Entitic volume] by Auto mated count 88.1 fL 81.0 - 101 [facility] Erythrocyte mean corpuscular hemoglobin [Entitic mass] by Automated count 27.9 pg 27.0 - 34.0 [facility] Erythrocyte mean corpuscular hemoglobin concentration [Mass/volume] by Automated count 31.6 g/dL 31.0 - 36.0 [facility] Erythrocyte distribution width [Ratio] by Automated count 14.1 % 11.5 - 14.5 [facility] Platelets [#/volume] in Blood by Automated count 239 10^3/uL 150 - 45 0 [facility] Platelet mean volume [Entitic volume] in Blood by Automated count 11.2 fL 7.4 - 10.4 H [facility] Neutrophils/100 leukocytes in Blood by Automated count 84.6 % 37. 0 - 80.0 H [facility] Lymphocytes/100 leukocytes in Blood by Manual count 9.2 % 25.0 - 40.0 L [facility] Monocytes/100 leukocytes in Blood by Automated count 5.5 % 3.0 - 8.0 [facility] Eosinophils/100 leukocytes in Blood by Automated count 0.1 % 0.0 - 7.0 [facility] Basophils/100 leukocytes in Blood by Automated count 0.2 % 0.0 - 2.5 [facility] %IG 0.4 % 0.0 - 0.0 H [facility] Hospit al %NRBC 0.0 % 0.0 - 0.0 [facility] Neutrophils [#/volume] in Blood by Automated count 13.18 10^3/uL 2. 00 - 6.90 H [facility] Lymphocytes [#/volume] in Blood by Automated count 1.44 10^3/uL 0.60 - 3.40 [facility] Monocytes [#/volume] in Blood by Automated count 0.86 10^3/uL 0.00 - 0.90 [facility] Eosinophils [#/volume] in Blood by Automated count 0.02 10^3/uL 0.00 - 0.70 [facility] Basophils [#/volume] in Blood by Automated count 0.03 10^3/uL 0.00 - 0.20 [facility] #IG 0.06 10^3/uL 0.00 - 0.10 [facility] H ospital #NRBC 0.00 10^3/uL 0.00 - 0.00 [facility] ospital MANUAL DIFF NOT INDICATED [facility] RBC MORPH NOT INDICATED [facility] spital ID Date Data Source [id number] 04/02/2020 05:53:00 PM EDT [facility] Name Value Range Interpretation Code Description Data Yoana rce(s) Supporting Document(s) Lactate [Moles/volume] in Serum or Plasma 2.1 MMOL/L 0.2 - 2.2 [facility] ID Date Data Source [id number] 03/11/2020 11:47:00 AM EDT [facility] [address] [place] [address] PHONE: [phone] FAX: [phone] Name .................. : KRISTIN Gross Acct Number.................. : [id number] ROOM. ................. : TR-07 Number ................... : [id number] Stay type ............. : E/R Discharge Date......... ... : Admit Date ......... : 03/09/20 Admit Phys .................... : LORENA PA Date of ....... : 1990 Family Phys ................... : DIANNE BAZZI Phone .................. : [phone] Age ................................ : 29 Film# .................. .:[id number] Sex ................................. : F Unsigned transcriptions are preliminary reports and do not represent a medical or legal document CT ABD & PELVIS W/ IV ONLY [id number] COMPLETE:03/09/20 22:50 DLA [id number] Reason(s): Abdominal Pain CT OF THE ABDO MEN AND PELVIS WITH CONTRAST: INDICATION: Abdominal pain. FINDINGS: The visualized portions of the heart and pericardium demonstrate no significant abnormalities. The lower lungs are clear. The liver, adrenals, spleen and kidneys demonstrate no significant abnormalities. There is an exophytic anterior hypodense lesion on the spleen which measures 1.5 cm in maximal axial dimension with smaller lesions in the inferior pole of the spleen. The bowel is of normal caliber. There is no abnormal intra-abdominal fluid collections. There is no lymphadenopathy by CT size criteria. The vascular and osseous structures are unremarkable. IMPRESSION: No radiographic evidence of acute gastrointestinal disease. Splenic cysts. While performing the above CT examination, radiation dose reduction was accomplished utilizing automated exposure control, adjusting of the mA and kV based on the patient's body size and/or the use of imperative reconstructive techniques. CT dose: 1070.4 mGycm Contrast agent in mL: 75 Isovue 370 Method of administration: Intravenous Electronically Reviewed and Signed By Preston Johansen MD , 03/11/20 11:47, IJW Page 1 of [address] [place] [address] PHONE: [phone] FAX: [phone] Name .................. : KRISTIN Gross Acct Number.................. : [id number] ROOM. ................. : TR-07 MR Number ................... : [id number] Stay type ............. : E/R Discharge Date......... ... : Admit Date ......... : 03/09/20 Admit Phys .................... : LORENA PA Date of ....... : 1990 Family Phys ................... : DIANNE BAZZI Phone .................. : [phone] Age ................................ : 29 Film# .................. .:[id number] Sex ................................. : F Unsigned transcriptions are preliminary reports and do not represent a medical or legal document CT ABD & PELVIS W/ IV ONLY [id number] COMPLETE:03/09/20 22:50 DLA [id number] Reason(s): Abdominal Pain Transcribe Initials: ROME , Transcribe Date: 03/09/20 23:01, Dictation Date: Copy for: BRENDAN DODD via fax Copy for: EMERGENCY DEPT via modem Copy for: 710 MED REC DISCHARGED Page 2 of 2 Name Value Range Interpretation Code Description Data Yoana rce(s) Supporting Document(s) ID Date Data Source [id number] 03/11/2020 11:46:00 AM EDT [facility] [address] [place] [address] PHONE: [phone] FAX: [phone] Name .................. : KRISTIN Gross Acct Number.................. : [id number] ROOM. ................. : TR-07 MR Number ................... : [id number] Stay type ............. : E/R Discharge Date......... ... : Admit Date ......... : 03/09/20 Admit Phys .................... : LORENA PA Date of ....... : 1990 Family Phys ................... : [employer] Phone .................. : [phone] Age ................................ : 29 Film# .................. .:[id number] Sex ................................. : F Unsigned transcriptions are preliminary reports and do not represent a medical or legal document CHEST 2 VIEWS [id number] COMPLETE:03/09/20 22:50 DLA [id number] Reaso n(s): upper abd pain CHEST X-RAY: 2-VIEWS INDICATION: Upper abdominal pain. FINDINGS: The cardiac and mediastinal silhouettes appear normal and the lungs are clear. The bones and soft tissues are normal. The upper abdomen is unremarkable. IMPRESSION: No acute disease identifiable. Electronically Reviewed and Signed By Preston Johansen MD , 03/11/20 11:46, IJW Transcribe Initials: ROME , Transcribe Date: 03/09/20 23:04, Dictation Date: Copy for: BRENDAN DODD via fax Copy for: EMERGENCY DEPT via mode[employer] Copy for: [facility] MED REC DISCHARGED Page 1 of 1 Name Value Range Interpretation Code Description Data Yoana rce(s) Supporting Document(s) ID Date Data Source [id number] 03/09/2020 08:50:00 PM EDT [facility] 1 OrderSheet [facility] Emergency Department [address] [place] [address] Phone #: ext- [phone] 03/09/2020 20:20 Patient: COLTON FOSTER Sex: F : 1990 Age: 29yWEIGHT:104.3 kg (S) HEIGHT:64 inches (S) BMI:39.5ALLERGIES: No Known Drug AllergyCHIEF COMPLAINT: abdominal pain, vomiting, diarrhea, nauseaDIAGNOSIS: Abdominal pain, Gastroenteritis, VomitingLAB ORDERSOrder Description Priority Entered Acknowledged [facility] w Diff [facility] 20:58 03/09/2020 21:15 Pacheco Chaudhry R.N. PJoieA.- C;CMP STAT 20:58 03/09/2020 21:15 Pacheco Chaudhry R.N. P.A.-C;Lipase STAT 20:58 03/09/2020 21:15 Pacheco ChaudhryN. P.A.-C;Urinalysis (Clean STAT 20:58 03/09/2020 21:15 Isidoro,Catch) Pacheco Johnson R.N. P.A.-C;HCG Serum Qual STAT 20:58 03/09/2020 21:15 Pacheco ChaudhryN. P.A.-C;Troponin-T STAT 21:32 03/09/2020 21:39 Pacheco Chaudhry R.N. P.A.-C;DIAGNOSTIC STUDY ORDERSOrder Description Priority Entered Acknowledged InitialedChest 2 View STAT 21:47 03/09/2020 Ack'd: 21:50 22:41 Isidoro,(Oxygen?(No)) Elizabeth Garnica R.N..N. P.A.-C; Reason for Study: upper abd painCT Abd PEL W/ IV STAT 21:47 03/09/2020 Ack'd: 21:50 22:41 Isidoro,Contrast Only Elizabeth Garnica R.N., R.N.(Oxygen?(No)) P.A.-C;(IV?(Yes)) Reason for Study: Abdominal Pain, Diarrhea, Nausea, Vomiting 2 OrderSheet [facility] Emergency Department [address] [place] [address] Phone #: ext- [phone] 03/09/2020 20:20 Patient: COLTON FOSTER Sex: F : 1990 Age: 29yMEDICATION/IV/DRIP/FLUID ORDERSOrder Description Priority Entered Acknowledged InitialedIV NS : Bolus 500 20:58 03/09/2020 21:16 Isidoro,mL, then 100 mL/hr Pacheco PerezN. P.A.-C;Zofran IVP 4 mg 20:58 03/09/2020 21:16 Pacheco Chaudhry.N. P.A.-C;Benadryl IVP 25 mg 20:58 03/09/2020 21:17 Pacheco Chaudhry R.N. P.A.-C;Toradol IVP 15 mg 21:47 03/09/2020 Ack'd: 21:50 21:54 Pacheco Chauhdry Tamra R.N. Tamra R.N. P.A.-C;Protonix IVPB 40 22:05 03/09/2020 22:12 mg Isidoro with Dextrose Pacheco Johnson R.N.100 ml spike bag P.A.- C;(D5W)GENERAL ORDERSOrder Description Priority Entered Acknowledged InitialedNPO 20:58 03/09/2020 21:15 Pacheco Chaudhry R.N. P.A.-C;Saline Lock 20:58 03/09/2020 21:15 Pacheco Chaudhry R.N. P.A.-C;EKG 20:58 03/09/2020 21:25 Pacheco Chaudhry R.N. P.A.-C;[Electronically signed by Elizabeth Chaudhry R.N. (23:52 03/09/2020)][Electronically signed by Alfonso Carrillo (00:01 03/10/2020)][Electronically signed by Pacheco Hayward P.A.-C (20:40 03/10/2020)][Electronically locked by Elizabeth Chaudhry R.N. (23:52 03/09/2020)] Name Value Range Interpretation Code Description Data Yoana rce(s) Supporting Document(s) ID Date Data Source [id number] 03/09/2020 08:50:00 PM EDT [facility] 1 Medication Reconciliation Report [facility] Emergency Department [address] [place] [address] Phone #: ext- [phone] 03/09/2020 20:20 Patient: COLTON FOSTER Sex: F : 1990 Age: 29yWeight: 104.3 kgHeight/Length: 64 in.BMI: 39.5ALLERGIES: No Known Drug AllergyThe patient's Home Medications are listed below:CONTINUE TAKING THE FOLLOWING MEDICATIONS: CeleXA Oral Omeprazole OralThe source(s) of the original Home Medication information:Not obtained.The following Me dications were given to the patient in the Emergency Department:IV NS IV Fluids bolus 0, then 1000 mL/hr, administered: 03/09/2020 9:16:00 PMZofran [IVP] IVP 4 mg, administered: 03/09/2020 9:16:00 PMBenadryl [IVP] IVP 25 mg, administered: 03/09/2020 9:17:00 PMToradol [IVP] IVP 15 mg, administered: 03/09/2020 9:54:00 PMProtonix [IVPB] IVPB bolus 0, then 40 mg 125 mL/hr, administered: 03/09/2020 10:12:00 PMThe following Medications were prescribed to the patient:None. Name Value Range Interpretation Code Description Data Yoana rce(s) Supporting Document(s) ID Date Data Source [id number] 03/09/2020 08:50:00 PM EDT [facility] 1 Medication Administration Record [facility] Emergency Department [address] [place] [address] Phone #: [phone]- [phone] 03/09/2020 20:20 Patient: COLTON FOSTER Sex: F : 1990 Age: 29yWeight: 104.3 kgHeight/Length: 64 inBMI: 39.5ALLERGIES: No Known Drug Allergy Date/Time Medication Administered Medication OrderedStart IV NS IV NS : Bolus 500 mL, then 88577:16 03/09/2020 Dose: IV Fluids mL/hrElizabeth Chaudhry, R.N. Rate: 1000 mL/hr over 1 hour(s)---- Dispensed: 1000 mL bagStop Site: #1 right AC22:18 03/09/2020Elizabeth Chaudhry R.N.Given ZOFRAN [IVP] (ONDANSETRON HCL) Zofran IVP 4 mg21:16 03/09/2020 Dose: 4 mg IVPHardElizabeth blackburn R.N. Site: #1 right ACGiven BENADRYL [IVP] (DIPHENHYDRAMINE Benadryl IVP 25 mg21:17 03/09/2020 HCL)Elizabeth Chaudhry R.N. Dose: 25 mg IVP Site: #1 right ACGiven TORADOL [IVP] (KETOROLAC Toradol IVP 15 mg21:54 03/09/2020 TROMETHAMINE)Elizabeth Chaudhry R.N. Dose: 15 mg IVP Site: #1 right ACStart PROTONIX [IVPB] (PANTOPRAZOLE Protonix IVPB 40 mg with22:12 03/09/2020 SODIUM) Dextrose 100 ml spike bag (D5W)Elizabeth Chaudhry R.N. Dose: 40 mg IVPB---- Rate: 125 mL/hr over 30 minute(s)Stop Dispensed: 50 mL bag22:44 03/09/2020 Site: #1 right Elizabeth Mary R.N. Name Value Range Interpretation Code Description Data Yoana rce(s) Supporting Document(s) ID Date Data Source [id number] 03/09/2020 08:50:00 PM EDT [facility] 1 General Instructions [facility] Emergency Department [address] [place] [address] Phone #: ext- [phone] 03/09/2020 20:20 Patient: COLTON FOSTER Sex: F : 1990 Age: 29yAcute epigastric abdominal pain of unknown cause. ADDITIONAL INFORMATIONUnknown Causes of Abdominal Pain (Female)The exact cause of your belly (abdominal) pain is not clear. This does not mean that this is somethingto worry about. Everyone likes to know the exact cause of the problem. But sometimes with bellypain, there is no clear-cut cause, and this could be a good thing. The good news is that yoursymptoms can be treated, and you will feel better.Your condition does not seem serious now. But sometimes the signs of a serious problem may takemore time to appear. For this reason, it is important for you to watch for any new symptoms,problems, or worsening of your con dition.Over the next few days, the abdominal pain may come and go. Or it may be constant. Other common 2 General Instructions [facility] Emergency Department [address] [place] [address] Phone #: ext- [phone] 03/09/2020 20:20 Patient: COLTON FOSTER Sex: F : 1990 Age: 29ysymptoms can include nausea and vomiting. Sometimes it can be difficult to tell if you feel nauseous.You may just feel bad and not connect that feeling to nausea. Constipation, diarrhea, and a fever maygo along with the pain.The pain may continue even if treated correctly over the following days. Depending on how things go,sometimes the cause can become clear and may need more or different treatment. Additionalevaluations, medicines, or tests may also be needed.Home careYour healthcare provider may prescribe medicine for pain, symptoms, or an infection. Follow thehealthcare provider's instructions for taking these medicines.General care Rest as much as you can until your next exam. No strenuous activities. Try to find positions that ease discomfort. A small pillow placed on the abdomen may help relieve pain. Something warm on your abdomen (such as a heating pad) may help, but be careful not to burn yourself.Diet Don't force yourself to eat, especially if having cramps, vomiting, or diarrhea. Water is important so you don't get dehydrated. Soup may also be good. Sports drinks may also help, especially if they are not too acidic. Don't drink sugary drinks as this can make things worse. Take liquids in small amounts. Don't guzzle them. Caffeine sometimes makes the pain and cramping worse. Don't take dairy products if you have vomiting or diarrhea. Don't eat large amounts at a time. Wait a few minutes between bites. Eat a diet low in fiber (called a low-residue diet). Foods allowed include refined breads, white rice, fruit and vegetable juices without pulp, tender meats. These foods will pass more easily through the intestine. Don't have whole-grain foods, whole fruits and vegetables, meats, seeds and nuts, fried or fatty foods, dairy, alcohol and spicy foods until your symptoms go away.Follow-up careFollow up with your healthcare provider, or as advised, if your pain does not begin to improve in the 3 General Instructions [facility] Emergency Department [address] [place] [address] Phone #: ext- [phone] 03/09/2020 20:20 Patient: COLTON FOSTER Sex: F : 1990 Age: 29ynext 24 hours.Call [facility] 401 if any of these occur: Trouble breathing Confusion Fainting or loss of consciousness Rapid heart rate SeizureWhen to seek medical adviceCall your healthcare provider right away if any of these occur: Pain gets worse or moves to the right lower abdomen New or worsening vomiting or diarrhea Swelling of the abdomen Unable to pass stool for more than 3 days Fever of 100.4F (38C) or higher, or as directed by your healthcare provider. Blood in vomit or bowel movements (dark red or black color) Yellow color of eyes and skin (jaundice) Weakness, dizziness Chest, arm, back, neck, or jaw pain Unexpected vaginal bleeding or missed period Can't keep down liquids or water and you are getting dehydrated [id number] [employer]. [address] [place] [address], [place] [address]. All rights reserved. This information is not intended as asubstitute for professional medical care. Always follow your healthcare professional's instructions. You have been given the following additional information: Abdominal Pain, Unknown Cause, (Female) 4 General Instructions [facility] Emergency Department [address] [place] [address] Phone #: ext- [phone] 03/09/2020 20:20 Patient: COLTON FOSTER Sex: F : 1990 Age: 29y(Electronically signed by Pacheco Hayward P.A.-C 03/10/2020 20:40)Vomiting with nausea, dehydration and volume depletion.Acute noninfectious gastroenteritis with volume depletion and dehydration.INSTRUCTIONSDrink plenty of fluids.(Advance diet as tolerated.).Warnings: Further evaluation is necessary (Gastrointestinal consultation).GENERAL WARNINGS: Return or contact your physician immediately if your condition worsens orchanges unexpectedly, if not improving as expected, or if other problems arise.Your Current Medications: Your current home medications have been reviewed.CONTINUE TAKING THE FOLLOWING MEDICATIONS:CeleXA Oral.Omeprazole Oral.Follow-up:Follow up with your doctor in two days even if well. Call for an appointment. Reason for referral: evaluation.Summary of care provided to patient via paper.Understanding of the discharge instructions verbalized by patient. ADDITIONAL INFORMATIONVomiting (Adult)Vomiting is a common symptom that may be due to different causes. These include gastroenteritis("stomach flu"), food poisoning and gastritis. There are other more serious causes of vomiting whichmay be hard to diagnose early in the illness. Therefore, it is important to watch for the warning signslisted below.The main danger from repeated vomiting is dehydration. This is due to excess loss of water and 5 General Instructions [facility] Emergency Department [address] [place] [address] Phone #: ext- [phone] 03/09/2020 20:20 Patient: COLTON FOSTER Sex: F : 1990 Age: 29yminerals from the body. When this occurs, your body fluids must be replaced.Home care If symptoms are severe, rest at home for the next 24 hours. Because your symptoms may be from an infection, wash your hands often and well. If soap and water are not available, use alcohol-based linen room supervisor to keep from spreading the infection to others. Wash your hands for at least 20 seconds. Humming the happy birthday song twice while you wash is an easy way to make sure you've washed for 20 seconds. Wash your hands after using the toilet, before and after preparing food, before eating food, after hubbard ging a diaper, cleaning a wound, caring for a sick person, and blowing your nose, coughing, or sneezing. You should also wash your hands after caring for someone who is sick, touching pet food, or treats, and touching an animal, or animal waste. You may use acetaminophen or NSAID medicines like ibuprofen or naproxen to control fever, unless another medicine was prescribed. If you have chronic liver or kidney disease or ever had a stomach ulcer or gastrointestinal bleeding, talk with your doctor before using these medicines. Aspirin should never be used in anyone under 18 years of age who is ill with a fever. It may cause severe liver damage. Don't use NSAID medicines if you are already taking one for another condition (like arthritis) or are on aspirin (such as for heart disease, or after a stroke) Don't use tobacco and or drink alcohol, which may worsen your symptoms. If medicines for vomiting were prescribed, take as directed. Once vomiting stops, then fol low these guidelines:During the first 12 to 24 hours follow the diet below: Fruit juices. Apple, grape juice, clear fruit drinks, and electrolyte replacement drinks. Beverages. Soft drinks without caffeine; mineral water (plain or flavored), decaffeinated tea and coffee. Soups. Clear broth and bouillon Desserts. Plain gelatin, ice pops, and fruit juice bars. As you feel better, you may add 6 to 8 ounces of yogurt per day.During the next 24 hours you may add the following to the above: Hot cereal, plain toast, bread, rolls, crackers 6 General Instructions [facility] Emergency Department [address] [place] [address] Phone #: ext- [phone] 03/09/2020 20:20 Patient: COLTON FOSTER Sex: F : 1990 Age: 29y Plain noodles, rice, mashed potatoes, chicken noodle or rice soup Unsweetened canned fruit such as applesauce, bananas (avoid pineapple and citrus) Limit caffeine and chocolate. No spices or seasonings except salt.During the next 24 hours:Gradually resume a normal diet, as you feel better and your symptoms lessen.Follow-up careFollow up with your healthcare provider, or as advised.When to seek medical adviceCall your healthcare provider right away if any of these occur: Constant right-sided lower belly pain or increasing general belly pain Continued vomiting (unable to keep liquids down) for 24 hours Vomiting blood or coffee grounds Swollen belly Frequent diarrhea (more than 5 times a day); blood (red or black color) or mucus in diarrhea Reduced urine output or extreme thirst Weakness, dizziness or fainting Unusually drowsy or confused Fever of 100.4F (38C) oral or higher, or as directed Yellow color of the eyes or skin [id number] [employer] [address] [place] [id number]. All rights reserved. This information is not intended as asubstitute for professional medical care. Always follow your healthcare professional's instructions.Viral Gastroenteritis (Adult) 7 General Instructions [facility] Emergency Department [address] [place] [address] Phone #: ext- [phone] 03/09/2020 20:20 Patient: COLTON FOSTER Sex: F : 1990 Age: 29yGastroenteritis is commonly called the "stomach flu," although it has nothing to do with influenza. It ismost often caused by a virus that affects the stomach and intestinal tract and usually lasts from 2 to 7days. Common viruses causing gastroenteritis include norovirus, rotavirus, and hepatitis A. Non-viralcauses of gastroenteritis include bacteria, parasites, and toxins.The danger from repeated vomiting or diarrhea is dehydration. This is the loss of too much fluid fromthe body. When this occurs, body fluids must be replaced. Antibiotics don't help with this illnessbecause it is usually viral. Simple home treatment will be helpful.Symptoms of viral gastroenteritis may include: Watery, loose stools Stomach pain or abdominal cramps Fever and chills Nausea and vomiting Loss of bowel control [address] Emergency Department [address] [place] [address] Phone #: ext- [phone] 03/09/2020 20:20 Patient: COLTON FOSTER Sex: F : 1990 Age: 29yGastroenteritis is transmitted by contact with the stool or vomit of an infected person. This can occurfrom person to person or from contact with a contaminated surface.Follow these guidelines when caring for yourself at home: If symptoms are severe, rest at home for the next 24 hours or until you are feeling better. Wash your hands with soap and water or use alcohol- based linen room supervisor to prevent the spread of infection. Wash your hands after touching anyone who is sick. Wash your hands or use alcohol-based linen room supervisor after using the toilet and before meals. Clean the toilet after each use.Remember these tips when preparing food: People with diarrhea should not prepare or serve food to others. When preparing foods, wash your hands before and after. Wash your hands after using cutting boards, countertops, knives, or utensils that have been in contact with raw food. Dry your hands with a single use towel. Keep uncooked meats away from cooked and liojj-hh-lod foods.MedicineYou may use acetaminophen or NSAID medicines like ibuprofen or naproxen to control fever unlessanother medicine was given. If you have chronic liver or kidney disease, talk with your healthcareprovider before using these medicines. Also talk with your provider if you've had a stomach ulceror gastrointestinal bleeding. Don't give aspirin to anyone under 18 years of age who is ill with a fever.It may cause severe liver damage. Don't use NSAIDS is you are already taking one for anothercondition (like arthritis) or are on aspirin (such as for heart disease or after a stroke).If medicine for vomiting or diarrhea are prescribed, take these only as directed. Nausea and diarrheamedicines are generally OK unless you have bleeding, fever, or severe abdominal pain.DietFollow these guidelines for food: Water and liquids are important so you don't get dehydrated. Drink a small amount at a time or suck on ice chips if you are vomiting. If you eat, avoid fatty, greasy, spicy, or fried foods. Don't eat dairy if you have diarrhea. This can make diarrhea worse. 9 General Instructions [facility] Emergency Department [address] [place] [address] Phone #: ext- [phone] 03/09/2020 20:20 Patient: COLTON FOSTER Sex: F : 1990 Age: 29y Avoid tobacco, alcohol, and caffeine which may worsen symptoms.During the first 24 hours (the first full day), follow the diet below: Beverages. Sports drinks, soft drinks without caffeine, inga ava, mineral water (plain or flavored), decaffeinated tea and coffee. If you are very dehydrated, sports drinks aren't a good choice. They have too much sugar and not enough electrolytes. In this case, commercially available products called oral rehydration solutions, are best. Soups. Eat clear broth, consomm, and bouillon. Desserts. Eat gelatin, ice pops, and fruit juice bars.During the next 24 hours (the second day), you may add the following to the above: Hot cereal, plain toast, bread, rolls, and crackers Plain noodles, rice, mashed potatoes, chicken noodle or rice soup Unsweetened canned fruit (avoid pineapple), bananas Limit fat intake to less than 15 grams per day. Do this by avoiding margarine, butter, oils, mayonnaise, sauces, gravies, fried foods, peanut butter, meat, poultry, and fish. Limit fiber and avoid raw or cooked vegetables, fresh fruits (except bananas), and bran cereals. Limit caffeine and chocolate. Don't use spices or seasonings other than salt. Limit dairy products. Avoid alcohol.During the next 24 hours: Gradually resume a normal diet as you feel better and your symptoms improve. If at any time it starts getting worse again, go back to clear liquids until you feel better.Follow-up careFollow up with your healthcare provider, or as advised. Call your provider if you don't get better [id number] hours or if diarrhea lasts more than a week. Also follow up if you are unable to keep down liquidsand get dehydrated. If a stool (diarrhea) sample was taken, call as directed for the results.Call [phone] if any of these occur: 10 General Instructions [facility] Emergency Department [address] [place] [address] Phone #: ext- [phone] 03/09/2020 20:20 Patient: COLTON FOSTER Sex: F : 1990 Age: 29y Trouble breathing Chest pain Confused Severe drowsiness or trouble awakening Fainting or loss of consciousness Rapid heart rate Seizure Stiff neckWhen to seek medical adviceCall your healthcare provider right away if any of these occur: Abdominal pain that gets worse Continued vomiting (unable to keep liquids down) Frequent diarrhea (more than 5 times a day) Blood in vomit or stool (black or red color) Dark urine, reduced urine output, or extreme thirst Weakness or dizziness Drowsiness Fever of 100.4F (38C) or higher, or as directed by your healthcare provider Julito cali [id number] [employer]. [address] [place] [address]. All rights reserved. This information is not intended as asubstitute for professional medical care. Always follow your healthcare professional's instructions.Dehydration (Adult)Dehydration occurs when your body loses too much fluid. This may be the result of prolongedvomiting or diarrhea, excessive sweating, or a high fever. It may also happen if you don't drinkenough fluid when you're sick or out in the heat. Misuse of diuretics (water pills) can also be a cause.Symptoms include thirst and decreased urine output. You may also feel dizzy, weak, fatigued, or verydrowsy. The diet described below is usually enough to treat dehydration. In some cases, you may 11 General Instructions [facility] Emergency Department [address] [place] [address] Phone #: ext- [phone] 03/09/2020 20:20 Patient: COLTON FOSTER Sex: F : 1990 Age: 29yneed medicine.Home care Drink at least 12 8-ounce glasses of fluid every day to resolve the dehydration. Fluid may include water; orange juice; lemonade; apple, grape, or cranberry juice; clear fruit drinks; electrolyte replacement and sports drinks; and teas and coffee without caffeine. Don't drink alcohol. If you have been diagnosed with a kidney disease, ask your doctor how much and what types of fluids you should drink to prevent dehydration. If you have kidney disease, fluid can build up in the body. This can be dangerous to your health. If you have a fever, muscle aches, or a headache as a result of a cold or flu, you may take acetaminophen or ibuprofen, unless another medicine was prescribed. If you have chronic liver or kidney disease, or have ever had a stomach ulcer or gastrointestinal bleeding, talk with your healthcare provider before using these medicines. Don't take aspirin if you are younger than 18 and have a fever. Aspirin raises the chance for severe liver injury.Follow-up careFollow up with your healthcare provider, or as advised.When to seek medical adviceCall your healthcare provider right away if any of these occur: Continued vomiting Frequent diarrhea (more than 5 times a day); blood (red or black color) or mucus in diarrhea Blood in vomit or stool Swollen abdomen or increasing abdominal pain Weakness, dizziness, or fainting Unusual drowsiness or confusion Reduced urine output or extreme thirst Fever of 100.4F (38C) or higher [id number] [employer] [address] [place] [address]. All rights reserved. This information is not intended as asubstitute for professional medic al care. Always follow your healthcare professional's instructions. You have been given the following additional information: Vomiting (Adult) 12 General Instructions [facility] Emergency Department [address] [place] [address] Phone #: ext- [phone] 03/09/2020 20:20 Patient: COLTON FOSTER Sex: F : 1990 Age: 29yGastroenteritis, Viral (Adult)Dehydration (Adult)(Electronically signed by Alfonso Carrillo, Physician 03/10/2020 00:01) Name Value Range Interpretation Code Description Data Yoana rce(s) Supporting Document(s) ID Date Data Source [id number] 03/09/2020 08:50:00 PM EDT [facility] 1 Clinical Report - Nurses [facility] Emergency Department [address] [place] [address] Phone #: ext- [phone] 03/09/2020 20:20 Patient: COLTON FOSTER Sex: F : 1990 Age: 29yTRIAGEHistorian: patient.Triage time: 20:21 03/09/2020. Acuity: LEVEL 3.Chief Complaint: VOMITING and DIARRHEA.Alert. No acute distress.Onset. (5 days ago). ( Pt c/o diarrhea starting first followed by vomiting for past 5 days.).SEPSIS SCREEN: Sepsis Screen negative. No suspected or confirmed signs of infection present. --20: Princess January, R.N.20:21 03/09/20. BP: 132/82. MAP: 98. HR: 79. RR: 18. O2 saturation: 96%. Temp: 97.9 F. Pain level now:10. --20:25 03/09/20 Princess Rose, R.N.Weight: 104.3 kg stated. Height/Length: 64 inches Per Patient. BMI: 39.5. --20:21 03/09/20 Princess Rose,R.N.MedicationsCeleXA Oral. --20:22 03/09/20 Princess January, R.N. Omeprazole Oral. --20:22 03/09/20 Princess January R.N.AllergiesNo Known Drug Allergy. --20:22 03/09/20 Rose Sánchez RJoieN.PROBLEMS:Anxiety Reaction.Reflux. --20:22 03/09/20 Rose Sánchez, R.N.ADDITIONAL SURGERIES:.Cyst removed from ovary.Tubal Ligation. --20:03/09/20 Princess, Rose, RJoieN.HistoryPAST MEDICAL HX: Last normal menstrual period- 2 weeks ago.SOCIAL HX: Never smoker. History of drug use: marijuana. (daily). No alcohol use. She was offeredHIV testing but declined. She has not traveled outside the [place]Infectious disease exposure: No infectious disease exposure. (covid screen negative). Patient is not aknown carrier of tuberculosis, hepatitis, HIV, MRSA or VRE. Patient is not a known carrier of CRE. 2 Clinical Report - Nurses [facility] Emergency Department [address] [place] [address] Phone #: ext- [phone] 03/09/2020 20:20 ---- Patient: COLTON FOSTER Sex: F : 1990 Age: 29y SELF HARM ASSESSMENT: Self harm assessment was performed. The patient answered "no" to the question(s) "Have you recently felt down, depressed, or hopeless?", "Do you have thoughts of harming or killing yourself?", "Do you have a plan for harming or killing yourself?", "Have you recently had thoughts about harming or killing others?", "Do you have any dangerous items in your possession?", "Have you noticed less interest or pleasure in doing things?", "Are you here because you tried to hurt yourself?" and "Have you ever tried to hurt yourself before today?". ABUSE ASSESSMENT: Abuse assessment. yes. The patient had positive responses to the question(s) "Do you feel safe in your home?". No report of abuse. NUTRITIONAL RISK ASSESSMENT: The nutritional risk assessment revealed no deficiencies. FUNCTIONAL ASSESSMENT: Functional assessment: no impairments noted. LEARNING NEEDS ASSESSMENT: The learning needs assessment revealed no barriers. FALL RISK ASSESSMENT: Fall risk assessment completed. No risk factors identified. SKIN INTEGRITY ASSESSMENT: Skin integrity risk assessment completed. No skin integrity risk identified. --20:03/09/20 PrincessJanuary, RJoieN. Interventions To treatment room. --20:03/09/20January, R.N.PHYSICAL ASSESSMENTGENERAL / NEURO / PSYCH: Alert. Oriented X 4. Appears in no acute distress.HEENT: Mucous membranes are pink.RESPIRATORY: Respirations not labored. Breath sounds within normal limits.CVS: Capillary refill less than 2 seconds.GI / : Abdomen soft and nontender. Bowel sounds within normal limits.SKIN: Skin is warm and dry. --20:43 03/09/20 Elizabeth Chaudhry R.N.NURSING PROGRESS NOTESPatient gowned. Head of bed elevated. Reassurance given. Two patient identifiers checked. Call lightplaced in reach. Side rails up x 1. Bed placed in lowest position. Brakes of bed on. Patient ready forevaluation- ED physician and PA notified. --20:03/09/20 Ginnajanuary, R.N. The patient reports no complaints and she is resting quietly. ( pt. voices no complaints at this time, talking and texting on phone). --20:43 03/09/20 Elizabeth Chaudhry R.N. 21:03/09/2020 Site #1 started via IV in the right antecubital space with an 20g angiocath. --21:03/09/20 Elizabeth Chaudhry R.N. 21:03/09/2020 Started bag #1 1000 mL IV Fluids IV NS; at 1000 mL/hr over 1 hour(s) via site #1. 3 Clinical Report - Nurses [facility] Emergency Department [address] [place] [address] Phone #: ext- [phone] 03/09/2020 20:20 Patient: COLTON FOSTER Sex: F : 1990 Age: 29y Allergies verified and confirmed 5 rights. IV patency established. IV site checked: no pain, redness, or swelling. IV flushed thoroughly pre- and post- medication administration. Information reviewed with patient. Verbalizes understanding. --21:16 03/09/20 Elizabeth Chaduhry R.N. 21:16 03/09/2020 Zofran (Ondansetron HCl) IVP 4 mg given over 2 minute(s) via site #1. Allergies verified and confirmed 5 rights. IV patency established. IV site checked: no pain, redness, or swelling. IV flushed thoroughly pre- and post-medication administration. IVP given by RN. Information reviewed with patient. Verbalizes understanding. --21:16 03/09/20 Elizabeth Chaudhry R.N. 21:17 03/09/2020 Benadryl (diphenhydrAMINE HCl) IVP 25 mg given over 2 minute(s) via site #1. Allergies verified and confirmed 5 rights. IV patency established. IV site checked: no pain, redness, or swelling. IV flushed thoroughly pre- and post-medication administration. IVP given by RN. Information reviewed with patient including sedative warning. Verbalizes understanding. --21:17 03/09/20 Elizabeth Chaudhry R.N. EKG time: (21:22 03/09/2020). EKG was performed by a nurse and shown to the PA. --21:25 03/09/20 Rose Sánchez R.N. 21:54 03/09/2020 Toradol (Ketorolac Tromethamine) IVP 15 mg given over 2 minute(s) via site #1. Allergies verified and confirmed 5 rights. IV patency established. IV site checked: no pain, redness, or swelling. IV flushed thoroughly pre- and post-medication administration. IVP given by RN. Information reviewed with patient. Verbalizes understanding. --21:54 03/09/20 Elizabeth Chaudhry R.N. 22:12 03/09/2020 Started 40 mg of Protonix (Pantoprazole Sodium) IVPB in bag #1 50 mL; at 125 mL/hr over 30 minute(s) via site #1. Allergies verified and confirmed 5 rights. IV patency established. IV site checked: no pain, redness, or swelling. IV flushed thoroughly pre- and post-medication administration. Information reviewed with patient. Verbalizes understanding. --22:12 03/09/20 Elizabeth Chaudhry R.N. 22:18 03/09/2020 IV Fluids IV NS via IV site #1 Discontinued: completed. Total amount infused: 1000 mL. --22:18 03/09/20 Elizabeth Chaudhry R.N. The patient reports no complaints and she is resting quietly and sleeping. --22:19 03/09/20 Elizabeth Chaudhry R.N. 22:44 03/09/2020 Protonix IVPB via IV site #1 Discontinued: completed. Total amount infused: 50 mL. --22:44 03/09/20 Elizabeth Chaudhry R.N.DISPOSITION / DISCHARGE 23:19 03/09/2020 Site #1 removed upon discharge. Bandaid applied. --23:19 03/09/20 Elizabeth Chaudhry R.N. Condition at departure: stable. No learning barriers present. Discharge instructions provided and reviewed with the patient. Reviewed warnings. Reviewed medication(s). Treatments reviewed. Reviewed referrals. Patient verbalized understanding. Written instructions provided in Kittitian. The patient was discharged by the physician. She was discharged home and accompanied by family. She left ambulatory and via private vehicle. Family member driving. --23:19 03/09/20 Elizabeth Chaudhry R.N. 4 Clinical Report - Nurses [facility] Emergency Department [address] [place] [address] Phone #: ext- [phone] 03/09/2020 20:20 Patient: COLTON FOSTER Sex: F : 1990 Age: 29y 23:18 03/09/20. BP: 126/78. MAP: 94. HR: 72. RR: 18. O2 saturation: 99%. Temp: 97.8 F. Pain level now: 0/10. --23:19 03/09/20 Elizabeth Chaudhry R.N. Departure time: 23:20 03/09/2020. --23:52 03/09/20 Elizabeth Chaudhry R.N.Locked/Released at 03/09/2020 23:52 by Elizabeth Chaudhry R.N. Name Value Range Interpretation Code Description Data Yoana rce(s) Supporting Document(s) ID Date Data Source [id number] 0001 03/09/2020 08:50:00 PM EDT [facility] 1 Clinical Report - Physicians/Mid Levels [facility] Emergency Department [address] [place] [address] Phone #: ext- [phone] 03/09/2020 20:20 Patient: COLTON FOSTER Sex: F : 1990 Age: 29y Time Seen: 20:57 03/09/2020; initial patient contact, initial documentation. Arrived- By private vehicle. Historian- patient.HISTORY OF PRESENT ILLNESS Chief Complaint: ABDOMINAL PAIN. This started about 5 days ago and is still present. It is described as "pain", cramping and dull and it is described as located in the epigastric area. The patient has had nausea, loss of appetite, vomiting and diarrhea. (Pt complains of N/V/D and abd pain x 5days; diarrhea started, then N/V. Sts that this has occured in the past; approx every 3-4 mths, but ths was not going away.). Similar symptoms previously. Patient has had similar symptoms frequently. Recent medical care: Not recently seen/assessed.REVIEW OF SYSTEMSHas had a tubal ligation. No constipation, black stools, hematemesis, difficulty with urination or pain withurination. No urinary frequency, bloody stools, fever, headache or sore throat. No blurred vision, chestpain, difficulty breathing, cough or joint pain. No skin rash, chills or back pain. Denies current .Last bowel movement- about 3 days ago. The patient has not had weight loss.PAST HISTORYSee nurses notes. Problems: Anxiety Reaction. Reflux. Additional Surgeries: . Cyst removed from ovary. Tubal Ligation. Medications: Omeprazole Oral. CeleXA Oral. Allergies: No Known Drug Allergy.SOCIAL HISTORYNever smoker. Occasional alcohol use. History of drug use: marijuana. 2 Clinical Report - Physicians/Mid Levels [facility] Emergency Department [address] [place] [address] Phone #: ext- [phone] 03/09/2020 20:20 Patient: COLTON FOSTER Sex: F : 1990 Age: 29yADDITIONAL NOTESThe nursing notes have been reviewed.PHYSICAL EXAMVital Signs: 03/09/2020 20:21 BP: 132/82. MAP: 98. HR: 79. RR: 18. O2 saturation: 96%. Temp: 97.9 F.Pain level now: 10. Have been reviewed. Oxygen saturation normal.Appearance: Alert. Oriented X3. No acute distress.ENT: Voice normal.CVS: Normal heart rate and rhythm. No JVD present. Pulses normal. Capillary refill normal. Strongperipheral pulses. Heart sounds normal. Pulses: right radial 2+; left radial 2+.Respiratory: Chest normal on inspection. No respiratory distress. Unlabored respirations. Lungs clear.Good chest movement. Breath sounds normal and equal.Abdomen: Soft. Moderate tenderness in the epigastric area. No guarding, rebound tenderness orMurphy's sign present. Bowel sounds normal. No distention.Skin: Skin warm and dry.Extremities: Extremities exhibit normal ROM. No lower extremity edema. No calf tenderness. No lowerextremity edema.Neuro: Awake. Alert. Mood/affect normal. Speech normal. No motor deficit. No sensory deficit.Psych: Cognition normal. Thought process and content normal. Insight and judgement normal.LABS, X-RAYS, AND EKGEKG: Normal sinus rhythm. Rate: 68. NSR; prolonged QT; abnormal EKG. Discussed and reviewed with attending. Laboratory Tests: Troponin-T: (JESSY: 03/09/2020 21:09) ( [facility] 03/09/[facility] 21:53) Final results Test Result Flag Units (Reference) TROPONIN T 0.01 NG/ML (0.00 - 0.10) TROPONIN T0.1 ng/ml Recommended as the clinical threshold value forTroponin T. CBC w Diff: (JESSY: 03/09/2020 21:09) ( [facility] 03/09/[facility] 21:32) Final re sults Test Result Flag Units (Reference) CBC W/AUTOMATED DIFF COMPLETE BLOOD COUNT WBC 15.8 H 10/uL (4.2 - 11.0) RBC 5.35 10/uL (4.20 - 5.40) HEMOGLOBIN 15.1 g/dL (12.0 - 16.0) HEMATOCRIT 46.5 % (37.0 - 47.0) MCV 86.9 fL (81.0 - 101) MCH 28.2 pg (27.0 - 34.0) MCHC 32.5 g/dL (31.0 - 36.0) RDW 13.3 % (11.5 - 14.5) PLATELETS 300 10/uL (150 - 450) MPV 10.4 fL (7.4 - 10.4) NEUT 74.9 % (37.0 - 80.0) LYMPH 14.5 L % (25.0 - 40.0) 3 Clinical Report - Physicians/Mid Levels [facility] Emergency Department [address] [place] [address] Phone #: ext- [phone] 03/09/2020 20:20 Patient: COLTON FOSTER Sex: F : 1990 Age: 29y MONO 9.3 H % (3.0 - 8.0) EOS 0.4 % (0.0 - 7.0) BASO 0.3 % (0.0 - 2.5) %IG 0.6 H % (0.0 - 0.0) %NRBC 0.0 % (0.0 - 0.0) #NEUT 11.81 H 10/uL (2.00 - 6.90) #LYMPH 2.28 10/uL (0.60 - 3.40) #MONO 1.47 H 10/uL (0.00 - 0.90) #EOS 0.06 10/uL (0.00 - 0.70) #BASO 0.05 10/uL (0.00 - 0.20) #IG 0.10 10/uL (0.00 - 0.10) #NRBC 0.00 10/uL (0.00 - 0.00) MANUAL DIFF SEE BELOW SEGS 76 % (37 - 80) %LYMPH 14 L % (25 - 40) %MONO 10 H % (3 - 8) RBC MORPH MORPH IS NORMALCMP: (JESSY: 03/09/2020 21:09) ( MsgRcvd 03/09/2020 21:42) Final results Test Result Flag Units (Reference) COMPREHENSIVE METABOLIC PANEL COMPREHENSIVE METABOLIC PANEL SODIUM 140 mEq/L (134 - 153) POTASSIUM 3.6 mEq/L (3.6 - 5.0) CHLORIDE 97 L mEq/L (98 - 107) CO2 29 MEQ/L (22 - 30) GLUCOSE 108 MG/DL (65 - 110) BUN 18 MG/DL (7 - 21) CREATININE 0.7 MG/DL (0.7 - 1.5) BUN/CREAT 26 (8 - 27) TOTAL PROTEIN 8.1 G/DL (6.3 - 8.2) ALBUMIN 4.7 G/DL (3.9 - 5.0) GLOBULIN 3.4 H GM/DL (2.4 - 3.2) A/G RATIO 1.4 (0.8 - 2.0) CALCIUM 9.1 MG/DL (8.4 - 10.2) TOTAL BILI 1.0 MG/DL (0.2 - 1.3) ALKALINE PHOS 87 U/L (38 - 126) SGOT/AST 63 H U/L (5 - 40) SGPT/ALT 46 U/L (7 - 56) ANION GAP 14.0 mmol/L (8.0 - 16.0) AGE 29 yrs NON- AA GFR >60 mL/min AFR AMER GFR >60 mL/min Male GFR Interprentation 20-49 yrs >60 mL/min Hxqgdz41-97 yrs >56 mL/min Normal 60- 69 yrs >49 mL/min Normal 70-79yrs>42 mL/min Normal 80 and above >35 mL/min Normal Female GFRInterpretation 20-39 yrs >60 mL/min Normal 40-49 yrs >58 mL/minNormal 50-59 yrs >51 mL/min Normal 60-69 yrs >45 mL/min Kyhion92-80 yrs >39 mL/min Normal 80 and above >32 mL/min NormalLipase: (JESSY: 03/09/2020 21:09) ( [facility] 03/09/2020 21:42) Final results Test Result Flag Units (Reference) LIPASE 22 U/L (13 - 60)Urinalysis: (JESSY: 03/09/2020 21:00) ( [facility] 03/09/2020 21:13) Final results Test Result Flag Units (Reference) URINALYSIS 4 Clinical Report - Physicians/Mid Levels [facility] Emergency Department [address] [place] [address] Phone #: ext- [phone] 03/09/2020 20:20 Patient: COLTON FOSTER Sex: F : 1990 Age: 29y URINALYSIS SOURCE R COLOR yellow (NORMAL: Yello CLARITY hazy (NORMAL: Clear SPEC GRAVITY 1.015 (1.001 - 1.030 pH 7 (5 - 9) GLUCOSE NORM (NORMAL: Negat BILIRUBIN NEG (NORMAL: Negat KETONE NEG (NORMAL: Negat PROTEIN NEG (NORMAL: Negat NITRITE NEG (NORMAL: Negat BLOOD 10 A (NORMAL: Negat LEUK EST NEG (NORMAL: Negat UROBILINOGEN NOR (less than 1.0 MICROSCOPIC See Below WBC None Seen (NORMAL: NONE RBC 0 - 1 (NORMAL: NONE EPITHELIAL MANY A (NORMAL: NONE BACTERIA Trace (NORMAL: NONE Beta-HCG, Qual Serum: (JESSY: 03/09/2020 21:09) ( MsgRcvd 03/09/2020 21:34) Final results Test Result Flag Units (Reference) HCG SERUM QUAL NEGATIVE (NORMAL: NEGAT HCG SERUM QL REENTER NEGATIVE (NORMAL: NEGAT { KIT LOT # [id number] ){ KIT EXP DATE 08-06-21 ){ PROCEDURAL CONTROL VALID ).PROGRESS AND PROCEDURESCourse of Care: VSS, NAD, AOx3, inter acting well and appropriately, no use of accessory muscle, able tospeak full sentences, stable, non-toxic looking. Enter room and pt lying peacefully in bed in NAD. Patient stable. Denies any new issues, concerns, or complaints. PE demos NV itnact b/l UE and LE. Pt complaints of N/V/D with upper abd pain x 5 days; has had similiar episodes in the past. Will obtiain labs and imaging for furhter evqal. PEnding results. 21:50 03/09/20. Reviewed results; noted elevated WBCs. ? 2/2 vomiting vs ? abd patho. Will obtian imaigng for furhter eval. Pending resutls. 22:06 03/09/20. ED care transferred. Case discussed with Dr. Carrillo . Brief hx: Given. Pending items: lab and CT / MRI results. 22:08 03/09/20. Discussed case with Dr. Carrillo. Case transfered. He assumed care. Does erquest protonix. Order palced. Discussed case with health care provider (Lorena). 5 Clinical Report - Physicians/Mid Levels [facility] Emergency Department [address] [place] [address] Phone #: ext- [phone] 03/09/2020 20:20 Patient: COLTON FOSTER Sex: F : 1990 Age: 29yCLINICAL IMPRESSION Acute epigastric abdominal pain of unknown cause.(Electronically signed by Pacheco Hayward P.A.-C 03/10/2020 20:40) Time Seen: 23:13 03/09/2020. Arrived- By private vehicle. Historian- patient. Disposition decision: 23:15 03/09/2020.HISTORY OF PRESENT ILLNESS Chief Complaint: VOMITING, DIARRHEA and NAUSEA.LABS, X-RAYS, AND EKGLaboratory Tests: Laboratory tests have been ordered, with results reviewed and considered in themedical decision making process. Chest 2 View: (JESSY: 03/09/2020 21:47) ( MsgRcvd 03/09/2020 23:05) In Progress CHEST 2 VIEWS Reason(s): upper abd pain TRANSPORTATION: IV? O2? Oxygen?(No) Room: ED : No Exam CHEST [place] [address] PHONE: [phone] FAX: [phone] Name .................. : KRISTIN Gross Acct Number.................. : [id number] ROOM. ................. : TR-07 MR Number ................... : [id number] Stay type ............. : E/R Discharge Date......... ... : Admit Date ......... : 03/09/20 Admit Phys .................... : LORENA WILSON Date of ....... : 1990 Family Phys ................... : DIANNE BAZZI Phone .... .............. : [phone] Age ................................ : 29 Film# .................. .:[id number] Sex ................................. : F Unsigned transcriptions are preliminary reports and do not represent a medical or legal document CHEST 2 VIEWS [id number] COMPLETE:03/09/20 22:50 [id number] [id number] Reason(s): upper abd pain CHEST X-RAY: 2-VIEWS 6 Clinical Report - Physicians/Mid Levels [facility] Emergency Department [address] [place] [address] Phone #: ext- [phone] 03/09/2020 20:20 Patient: COLTON FOSTER Sex: F : 1990 Age: 29y INDICATION: Upper abdominal pain. FINDINGS: The cardiac and mediastinal silhouettes appear normal and the lungs are clear. The bones and soft tissues are normal. The upper abdomen is unremarkable. IMPRESSION: No acute disease identifiable. Electronically Reviewed and Signed By BENITA SIGNDATE, LICHA Transcribe Initials: ROME , Transcribe Date: 03/09/20 23:04, Dictation Date: <<REPDIST>>Page 1 of 1CT Abd PEL W/ IV Contrast Only: (JESSY: 03/09/2020 21:47) ( MsgRcvd 03/09/2020 23:04) In ProgressCT ABDReason(s): Abdominal PainTRANSPORTATION: WC IV? IV?(Yes) O2? Oxygen?(No) Ro: No Exam CT ABD //T// PELVIS W/ IV ONLY [facility] [address] [place] [address] PHONE: [phone] FAX: [phone] Name .................. : KRISTIN Gross Acct Number.................. : [id number] ROOM. ................. : TR-07 MR Number ................... : [id number] Stay type ............. : E/R Discharge Date......... ... : Admit Date ......... : 03/09/20 Admit Phys .................... : LORENA WILSON Date of ....... : 1990 Family Phys ................... : DIANNE Chobani Phone .................. : [phone] Age ................................ : 29 Film# .................. .:[id number] Sex ................................. : F Unsigned transcriptions are preliminary reports and do not represent a medical or legal document CT ABD Reason(s): Abdominal Pain Diarrhea Nausea Vomiting CT OF THE ABDOMEN AND PELVIS WITH CONTRAST: INDICATION: Abdominal pain. 7 Clinical Report - Physicians/Mid Levels [facility] Emergency Department [address] [place] [address] Phone #: ext- [phone] 03/09/2020 20:20 Patient: COLTON FOSTER Sex: F : 1990 Age: 29y FINDINGS: The visualized portions of the heart and pericardium demonstrate no significant abnormalities. The lower lungs are clear. The liver, adrenals, spleen and kidneys demonstrate no significant abnormalities. There is an exophytic anterior hypodense lesion on the spleen which measures 1.5 cm in maximal axial dimension with smaller lesions in the inferior pole of the spleen. The bowel is of normal caliber. There is no abnormal intra-abdominal fluid collections. There is no lymphadenopathy by CT size criteria. The vascular and osseous structures are unremarkable. IMPRESSION: No radiographic evidence of acute gastrointestinal disease. Splenic cysts. While performing the above CT examination, radiation dose reduction was accomplished utilizing automated exposure control, adjusting of the mA and kV based on the patient's body size and/or the use of imperative reconstructive techniques. CT dose: mGycm Contrast agent in mL: 75 Isovue 370 Method of administration: Intravenous Electronically Reviewed and Signed By DCTSOHAIL COLON, RENAEW Page 1of [address] [place] [address] PHONE: [phone] FAX: [phone] Name .................. : KRISTIN Gross Acct Number.................. : [id number] ROOM. ................. : TR-07 MR Number ................... : [id number] Stay type ........... .. : E/R Discharge Date......... ... : Admit Date ......... : 03/09/20 Admit Phys .................... : LORENA WILSON Date of ....... : 1990 Family Phys ................... : DIANNE BAZZI Phone .................. : [phone] Age ................................ : 29 Film# .................. .:[id number] Sex ................................. : F Unsigned transcriptions are preliminary reports and do not represent a medical or legal document CT ABD Reason(s): Abdominal Pain Diarrhea Nausea Vomiting Transcribe Initials: ROME , Transcribe Date: 03/09/20 23:01, Dictation Date: <<REPDIST>> Page 2of 2 8 Clinical Report - Physicians/Mid Levels [facility] Emergency Department [address] [place] [address] Phone #: ext- [phone] 03/09/2020 20:20 Patient: COLTON FOSTER Sex: F : 1990 Age: 29yTroponin-T: (JESSY: 03/09/2020 21:09) ( MsgRcvd 03/09/2020 21:53) Final results Test Result Flag Units (Reference) TROPONIN T 0.01 NG/ML (0.00 - 0.10) TROPONIN T0.1 ng/ml Recommended as the clinical threshold value Alesiaroponin T.CBC w Diff: (JESSY: 03/09/2020 21:09) ( MsgRcvd 03/09/2020 21:32) Final results Test Result Flag Units (Reference) CBC W/AUTOMATED DIFF COMPLETE BLOOD COUNT WBC 15.8 H 10/uL (4.2 - 11.0) RBC 5.35 10/uL (4.20 - 5.40) HEMOGLOBIN 15.1 g/dL (12.0 - 16.0) HEMATOCRIT 46.5 % (37.0 - 47.0) MCV 86.9 fL (81.0 - 101) MCH 28.2 pg (27.0 - 34.0) MCHC 32.5 g/dL (31.0 - 36.0) RDW 13.3 % (11.5 - 14.5) PLATELETS 300 10/uL (150 - 450) MPV 10.4 fL (7.4 - 10.4) NEUT 74.9 % (37.0 - 80.0) LYMPH 14.5 L % (25.0 - 40.0) MONO 9.3 H % (3.0 - 8.0) EOS 0.4 % (0.0 - 7.0) BASO 0.3 % (0.0 - 2.5) %IG 0.6 H % (0.0 - 0.0) %NRBC 0.0 % (0.0 - 0.0) #NEUT 11.81 H 10/uL (2.00 - 6.90) #LYMPH 2.28 10/uL (0.60 - 3.40) #MONO 1.47 H 10/uL (0.00 - 0.90) #EOS 0.06 10/uL (0.00 - 0.70) #BASO 0.05 10/uL (0.00 - 0.20) #IG 0.10 10/uL (0.00 - 0.10) #NRBC 0.00 10/uL (0.00 - 0.00) MANUAL DIFF SEE BELOW SEGS 76 % (37 - 80) %LYMPH 14 L % (25 - 40) %MONO 10 H % (3 - 8) RBC MORPH MORPH IS NORMALCMP: (JESSY: 03/09/2020 21:09) ( MsgRcvd 03/09/2020 21:42) Final results Test Result Flag Units (Reference) COMPREHENSIVE METABOLIC PANEL COMPREHENSIVE METABOLIC PANEL SODIUM 140 mEq/L (134 - 153) POTASSIUM 3.6 mEq/L (3.6 - 5.0) CHLORIDE 97 L mEq/L (98 - 107) CO2 29 MEQ/L (22 - 30) GLUCOSE 108 MG/DL (65 - 110) BUN 18 MG/DL (7 - 21) CREATININE 0.7 MG/DL (0.7 - 1.5) BUN/CREAT 26 (8 - 27) TOTAL PROTEIN 8.1 G/DL (6.3 - 8.2) ALBUMIN 4.7 G/DL (3.9 - 5.0) GLOBULIN 3.4 H GM/DL (2.4 - 3.2) A/G RATIO 1.4 (0.8 - 2.0) 9 Clinical Report - Physicians/Mid Levels [facility] Emergency Department [address] [place] [address] Phone #: ext- [phone] 03/09/2020 20:20 Patient: COLTON FOSTER Sex: F : 1990 Age: 29y CALCIUM 9.1 MG/DL (8.4 - 10.2) TOTAL BILI 1.0 MG/DL (0.2 - 1.3) ALKALINE PHOS 87 U/L (38 - 126) SGOT/AST 63 H U/L (5 - 40) SGPT/ALT 46 U/L (7 - 56) ANION GAP 14.0 mmol/L (8.0 - 16.0) AGE 29 yrs NON-AA GFR >60 mL/min AFR AMER GFR >60 mL/min Male GFR Interprentation 20-49 yrs >60 mL/min Normal 50-59 yrs >56 mL/min Normal 60-69 yrs >49 mL/min Normal 70-79yrs >42 mL/min Normal 80 and above >35 mL/min Normal Female GFR Interpretation 20-39 yrs >60 mL/min Normal 40-49 yrs >58 mL/min Normal 50-59 yrs >51 mL/min Normal 60-69 yrs >45 mL/min Normal 70-79 yrs >39 mL/min Normal 80 and above >32 mL/min Normal Lipase: (JESSY: 03/09/2020 21:09) ( [facility] 03/09/2020 21:42) Final results Test Result Flag Units (Reference) LIPASE 22 U/L (13 - 60) Urinalysis: (JESSY: 03/09/2020 21:00) ( [facility] 03/09/2020 21:13) Final results Test Result Flag Units (Reference) URINALYSIS URINALYSIS SOURCE R COLOR yellow (NORMAL: Yello CLARITY hazy (NORMAL: Clear SPEC GRAVITY 1.015 (1.001 - 1.030 pH 7 (5 - 9) GLUCOSE NORM (NORMAL: Negat BILIRUBIN NEG (NORMAL: Negat KETONE NEG (NORMAL: Negat PROTEIN NEG (NORMAL: Negat NITRITE NEG (NORMAL: Negat BLOOD 10 A (NORMAL: Negat LEUK EST NEG (NORMAL: Negat UROBILINOGEN NOR (less than 1.0 MICROSCOPIC See Below WBC None Seen (NORMAL: NONE RBC 0 - 1 (NORMAL: NONE EPITHELIAL MANY A (NORMAL: NONE BACTERIA Trace (NORMAL: NONE Beta-HCG, Qual Serum: (JESSY: 03/09/2020 21:09) ( [facility] 03/09/2020 21:34) Final results Test Result Flag Units (Reference) HCG SERUM QUAL NEGATIVE (NORMAL: NEGAT HCG SERUM QL REENTER NEGATIVE (NORMAL: NEGAT { KIT LOT # [id number] ){ KIT EXP DATE 08-06-21 ){ PROCEDURAL CONTROL VALID ).PROGRESS AND PROCEDURES 10 Clinical Report - Physicians/Mid Levels [facility] Emergency Department [address] [place] [address] Phone #: ext- [phone] 03/09/2020 20:20 Patient: COLTON FOSTER Sex: F : 1990 Age: 29y Course of Care: 23:14 Mar 09 2020. (Reviewed labs chest x-ray and CT scan with patient . She feels 100 % better. Discussed follow up and need for GI referral. To return if worsen and stay on Omeprazole 20 mg BiD). Disposition: Condition: stable.CLINICAL IMPRESSION Vomiting with nausea, dehydration and volume depletion. Acute noninfectious gastroenteritis with volume depletion and dehydration.INSTRUCTIONS Drink plenty of fluids. (Advance diet as tolerated.). Warnings: Further evaluation is necessary (Gastrointestinal consultation). GENERAL WARNINGS: Return or contact your physician immediately if your condition worsens or changes unexpectedly, if not improving as expected, or if other problems arise. Your Current Medications: Your current home medications have been reviewed. CONTINUE TAKING THE FOLLOWING MEDICATIONS: CeleXA Oral. Omeprazole Oral. Follow-up: Follow up with your doctor in two days even if well. Call for an appointment. Reason for referral: evaluation. Summary of care provided to patient via paper. Understanding of the discharge instructions verbalized by patient.(Electronically signed by Alfonso Carrillo, Physician 03/10/2020 00:01) Name Value Range Interpretation Code Description Data Yoana rce(s) Supporting Document(s) ID Date Data Source [id number] 03/10/2020 11:21:00 [place] [address] RESPIRATORY CARE REPORT ==== ---------NAME------- NUMBER SEX AGE ADMIT DISC. XRAY# F/C ANDREA Gross [id number] F 29 03/09/20 03/09/[id number] X6B E/R DATE OF : 1990 M/R# [id number] PH#: [phone] TR-07 LOCATION: EMERGENCY DEPT EKG [id number] COMP LETE:03/10/20 02:46 T [id number] PHYSICIAN: LORENA HAYWARD CH Name Value Range Interpretation Code Description Data Yoana rce(s) Supporting Document(s) ID Date Data Source [id number] 03/09/2020 09:09:00 PM EDT [facility] ([facility]) Name Value Range Interpretation Code Description Data Yoana rce(s) Supporting Document(s) Lipoprotein lipase [Enzymatic activity/volume] in Serum or Plasm a 22 U/L 13-60 [facility] ([facility]) Troponin T.cardiac [Mass/volume] in Serum or Plasma 0.01 ng/mL 0.00-0 .10 [facility] ([facility]) TROPONIN T 0.1 ng/ml Recommended as the clinical th reshold value for Troponin T. ID Date Data Source [id number] 03/09/2020 09:09:00 PM EDT [facility] ([facility]) Name Value Range Interpretation Code Description Data Yoana rce(s) Supporting Document(s) Comprehensive [facility]abo Laboratory test result [facility] ([facility]) COMPREHENSIVE METABOLIC PANEL Potassium 3.6 meq/L 3.6-5.0 [facility] Chloride 97 meq/L 98-107 [facility] Sodium 140 meq/L 134-153 [facility] Glucose 108 mg/dL 65-110 [facility] BUN 18 mg/dL 7-21 [facility] Co2 29 meq/L 22-30 [facility] Creatinine 0.7 mg/dL 0.7-1.5 [facility] BUN/Creat 26 8-27 [facility] [facility]) Total Protein 8.1 g/dL 6.3-8.2 [facility] ([facility]) Albumin 4.7 g/dL 3.9-5.0 [facility]) Globulin 3.4 GM/DL 2.4-3.2 [facility]) Total Bili 1.0 mg/dL 0.2-1.3 [facility] ([facility]) Calcium 9.1 mg/dL 8.4-10.2 [facility] [facility]) A/G Ratio 1.4 0.8-2.0 [facility] [facility]) Sgot/Ast 63 U/L 5-40 [facility] ([facility]) Alkaline Phos 87 U/L 38-126 [facility] ([facility]) SGPT/Alt 46 U/L 7-56 [facility] [facility]) Age 29 yrs [facility]) Non-Aa GFR Laboratory test result [facility] ([facility]) Anion Gap 14.0 mmol/L 8.0-16.0 [facility] ([facility]) Afr Amer GFR Laboratory test result [facility] Male GFR Interprentation 20-49 yrs >60 mL/min Normal 50-59 yrs >56 mL/min Normal 60-69 yrs >49 mL/min Normal 70-79yrs >42 mL/min Normal 80 and above >35 mL/min Normal Female GFR Interpretation 20-39 yrs >60 mL/min Normal 40-49 yrs >58 mL/min Normal 50-59 yrs >51 mL/min Normal 60-69 yrs >45 mL/min Normal 70-79 yrs >39 mL/min Normal 80 and above >32 mL/min Normal ID Date Data Source [id number] 03/09/2020 09:09:00 PM EDT [facility] Name Value Range Interpretation Code Description Data Yoana rce(s) Supporting Document(s) HCG Serum QL [facility] Laboratory test [facility]) { KIT LOT # [id number] ) { KIT EXP DATE 08-06-21 ) { PROCEDURAL CONTROL VALID ) HCG Serum Qual Laboratory test result [facility] ([facility]) ID Date Data Source [id number] 03/09/2020 09:09:00 PM EDT [facility] ([facility]) Name Value Range Interpretation Code Description Data Yoana rce(s) Supporting Document(s) CBC W/Automated Diff Laboratory test result [facility] ([facility]) COMPLETE BLOOD COUNT Hemoglobin 15.1 g/dL 12.0-16.0 [facility] WBC 15.8 10^3/uL 4.2-11.0 [facility] ([facility]) RBC 5.35 10^6/uL 4.20-5.40 [facility] ([facility]) MCH 28.2 pg 27.0-34.0 [facility] MCV 86.9 fL 81.0-101 [facility] Hematocrit 46.5 % 37.0-47.0 [facility] RDW 13.3 % 11.5-14.5 [facility] MCHC 32.5 g/dL 31.0-36.0 [facility] Platelets 300 10^3/uL 150-450 [facility] ([facility]) MPV 10.4 fL 7.4-10.4 [facility] Neut 74.9 % 37.0-80.0 [facility] Lymph 14.5 % 25.0-40.0 [facility]) Baso 0.3 % 0.0-2.5 [facility]) Dawson 9.3 % 3.0-8.0 [facility]) Eos 0.4 % 0.0-7.0 [facility]) #Neut 11.81 10^3/uL 2.00-6.90 [facility] ([facility]) %Ig 0.6 % 0.0-0.0 [facility] [facility]) %NRBC 0.0 % 0.0-0.0 [facility]) #Dawson 1.47 10^3/uL 0.00-0.90 [facility] ([facility]) #Eos 0.06 10^3/uL 0.00-0.70 [facility] ([facility]) #Lymph 2.28 10^3/uL 0.60-3.40 [facility] ([facility]) #Ig 0.10 10^3/uL 0.00-0.10 [facility] ([facility]) #NRBC 0.00 10^3/uL 0.00-0.00 [facility] ([facility]) #Baso 0.05 10^3/uL 0.00-0.20 [facility] ([facility]) Manual Diff Laboratory test result [facility] ([facility]) Segs 76 % 37-80 [facility]) %Lymph 14 % 25-40 [facility]) RBC Morph Laboratory test result [facility] ([facility]) %Dawson 10 % 3-8 [facility]) ID Date Data Source [id number] 03/09/2020 09:53:00 PM EDT [facility] Value Range Interpretation Code Description Data Yoana rce(s) Supporting Document(s) TROPONIN T 0.01 NG/ML 0.00 - 0.10 [facility]ital TROPONIN T0.1 ng/ml Recommended as the c linical threshold value forTroponin T. ID Date Data Source [id number] 03/09/2020 09:42:00 PM EDT [facility] Value Range Interpretation Code Description Data Yoana rce(s) Supporting Document(s) Lipase [Enzymatic activity/volume] in Serum or Plasma 22 U/L 13 - 60 [facility] ID Date Data Source [id number] 03/09/2020 09:42:00 PM EDT [facility] Value Range Interpretation Code Description Data Yoana rce(s) Supporting Document(s) COMPREHENSIVE METABOLIC PANEL [facility] COMPREHENSIVE METABOLIC PANEL Sodium [Moles/volume] in Serum or Plasma 140 mEq/L 134 - 153 [facility] Potassium [Moles/volume] in Serum or Plasma 3.6 mEq/L 3.6 - 5.0 [facility] Chloride [Moles/volume] in Serum or Plasma 97 mEq/L 98 - 107 L [facility] Carbon dioxide, total [Moles/volume] in Serum or Plasma 29 MEQ/L 22 - 30 [facility] Glucose [Mass/volume] in Serum or Plasma 108 MG/DL 65 - 110 [facility] BUN 18 MG/DL 7 - 21 [facility] al Creatinine [Mass/volume] in Serum or Plasma 0.7 MG/DL 0.7 - 1.5 [facility] BUN/CREAT 26 8 - 27 [facility] al Protein [Mass/volume] in Serum or Plasma 8.1 G/DL 6.3 - 8.2 [facility] Albumin [Mass/volume] in Serum or Plasma 4.7 G/DL 3.9 - 5.0 [facility] Globulin [Mass/volume] in Serum by calculation 3.4 GM/DL 2.4 - 3.2 H [facility] A/G RATIO 1.4 0.8 - 2.0 [facility] Calcium [Mass/volume] in Serum or Plasma 9.1 MG/DL 8.4 - 10.2 [facility] Bilirubin.total [Mass/volume] in Serum or Plasma 1.0 MG/DL 0.2 - 1.3 [facility] Alkaline phosphatase [Enzymatic activity/volume] in Serum or Plasma 87 U/L 38 - 126 [facility] Aspartate aminotransferase [Enzymatic activity/volume] in Serum or Plasma 63 U/L 5 - 40 H [facility] Alanine aminotransferase [Enzymatic activity/volume] in Seru m or Plasma 46 U/L 7 - 56 [facility] Anion gap 3 in Serum or Plasma 14.0 mmol/L 8.0 - 16.0 [facility] AGE 29 yrs [facility] al NON-AA GFR >60 mL/min [facility] ital AFR AMER GFR >60 mL/min [facility] spital Male GFR In terprentation 20-49 yrs >60 mL/min Normal 50-59 yrs >56 mL/min Normal 60-69 yrs >49 mL/min Normal 70-79yrs >42 mL/min Normal 80 and above >35 mL/min Normal Female GFR Interpretation 20-39 yrs >60 mL/min Normal 40-49 yrs >58 mL/min Normal 50-59 yrs >51 mL/min Normal 60-69 yrs >45 mL/min Normal 70-79 yrs >39 mL/min Normal 80 and above >32 mL/min Normal ID Date Data Source [id number] 03/09/2020 09:33:00 PM EDT [facility] Name Value Range Interpretation Code Description Data Yoana rce(s) Supporting Document(s) HCG SERUM QUAL NEGATIVE NORMAL: NEGATIVE [facility] HCG SERUM QL REENTER NEGATIVE NORMAL: NEGATIVE [facility] { KIT LOT # [id number] ){ KIT EXP DATE 08-06-21 ){ PROCEDURAL CONTROL VALID ) ID Date Data Source [id number] 03/09/2020 09:32:00 PM EDT [facility] Name Value Range Interpretation Code Description Data Yoana rce(s) Supporting Document(s) CBC W/AUTOMATED DIFF [facility] COMPLETE BLOOD COUNT Leukocytes [#/volume] in Blood by Automated count 15.8 10^3/uL 4.2 - 11.0 H [facility] Erythrocytes [#/volume] in Blood by Automated count 5.35 10^6/uL 4. 20 - 5.40 [facility] Hemoglobin [Mass/volume] in Blood 15.1 g/dL 12.0 - 16.0 [facility] Hematocrit [Volume Fraction] of Blood by Automated count 46.5 % 3 7.0 - 47.0 [facility] Erythrocyte mean corpuscular volume [Entitic volume] by Auto mated count 86.9 fL 81.0 - 101 [facility] Erythrocyte mean corpuscular hemoglobin [Entitic mass] by Automated count 28.2 pg 27.0 - 34.0 [facility] Erythrocyte mean corpuscular hemoglobin concentration [Mass/volume] by Automated count 32.5 g/dL 31.0 - 36.0 [facility] Erythrocyte distribution width [Ratio] by Automated count 13.3 % 11.5 - 14.5 [facility] Platelets [#/volume] in Blood by Automated count 300 10^3/uL 150 - 45 0 [facility] Platelet mean volume [Entitic volume] in Blood by Automated count 10.4 fL 7.4 - 10.4 [facility] Neutrophils/100 leukocytes in Blood by Automated count 74.9 % 37. 0 - 80.0 [facility] Lymphocytes/100 leukocytes in Blood by Manual count 14.5 % 25.0 - 40.0 L [facility] Monocytes/100 leukocytes in Blood by Automated count 9.3 % 3.0 - 8.0 H [facility] Eosinophils/100 leukocytes in Blood by Automated count 0.4 % 0.0 - 7.0 [facility] Basophils/100 leukocytes in Blood by Automated count 0.3 % 0.0 - 2.5 [facility] %IG 0.6 % 0.0 - 0.0 H [facility] al %NRBC 0.0 % 0.0 - 0.0 [facility] al Neutrophils [#/volume] in Blood by Automated count 11.81 10^3/uL 2. 00 - 6.90 H [facility] Lymphocytes [#/volume] in Blood by Automated count 2.28 10^3/uL 0.60 - 3.40 [facility] Monocytes [#/volume] in Blood by Automated count 1.47 10^3/uL 0.00 - 0.90 H [facility] Eosinophils [#/volume] in Blood by Automated count 0.06 10^3/uL 0.00 - 0.70 [facility] Basophils [#/volume] in Blood by Automated count 0.05 10^3/uL 0.00 - 0.20 [facility] #IG 0.10 10^3/uL 0.00 - 0.10 [facility]spital #NRBC 0.00 10^3/uL 0.00 - 0.00 [facility] ospital MANUAL DIFF SEE BELOW [facility] ital Segmented neutrophils/100 leukocytes in Blood by Manual count 76 % 37 - 80 [facility] %LYMPH 14 % 25 - 40 L [facility] al %MONO 10 % 3 - 8 H [facility] al RBC MORPH MORPH IS NORMAL [facility] ID Date Data Source [id number] 03/09/2020 09:00:00 PM EDT [facility] Name Value Range Interpretation Code Description Data Yoana rce(s) Supporting Document(s) Urinalysis Laboratory test result [facility] URINALYSIS Source Laboratory test result [facility] ([facility]) SOURCE: Clean Catch Color Laboratory test result [facility] ([facility]) SOURCE: Clean Catch Clarity Laboratory test result [facility] ([facility]) SOURCE: Clean Catch pH 7 5-9 [facility] ([place] [facility]) SOURCE: Clean Catch Spec Auxier 1.015 1.001-1.030 [facility] ([facility]) SOURCE: Clean Catch Glucose Laboratory test result [facility] ([facility]) SOURCE: Clean Catch Bilirubin Laboratory test result [facility] ([facility]) SOURCE: Clean Catch Ketone Laboratory test result [facility] ([facility]) SOURCE: Clean Catch Protein Laboratory test result [facility] ([facility]) SOURCE: Clean Catch Nitrite Laboratory test result [facility] ([facility]) SOURCE: Clean Catch Blood 10 Abnormal (applies to non-numeric res ults) [facility] ([facility]) SOURCE: Clean Catch Leuk Est Laboratory test result [facility] ([facility]) SOURCE: Clean Catch Urobilinogen Laboratory test result [facility] NT ([facility]) SOURCE: Clean Catch Microscopic Laboratory test result [facility] ([facility]) SOURCE: Clean Catch WBC Laboratory test result [facility] ([facility]) SOURCE: Clean Catch Epithelial Laboratory test result Abnormal (applies to non -numeric results) [facility] ([facility]) SOURCE: Clean Catch RBC Laboratory test result [facility] ([facility]) SOURCE: Clean Catch Bacteria Laboratory test result [facility] ([facility]) SOURCE: Clean Catch ID Date Data Source [id number] 03/09/2020 09:12:00 PM EDT [facility] Name Value Range Interpretation Code Description Data Yoana rce(s) Supporting Document(s) [facility] COL[facility] yellow NORMAL: Yellow [facility] CLARITY hazy NORMAL: Clear [facility] spital Specific gravity of Urine by Test strip 1.015 1.001 - 1.030 [facility] pH 7 5 - 9 [facility] al Glucose [Mass/volume] in Urine by Test strip NORM NORMAL: Negat [facility] Bilirubin.total [Presence] in Urine by Test strip NEG NORMAL: Negative [facility] Ketones [Presence] in Urine by Test strip NEG NORMAL: Negative [facility] Protein [Mass/volume] in Urine by Test strip NEG NORMAL: Negat [facility] Nitrite [Presence] in Urine by Test strip NEG NORMAL: Negative [facility] BLOOD 10 NORMAL: Negative [facility] Leukocyte esterase [Presence] in Urine by Test strip NEG NESSA L: Negative [facility] Urobilinogen [Mass/volume] in Urine by Test strip NOR less aayn n 1.0 mg/dL [facility] MICROSCOPIC See Below [facility] ital WBC None Seen NORMAL: NONE SEEN [facility] Erythrocytes [#/volume] in Urine by Test strip 0 - 1 NORMAL: NON E SEEN [facility] EPITHELIAL MANY NORMAL: NONE SEEN [facility] Bacteria [Presence] in Urine sediment by Light microscopy Tr justo NORMAL: NONE SEEN [facility] Procedure Social History Code Duration Value Status Description Data Source(s ) Alcohol intake 05/10/2020 12:00:00 AM EDT Current drinker of al cohol (finding) completed Current drinker of alcohol (finding) [facility] Cigarettes smoked current (pack per day) - Reported 05/10/20 12:00:00 AM EDT UNK completed [facility] Smoking 05/10/2020 12:00:00 AM EDT Current every day smoker co mpleted Current every day smoker [facility] Alcohol intake 04/16/2020 12:00:00 AM EDT Current drinker of al cohol (finding) completed Current drinker of alcohol (finding) [facility] Cigarettes smoked current (pack per day) - Reported 04/16/20 12:00:00 AM EDT UNK completed [facility]spital Smoking 04/16/2020 12:00:00 AM EDT Current every day smoker co mpleted Current every day smoker [facility] Vital Signs ID Date Data Source UNK Name Value Range Interpretation Code Description Data Source(s) Body mass index (BMI) [Ratio] 40.7 kg/m2 40.7 k g/m2 [facility] ([facility]) Body weight 237.00 [lb_av] 237.00 [lb_av] [facility] ([facility]) Body height 64 [in_i] 64 [in_i] [facility] ([facility]) 5'4" Heart rate 70 /min 70 /min [facility] ([facility]) Diastolic blood pressure 72 mm[Hg] 72 mm[Hg] [facility] ([facility]) Systolic blood pressure 122 mm[Hg] 122 mm[Hg] M [facility] ([facility]) Body temperature 97.5 [degF] 97.5 [degF] [facility] ([facility]) Body weight 107.957 kg 107.957 kg [facility] Body mass index (BMI) [Ratio] 40.8 kg/m2 40.8 k g/m2 [facility] ([facility]) Heart rate 79 /min 79 /min [facility]) Diastolic blood pressure 77 mm[Hg] 77 mm[Hg] [facility] ([facility]) Systolic blood pressure 121 mm[Hg] 121 mm[Hg] M [facility] ([facility]) Body weight 238.00 [lb_av] 238.00 [lb_av] [facility] ([facility]) Body height 64 [in_i] 64 [in_i] [facility] 5'4" Body surface area Derived from formula 2.01 m2 2.01 m2 [facility] ([facility], ) Body weight 96.844 kg 96.844 kg [facility] ([facility], ) [place] body weight 120 [lb_av] 120 [lb_av] [facility] ([facility], ) Body mass index (BMI) [Ratio] 36.6 kg/m2 36.6 k g/m2 [facility] Body weight 213.50 [lb_av] 213.50 [lb_av] [facility] ([facility]) Body height 64 [in_i] 64 [in_i] [facility] ([facility]) 5'4" Diastolic blood pressure 95 mm[Hg] 95 mm[Hg] [facility] ([facility]) Systolic blood pressure 147 mm[Hg] 147 mm[Hg] [facility] ([facility]) [place] body weight 120 [lb_av] 120 [lb_av] [facility] ([facility]) Body height 64 [in_i] 64 [in_i] [facility] ([facility]) 5'4" Body mass index (BMI) [Ratio] 38.8 kg/m2 38.8 k g/m2 [facility] ([facility]) Oxygen saturation in Arterial blood by Pulse oximetry 98 % 98 % [facility] ([facility]) Body weight 226.00 [lb_av] 226.00 [lb_av] [facility] ([facility]) Body height 64 [in_i] 64 [in_i] [facility]) 5'4" Heart rate 72 /min 72 /min [facility] ([facility]) Diastolic blood pressure 78 mm[Hg] 78 mm[Hg] [facility] ([facility]) Systolic blood pressure 104 mm[Hg] 104 mm[Hg] [facility] ([facility]) Body mass index (BMI) [Ratio] 36.7 kg/m2 36.7 k g/m2 [facility] Body weight 214.00 [lb_av] 214.00 [lb_av] [facility] ([facility] ) Body height 64 [in_i] 64 [in_i] [facility] 5'4" Body temperature 97.7 [degF] 97.7 [degF] [facility] ID Date Data Source [id number] 05/21/2020 07:33:46 AM [facility] Name Value Range Interpretation Code Description Data Source(s) WEIGHT RECORDED 213.7 lb 213.7 lb [facility] Body height Measured 64 in 64 in [facility] ID Date Data Source [id number] 04/19/2020 02:43:41 PM [facility] Name Value Range Interpretation Code Description Data Source(s) WEIGHT RECORDED 211.4 lb 211.4 lb [facility] Body height Measured 64 in 64 in [facility] Patient Treatment Plan of Care Planned Activity Planned Date Details Description Data Source (s) aripiprazole 400 MG Injection 06/10/2020 12:00:00 AM [facility] aripiprazole 10 MG Oral Tablet 05/13/2020 12:00:00 AM [facility] Magnesium Hydroxide 80 MG/ML Oral Suspension 05/10/2020 08:33:43 AM [facility] Aluminum Hydroxide 40 MG/ML / Magnesium Hydroxide 40 MG/ML / Simethicone 4 MG/ML Oral Suspension 05/10/2020 08:33:43 AM EDT [facility] Nicotine 2 MG Chewing Gum 05/10/2020 08:33:43 AM [facility] Aluminum Hydroxide 40 MG/ML / Magnesium Hydroxide 40 MG/ML / Simethicone 4 MG/ML Oral Suspension 05/10/2020 07:00:38 AM EDT [facility] Magnesium Hydroxide 80 MG/ML Oral Suspension 05/10/2020 07:00:34 AM [facility] Citalopram 20 MG Oral Tablet 04/20/2020 12:00:00 AM [facility] olanzapine 5 MG Oral Tablet 04/19/2020 09:00:00 PM [facility] olanzapine 10 MG Oral Tablet 04/19/2020 12:00:00 AM [facility] Nicotine 4 MG/ACTUAT Inhalant Solution 04/19/2020 12:00:00 AM [facility] Melatonin 3 MG Oral Tablet 04/19/2020 12:00:00 AM [facility] Ondansetron 4 MG Disintegrating Oral Tablet 04/16/2020 04:36:59 AM [facility] acetaminophen (TYLENOL) tablet 650 mg 04/16/2020 04:36:20 AM [facility] aripiprazole 10 MG Oral Tablet [facility] Citalopram 40 MG Oral Tablet [facility]
--- NOTE | 2020-11-11 09:46 | ROOR ---
Patient Name: Vikki Sorto Procedure Date: 11/11/2020 9:27 AM Date of : 1990 Age: 29 Room: [facility] Gender: Female Note Status: Finalized Procedure: Upper Endoscopy + Biopsies Indications: Heartburn, Endoscopy to assess diarrhea in patient suspected of having celiac disease, Nausea with vomiting Providers: Michael Street MD Referring MD: Rusty Dean MD Requesting Provider: Medicines: Monitored Anesthesia Care Complications: No immediate complications. Procedure: Pre-Anesthesia Assessment: - The heart rate, respiratory rate, oxygen saturations, blood pressure, adequacy of pulmonary ventilation, and response to care were monitored throughout the procedure. The Endoscope was introduced through the mouth, and advanced to the second part of duodenum. The upper GI endoscopy was accomplished without difficulty. The patient tolerated the procedure well. Findings: The Z-line was variable and was found 40 cm from the incisors. Multiple biopsies were obtained with cold forceps for evaluation to rule out Nguyen's Esophagus randomly at the gastroesophageal junction. No other significant abnormalities were identified in a careful examination of the stomach. Biopsies were taken with a cold forceps in the gastric antrum for Helicobacter pylori testing. The exam of the duodenum was otherwise normal. Biopsies for histology were taken with a cold forceps for evaluation of celiac disease. The exam was otherwise without abnormality. Impression: - Z-line variable, 40 cm from the incisors. - The examination was otherwise normal. - Multiple biopsies were obtained at the gastroesophageal junction. - Biopsies were taken with a cold forceps for Helicobacter pylori testing. - Biopsies were taken with a cold forceps for evaluation of celiac disease. - The examination was otherwise normal. Recommendation: - Patient has a contact number available for emergencies. The signs and symptoms of potential delayed complications were discussed with the patient. Return to normal activities tomorrow. Written discharge instructions were provided to the patient. - Discharge patient to home. - Follow an antireflux regimen. - Continue present medications. - Await pathology results. - Telephone GI clinic for pathology results in 1 week. - Return to referring physician. - The findings and recommendations were discussed with the patient. Procedure Code(s): --- Professional --- 26142, Esophagogastroduodenoscopy, flexible, transoral; with biopsy, single or multiple Diagnosis Code(s): --- Professional --- K22.8, Other specified diseases of esophagus R12, Heartburn R19.7, Diarrhea, unspecified R11.2, Nausea with vomiting, unspecified CPT copyright 2019 [employer]. All rights reserved. The codes documented in this report are preliminary and upon caser up review may be revised to meet current compliance requirements. Michael Street MD Michael Street MD 11/11/2020 9:46:25 AM Electronically signed by Michael Street MD Number of Addenda: 0 Note Initiated On: 11/11/2020 9:27 AM Estimated Blood Loss: Estimated blood loss: none.
--- NOTE | 2020-11-11 10:02 | ROOR ---
Patient Name: Vikki Sorto Procedure Date: 11/11/2020 9:28 AM Date of : 1990 Age: 29 Room: [facility] Gender: Female Note Status: Finalized Procedure: Total Colonoscopy to Cecum + ileoscopy + Bx Indications: Lower abdominal pain, Clinically significant diarrhea of unexplained origin Providers: Michael Street MD Referring MD: Rusty Dean MD Requesting Provider: Medicines: Monitored Anesthesia Care Complications: No immediate complications. Procedure: Pre-Anesthesia Assessment: - The heart rate, respiratory rate, oxygen saturations, blood pressure, adequacy of pulmonary ventilation, and response to care were monitored throughout the procedure. The Colonoscope was introduced through the anus and advanced to the terminal ileum, with identification of the appendiceal orifice and IC valve. The colonoscopy was performed without difficulty. The patient tolerated the procedure well. The quality of the bowel preparation was excellent. Findings: The perianal and digital rectal examinations were normal. Non-bleeding internal hemorrhoids were found during retroflexion. The hemorrhoids were small and Grade I (internal hemorrhoids that do not prolapse). No other significant abnormalities were identified in a careful examination of the remainder of the colon. Biopsies for histology were taken with a cold forceps from the cecum, right colon, transverse colon and rectosigmoid colon for evaluation of microscopic colitis. The terminal ileum appeared normal. The exam was otherwise without abnormality. Impression: - Non-bleeding internal hemorrhoids. - The examined portion of the ileum was normal. - The examination was otherwise normal. - Biopsies were taken with a cold forceps from the cecum, right colon, transverse colon and rectosigmoid colon for evaluation of microscopic colitis. - The exam was otherwise normal to the cecum. Recommendation: - Patient has a contact number available for emergencies. The signs and symptoms of potential delayed complications were discussed with the patient. Return to normal activities tomorrow. Written discharge instructions were provided to the patient. - High fiber diet. - Discharge patient to home. - Continue present medications. - Await pathology results. - Telephone GI clinic for pathology results in 1 week. - Repeat colonoscopy at age 50 for screening purposes. - Return to referring physician. - The findings and recommendations were discussed with the patient. Procedure Code(s): --- Professional --- 34402, Colonoscopy, flexible; with biopsy, single or multiple Diagnosis Code(s): --- Professional --- K64.0, First degree hemorrhoids R10.30, Lower abdominal pain, unspecified R19.7, Diarrhea, unspecified CPT copyright 2019 [employer]. All rights reserved. The codes documented in this report are preliminary and upon bonding agent review may be revised to meet current compliance requirements. Michael Street MD Michael Street MD 11/11/2020 10:02:21 AM Electronically signed by Michael Street MD Number of Addenda: 0 Note Initiated On: 11/11/2020 9:28 AM Estimated Blood Loss: Estimated blood loss: none.
[2020-11-11] MEDS ORDERED: LIDOCAINE 2% 100MG/5ML SDV (FOR ANES.) As Ordered ONE (10:16)
[2020-11-11] MEDS ORDERED: propofoL 200 MG/20 ML VIAL As Ordered ONE (10:16)
[2020-11-11 10:25] VITALS: BP 116/73
== END 2020-11-11 10:33 | disposition home or self-care (01) ==
LOC: M OPP 08:45
PROVIDERS: ATTEND Internal Medicine Gastroenterology
DX: R19.7 Diarrhea, unspecified (principal); R10.30 Lower abdominal pain, unspecified; K64.0 First degree hemorrhoids; R12 Heartburn; K22.8 Other specified diseases of esophagus

== ENCOUNTER 2021-03-15 21:18 | Emergency (ER) | payer OTHER ==
[~2021-03-15] VITALS: Ht 162.6 cm; Wt 105.0 kg
[~2021-03-15 21:18] MED LIST changes: -NS 1,000 ML IV ONE
[2021-03-15 21:19] VITALS: BP 139/98
== END 2021-03-15 21:30 | disposition left against medical advice (07) ==
LOC: M ED 21:18
DX: Z53.21 Procedure and treatment not carried out due to patient leaving prior to being seen by health care provider (principal)

== ENCOUNTER 2021-06-24 08:31 | Emergency (ER) | payer OTHER ==
[~2021-06-24] VITALS: Ht 162.6 cm; Wt 103.6 kg
[~2021-06-24 08:31] MED LIST changes: +OMEP40CA4 PO; -OMEP40CA97 PO
[2021-06-24 08:37] VITALS: BP 159/83
== END 2021-06-24 10:15 | disposition left against medical advice (07) ==
LOC: M ED 08:31
DX: Z53.29 Procedure and treatment not carried out because of patient's decision for other reasons (principal)

== ENCOUNTER → 2021-08-25 | Outpatient (CLI) | payer OTHER | LOC: M LABSMTC 09:25 | PROVIDERS: ATTEND Anesthesiology | DX: Z01.812 Encounter for preprocedural laboratory examination (principal); Z20.822 Contact with and (suspected) exposure to COVID-19 ==

== ENCOUNTER 2021-08-29 06:00 | Day surgery (SDC) | payer OTHER ==
[~2021-08-29] VITALS: Ht 162.6 cm; Wt 104.8 kg
[~2021-08-29 06:00] MED LIST changes: +LR 1,000 ML IV ONE; +ceFAZolin SOD 2 GM in IV 1 EA IV ONE
[2021-08-29] MEDS ORDERED: ROCURONIUM BROMIDE 50 MG/5 ML VIAL As Ordered ONE ×2 (06:58→08:18)
[2021-08-29] MEDS ORDERED: ONDANSETRON 4MG/2ML VIAL As Ordered ONE (06:58)
[2021-08-29] MEDS ORDERED: dexameTHASONE 4 MG/ML 1ML VIAL (J1100 PER 1MG) As Ordered ONE (06:58)
[2021-08-29] MEDS ORDERED: fentaNYL 100 MCG/2 ML INJECTION (J3010) As Ordered ONE ×2 (06:58→08:49)
[2021-08-29] MEDS ORDERED: LIDOCAINE 2% 100MG/5ML SDV (FOR ANES.) As Ordered ONE (06:58)
[2021-08-29] MEDS ORDERED: MIDAZOLAM INJ 2MG/2ML VIAL (J2250 PER 1MG) As Ordered ONE (06:58)
[2021-08-29] MEDS ORDERED: propofoL 200 MG/20 ML VIAL As Ordered ONE ×2 (06:58→08:18)
[2021-08-29] MEDS ORDERED: LACRILUBE (AKWA TEARS) OPHTH OINT 3.5 GM As Ordered ONE (07:09)
[2021-08-29] MEDS ORDERED: BUPIVACAINE HCL 0.25% 10ML VIAL As Ordered ONE (07:13)
[2021-08-29 07:16] LABS: HEMATOCRIT 41.4 % (36.0-47.0); MEAN CORPUSCULAR HEMOGLOBIN 28.1 pg (27.0-33.0); MEAN CORPUSCULAR HGB CONC 31.4 g/dl (32.0-36.5); MEAN CORPUSCULAR VOLUME 89.6 fl (80.0-96.0); PLATELET COUNT, AUTOMATED 256 10^3/uL (150-450); RED BLOOD COUNT 4.62 10^6/uL (4.00-5.40); WHITE BLOOD COUNT 7.8 10^3/uL (4.0-10.0)
[2021-08-29] MEDS ORDERED: KETAMINE HCL 200 MG/20 ML VIAL As Ordered ONE (07:49)
[2021-08-29] MEDS ORDERED: GLYCOPYRROLATE INJ 0.2 MG/ML 2 ML VIAL As Ordered ONE (07:50)
[2021-08-29] MEDS ORDERED: ACETAMINOPHEN 1000MG 100ML IV BTL (OFIRMEV) (J0131 PER 10MG) As Ordered ONE (07:57)
[2021-08-29] MEDS ORDERED: METOCLOPRAMIDE INJ 10MG/2ML VIAL (J2765 PER 1) As Ordered ONE (07:57)
[2021-08-29] MEDS ORDERED: SUGAMMADEX SODIUM 500 MG/5 ML VIAL (BRIDION) As Ordered ONE (08:18)
[2021-08-29] MEDS ORDERED: KETOROLAC 60MG 2ML VIAL As Ordered ONE (08:19)
[2021-08-29] MEDS ORDERED: ePHEDrine SULFATE 25 MG/5 ML(5MG/ML) SYRINGE As Ordered ONE (08:27)
[2021-08-29] MEDS ORDERED: hydrALAZINE 20MG/ML 1ML VIAL (J0360 PER 20MG) As Ordered ONE (08:31)
--- NOTE | 2021-08-29 09:31 | ROOPDOC ---
[facility] Report Of Operation Report of Operation DATE OF PROCEDURE: 08/29/21 OPERATIVE REPORT: Preoperative diagnosis: Menorrhagia. Postoperative diagnosis: Same Procedure: Robotic-assisted laparoscopic hysterectomy, bilateral salpingo- oophorectomy, cystoscopy. Findings: Normal uterus, polycystic ovaries bilaterally, evidence of prior tubal sterilization with Falope-Rings. Normal upper abdomen. Surgeon: Estrella Munoz M.D. Pediatric Physiatrist: Carmen Cloud NP EBL: 150 mL's. Urine output: 200 mL's. Operative summary: Patient was taken to the operating room where general endotracheal anesthesia was induced. She was prepped and draped in sterile fashion in the dorsal lithotomy position. A Eid Catheter was placed. A V care uterine manipulator was placed. A Periumbilical incision was made with a scalpel. . A Veress needle was placed through this incision. Intra-abdominal location of Veress needle was assessed with saline filled syringe. A pneumoperitoneum was created. The Veress needle was removed. An 8 mm trocar using the Visiport was inserted through this incision. Three 8 mm suprapubic ports were placed under direct visualization The patient was placed in Trendelenburg position. The da Nancy surgical robot was docked to the ports. Using the fenestrated bipolar instrument and vessel sealer., the IP ligaments and broad ligaments were coagulated and incised. The round ligaments were coagulated and incised. The anterior and posterior leaves of the broad ligament were . Bladder flap was created. The uterine vessels were coagulated and incised using monopolar Endo Svetlana. A colpotomy was created in the upper vagina at the level of the V care Cup. The specimen including the uterus, cervix, fallopian tubes and ovaries was removed through the vagina. The vaginal cuff was closed with #1 V lock suture in running fashion. Cystoscopy was performed using a 70 cystoscope. Bilateral ureteral jets were identified. No evidence of injury to the bladder. The cystoscope was removed. All instruments removed. The skin was closed with 4-0 Monocryl subcuticular sutures. Carmen Cloud NP assisted with all aspects of the procedure. She helped position the patient. She helped insert the ports and manipulate the uterus. She removed the specimen. ESTRELLA MUNOZ MD Aug 29, 2021 09:31
[2021-08-29] MEDS ORDERED: OXYC1TAB23 PO (09:32)
[2021-08-29] MEDS ORDERED: IBUP-1022 PO (09:34)
[2021-08-29] MEDS ORDERED: LR 1,000 ML IV SCH ×2 (10:05→10:10)
[2021-08-29] MEDS ORDERED: METOCLOPRAMIDE INJ 10MG/2ML VIAL (J2765 PER 1) IV PRN (10:05)
[2021-08-29] MEDS ORDERED: oxyCODONE 5MG TAB PO PRN (10:05)
[2021-08-29] MEDS ORDERED: ONDANSETRON 4MG/2ML VIAL IV PRN ×2 (10:05→10:10)
[2021-08-29] MEDS ORDERED: PROMETHAZINE INJ 25 MG/ML VIAL (J2550) IV PRN (10:05)
[2021-08-29] MEDS ORDERED: fentaNYL 100 MCG/2 ML INJECTION (J3010) IV PRN (10:05)
[2021-08-29] MEDS ORDERED: HYDROMORPHONE HCL 0.5 MG/ 0.5 ML SYRINGE (J1170 PER 1) IV PRN (10:05)
[2021-08-29] MEDS ORDERED: PERCOCET 5MG/325MG TAB PO PRN (10:10)
[2021-08-29] MEDS ORDERED: KETOROLAC 30 MG/ML 1ML VIAL IV PRN (10:10)
[2021-08-29 11:07] VITALS: BP 114/64
[2021-08-29] MEDS ORDERED: ESTR1TAB PO (12:15)
[2021-08-29] MEDS ORDERED: DOCUSATE SODIUM 100MG CAPSULE PO SCH (21:00)
== END 2021-08-29 12:00 | disposition home or self-care (01) ==
LOC: M SDC 06:00
PROVIDERS: ATTEND Specialist
DX: N80.0 Endometriosis of uterus (principal); N88.8 Other specified noninflammatory disorders of cervix uteri; N83.201 Unspecified ovarian cyst, right side; N83.202 Unspecified ovarian cyst, left side; K21.9 Gastro-esophageal reflux disease without esophagitis; F41.9 Anxiety disorder, unspecified; F32.9 Major depressive disorder, single episode, unspecified; E66.9 Obesity, unspecified; Z68.39 Body mass index [BMI] 39.0-39.9, adult; F17.210 Nicotine dependence, cigarettes, uncomplicated; Z88.0 Allergy status to penicillin; Z79.899 Other long term (current) drug therapy
CPT/HCPCS: 36415; 58571; 81025; 85027; 86850; 86900; 86901; 88307; J0131; J0360; J0690; J1100; J1885; J2250; J2405; J2765; J3010; S2900

== ENCOUNTER → 2022-02-25 | Outpatient (REF) | payer OTHER ==
[~2022-02-25] MED LIST changes: -CITA40TA4 PO; +CITA40TA7 PO; +ESTR1TAB PO; +IBUP-1022 PO; -LR 1,000 ML IV ONE; -ceFAZolin SOD 2 GM in IV 1 EA IV ONE
[2022-02-25 19:32] LABS: AMYLASE 50 U/L (25-115); LIPASE 86 U/L (73-393)
== END ==
LOC: M LAB REF 16:36
PROVIDERS: ATTEND Family Medicine
DX: R11.10 Vomiting, unspecified (principal); R10.13 Epigastric pain

== ENCOUNTER → 2022-04-20 | Outpatient (CLI) | payer OTHER | LOC: M WHC 07:01 | PROVIDERS: ATTEND Family Medicine | DX: R11.10 Vomiting, unspecified (principal); R10.13 Epigastric pain ==

== ENCOUNTER → 2022-05-04 | Outpatient (REF) | payer OTHER ==
[2022-05-06 13:02] LABS: HCG, SERUM QUALITATIVE NEGATIVE (NEGATIVE)
== END ==
LOC: M LAB REF 12:13
PROVIDERS: ATTEND Family Medicine
DX: Z79.899 Other long term (current) drug therapy (principal)

== ENCOUNTER → 2022-05-05 | Outpatient (REF) | payer OTHER | LOC: M LAB REF 16:09 | PROVIDERS: ATTEND Family Medicine | DX: R10.13 Epigastric pain (principal) ==

== ENCOUNTER 2022-05-28 16:40 | Emergency (ER) | payer OTHER ==
[2022-05-28] MEDS ORDERED: PROM1SUP2 PR (17:30)
[2022-05-28] MEDS ORDERED: ALPR0.5T3 PO (17:30)
[2022-05-28 18:49] LABS: HEMATOCRIT 44.9 % (36.0-47.0); HEMOGLOBIN 14.3 g/dl (12.0-15.5); MEAN CORPUSCULAR HEMOGLOBIN 28.6 pg (27.0-33.0); MEAN CORPUSCULAR HGB CONC 31.8 g/dl (32.0-36.5); MEAN CORPUSCULAR VOLUME 89.8 fl (80.0-96.0); PLATELET COUNT, AUTOMATED 262 10^3/uL (150-450); WHITE BLOOD COUNT 10.2 10^3/uL (4.0-10.0)
[2022-05-28 19:05] LABS: HCG, SERUM QUALITATIVE NEGATIVE (NEGATIVE)
[2022-05-28 19:22] LABS: ACETAMINOPHEN LEVEL < 2.0 UG/ML (10.0-30.0); ALBUMIN 3.6 GM/DL (3.2-5.2); ALT/SGPT 51 U/L (12-78); AMPHETAMINES LEVEL URINE NEGATIVE (NEGATIVE); BARBITURATES URINE NEGATIVE (NEGATIVE); BENZODIAZEPINES URINE POSITIVE (NEGATIVE); BILIRUBIN,DIRECT < 0.1 MG/DL (0.0-0.2); BILIRUBIN,TOTAL 0.2 MG/DL (0.2-1.0); BLOOD UREA NITROGEN 6 MG/DL (7-18); CALCIUM LEVEL 9.5 MG/DL (8.5-10.1); CANNABINOIDS URINE POSITIVE (NEGATIVE); CARBON DIOXIDE LEVEL 31 MEQ/L (21-32); CHLORIDE LEVEL 104 MEQ/L (98-107); COCAINE METABOLITE URINE NEGATIVE (NEGATIVE); CREATININE FOR GFR 0.83 MG/DL (0.55-1.30); ETHYL ALCOHOL (ETHANOL) < 0.003 % (0.000-0.010); GLOMERULAR FILTRATION RATE > 60.0 (>60); GLUCOSE, FASTING 90 MG/DL (70-100); METHADONE URINE NEGATIVE (NEGATIVE); OPIATES URINE NEGATIVE (NEGATIVE); PHENCYCLIDINE URINE NEGATIVE (NEGATIVE); POTASSIUM SERUM 4.3 MEQ/L (3.5-5.1); SALICYLATE LEVEL < 1.7 MG/DL (5.0-30.0); SODIUM LEVEL 140 MEQ/L (136-145); TOTAL PROTEIN 7.2 GM/DL (6.4-8.2)
[2022-05-28 22:32] VITALS: BP 131/78
== END 2022-05-28 22:32 | disposition home or self-care (01) ==
LOC: M ED 16:40
DX: Z04.6 Encounter for general psychiatric examination, requested by authority (principal); F31.9 Bipolar disorder, unspecified; F41.9 Anxiety disorder, unspecified; K21.9 Gastro-esophageal reflux disease without esophagitis; Z79.899 Other long term (current) drug therapy; Z88.0 Allergy status to penicillin; Z88.8 Allergy status to other drugs, medicaments and biological substances; F17.210 Nicotine dependence, cigarettes, uncomplicated

== ENCOUNTER → 2024-02-15 | Outpatient (REF) | payer BC, OTHER ==
[~2024-02-15] MED LIST changes: +ALPR0.5T3 PO; +PROM1SUP2 PR
[2024-02-15 15:05] LABS: HEPATITIS B CORE ANTIBODY IGM NEGATIVE (NEGATIVE)
[2024-02-15 15:06] LABS: HEPATITIS C VIRUS ABY INDEX 0.02 INDEX (<0.8)
[2024-02-17 08:11] LABS: ANTI DOUBLE STRAND-DNA AB 1 IU/mL (0-9); ANTINUCLEAR ANTIBODIES DIRECT Positive (Negative); RNP ANTIBODIES 0.4 AI (0.0-0.9); SJOGREN'S ANTI SS-A 0.8 AI (0.0-0.9); SJOGREN'S ANTI SS-B <0.2 AI (0.0-0.9); SMITH ANTIBODIES <0.2 AI (0.0-0.9)
== END ==
LOC: M LAB REF 12:51
PROVIDERS: ATTEND Family Medicine
DX: R74.01 Elevation of levels of liver transaminase levels (principal)

== ENCOUNTER → 2024-03-23 | Outpatient (CLI) | payer BC ==
[~2024-03-23] MED LIST changes: +GASTROGRAFIN SOLUTION 30ML As Ordered ONE; +ISOVUE-370 76% 100ML VIAL As Ordered ONE
== END ==
LOC: M RAD 09:49
PROVIDERS: ATTEND Nurse Practitioner Family
DX: R10.10 Upper abdominal pain, unspecified (principal); K92.1 Melena
CPT/HCPCS: 74177; Q9963; Q9967

== ENCOUNTER → 2024-04-14 | Outpatient (REF) | payer BC ==
[~2024-04-14] MED LIST changes: -GASTROGRAFIN SOLUTION 30ML As Ordered ONE; -ISOVUE-370 76% 100ML VIAL As Ordered ONE; +ONDA-282 PO; -ONDA4TAB6 PO
[2024-04-14 15:09] LABS: C REACTIVE PROTEIN QUANTITATIV 0.5 MG/DL (<1.0)
[2024-04-14 15:11] LABS: PERCENT SATURATION 40.1 % (13.2-45.0)
[2024-04-14 15:13] LABS: FERRITIN 29.8 NG/ML (7.3-270.7)
[2024-04-17 14:47] LABS: TISSUE TRANSGLUTAMINASE IgA < 1.0 U/mL (<15.0)
[2024-04-17 18:12] LABS: ANTI-MITOCHONDRIAL ANTIBODY NEGATIVE (NEGATIVE)
== END ==
LOC: M LAB REF 12:37
PROVIDERS: ATTEND Family Medicine
DX: R94.5 Abnormal results of liver function studies (principal)

== ENCOUNTER 2024-08-07 10:32 | Day surgery (SDC) | payer BC ==
[~2024-08-07] VITALS: Ht 162.6 cm; Wt 93.0 kg
[~2024-08-07 10:32] MED LIST changes: +CITA20TA6 PO; +NS 250 ML IV ONE
[2024-08-07] MEDS ORDERED: LIDOCAINE 2% 100MG/5ML SDV (FOR ANES.) As Ordered ONE (11:31)
[2024-08-07] MEDS ORDERED: propofoL 200 MG/20 ML VIAL As Ordered ONE (11:31)
[2024-08-07] MEDS ORDERED: GLYCOPYRROLATE INJ 0.2 MG/ML 2 ML VIAL As Ordered ONE (11:31)
[2024-08-07 13:30] VITALS: BP 104/55; TEMP 97.4; O2SAT 98
== END 2024-08-07 13:45 | disposition home or self-care (01) ==
LOC: M OPP 10:32
PROVIDERS: ATTEND Internal Medicine Gastroenterology
DX: K62.5 Hemorrhage of anus and rectum (principal); K21.00 Gastro-esophageal reflux disease with esophagitis, without bleeding; K22.89 Other specified disease of esophagus; K44.9 Diaphragmatic hernia without obstruction or gangrene; F41.9 Anxiety disorder, unspecified; F32.A Depression, unspecified; F17.210 Nicotine dependence, cigarettes, uncomplicated; F12.20 Cannabis dependence, uncomplicated; Z88.1 Allergy status to other antibiotic agents; Z79.899 Other long term (current) drug therapy
CPT/HCPCS: 43239; 45378; 88305; J1596